=== PATIENT | female | born 1955 | race Caucasian/White ===

== ENCOUNTER 2017-06-03 15:45 | Emergency (ER) | payer SELFPAY ==
[~2017-06-03] VITALS: Ht 165.1 cm; Wt 127.0 kg
[~2017-06-03 15:45] MED LIST: B COMPLEX1 TA1 PO; BACTRIM DS 8001 TA1 PO; BACTRIM DS 8001 TAB PO; CETIRIZINE10 MG PO; CIPRO 500MG TA500 MG PO; ESTRADIOL1 M1 PO; HORMONE PILL PO; HYDROCODONE-APA1 TA1 PO; IBUPROFEN600 MG PO; IBUPROFEN800 MG PO; KEFLEX 500MG.500 MG PO; LASIX 20MG. TAB20 MG PO; LEVAQUIN500 MG PO; LORTAB 5/500 501 TAB PO; MAXZIDE 25 MG-31 TAB PO; MECLIZINE25 MG PO; MEDROXYPROGEST2.5 M1 PO; MEDROXYPROGEST2.5 MG PO; METFORMIN 500M500 M1 PO; METFORMIN500 MG PO; MUCINEX1200 MG PO; NAPROXEN SODIU500 MG PO; NAPROXEN500 MG PO; OMEPRAZOLE20 MG PO; PERCOCET 5/3251 EACH PO; PHENERGAN 25MG.25 M1 PO; POTASSIUM CHLO20 ME2 PO; PREDNISONE 10MG10 MG PO; PREMARIN 0.60.625 MG PO; PREMARIN2.5 MG PO; PRILOSEC20 M1 PO; Prilosec20 MG PO; RANITIDINE HCL150 MG PO; TESSALON PERLE100 M1 PO; TRAMADOL 512 EACH/PA PO; TRIAMTERENE/HCT1 TA1 PO; ULTRAM50 MG PO; VICODIN 5/500 T1 TAB PO; ZITHROMAX 250M250 MG PO; ZITHROMAX Z PA250 MG PO
--- NOTE | 2017-06-03 16:01 | Urgent Treatment Center Report ---
History of Present Issue Date/Time Seen by Provider 06/03/17 2429 Visit Reason Pt arrived:Walked Presenting Problem:PT STATES FALLING ON 05/05/17 AND TWISTED HER RIGHT KNEE. STATES TODAY SHE WAS ON HER PORCH AND TWISTED RIGHT KNEE AGAIN. STATES TAKING NAPROXEN AT 1000 BUT STATES THAT WAS BEFORE SHE TWISTED HER KNEE Location if Accident:Home Onset of symptoms date/time:06/03/17/ or onset unknown for:MEDICAL HX UNKNOWN Have you (or family members/close friends) recently traveled outside the [place]? N If Yes, where/when: Have you had exposure to infectious disease within the past month? TB? Other? Specify: Patient state that she fell earlier last month and hurt her right knee States that she was on her porch today and saw a snake and was trying to run away from the snake when she twisted her right knee again State that she took Napoxen this morning prior to twisting knee but hasnt taken anything since accident ALLERGIES Coded Allergies: Penicillins (02/27/16) tetanus and diphtheria toxoids (TETANUS & DIPHTHERIA TOXOIDS) (02/27/16) venom-honey bee (BEE VENOM (HONEY BEE)) (02/27/16) Home Medications Active Scripts Omeprazole (Omeprazole 20MG) 20 MG PO DAILY #30 ECC Ref 3 Prov: 10/03/13 Ibuprofen (Ibuprofen 800MG) 800 MG PO QIDP PRN pain #30 TAB Prov: 05/05/17 Reported Medications Hydrochlorothiazide W/Triamter (Triamterene-Hctz 37.5-25 MG Tb) 1 TAB PO DAILY PRN FLUID RETENTION/BLOOD PRESSURE NAPROXEN (NAPROXEN 500MG TAB) 500 MG PO BID Ranitidine Hcl (Ranitidine 150MG) 150 MG PO BID Conjugated Estrogens (Premarin) 2.5 MG PO DAILY Estradiol 1 MG PO DAILY #30 Metformin HCl (Metformin) 500 MG PO BID Medroxyprogesterone Acetate 2.5 MG PO DAILY #30 History Medical History General CAD? No Angina: No [place]: No Hypertension? Yes Hyperlipidemia? No CHF? No DVT? No PE? No COPD? No Asthma? Yes Anemia? No GERD? No Gastric ulcers? No GI Bleed? No Hernia? No Thyroid Problems? No Hypothyroidism? No CVA? No Seizures? No Diabetes? No Renal Insuffiency? No UTI? No Stones? No BPH? No GB Disease: Yes Nephritic Syndrome? No Asplenia? No Hepatitis? No Sickle Cell Disease? No Arthritis? No Migraines? No Cataracts? No Glaucoma? No MRSA? No HIV? No TB? No Anxiety? No Depression? No Cancer? Yes Site: CERVICAL Immunization HX DT/Tetanus Unknown Flu RECD IN [place] Pneumonia Never Had Surgical Hx Previous Surgery?Y TUMOR L SIDE FX L ARM D & C Gallbladder SINUS Family History Family HX Diabetes Yes CAD Yes Hypertension Yes Hyperlipidemia Yes Cancer Yes TB No Social History Smoking Hx Smoker: Never Smoker Tobacco: No Packs/day < 1 Pack Alcohol Alcohol: No Review of Systems All Other Systems Reviewed and Negative Comment Patient state that she fell about a month ago and injuried her right knee States that today she twisted her knee again when she tried to run from a snake Physical Exam Vital Signs Vital Signs Date Time Temp Pulse Resp B/P Pulse O2 O2 Flow FiO2 Ox Delivery Rate 06/03 1550 97.6 84 16 152/86 99 General Appearance normal appearance, WD/WN, no apparent distress Respiratory Status Yes: trachea midline, chest symmetrical, non tender chest. No: respiratory distress. 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 No (patient transfered to ER) Results/Orders Orders Procedure Date/time Status [facility] STABILIZE JOINT/AREA 06/03 1631 Active XRAY/CT/US XRAY/CT/US XRAY knee XR interpretation by reviewed by me Xray Results no fracture seen Progress [facility] Progress Notes Date 06/03/17 Time 1603 Departure Departure Time of Disposition 1604 Disposition DC Home or Self Care(routine) Clinical Impression Primary Impression: Knee sprain Qualifiers: Encounter type: initial encounter Involved ligament of knee: unspecified ligament Laterality: right Qualified Code: S83.91XA - Sprain of unspecified site of right knee, initial encounter Condition STABLE Referrals NO REFERRAL (Family) Patient Instructions DI for Knee Sprain, Knee Sprain Additional Instructions *weight bearing as tolerated *RICE, Rest the extremity, Ice 15-20 minutes 3-4 times daily, Compress- wear the abhay wrap as discussed as much as possible to help reduce swelling and pain, Elevate the extremity when at rest *Abhay wrap is for support and help control swelling, use it except in the shower. Be sure that is not to tight but not to loose either *Elevate when resting *Ibuprofen 800mg every 6-8 hours as needed for pain an inflammation. If need something more can take Tylenol in between doses of Ibuprofen to help Immediately follow up for new or worsening of symptoms, or no noticeable improvement over the next 3-5 days Discharge Counseling Counseled pt/family regarding diagnosis, test results, medications/RX, home care Prescriptions Current Visit Scripts Ibuprofen (Ibuprofen 800MG) 800 MG PO QIDP PRN pain #30 TAB at 9278
--- NOTE | 2017-06-03 16:01 | Urgent Treatment Center Report ---
History of Present Issue Date/Time Seen by Provider 06/03/17 3909 Visit Reason Pt arrived:Walked Presenting Problem:PT STATES FALLING ON 05/05/17 AND TWISTED HER RIGHT KNEE. STATES TODAY SHE WAS ON HER PORCH AND TWISTED RIGHT KNEE AGAIN. STATES TAKING NAPROXEN AT 1000 BUT STATES THAT WAS BEFORE SHE TWISTED HER KNEE Location if Accident:Home Onset of symptoms date/time:06/03/17/ or onset unknown for:MEDICAL HX UNKNOWN Have you (or family members/close friends) recently traveled outside the [place]? N If Yes, where/when: Have you had exposure to infectious disease within the past month? TB? Other? Specify: Patient state that she fell earlier last month and hurt her right knee States that she was on her porch today and saw a snake and was trying to run away from the snake when she twisted her right knee again State that she took Napoxen this morning prior to twisting knee but hasnt taken anything since accident ALLERGIES Coded Allergies: Penicillins (02/27/16) tetanus and diphtheria toxoids (TETANUS & DIPHTHERIA TOXOIDS) (02/27/16) venom-honey bee (BEE VENOM (HONEY BEE)) (02/27/16) Home Medications Active Scripts Omeprazole (Omeprazole 20MG) 20 MG PO DAILY #30 ECC Ref 3 Prov: 10/03/13 Ibuprofen (Ibuprofen 800MG) 800 MG PO QIDP PRN pain #30 TAB Prov: 05/05/17 Reported Medications Hydrochlorothiazide W/Triamter (Triamterene-Hctz 37.5-25 MG Tb) 1 TAB PO DAILY PRN FLUID RETENTION/BLOOD PRESSURE NAPROXEN (NAPROXEN 500MG TAB) 500 MG PO BID Ranitidine Hcl (Ranitidine 150MG) 150 MG PO BID Conjugated Estrogens (Premarin) 2.5 MG PO DAILY Estradiol 1 MG PO DAILY #30 Metformin HCl (Metformin) 500 MG PO BID Medroxyprogesterone Acetate 2.5 MG PO DAILY #30 History Medical History General CAD? No Angina: No [place]: No Hypertension? Yes Hyperlipidemia? No CHF? No DVT? No PE? No COPD? No Asthma? Yes Anemia? No GERD? No Gastric ulcers? No GI Bleed? No Hernia? No Thyroid Problems? No Hypothyroidism? No CVA? No Seizures? No Diabetes? No Renal Insuffiency? No UTI? No Stones? No BPH? No GB Disease: Yes Nephritic Syndrome? No Asplenia? No Hepatitis? No Sickle Cell Disease? No Arthritis? No Migraines? No Cataracts? No Glaucoma? No MRSA? No HIV? No TB? No Anxiety? No Depression? No Cancer? Yes Site: CERVICAL Immunization HX DT/Tetanus Unknown Flu RECD IN [place] Pneumonia Never Had Surgical Hx Previous Surgery?Y TUMOR L SIDE FX L ARM D & C Gallbladder SINUS Family History Family HX Diabetes Yes CAD Yes Hypertension Yes Hyperlipidemia Yes Cancer Yes TB No Social History Smoking Hx Smoker: Never Smoker Tobacco: No Packs/day < 1 Pack Alcohol Alcohol: No Review of Systems All Other Systems Reviewed and Negative Comment Patient state that she fell about a month ago and injuried her right knee States that today she twisted her knee again when she tried to run from a snake Physical Exam Vital Signs Vital Signs Date Time Temp Pulse Resp B/P Pulse O2 O2 Flow FiO2 Ox Delivery Rate 06/03 1550 97.6 84 16 152/86 99 General Appearance normal appearance, WD/WN, no apparent distress Respiratory Status Yes: trachea midline, chest symmetrical, non tender chest. No: respiratory distress. 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 No (patient transfered to ER) Results/Orders Orders Procedure Date/time Status [facility] STABILIZE JOINT/AREA 06/03 1631 Active XRAY/CT/US XRAY/CT/US XRAY knee XR interpretation by reviewed by me Xray Results no fracture seen Progress [facility] Progress Notes Date 06/03/17 Time 1603 Departure Departure Time of Disposition 1604 Disposition DC Home or Self Care(routine) Clinical Impression Primary Impression: Knee sprain Qualifiers: Encounter type: initial encounter Involved ligament of knee: unspecified ligament Laterality: right Qualified Code: S83.91XA - Sprain of unspecified site of right knee, initial encounter Condition STABLE Referrals NO REFERRAL (Family) Patient Instructions DI for Knee Sprain, Knee Sprain Additional Instructions *weight bearing as tolerated *RICE, Rest the extremity, Ice 15-20 minutes 3-4 times daily, Compress- wear the abhay wrap as discussed as much as possible to help reduce swelling and pain, Elevate the extremity when at rest *Abhay wrap is for support and help control swelling, use it except in the shower. Be sure that is not to tight but not to loose either *Elevate when resting *Ibuprofen 800mg every 6-8 hours as needed for pain an inflammation. If need something more can take Tylenol in between doses of Ibuprofen to help Immediately follow up for new or worsening of symptoms, or no noticeable improvement over the next 3-5 days Discharge Counseling Counseled pt/family regarding diagnosis, test results, medications/RX, home care Prescriptions Current Visit Scripts Ibuprofen (Ibuprofen 800MG) 800 MG PO QIDP PRN pain #30 TAB at 6802
--- NOTE | 2017-06-03 16:27 | RADIOLOGY REPORT PS360 ---
KNEE-3 VIEWS-RT COMPARISON: Right knee 05/05/2017 HISTORY: Right knee pain after twisting injury TECHNIQUE: AP lateral and oblique views FINDINGS: There is minor joint space narrowing medially and there is minor spurring of the tibial spines. There is no fracture or loose body. There is mild narrowing of the patellofemoral space. There is no effusion. IMPRESSION: Mild degenerative changes in the medially, no acute pathology noted
[2017-06-03] MEDS ORDERED: IBUPROFEN800 MG PO (16:28)
[2017-06-03 16:40] VITALS: BP 152/86
--- OUTSIDE RECORDS SUMMARY | 2017-06-06 16:42 | External Medical Summary Rpt ---
Author Author , LUDIN NOLAND Address Unknown Phone [email or web address] Care Team Providers Care Slate Cutter Name Role Phone ARNOLD OLU, ARNOLD Unavailable Unavailable OLU ARNOLD OLU, ARNOLD Unavailable Unavailable OLU BESSON JENI, BESSON Unavailable Unavailable JENI JASON ANT, JASON ANT Unavailable Unavailable [facility] Unavailable Unavailable INC, [facility] MÁRQUEZ TOMMY, Unavailable Unavailable MÁRQUEZ TOMMY MÁRQUEZ TOMMY, Unavailable Unavailable MÁRQUEZ TOMMY CELLAROSI - YORBA Unavailable Unavailable PAT, CELLAROSI - YORBA PAT [facility] Unavailable Unavailable [facility], [facility] CHIPPS DEJUAN & Unavailable Unavailable DUBILIER, [facility] DUBILIER LUCRECIA TER, LUCRECIA TER Unavailable Unavailable BALL JOSE ARMANDO, BALL Unavailable Unavailable JOSE ARMANDO BALL JOSE ARMANDO, BALL Unavailable Unavailable JOSE ARMANDO [facility], Unavailable Unavailable [facility] Unavailable Unavailable [facility], [facility] [place] PAT, D[place]AS PAT Unavailable Unavailable ARNOLD MARYCRUZ, Unavailable Unavailable ARNOLD MARYCRUZ ARNOLD MARYCRUZ, Unavailable Unavailable ARNOLD MARYCRUZ [facility], Unavailable Unavailable [facility] Unavailable Un[facility], [facility] Unavailable Un[facility] BAINS MARISA, Unavailable Unavailable BAINS MARISA FALLUJI MATTHEW, FALLUJI Unavailable Unavailable MATTHEW FINE BRA, FINE BRA Unavailable Unavailable ALISON JOLENE, ALISON Unavailable Unavailable JOLENE ALISON JOLENE, ALISON Unavailable Unavailable JOLENE [facility] Unavailable Unavailable [facility], [facility] Unavailable Unavailable [facility], [facility] Unavailable [facility]available EMS, [facility] POMPA URBAN, [facility] U[facility] Unavailable Unavailable [facility] Unavailable Unavailable INC, [facility] Unavailable Unavailable HOSPITAL P, [facility], Unavailable Unavailable [facility] MURTAZA TALBOT, MURTAZA Unavailable Unavailable [facility] Unavailable Unavailable [facility], [facility] May Grover MD, Unavailable Unavailable May PEARSON, IVIS PEARSON Unavailable Unavailable [facility] SMILEY RUSS, SMILEY Unavailable Unavailable RUSS SMILEY RUSS, SMILEY Unavailable Unavailable RUSS JERONIMO JR DWI, JERONIMO Unavailable Unavailable JR DWI [facility] Un[facility] Unavailable [facility], [facility] YULIYA GRE, Unavailable Unavailable YULIYA GRE YULIYA GRE, Unavailable Unavailable YULIYA GRE [facility] Unavailable Unavailable SERVICES, [facility] MCKEMIE JR SUSU, Unavailable Unavailable MCKEMIE JR SUSU SCHMITZ SUSU, SCHMITZ SUSU Unavailable Unavailable [facility] Un[facility] Unavailable [facility], [facility] PICKLESIMER JR LOCO, Unavailable Unavailable [facility] P[facility], Unavailable Unavailable [facility], Unavailable Unavailable [facility] RENUSCH SHAHEED, RENUSCH Unavailable Unavailable SHAHEED SCIFRES ANG, SCIFRES Unavailable Unavailable ANG [facility] Unavailable Unavailable EM[facility]Y PH[facility], [facility] Titus Walters MD, Unavailable Unavailable Titus PAYNE MARISA, KERRY Unavailable Unavailable MARISA KERRY HIGH, KERRY Unavailable Unavailable ANILA KERRY HIGH, KERRY Unavailable Unavailable ANILA [facility] # Unavailable Unavailable [id number], [facility] # [id number] ZACH MORAN, Unavailable Unavailable ZACH MORAN, Unavailable Unavailable ZACH ASHBY, CYNTHIA Unavailable Unavailable SYMONE Purpose Continuity of Care Document - 02-06-2011 through 2016 Problems Code Diagnosis DOS Provider Status [id number] PAIN IN 02-27-2016 [facility] [id number] PAIN IN 02-27-2016 [facility] M7989 OTHER 02-27-2016 [facility] SPECIFIED MEDICAL SOFT TISSUE IMAGING ASS DISORDERS [id number] UNSPECIFIED 02-27-2016 [facility] INITIAL ENCOUNTER [id number] UNSPECIFIED 02-27-2016 [facility] INJURY MEDICAL LEFT FOOT IMAGING ASS INITIAL ENCOUNTER K5289 OT SPEC 11-24-2015 JOSE[facility] RAINES NONINFECTIV E GASTROENTER ITIS & COLITIS J069 ACUTE UPPER 10-31-2015 JOSE[facility] RAINES RESPIRATORY INFECTION UNSPECIFIED B349 VIRAL 10-28-2015 [facility] UNSPECIFIED HOSPITA E876 HYPOKALEMIA 10-28-2015 [facility] J029 ACUTE 10-28-2015 [facility] PHARYNGITIS COMMUNTIY HOSPITA UNSPECIFIED J441 CHRONIC 10-28-2015 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 PULMONARY PHYS DZ W/EXACERBAT ION R000 TACHYCARDIA 10-28-2015 [facility] [place] [facility] UNSPECIF[facility] R05 COUGH 10-28-2015 [facility] [place] [facility] R0602 SHORTNESS 10-28-2015 [facility]- OF BREATH [facility] R079 CHEST PAIN 10-28-2015 [facility]- UNSPECIFIED [place] R0981 NASAL 10-28-2015 [facility] CONGESTION COMMUNTIY HOSPITA R509 FEVER 10-28-2015 [facility]- UNSPECIFIED [place] R9431 ABNORMAL 10-28-2015 [facility] ELECTROCARD COMMUNTIY IOGRAM HOSPITA H6691 OTITIS 10-05-2015 [facility] PH[facility]ANS UNSPECIFIED GROUP RIGHT EAR J0100 ACUTE 10-05-2015 [facility] MAXILLARY PHYSICIANS SINUSITIS GROUP UNSPECIFIED H6690 OTITIS 09-29-2015 JOSEF RAINES MEDIA UNSPECIFIED UNSPECIFIED EAR J0190 ACUTE 09-05-2015 [facility] RAINES SINUSITIS UNSPECIFIED Z0100 ENCOUNTER 08-26-2015 YULIYA EXAM EYES & GRE VISION W/O ABNORMAL FIND 22709 SIMPLE/UNSP 04-20-2015 [facility] ECIFIED PHYSICIANS CHRONIC GROUP SEROUS OTITIS MEDIA 3829 UNSPECIFIED 04-20-2015 COMMUNITY OTITIS ANESTH OF MEDIA [facility] 470 DEVIATED 04-20-2015 [facility] NASAL PHYSICIANS SEPTUM GROUP 4710 POLYP OF 04-20-2015 [facility] NASAL PHYSICIANS CAVITY GROUP 4718 OTHER POLYP 04-20-2015 [facility] 4730 CHRONIC 04-20-2015 [facility] MAXILLARY PHYSICIANS SINUSITIS GROUP 4739 UNSPECIFIED 04-15-2015 [facility] SINUSITIS [facility] P V7283 OTHER 04-15-2015 [facility] P VE EXAMINATION 3831 CHRONIC 03-30-2015 [facility] MASTOIDITIS PHYSICIANS GROUP 84307 DIAB W/O 03-18-2015 [facility] COMP TYPE MEM HOSP II/UNS NOT INC STATED UNCNTRL 3814 NONSUPPRATV 02-23-2015 [facility] OTITIS PHYSICIANS MEDIA NOT GROUP SPEC ACUT/CHRON 4279 UNSPECIFIED 02-23-2015 [facility] CARDIAC PHYSICIANS DYSRHYTHMIA GROUP 3839 UNSPECIFIED 02-06-2015 [facility] MASTOIDITIS INC 4610 ACUTE 02-06-2015 [facility] MAXILLARY MEM HOSP SINUSITIS INC 4779 ALLERGIC 01-26-2015 SMI[facility] RUSS RHINITIS CAUSE UNSPECIFIED 29477 UNSPECIFIED 01-08-2015 [facility] P 4019 UNSPECIFIED 01-08-2015 [facility] P N 7840 HEADACHE 01-08-2015 [facility] P 1101 DERMATOPHYT 11-21-2014 [place] OS[facility] OF FOOT & NAIL ANKLE CE 3569 UNSPEC 11-21-2014 [place] HEREDIT&IDI FOOT & OPATHIC ANKLE CE PERIPHERAL NEUROPATHY 7038 OTHER 11-21-2014 [place] SPECIFIED FOOT & DISEASE OF ANKLE CE NAIL 14649 OSTEOARTHRO 11-21-2014 [place] SIS UNSPEC FOOT & WHETHER ANKLE CE GEN/LOC ANK&FOOT 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 [address] OSTEOARTHRO 10-31-2014 [facility] S UNSPEC COMMUNTIY WHETHER HOSPITA GEN/LOC UNSPEC SITE 43268 GENERALIZED 10-31-2014 [facility] PAIN COMMUNTIY HOSPITA 63771 PAIN IN 10-24-2014 [facility] [place] [facility] FOOT 486 PNEUMONIA, 10-18-2014 [facility] ORGANISM PHYSICIANS UNSPECIFIED GROUP 4660 ACUTE 10-14-2014 ARNOLD OLU BRONCHITIS 6256 FEMALE 10-04-2014 [facility] STRESS PHYSICIANS INCONTINENC GROUP E 55115 OSTEOARTHRO 10-03-2014 JOSEF OLU S INVLV MX SITES BUT NOT SPEC GEN 47645 PAIN IN 10-03-2014 ARNCYNTHIA OLU JOINT, LOWER LEG 4619 ACUTE 08-25-2014 ARNOLD OLU SINUSITIS, UNSPECIFIED 5110 PLEURISY 08-11-2014 ARNOLD OLU WITHOUT MENTION EFFUS/[place] [address] KYPHOSIS 06-27-2014 KERRY ANILA ACQUIRED POSTURAL 7391 NONALLOPATH 06-27-2014 KERRY ANILA IC LESION OF CERVICAL REGION NEC 7392 NONALLOPATH 06-27-2014 KERRY ANILA IC LESION OF THORACIC REGION NEC 7398 NONALLOPATH 06-27-2014 KERRY HIGH IC LESION OF RIB CAGE NEC 6259 UNSPEC 05-20-2014 LIZZY JOSE ARMANDO SYMPTOM ASSOC W/FEMALE GENITAL ORGANS 6271 POSTMENOPAU 05-20-2014 LIZZY JOSE ARMANDO REJI BLEEDING 91956 UNSPECIFIED 05-05-2014 JOSEF RAINES SLEEP APNEA 6272 SYMPTOMATIC 04-18-2014 [facility] MENOPAUSAL/ INC FEMALE CLIMACTERIC STATES 6210 POLYP OF 04-04-2014 [facility] UTERI INC 6268 OTH D/O 04-04-2014 [facility] MENSTRUATIO [facility] HOS[facility] N&OTH ABN INC BLEED FE GNT TRACT 35065 INCOMPLETE 03-25-2014 MÁRQUEZ BLADDER TOMMY EMPTYING 38066 CALCANEAL 03-17-2014 ARNOLD SPUR MARYCRUZ 35764 UNSPECIFIED 03-17-2014 JOSEF RAINES URINARY INCONTINENC E 9178 OTH&UNSPEC 03-17-2014 [facility] SUP INJURY MEM HOSP FOOT&TOES INC W/O MENTION INF 5259 UNSPECIFIED 03-01-2014 ALISON JOLENE DISORDER TEETH&SUPPO RTING STRUCTURES 07473 OTHER 02-01-2014 JOSEF RAINES MALAISE AND FATIGUE 6253 DYSMENORRHE 01-13-2014 BALL JOSE ARMANDO A V720 EXAMINATION 01-12-2014 YULIYA OF EYES GRE AND VISION 35001 OTHER 01-05-2014 ARNOLD ABNORMAL MARYCRUZ FINDING RADIOLOGICA L EXAM BREAST V7612 OTHER 01-05-2014 [facility] SCREENING [facility] MAMMOGRAM INC V7231 ROUTINE 01-01-2014 [facility] GYNECOLOGIC MEM HOSP AL INC EXAMINATION 73701 TRICHOMONAL 12-29-2013 DENNIS ADAN VULVOVAGINI TIS 06111 UNSPECIFIED 12-29-2013 LIZZY JOSE ARMANDO VAGINITIS AND VULVOVAGINI TIS V745 SCREENING 12-29-2013 DENNIS EXAMINATION JR ADAN FOR VENEREAL DISEASE 327.23 327.23 10-03-2013 [place] OBSTRUCTIVE [facility] SLEEP [facility] APNEA (ADULT) (PEDIATRIC) 401.9 401.9 10-03-2013 [place] HYPERTENSIO [facility] N NOS Hospital 427.9 427.9 10-03-2013 [place] CARDIAC [facility] DYSRHYTHMIA Hospital NOS 530.81 530.81 10-03-2013 [place] ESOPHAGEAL [facility] REFLUX Hospital 786.59 786.59 10-03-2013 [place] CHEST PAIN [facility] V14.0 V14.0 10-03-2013 [place] HX-PENICILL [facility] IN ALLERGY Hospital V14.8 V14.8 10-03-2013 [place] HX-DRUG [facility] ALLERGY [facility] Hospital V15.82 V15.82 10-03-2013 [place] HISTORY OF [facility] TOBACCO USE [facility] V58.69 V58.69 OTH 10-03-2013 [place] MED,LT,CURR [facility] ENT USE [facility] 786.05 786.05 04-14-2013 [place] SHORTNESS [facility] OF BREATH [facility] 57356 ESOPHAGEAL 12-02-2011 JOSEF RAINES REFLUX 50050 UNS 12-02-2011 HOWARDCYNTHIA RAINES GASTRITIS&G ASTRODUODIT IS W/O MENTION HEMORR 98918 UNSPEC 11-28-2011 ALISON JOLENE VENTRAL JUHI W/O MENTION OBST/GANGRE N 5589 OTH&UNSPEC 11-08-2011 JOSEF RAINES NONINFECTIO US GASTROENTER ITIS&COLITI S 82612 OBSTRUCTIVE 11-02-2011 [facility] 69652 UNSPECIFIED 10-04-2011 JOSEF RAINES ENTHESOPATH Y OF ANKLE AND TARSUS 73981 CHOLECYSTIT 08-23-2011 COMMUNITY IS, ANESTH OF UNSPECIFIED THE BLUE 64530 CHRONIC 08-23-2011 [facility] CHOLECYSTIT MEM HOSP IS INC 5756 CHOLESTEROL 08-23-2011 [facility] OF DEJUAN & GALLBLADDER DUBILIER 5758 OTHER 08-20-2011 [facility] DISORDER OF HOSPITAL P GALLBLADDER 33777 ABDOMINAL 08-17-2011 JOSEF RAINES PAIN, GENERALIZED 74996 ABDOMINAL 08-15-2011 [facility] PAIN, MEDICAL EPIGASTRIC IMAGING ASS 5770 ACUTE 08-14-2011 [place] [facility] 8830 OPEN WOUND 08-13-2011 YULIYA FINGER EMERGENCY WITHOUT SERVICES MENTION COMPLICATIO N 7823 EDEMA 07-05-2011 JOSEF RAINES 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 S PHYSICIANS GROUP 21625 NONSPECIFIC 03-07-2011 [facility] P IOGRAM Allergies, Adverse Reactions, Alerts Type Drug Allergy Adverse Reaction to Substance Substance Reaction Severity Penicillin Z-[id number]-BMSB/THROAT Unknown Tetanus Toxoid UNKNOWN REACTION Unknown Medications Na ND Rx Da Fi Fi Am Da Di Ph RX Ph St me C No te ll ll ou ys ag ar # ys at rm s nt no ma ic us Or Da si cy ia de te s n re d 63 12 0 No PI 73 -0 RI 90 1- Lo N 02 20 ng EC 30 13 er 1 32 Ac 5 ti MG ve TA BL ET TR 00 12 0 No IA 37 -0 MT 81 1- Lo ER 35 20 ng EN 20 13 er E- 1 HC Ac TZ ti ve 37 .5 -2 5 MG TB FL 00 11 1 No OT 00 -3 ON 80 0- Lo IX 92 20 ng 35 13 er IV 5 Ac 40 ti ve MG AL SO 00 11 1 No DI 40 -3 UM 97 0- Lo 98 20 ng CH 30 13 er LO 9 RI Ac DE ti ve 0. 9% SO NOEMY TI ON Sa 63 11 1 No li 80 -3 ne 70 0- Lo 10 20 ng Fl 07 13 er us 5 h Ac 10 ti ML ve Sy ri ng e 66 11 0 No PI 55 -3 RI 30 0- Lo N 00 20 ng 32 10 13 er 5 1 MG Ac ti TA ve BL ET NI 00 11 0 No TR 28 -3 O- 10 0- Lo BI 32 20 ng D 60 13 er 2% 8 Ac OI ti NT ve ME NT Sa 63 06 0 No li 80 -1 ne 70 2- Lo 10 20 ng Fl 07 13 er us 5 h Ac 10 ti ML ve Sy ri ng e Na 51 06 0 No pr 07 -1 ox 90 2- Lo en 79 20 ng 52 13 er 50 0 0M Ac G ti Ta ve bl et 00 10 10 0 24 5 WA 44 SC Ac 40 -2 -2 .0 L- 97 HU ti 60 1- 1- 00 MA 07 LS ve 35 20 20 RT 1 TA 70 11 11 D 5 PH CA AR MP MA BE CY LL # K 10 05 91 00 10 10 5 28 28 CL 24 CL Ac 04 -1 -1 .0 IN 76 AR ti 60 8- 8- 00 IC 67 KE ve 87 20 20 51 11 11 PH DE 1 AR RE MA K CY J LL C CI 00 10 10 0 20 10 WA 71 BE Ac FL 37 -1 -1 .0 L- 39 SS ti OF 87 5- 5- 00 MA 04 ON ve LO 09 20 20 RT 4 XA [address] CI 1 PH EP N AR HE HC MA N L CY A 50 # 0 MG 10 05 TA 91 B 00 10 10 0 20 5 WA 44 BE Ac 40 -1 -1 .0 L- 96 SS ti 60 4- 4- 00 MA 91 ON ve 35 20 20 RT [address] 5 PH EP AR HE MA N CY A # 10 05 91 TR 00 09 09 5 30 30 WA 71 AR Ac IA 78 -0 -2 .0 L- 33 NO ti MT 11 2- 9- 00 MA 55 LD ve ER 00 20 20 RT 7 EN 80 11 11 RI E- 1 PH CH HC AR AR TZ MA D CY W 75 # -5 0 10 MG 05 91 TA B 00 04 09 6 28 28 CL 23 CL Ac 04 -2 -1 .0 IN 72 AR ti 60 6- 3- 00 IC 87 KE ve 87 20 20 51 11 11 PH DE 1 AR RE MA K CY J LL C TR 00 09 09 5 30 30 WA 71 AR Ac IA 78 -0 -0 .0 L- 33 NO ti MT 11 2- 2- 00 MA 55 LD ve ER 00 20 20 RT 7 EN 80 11 11 RI E- 1 PH CH HC AR AR TZ MA D CY W 75 # -5 0 10 MG 05 91 TA B 00 04 08 6 28 28 CL 23 CL Ac 04 -2 -1 .0 IN 72 AR ti 60 6- 7- 00 IC 87 KE ve 87 20 20 51 11 11 PH DE 1 AR RE MA K CY J LL C 00 07 07 0 8. 2 WA 44 GA Ac 40 -3 -3 00 L- 95 IN ti 60 0- 0- 0 MA 29 EY ve 35 20 20 RT 5 70 11 11 AZ 5 PH CH AR AE MA L CY S # 10 05 91 00 07 07 0 12 2 WA 44 GR Ac 40 -2 -2 .0 L- 95 AY ti 60 2- 2- 00 MA 14 ve 35 20 20 RT 4 RO 70 11 11 BE 5 PH RT AR B MA CY # 10 05 91 00 04 07 6 28 28 CL 23 CL Ac 04 -2 -2 .0 IN 72 AR ti 60 6- 1- 00 IC 87 KE ve 87 20 20 51 11 11 PH DE 1 AR RE MA K CY J LL C DO 00 06 06 0 20 10 CL 24 LA Ac XY 14 -2 -2 .0 IN 11 WS ti CY 33 8- 9- 00 IC 97 ON ve CL 14 20 20 IN 25 11 [address] HY MA OR CL CY G AT E LL 10 C 0 MG CA P FL 00 06 06 0 21 6 CL 24 LA Ac ED 60 -2 -2 .0 IN 12 WS ti NI 35 9- 9- 00 IC 07 ON ve SO 33 20 20 NE 72 11 11 PH [address] MA OR MG CY G TA LL BL C ET 00 04 06 6 28 28 CL 23 CL Ac 04 -2 -2 .0 IN 72 AR ti 60 6- 4- 00 IC 87 KE ve 87 20 20 51 11 11 PH DE 1 AR RE MA K CY J LL C TR 00 06 06 5 80 15 WA 71 AR Ac IA 16 -1 -1 .0 L- 23 NO ti MC 80 6- 6- 00 MA 45 LD ve IN 00 20 20 RT 7 OL 48 11 11 RI ON 0 PH CH E AR AR 0. MA D 1% CY W # CR EA 10 M 05 91 00 04 05 6 28 28 CL 23 CL Ac 04 -2 -2 .0 IN 72 AR ti 60 6- 5- 00 IC 87 KE ve 87 20 20 51 11 11 PH DE 1 AR RE MA K CY J LL C AZ 00 05 05 0 6. 5 CL 23 LA Ac IT 78 -1 -1 00 IN 88 WS ti HR 11 9- 9- 0 IC 72 ON ve OM 49 20 20 YC 66 11 11 PH IN [address] MA OR 25 CY G 0 MG LL C TA BL ET FL 00 05 05 0 21 6 CL 23 LA Ac ED 60 -1 -1 .0 IN 88 WS ti NI 35 9- 9- 00 IC 77 ON ve SO 33 20 20 NE 73 11 11 PH [address] MA OR MG CY G TA LL BL C ET ME 00 05 05 0 21 6 WA 71 LA Ac TH 60 -0 -0 .0 L- 18 WS ti YL 34 5- 5- 00 MA 05 ON ve FL 59 20 20 RT 6 ED 31 [address] SO AR OR LO MA G NE CY 4 # MG 10 05 DO 91 SE PK AZ 00 05 05 0 4. 4 CL 23 GA Ac IT 78 -0 -0 00 IN 78 IN ti HR 11 5- 5- 0 IC 95 EY ve OM 49 20 20 YC 66 11 11 PH AZ IN 8 AR CH MA AE 25 CY L 0 S MG LL C TA BL ET CE 45 04 04 0 30 30 CL 23 AR Ac TI 80 -2 -2 .0 IN 73 NO ti RI 20 7- 7- 00 IC 20 LD ve ZI 91 20 20 NE 98 11 11 PH RI 7 AR CH HC MA AR L CY D 10 W LL MG C TA BL ET 00 04 04 6 28 28 CL 23 CL Ac 04 -2 -2 .0 IN 72 AR ti 60 6- 6- 00 IC 87 KE ve 87 20 20 51 11 11 PH DE 1 AR RE MA K CY J LL C Vital Signs 10-03-2013 12:32 Name Value Interpretat Reference Comment ion Range Body 98.3 [degF] Temperature BP 69 mm[Hg] Diastolic BP Systolic 117 mm[Hg] Heart 66 /min Rate/Pulse Respiratory 18 /min Rate 10-03-2013 11:29 Name Value Interpretat Reference Comment ion Range O2% 96 % 10-02-2013 21:50 Name Value Interpretat Reference Comment ion Range Height 165.10 cm Weight 120.685 kg Measured 10-02-2013 19:34 Name Value Interpretat Reference Comment ion Range Body 98.7 [degF] Temperature BP 76 mm[Hg] Diastolic BP Systolic 138 mm[Hg] Heart 85 /min Rate/Pulse O2% 97 % Respiratory 20 /min Rate Weight 0 [oz_av] Measured 04-14-2013 15:54 Name Value Interpretat Reference Comment ion Range Body 9.1 [degF] Temperature BP 86 mm[Hg] Diastolic BP Systolic 141 mm[Hg] Heart 72 /min Rate/Pulse O2% 98 % Respiratory 20 /min Rate 04-14-2013 12:30 Name Value Interpretat Reference Comment ion Range BP 69 mm[Hg] Diastolic BP Systolic 119 mm[Hg] Heart 79 /min Rate/Pulse O2% 98 % Respiratory 20 /min Rate Results Labs Lab Lab Date Result Refere Interp Status Commen Order Detail nces retati t Range on COMPREHENSIVE METABOLIC PANEL (10-02-2013 19:54) Glucose 126 74-106 complet 013 mg/dL ed Bld-mCn 19:54 c BUN 10-02- 13 7-18 complet Bld-mCn 013 mg/dL ed c 19:54 Creat 2 1.4 0.6-1.0 complet SerPl-m 013 mg/dL ed Cnc 19:54 GFR/BSA 39 59- complet .pred 013 ML/MIN ed SerPl 19:54 Schwart z-vRate Sodium 139 136-145 complet SerPl-s 013 mmoL/L ed Cnc 19:54 Potassi 3.3 3.5-5.1 complet um 013 mmoL/L ed SerPl-s 19:54 Cnc Chlorid 102 98-107 complet e 013 mmoL/L ed SerPl-s 19:54 Cnc CO2 28 21.0-32 complet SerPl-s 013 mmoL/L .0 ed Cnc 19:54 Calcium 7.8 8.5-10. complet 013 mg/dL 1 ed SerPl-m 19:54 Cnc Prot 6.7 6.4-8.2 complet SerPl-m 013 gm/dL ed Cnc 19:54 Albumin 3.3 3.4-5.0 complet 013 gm/dL ed SerPl-m 19:54 Cnc Globuli 3.4 1.3-3.2 complet n 013 gm/dL ed Ser-mCn 19:54 c Albumin 1.0 UNK 1.1-1.8 complet /Glob 013 ed SerPl-m 19:54 Rto Bilirub 2 0.5 0.2-1.0 complet 013 mg/dL ed SerPl-m 19:54 Cnc AST 10-02- 17 U/L 15-37 complet SerPl-c 013 ed Cnc 19:54 ALT 10-02- 37 U/L 30-65 complet SerPl-c 013 ed Cnc 19:54 ALP 94 U/L 50-136 complet SerPl-c 013 ed Cnc 19:54 CBC with AUTO DIFF (10-02-2013 19:54) WBC # 11-30-2 6.5 4.8-10. complet Bld 013 K/MM3 8 ed Auto 19:54 RBC # 11-30-2 4.35 4.2-5.4 complet Bld 013 M/mm3 ed Auto 19:54 Hgb 11-30-2 13.8 12.2-16 complet Bld-mCn 013 g/dL .2 ed c 19:54 Hct Fr 11-30-2 38.5 % 37.0-47 complet Bld 013 .0 ed 19:54 MCV RBC 11-30-2 88.5 fl 82.2-97 complet 013 .8 ed 19:54 MCH RBC 11-30-2 31.6 pg 27-31.2 complet Qn 013 ed Auto 19:54 MEAN 11-30-2 35.8 31.8-35 complet CORPUSC 013 g/dl .4 ed ULAR 19:54 HGB CONC RDW RBC 11-30-2 14.1 % 11.5-17 complet Auto 013 .5 ed 19:54 Platele 11-30-2 307 142-424 complet t Bld 013 K/mm3 ed Ql 19:54 Manual MEAN 11-30-2 7.4 fl 7.4-10. complet PLATELE 013 4 ed T 19:54 VOLUME Granulo 11-30-2 78.7 % 37.0-80 complet cytes 013 .0 ed Fr Bld 19:54 Auto LYMPH % 11-30-2 14.6 % 10-50.0 complet 013 ed 19:54 Monocyt 11-30-2 4.7 % 1.7-9.3 complet es Fr 013 ed Bld 19:54 Auto Eosinop 11-30-2 1.7 % 0.1-12. complet hil Fr 013 0 ed Bld 19:54 Auto Basophi 11-30-2 0.3 % 0.1-2.0 complet ls Fr 013 ed Bld 19:54 Auto Granulo 11-30-2 5.1 1.8-7.8 complet cytes # 013 K/mm3 ed Bld 19:54 Auto Lymphoc 11-30-2 1.0 0.7-4.5 complet ytes Fr 013 K/mm3 ed Bld 19:54 Auto Monocyt 11-30-2 0.3 0.1-1.0 complet es # 013 K/mm3 ed Bld 19:54 Auto Eosinop 30-2 0.1 0.0-0.4 complet hil # 013 K/mm3 ed Bld 19:54 Auto Basophi 30-2 0.0 0-0.2 complet ls # 013 K/MM3 ed Bld 19:54 Auto TROPONIN I (04-14-2013 14:45) TROPONI 04-14- Less 0.00-0. complet N I 013 than 06 ed 14:45 0.02 ng/mL BASIC METABOLIC PANEL (04-14-2013 12:18) Glucose 135 74-106 complet 013 mg/dL ed Bld-mCn 12:18 c BUN 14 7-18 complet Bld-mCn 013 mg/dL ed c 12:18 Creat 1.5 0.6-1.0 complet SerPl-m 013 mg/dL ed Cnc 12:18 GFR 36 59- complet (ESTIMA 013 ML/MIN ed STEVEN) 12:18 Sodium 139 136-145 complet SerPl-s 013 mmoL/L ed Cnc 12:18 Potassi 3.5 3.5-5.1 complet um 013 mmoL/L ed SerPl-s 12:18 Cnc Chlorid 101 98-107 complet e 013 mmoL/L ed SerPl-s 12:18 Cnc CO2 31 21.0-32 complet SerPl-s 013 mmoL/L .0 ed Cnc 12:18 Calcium 8.8 8.5-10. complet 013 mg/dL 1 ed SerPl-m 12:18 Cnc TROPONIN I (04-14-2013 12:18) TROPONI 04-14-2 0.00 0.00-0. complet N I 013 ng/mL 06 ed 12:18 CBC with AUTO DIFF (04-14-2013 12:18) WBC # 12-2 7.3 4.8-10. complet Bld 013 K/MM3 8 ed Auto 12:18 RBC # 04-14-2 4.39 4.2-5.4 complet Bld 013 M/mm3 ed Auto 12:18 Hgb 04-14-2 13.1 12.2-16 complet Bld-mCn 013 g/dL .2 ed c 12:18 Hct Fr 12-2 39.1 % 37.0-47 complet Bld 013 .0 ed 12:18 MCV RBC 06-12-2 89.1 fl 82.2-97 complet 013 .8 ed 12:18 MCH RBC -12-2 29.8 pg 27-31.2 complet Qn 013 ed Auto 12:18 MEAN 12-2 33.5 31.8-35 complet CORPUSC 013 g/dl .4 ed ULAR 12:18 HGB CONC RDW RBC -12-2 13.0 % 11.5-17 complet Auto 013 .5 ed 12:18 Platele -12-2 305 142-424 complet t Bld 013 K/mm3 ed Ql 12:18 Manual MEAN 04-14-2 7.4 fl 7.4-10. complet PLATELE 013 4 ed T 12:18 VOLUME Granulo -12-2 66.4 % 37.0-80 complet cytes 013 .0 ed Fr Bld 12:18 Auto LYMPH % -12-2 26.3 % 10-50.0 complet 013 ed 12:18 Monocyt 06-12-2 3.9 % 1.7-9.3 complet es Fr 013 ed Bld 12:18 Auto Eosinop -12-2 2.6 % 0.1-12. complet hil Fr 013 0 ed Bld 12:18 Auto Basophi 06-12-2 0.7 % 0.1-2.0 complet ls Fr 013 ed Bld 12:18 Auto Granulo 06-12-2 4.8 1.8-7.8 complet cytes # 013 K/mm3 ed Bld 12:18 Auto Lymphoc 06-12-2 1.9 0.7-4.5 complet ytes Fr 013 K/mm3 ed Bld 12:18 Auto Monocyt 06-12-2 0.3 0.1-1.0 complet es # 013 K/mm3 ed Bld 12:18 Auto Eosinop 06-12-2 0.2 0.0-0.4 complet hil # 013 K/mm3 ed Bld 12:18 Auto Basophi 06-12-2 0.1 0-0.2 complet ls # 013 K/MM3 ed Bld 12:18 Auto CHLAMYDIA AND GONORRHEA TESTING (03-09-2013 16:00) Chlamyd NEGATIV complet ia 013 E ed trachom 16:00 atis rRNA [Presen ce] in Unspeci fied specime n by Probe & target amplifi cation method Neisser NEGATIV complet ia 013 E ed gonorrh 16:00 oeae rRNA [Presen ce] in Unspeci fied specime n by Probe & target amplifi cation method CHLAMYDIA AND GONORRHEA TESTING (03-09-2013 16:00) COLLECT NA complet OR 013 ed 16:00 ETHNICI WHITE, complet TY 013 NON-HIS ed 16:00 PANIC KIT 08-02-13 complet EXPIRAT 013 ed ION 16:00 DATE SYMPTOM NO complet S 013 ed 16:00 REASON REVISIT complet FOR 013 /ANNUAL ed REQUEST 16:00 FAMILY PLANNIN G VISIT SPECIME URINE complet N 013 ed SOURCE 16:00 PREGNAN NO complet T 013 ed 16:00 CHART NA complet NUMBER 013 ed 16:00 Chlamyd Pending complet ia 013 ed trachom 16:00 atis rRNA [Presen ce] in Unspeci fied specime n by Probe & target amplifi cation method Neisser Pending complet ia 013 ed gonorrh 16:00 oeae rRNA [Presen ce] in Unspeci fied specime n by Probe & target amplifi cation method Procedures Procedure DOS Code Location Performer Comment RADEX 31761 UTAH ARNOLD ANKLE 6 MEDICAL MARYCRU[facility] COMPLETE IMAGING MINIMUM 3 ASS VIEWS RADEX 11336 UTA[facility] ARNOLD FOOT 6 MEDICAL MARYCRUZ COMPLETE IMAGING MINIMUM 3 ASS VIEWS COMPREHEN 78016 [facility] SIVE 5 N N METABOLIC COMMUNTIY COMMUNTIY PANEL HOSPITA HOSPITA BLOOD 64679 [facility] COUNT 5 N N COMPLETE COMMUNTIY COMMUNTIY AUTO&AUTO HOSPITA HOSPITA DIFRNTL WBC RADIOLOGI 21192 [facility] CELLAROSI C 5 MIKE - YORBA EXAMINATI EMERGENCY PAT ON CHEST PHYS SINGLE VIEW FRONTAL AMB A0427 [facility] SERVICE 5 N-GEORGIA N-GEORGIA ALS CO EMS CO EMS EMERGENCY TRANSPORT LEVEL 1 ECG 88733 [facility] CELLARO ROUTINE 5 MIKE - YORBA ECG EMERGENCY PAT W/LEAST PHYS 12 LDS I&R ONLY GROUND A0425 [facility] MILEAGE 5 Chris-GEORGIA Perez-GEORGIA PER CO EMS CO EMS STATUTE MILE PREDNISON J7506 [facility] DIATHERIX E ORAL 5 N PER 5 MG COMMUNTIY LABORATOR HOSPITA IES LLC COLLECTIO 96459 [facility] N VENOUS 5 N N BLOOD COMMUNTIY COMMUNTIY VENIPUNCT HOSPITA HOSPITA URE INJECTION J0696 JOSEF BAHENA 5 OLU OLU CEFTRIAXO NE SODIUM PER 250 MG INJECTION J0696 JOSEF BAHENA 5 OLU OLU CEFTRIAXO NE SODIUM PER 250 MG OPHTH 23679 [facility] 5 GRE GRE XM&EVAL COMPRHNSV ESTAB PT 1/> ANESTHESI 99679 [facility] KERRY A NOSE & 5 ANESTH MARISA ACCESSORY OF THE SINUSES BLUE NOS TYMPANOST [address]8850 [facility] BENITEZ 5 PHYSICIAN RUSS GENERAL S GROUP ANESTHESI A NSL/SINUS 80196 [facility] NDSC MAX 5 PHYSICIAN PHYSICIAN ANTROST S GROUP S GROUP W/RMVL TISS MAX SINUS LEVEL III 37378 [facility], LUCRECIA TER SURG 5 [facility] PATHOLOGY GROSS&[place] [address] [facility], LUCRECIA TER SURG 5 [facility] PATHOLOGY GROSS&JOLENE ROSCOPIC EXAM ECG 87649 NIDIA JACOB ROUTINE 5 [facility] ECG INC INC W/LEAST 12 LDS TRCG ONLY W/O I&R COLLECTIO 81006 NIDIA JACOB N VENOUS 5 [facility] BLOOD INC INC VENIPUNCT URE ECG 81753 NIDIA DECKER JR ROUTINE 5 [facility] W/LEAST P 12 LDS I&R ONLY BASIC 78766 NIDIA JACOB METABOLIC 5 [facility] PANEL INC INC CALCIUM TOTAL BLOOD 03429 NIDIA JACOB COUNT 5 [facility] COMPLETE INC INC AUTO&AUTO DIFRNTL WBC HEMOGLOBI 07409 NIDIA JACOB N 5 [facility] GLYCOSYLA INC INC STEVEN A1C COLLECTIO 30256 NIDIA JACOB N VENOUS 5 [facility] BLOOD INC INC VENIPUNCT URE TYMPANOME 08362 BALJIT SMILEY TRY 5 RUSS RUSS DISTORT 75500 BALJIT SMILEY PRODUCT 5 RUSS RUSS EVOKED OTOACOUST IC EMISNS LIMITD COMPRE 07877 BALJIT GLOVERON AUDIOMETR 5 RUSS RUSS [place] [address] NIDIA JACOB MAXILLOFA 5 [facility] CIAL W/O INC INC CONTRAST MATERIAL RADEX 08530 [place] [facility] FOOT 5 FOOT & COMPLETE ANKLE CE MINIMUM 3 VIEWS WALKING L4360 [place] [facility] BOOT 5 FOOT & PNEUMATC ANKLE CE &/ VACUUM PREFAB CUSTM FIT RADEX 71782 [place] [facility] FOOT 4 FOOT & COMPLETE ANKLE CE MINIMUM 3 VIEWS TRIMMING 75185 [place] [facility]INE BRA NONDYSTRO 4 FOOT & PHIC ANKLE CE NAILS ANY NUMBER COLLECTIO 88449 [facility] N VENOUS 4 N N BLOOD COMMUNTIY COMMUNTIY VENIPUNCT HOSPITA HOSPITA URE RHEUMATOI 91310 [facility] D FACTOR 4 N N QUALITATI COMMUNTIY COMMUNTIY VE HOSPITA HOSPITA MRI LOWER 56527 [facility] EXTREM 4 [place] [facility] OTH/THN ORTHOPAED JT W/O [facility]CS PLC CONTR MATRL THERAPEUT 90156 [facility] IC 4 PHYSICIAN PHYSICIAN PROPHYLAC S GROUP S GROUP TIC/DX INJECTION SUBQ/IM INJECTION J1040 [facility] ALISON 4 PHYSICIAN JOLENE METHYLPRE S GROUP DNISOLONE ACETATE 80 MG RADEX 20702 [facility] [place] FOOT 4 [place] COMPLETE ORTHOPAED MINIMUM 3 ICS PLC VIEWS CHIROPRAC 18939 KERRY PAYNE TIC 4 ANILA ANILA MANIPULAT OSVALDO [place] SPINAL 1-2 REGIONS CHIROPRAC 86800 KERRY KERRY TIC 4 ANILA ANILA MANIPULAT [place] SPINAL 1-2 REGIONS CHIROPRAC 24393 KERRY KERRY TIC 4 ANILA ANILA MANIPULAT [place] SPINAL 1-2 REGIONS CHIROPRAC 28867 KERRY KERRY TIC 4 ANILA ANILA MANIPULAT OSVALDO [place] SPINAL 1-2 REGIONS THERAPEUT 84979 KERRY KERRY IC PX 1/> 4 ANILA ANILA AREAS EACH 15 MIN EXERCISES THERAPEUT 25898 KERRY KERRY IC PX 1/> 4 ANILA ANILA AREAS EACH 15 MIN EXERCISES CHIROPRAC 56867 KERRY KERRY TIC 4 ANILA ANILA MANIPULAT OSVALDO TX SPINAL 1-2 REGIONS APPL 09517 KERRY KERRY MODALITY 4 ANILA ANILA 1/> AREAS TRACTION MECHANICA L CHIROPRA 91367 KERRY KERRY TIC 4 ANILA ANILA MANIPULAT OSVALDO TX SPINAL 1-2 REGIONS THERAPEUT 63657 KERRY KERRY IC PX 1/> 4 ANILA ANILA AREAS EACH 15 MIN EXERCISES CHIROPRAC 75615 KERRY KERRY TIC 4 ANILA ANILA MANIPULAT OSVALDO TX SPINAL 1-2 REGIONS CHIROPRAC 48121 KERRY KERRY TIC 4 ANILA ANILA MANIPULAT OSVALDO TX SPINAL 1-2 REGIONS CHIROPRAC 29785 KERRY KERRY TIC 4 ANILA ANILA MANIPULAT OSVALDO TX SPINAL 1-2 REGIONS CHIROPRAC 38894 KERRY KERRY TIC 4 ANILA ANILA MANIPULAT OSVALDO TX SPINAL 1-2 REGIONS THERAPEUT 12358 KERRY KERRY IC PX 1/> 4 ANILA ANILA AREAS EACH 15 MIN EXERCISES CHIROPRAC 19126 KERRY KERRY TIC 4 ANILA ANILA MANIPULAT OSVALDO TX SPINAL 1-2 REGIONS THERAPEUT 98796 KERRY KERRY IC PX 1/> 4 ANILA ANILA AREAS EACH 15 MIN EXERCISES GONADOTRO 90102 NIDIA JACOB PIN 4 [facility] LUTEINIZI INC INC NG HORMONE GONADOTRO 20709 NIDIA GARCIAON PIN 4 [facility] FOLLICLE INC INC STIMULATI NG HORMONE CHIROPRAC 34880 KERRY EKRRY TIC 4 ANILA ANILA MANIPULAT OSVALDO [place] SPINAL 1-2 REGIONS THERAPEUT 93759 KERRY KERRY IC PX 1/> 4 ANILA ANILA AREAS EACH 15 MIN EXERCISES THERAPEUT 69412 KERRY PAYNE IC PX 1/> 4 ANILA ANILA AREAS EACH 15 MIN EXERCISES CHIROPRAC 05007 KERRY PAYNE TIC 4 ANILA ANILA MANIPULAT OSVALDO [place] SPINAL 1-2 REGIONS CHIROPRAC 26763 KERRY PAYNE TIC 4 ANILA ANILA MANIPULAT OSVALDO TX SPINAL 1-2 REGIONS THERAPEUT 85667 KERRY PAYNE IC PX 1/> 4 ANILA ANILA AREAS EACH 15 MIN EXERCISES HYSTEROSC 81733 LIZZY BALL OPY BX 4 JOSE ARMANDO JOSE ARMANDO ENDOMETRI UM&/POLYP C W/WO D&C INJECTION J2405 NIDIA JACOB 4 [facility] ONDANSETR INC INC ON HCL PER 1 [place] [address] [facility], MURTAZA SURG 4 [facility] PATHOLOGY GROSS&JOLENE ROSCOPIC EXAM ECG 45268 NIDIA RAE ROUTINE 4 [facility] DIAGNOSTI ECG INC CS W/LEAST 12 LDS TRCG ONLY W/O I&R BASIC 88839 NIDIA JACOB METABOLIC 4 [facility] PANEL INC INC CALCIUM TOTAL ECG 66268 JERONIMO NUNEZ JERONIMO JR ROUTINE 4 DWI DWI ECG W/LEAST 12 LDS I&R ONLY BLOOD 58521 NIDIA JACOB COUNT 4 [facility] COMPLETE INC INC AUTO&AUTO DIFRNTL WBC CHIROPRAC 80816 KERRY PAYNE TIC 4 ANILA ANILA MANIPULAT OSVALDO TX SPINAL 1-2 REGIONS THERAPEUT 87939 KERRY PAYNE IC PX 1/> 4 ANILA ANILA AREAS EACH 15 MIN EXERCISES THERAPEUT 37125 KERRY PAYNE IC PX 1/> 4 ANILA ANILA AREAS EACH 15 MIN EXERCISES CHIROPRAC 16128 KERRY PAYNE TIC 4 ANILA ANILA MANIPULAT OSVALDO [place] SPINAL 1-2 REGIONS BRYAN 59598 MÁRQUEZ MÁRQUEZ POST-VOID 4 TOMMY TOMMY ING RESIDUAL URINE&/BL ADDER CAP CHIROPRAC 24065 KERRY PAYNE TIC 4 ANILA ANILA MANIPULAT OSVALDO [place] SPINAL 1-2 REGIONS THERAPEUT 76167 KERRY PAYNE IC PX 1/> 4 ANILA ANILA AREAS EACH 15 MIN EXERCISES THERAPEUT 48421 KERRY PAYNE IC PX 1/> 4 ANILA ANILA AREAS EACH 15 MIN EXERCISES CHIROPRAC 93178 KERRY PAYNE TIC 4 ANILA ANILA MANIPULAT OSVALDO [place] SPINAL 1-2 REGIONS APPL 47027 KERRY KERRY MODALITY 4 ANILA ANILA 1/> AREAS TRACTION MECHANICA L RADEX 52149 NIDIA JACOB FOOT 4 [facility] COMPLETE INC INC MINIMUM 3 VIEWS APPL 67897 KERRY KERRY MODALITY 4 ANILA ANILA 1/> AREAS TRACTION MECHANICA L CHIROPRAC 28357 KERRY PAYNE TIC 4 ANILA ANILA MANIPULAT OSVALDO [place] SPINAL 1-2 REGIONS APPL 88228 KERRY KERRY MODALITY 4 ANILA ANILA 1/> AREAS ELEC STIMJ UNATTENDE D THERAPEUT 30473 KERRY PAYNE IC PX 1/> 4 ANILA ANILA AREAS EACH 15 MIN EXERCISES THERAPEUT 74495 KERRY PAYNE IC PX 1/> 4 ANILA ANILA AREAS EACH 15 MIN EXERCISES APPL 65007 KERRY KERRY MODALITY 4 ANILA ANILA 1/> AREAS ELEC STIMJ UNATTENDE D CHIROPRAC 28372 KERRY PAYNE TIC 4 ANILA ANILA MANIPULAT OSVALDO [place] SPINAL 1-2 REGIONS APPL 78402 KERRY PAYNE MODALITY 4 ANILA ANILA 1/> AREAS TRACTION MECHANICA L ENDOMETRI 26120 LIZZY BALL AL BX 4 JOSE ARMANDO JOSE ARMANDO W/WO ENDOCERVI X BX W/O DILAT SPX THERAPEUT 41358 KERRY PAYNE IC PX 1/> 4 ANILA ANILA AREAS EACH 15 MIN EXERCISES CHIROPRAC 27266 KERRY PAYNE TIC 4 ANILA ANILA MANIPULAT [place]DO [place] SPINAL 1-2 REGIONS APPL 09939 KERRY KERRY MODALITY 4 ANILA ANILA 1/> AREAS ELEC STIMJ UNATTENDE D APPL 80740 KERRY KERRY MODALITY 4 ANILA ANILA 1/> AREAS TRACTION MECHANICA L APPL 60770 KERRY KERRY MODALITY 4 ANILA ANILA 1/> AREAS TRACTION MECHANICA L APPL 19554 KERRY KERRY MODALITY 4 ANILA ANILA 1/> AREAS ELEC STIMJ UNATTENDE D CHIROPRAC 50228 KERRY PAYNE TIC 4 ANILA ANILA MANIPULAT OSVALDO TX SPINAL 1-2 REGIONS THERAPEUT 79863 KERRY PAYNE IC PX 1/> 4 ANILA ANILA AREAS EACH 15 MIN EXERCISES CHIROPRAC 70969 KERRY PAYNE TIC 4 ANILA ANILA MANIPULAT OSVALDO [place] SPINAL 1-2 REGIONS APPL 32772 KERRY PAYNE MODALITY 4 ANILA ANILA 1/> AREAS ELEC STIMJ UNATTENDE D APPL 27802 KERRY PAYNE MODALITY 4 ANILA ANILA 1/> AREAS TRACTION MECHANICA L SALINE 78216 LIZZY BALL INFUS 4 JOSE ARMANDO JOSE ARMANDO SONOHYSTE ROGRAPHY W/COLOR DOPPLER INJECTION J3420 JOSEF LAWRENCEOLD VIT B-12 4 OLU OLU CYANOCOBA OVIDIO TO 1000 MCG INJECTION J3420 JOSEF LAWRENCEOLD VIT B-12 4 OLU OLU CYANOCOBA OVIDIO TO 1000 MCG INJECTION J3420 JOSEF LAWRENCEOLD VIT B-12 4 OLU OLU CYANOCOBA OVIDIO TO 1000 MCG 79109 LIZZY BALL TRANSVAGI 4 JOSEA RMANDO JOSE ARMANDO NAL DETERMINA 78580 [facility] TI 4 GRE GRE REFRACTIV E STATE OPHTH 50572 [facility] 4 GRE GRE XM&EVAL COMPRHNSV ESTAB PT 1/> DIAGNOSTI G0204 ARNOLD ARNOLD C 4 MARYCRUZ MARYCRUZ MAMMOGRAP HY INCL CAD WHEN PERF; BILAT SCREENING G0202 NIDIA JACOB 4 [facility] MAMMOGRAP INC INC HY AGGIE INCL CAD WHEN PERFORMD COMPUTER- 09784 NIDIA JACOB AIDED 4 [facility] DETECTION INC INC SCREENING MAMMOGRAP HY GONADOTRO 95533 NIDIA JACOB PIN 4 [facility] LUTEINIZI INC INC NG HORMONE BLOOD 20258 NIDIA JACOB COUNT 4 [facility] COMPLETE INC INC AUTO&[place] [address] NIDIA JACOB FREE 4 [facility] [place] [address] NIDIA JACOB THYROID 4 [facility] STIMULATI INC INC NG HORMONE TSH COMPREHEN 02118 NIDIA JACOB SIVE 4 [facility] METABOLIC INC INC PANEL LIPID 12303 NIDIA JACOB PANEL 4 [facility] INC INC GONADOTRO 06174 NIDIA JACOB PIN 4 [facility] FOLLICLE INC INC STIMULATI NG HORMONE URINE 59972 LIZZY BALL 4 JOSE ARMANDO JOSE ARMANDO TEST VISUAL COLOR CMPRSN METHS SMR PRIM 19882 LIZZY BALL SRC WET 4 JOSE ARMANDO JOSE ARMANDO MOUNT NFCT AGT IADNA 80405 PICKLESIM PICKLESIM CHLAMYDIA 4 ER JR LOCO ER JR LOCO TRACHOMAT IS AMPLIFIED PROBE TQ IADNA 31597 P[facility] PICKLESIM NEISSERIA 4 ER JR LOCO ER JR LOCO GONORRHOE AE AMPLIFIED PROBE TQ CYTP C/V 81043 PICKLESIM PICKLESIM AUTO THIN 4 ER JR LOCO ER JR LOCO LYR PREPJ SCR MNL RESCR PHYS CONTINUOU E0601 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 S 1 HOME HOME POSITIVE MEDICAL MEDICAL AIRWAY EQUIP EQUIP PRESSURE DEVICE LEVEL III 61977 [facility] SURG 1 DEJUAN & PATHOLOGY DUBILIER GROSS&JOLENE ROSCOPIC EXAM INJECTION J2405 NIDIA JACOB 1 [facility] ONDANSETR INC INC ON HCL PER 1 MG URINE 82734 NIDIA JACOB 1 [facility] TEST INC [place] [address] NIDIA JACOB INFUSION 1 [facility] THERAPY INC INC PROPHYLAX IS/DX EA HOUR ANES 41416 [facility] SCH[facility] SUSU INTRAPERI 1 ANESTH TONEAL OF THE UPPER BLUE ABDOMEN W/LAPS NOS LAPAROSCO 08676 NIDIA JACOB PY SURG 1 [facility] CHOLECYST INC INC ECTOMY LAPAROSCO 5123 NIDIA JACOB PIC 1 [facility] CHOLECYST INC INC ECTOMY ECG 40816 NIDIA WALTERS ROUTINE [address] [facility] W/LEAST P 12 LDS I&R ONLY ECG 80781 NIDIA JACOB ROUTINE 1 [facility] ECG INC INC W/LEAST 12 LDS TRCG ONLY W/O I&R HOSPITAL 28040 [facility] DISCHARGE 1 [facility] DAY INTERNAL MANAGEMEN MED T 30 MIN/< [place] [address] KUSH BARRETT ABDOMINAL 1 MEDICAL MARYCRUZ REAL IMAGING TIME ASS W/IMAGE LIMITED SBSQ 78515 [facility] 1 [facility] CARE/DAY INTERNAL 25 MED MINUTES SBSQ 77483 [facility] 1 [facility] CARE/DAY INTERNAL 25 MED MINUTES INITIAL 67475 VIVIENNE GOMEZ ANT INPATIENT 1 MEDICAL CONSULT SERV NEW/ESTAB FOUNDATIO PT 80 MIN INITIAL 85762 [facility] 1 [facility] CARE/DAY INTERNAL 50 MED MINUTES FINE 99933 [facility] PAT NEEDLE 1 DEJUAN & ASPIRATIO DUBILIER N W/O IMAGING GUIDANCE CYTP EVAL 31211 [facility] PAT FINE 1 DEJUAN & NEEDLE DUBILIER ASPIRATE INTERP & REPORT CONTINUOU E0601 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 S 1 HOME HOME POSITIVE MEDICAL MEDICAL AIRWAY EQUIP EQUIP PRESSURE DEVICE OPHTH 51227 [facility] 1 VISION ANG XM&EVAL COMPRE NEW PT 1/> VST MRI ORBIT 51330 NIDIA JACOB FACE & 1 [facility] NECK W/O INC INC & W/CONTRAS T MATRL CONTINUOU E0601 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 S 1 HOME HOME POSITIVE MEDICAL MEDICAL AIRWAY EQUIP EQUIP PRESSURE DEVICE TYMPANOME 07888 SMILEY BALJIT TRY 1 RUSS RUSS COMPRE 28690 BALJIT SMILEY AUDIOMETR 1 RUSS RUSS Y THRESHOLD EVAL SP RECOGNIJ CONTINUOU E0601 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 S 1 HOME HOME POSITIVE MEDICAL MEDICAL AIRWAY EQUIP EQUIP PRESSURE DEVICE POLYSOM 15134 NARA BAINS 6/>YRS 1 MARISA MARISA SLEEP W/CPAP 4/> ADDL TRINI ATTND TUBING A7037 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 USED WITH 1 HOME HOME POSITIVE MEDICAL MEDICAL AIRWAY EQUIP EQUIP PRESSURE DEVICE FULL FACE A7030 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 MASK 1 HOME HOME USED MEDICAL MEDICAL W/POS EQUIP EQUIP ARWAY PRESS DEVICE EA FILTER A7038 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 DISPBL 1 HOME HOME USED MEDICAL MEDICAL W/POS EQUIP EQUIP ARWAY PRESSURE DEVICE FILTER A7039 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 NON 1 HOME HOME DISPBL MEDICAL MEDICAL USED EQUIP EQUIP W/POS ARWAY PRESS DEVICE HUMDIFIR E0562 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 HEATED 1 HOME HOME USED MEDICAL MEDICAL W/POS EQUIP EQUIP ARWAY PRESSURE DEVICE HEADGEAR A7035 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 USED 1 HOME HOME W/POSITIV MEDICAL MEDICAL E AIRWAY EQUIP EQUIP PRESSURE DEVICE POLYSOM 18577 NIDIA JACOB 6/>YRS 1 [facility] SLEEP INC INC W/CPAP 4/> ADDL TRINI ATTND POLYSOM 20265 NARA BAINS 6/>YRS 1 MARISA MARISA SLEEP 4/> ADDL TRINI ATTND POLYSOM 76448 NIDIA JACOB 6/>YRS 1 [facility] SLEEP 4/> INC INC ADDL TRINI ATTND COMPREHEN 45682 NIDIA JACOB SIVE 1 [facility] [place] [address] NIDIA JACOB THYROID 1 [facility] STIMULATI INC INC NG HORMONE TSH BLOOD 29682 NIDIA JACOB COUNT 1 [facility] COMPLETE INC INC AUTO&AUTO DIFRNTL WBC NATRIURET 50672 NIDIA JACOB IC 1 [facility] PEPTIDE INC INC ECG 52060 NIDIA CARR ROUTINE 1 [facility] W/LEAST P 12 LDS I&R ONLY ECHO 99655 [facility] TTC R-T 1 PHYSICIAN MATTHEW 2D S GROUP W/WOM-MOD E COMPL SPEC&COLR D ECG 05549 NIDIA JACOB ROUTINE 1 [facility] ECG INC INC W/LEAST 12 LDS TRCG ONLY W/O I&R ENDOMETRI 89815 WOMEN'S BALL AL BX 1 [facility]ALTH JOSE ARMANDO W/WO CLINIC OF ENDOCERVI LINDA X BX W/O DILAT SPX CYTP 57925 HEMANT MARCOS 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 IES INC IES INC ENHANCEME NT INTERPJ XCPT C/V COMPUTER- 64320 NIDIA JACOB AIDED 1 [facility] DETECTION INC INC SCREENING MAMMOGRAP HY SCREENING G0202 NIDIA JACOB 1 [facility] MAMMOGRAP INC INC HY AGGIE INCL CAD WHEN PERFORMD Encounters Encounter Start End Date Code Location Performer Type Date EMERGENCY 55018 JUAN DAVID WYMAN 6 6 PHYSICIAN SHAHEED CHAVIRA S, PLLC T VISIT HIGH/URGE NT SEVERITY OFFICE 17891 JOSEF PACHECO 6 6 OLU OLU T VISIT 15 MINUTES OFFICE 81610 JOSEF PACHECO 6 6 OLU OLU T VISIT 15 MINUTES OFFICE 80243 JOSEF [facility]CO 5 5 OLU OLU T VISIT 15 MINUTES HOSPITAL [facility] - 5 5 N OUTPATIEN COMMUNTIY T HOSPITA EMERGENCY 34925 [facility] 5 N VISIT COMMUNTIY HIGH HOSPITA SEVERITY& THREAT FUNCJ EMERGENCY 21444 [facility] EMERGENCY PAT T VISIT PHYS HIGH/URGE NT SEVERITY OFFICE 08719 [facility] 5 5 PHYSICIAN RUSS T VISIT S GROUP 10 MINUTES OFFICE 75259 JOSEF PACHECO 5 5 OLU OLU T VISIT 15 MINUTES OFFICE 14491 JOSEF PACHECO 5 5 OLU OLU T VISIT 15 MINUTES HOSPITAL NIDIA - 5 5 [facility] OUTPATIEN INC T OFFICE 24300 [facility] OUTTOM 5 5 PHYSICIAN RUSS T VISIT S GROUP 15 MINUTES OFFICE 70779 ARNOLD ARNOLD OUTPATIEN 5 5 OLU OLU T VISIT 15 MINUTES HOSPITAL NIDIA - 5 5 [facility] OUTPATIEN INC T OFFICE 55630 [facility] BALJIT OUTPATIEN 5 5 PHYSICIAN RUSS T VISIT S GROUP 15 MINUTES HOSPITAL N[facility]IA - 5 5 [facility] OUTPATIEN INC T OFFICE 00223 BALJIT SMILEY OUTPATIEN 5 5 RUSS RUSS T NEW 30 MINUTES HOSPITAL NIDIA - 5 5 [facility] OUTPATIEN INC T EMERGENCY 84429 NIDIA 5 5 [facility] DEPARTMEN INC T VISIT LOW/MODER SEVERITY [facility] - 4 4 N OUTPATIEN COMMUNTIY T [facility] 4 4 FOOT & T NEW 30 ANKLE CE MINUTES OFFICE 04109 [facility] OUTPATIEN 4 4 [place] SY[place]ONE T VISIT ORTHOPAED 15 [facility] MINUTES OFFICE 49854 JOSEF BAHENA OUTPATIJASWANT 4 4 OLU OLU T VISIT 15 MINUTES OFFICE 83463 [facility] CONSULTAT 4 4 [place] ION ORTHOPAED NEW/ESTAB [facility] PATIENT [address] [facility] TARA 4 4 PHYSICIAN T VISIT S GROUP 15 MINUTES OFFICE 47681 JOSEF LINDQUISTPATIEN 4 4 OLU OLU T VISIT 15 MINUTES OFFICE 77193 JOSEF BAHENA OUTPATIEN 4 4 OLU OLU T VISIT 15 MINUTES OFFICE 31717 JOSEF PACHECO 4 4 OLU OLU T VISIT 15 MINUTES OFFICE 77976 LIZZY PACHECO 4 4 JOSE ARMANDO JOSE ARMANDO T VISIT 15 MINUTES OFFICE 94718 JOSEF PACHECO 4 4 OLU OLU T VISIT 15 MINUTES HOSPITAL NIDIA - 4 4 [facility] OUTPATIEN INC T OFFICE 21119 KERRY PACHECO 4 4 ANILA ANILA T VISIT 10 MINUTES HOSPITAL N[facility]IA - 4 4 [facility] OUTPATIEN INC T HOSPITAL NIDIA - 4 4 [facility] OUTPATIEN INC T OFFICE 72317 MÁRQUEZ MÁRQUEZ CONSULTAT 4 4 TOMMY TOMMY ION NEW/ESTAB PATIENT 40 MIN OFFICE 81398 KERRY PACHECO 4 4 ANILA ANILA T VISIT 10 MINUTES OFFICE 74201 JOSEF PACHECO 4 4 OLU OLU T VISIT 15 MINUTES HOSPITAL NIDIA - 4 4 [facility] OUTPATIEN INC T EMERGENCY 42243 ALISON ROSAS 4 4 JOLENE JOLENE DEPARTMEN T VISIT MODERATE SEVERITY OFFICE 83847 KERRY PACHECO 4 4 ANILA ANILA T NEW 30 MINUTES OFFICE 64948 JOSEF PACHECO 4 4 OLU OLU T VISIT 15 MINUTES OFFICE 50129 JOSEF PACHECO 4 4 OLU OLU T VISIT 15 MINUTES OFFICE 82093 JOSEF PACHECO 4 4 OLU OLU T VISIT 15 MINUTES HOSPITAL NIDIA - 4 4 [facility] OUTPATIEN INC T HOSPITAL NIDIA - 4 4 [facility] OUTPATIEN INC T PERIODIC 32533 LIZZY BALL PREVENTIV 4 4 JOSE ARMANDO JOSE ARMANDO E MED EST PATIENT 40-64YRS Inpatient FABIOLA Walters MD (IN) 3 20:02 3 12:20 [facility] Emergency JONI Grover MD (ER) 3 11:55 3 15:55 [facility] OFFICE 31854 ARNOLD ARNOLD OUTPATIEN 2 2 OLU OLU T VISIT 15 MINUTES OFFICE 34651 ALISON ROSAS OUTPATIEN 2 2 JOLENE JOLENE T NEW 30 MINUTES OFFICE 66366 JOSEF BAHENA OUTPATIEN 2 2 OLU OLU T VISIT 15 MINUTES OFFICE 49898 JOSEF BAHENA OUTPATIEN 1 1 OLU OLU T VISIT 15 MINUTES HOSPITAL NIDIA - 1 1 [facility] OUTPATIEN INC T [facility]OSP[facility] NIDIA - 1 1 [facility] OUTPATIEN INC T OFFICE 21635 JOSEF BAHENA OUTPATIEN 1 1 OLU OLU T VISIT 15 MINUTES [facility] - 1 1 [facility] INPATIENT INC EMERGENCY 02876 YULIYA POMPA URBAN 1 1 EMERGENCY DEPARTMEN SERVICES T VISIT MODERATE SEVERITY OFFICE 73084 HOWARDCYNTHIA JOSEF OUTROWENAEN 1 1 OLU OLU T VISIT 15 MINUTES [facility] - 1 1 [facility] OUTPATI[facility] INC T EMERGENCY 42917 NIDIA 1 1 [facility] DEPARTMEN INC T VISIT LOW/MODER SEVERITY EMERGENCY 93721 YULIYA ROSAS 1 1 EMERGENCY JOLENE DEPARTMEN SERVICES T VISIT MODERATE SEVERITY OFFICE 95668 ZACH SERRANO OUTPATIEN 1 1 Nov T NEW 45 MINUTES [facility] N[facility]IA - 1 1 [facility] OUT[facility] INC T EMERGENCY 75630 YULIYA POMPA URBAN 1 1 EMERGENCY DEPARTMEN SERVICES T VISIT MODERATE SEVERITY EMERGENCY 59263 NIDIA 1 1 [facility]PART[facility] T VISIT LOW/MODER SEVERITY [facility]OSP[facility] - 1 1 [facility] OUT[facility] T OFFICE 19932 JOSEF WASHINGTONEN 1 1 OLU OLU T VISIT 15 MINUTES OFFICE 85905 NARA BAINS OUTPATIEN 1 1 MARISA MARISA T NEW 45 MINUTES OFFICE 56113 BALJIT GLOVERON OUTPATIEN 1 1 RUSS RUSS T VISIT 15 MINUTES OFFICE 65613 JOSEF BAHENA OUTPATIEN 1 1 OLU OLU T NEW 30 MINUTES [facility] N[facility]IA - 1 1 [facility] T OFFICE 79497 BALJIT GLOVERON OUTPATIEN 1 1 RUSS RUSS T VISIT 15 MINUTES [facility]IDIA - 1 1 [facility] OUTPATI[facility] INC T EMERGENCY 35341 YULIYA ROSAS 1 1 EMERGENCY [facility] DEPARTMEN SERVICES T VISIT HIGH/URGE NT SEVERITY OFFICE 42333 BALJIT GLOVERON OUTPATIEN 1 1 RUSS RUSS T NEW 30 MINUTES [facility]OSP[facility] NIDIA - 1 1 [facility] OUTPATIEN INC T EMERGENCY 36131 N[facility]IA 1 1 [facility] DEPART[facility] INC T VISIT LOW/MODER SEVERITY [facility]OSPITAL N[facility] - 1 1 [facility] OUT[facility] INC T INITIAL 38614 WOMEN'S BALL PREVENTIV 1 1 [facility] LINDA NEW PATIENT [id number]
--- OUTSIDE RECORDS SUMMARY | 2017-06-06 16:42 | External Medical Summary Rpt ---
Author Author , LUDIN NOLAND Address Unknown Phone [email or web address] Care Team Providers Care Sap Ppm Consultant Name Role Phone ARNOLD OLU, ARNOLD Unavailable Unavailable OLU ARNOLD OLU, ARNOLD Unavailable Unavailable OLU BESSON JENI, BESSON Unavailable Unavailable JEIN JASON ANT, JASON ANT Unavailable Unavailable [facility] Unavailable Unavailable INC, [facility] MÁRQUEZ TOMMY, Unavailable Unavailable MÁRQUEZ TOMMY MÁRQUEZ TOMMY, Unavailable Unavailable MÁRQUEZ TOMMY CELLAROSI - YORBA Unavailable Unavailable PAT, CELLAROSI - YORBA PAT [facility] Unavailable [facility]available [facility] CHIPPS DEJUAN & Unavailable Unavailable DUBILIER, CHIPPS DEJUAN & DUBILIER LUCRECIA TER, LUCRECIA TER Unavailable Unavailable BALL JOSE ARMANDO, BALL Unavailable Unavailable JOSE ARMANDO BALL JOSE ARMANDO, BALL Unavailable Unavailable JOSE ARMANDO [facility], Unavailable Unavailable [facility] Unavailable Unavailable THE [...] JOLENE ALISON JOLENE, ALISON Unavailable Unavailable JOLENE [facility] Unavailable Unavailable [facility], [facility] Unavailable Unavailable EMS, [facility] Unavailable Unavailable EMS, [facility] POMPA URBAN, POMPA URBAN Unavailable Unavailable [facility] Unavailable Unavailable INC, [facility] Unavailable Unavailable HOSPITAL P, [facility], Unavailable Unavailable [facility] MURTAZA TALBOT, MURTAZA Unavailable Unavailable [facility]NA [facility] Unavailable Unavailable IMAGING [facility], [facility] May Grover MD, Unavailable [...] GRE YULIYA GRE, Unavailable Unavailable YULIYA GRE [facility] Unavailable Unavailable SERVICES, [facility] MCKEMIE JR SUSU, Unavailable Unavailable [facility] JR SUSU SCHMITZ SUSU, SCHMITZ SUSU Unavailable Unavailable [facility], Unavailable Unavailable PLL[facility], [facility], [facility], Unavailable Unavailable [facility], Unavailable Unavailable [facility], Unavailable Unavailable [facility] RENUSCH SHAHEED, RENUSCH Unavailable Unavailable SHAHEED SCIFRES ANG, SCIFRES Unavailable Unavailable ANG [facility] Unavailable Unavailable [facility], [facility] Titus Walters MD, Unavailable Unavailable Titus PAYNE MARISA, KERRY Unavailable Unavailable MARIAS KERRY HIGH, KERRY Unavailable Unavailable ANILA KERRY HIGH, KERRY Unavailable Unavailable ANILA [facility] # Unavailable Unavailable [id number], [facility] # [id number] ZACH MORAN, Unavailable Unavailable ZACH MORAN, Unavailable Unavailable ZACH ASHBY, CYNTHIA Unavailable Unavailable SYMONE Purpose Continuity of Care Document - 02-06-2011 through 2016 Problems Code Diagnosis DOS Provider Status [id number] PAIN IN 02-27-2016 [facility] [id number] PAIN IN 02-27-2016 [place] M7989 OTHER 02-27-2016 [place] SPECIFIED MEDICAL SOFT TISSUE IMAGING ASS DISORDERS [id number] UNSPECIFIED 02-27-2016 [facility] LEFT FOOT PLLC INITIAL ENCOUNTER [id number] UNSPECIFIED 02-27-2016 [place] INJURY MEDICAL LEFT FOOT IMAGING ASS INITIAL ENCOUNTER K5289 OT SPEC 11-24-2015 JOSEF RAINES NONINFECTIV E GASTROENTER ITIS & COLITIS J069 ACUTE UPPER 10-31-2015 JOSEF RAINES RESPIRATORY INFECTION UNSPECIFIED B349 VIRAL 10-28-2015 [facility] UNSPECIFIED HOSPITA E876 HYPOKALEMIA 10-28-2015 [facility] J029 ACUTE 10-28-2015 [facility] PHARYNGITIS COMMUNTIY HOSPITA UNSPECIFIED J441 CHRONIC 10-28-2015 [facility] OB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ENCY PULMONARY PHYS DZ W/EXACERBAT ION R000 TACHYCARDIA 10-28-2015 [facility] [place] UNSPECIFIED EMS R05 COUGH 10-28-2015 [facility] [place] [facility] R0602 SHORTNESS 10-28-2015 [facility]- OF BREATH [place] [facility] R079 CHEST PAIN 10-28-2015 [facility]- UNSPECIFIED [place] [facility] R0981 NASAL 10-28-2015 [facility] CONGESTION COMMUNTIY HOSPITA R509 FEVER 10-28-2015 [facility]- U[facility]PECIFIED [place] [facility] R9431 ABNORMAL 10-28-2015 [facility] ELECTROCARD COMMUNTIY IOGRAM HOSPITA H6691 OTITIS 10-05-2015 [facility] MEDIA PHYSICIANS UNSPECIFIED GROUP RIGHT EAR J0100 ACUTE 10-05-2015 [facility] MAXILLARY PHYSICIANS SINUSITIS GROUP UNSPECIFIED H6690 OTITIS 09-29-2015 JOSEF RAINES MEDIA UNSPECIFIED UNSPECIFIED EAR J0190 ACUTE 09-05-2015 JOSEF RAINES SINUSITIS UNSPECIFIED Z0100 ENCOUNTER 08-26-2015 YULIYA EXAM EYES & GRE VISION W/O ABNORMAL FIND 44549 SIMPLE/UNSP 04-20-2015 [facility] ECIFIED PHYSICIANS CHRONIC GROUP SEROUS OTITIS MEDIA 3829 UNSPECIFIED 04-20-2015 [facility] OTITIS ANESTH OF MEDIA THE BLUE 470 DEVIATED 04-20-2015 [facility] NASAL PHYSICIANS SEPTUM GROUP 4710 POLYP OF 04-20-2015 [facility] NASAL PHYSICIANS CAVITY GROUP 4718 OTHER POLYP 04-20-2015 [facility] 4730 CHRONIC 04-20-2015 [facility] MAXILLARY PHYSICIANS SINUSITIS GROUP 4739 UNSPECIFIED 04-15-2015 [place] SINUSITIS [facility] P V7283 OTHER 04-15-2015 [facility] VE EXAMINATION 3831 CHRONIC 03-30-2015 [facility] MASTOIDITIS PHYSICIANS GROUP 83133 DIAB W/O 03-18-2015 [place] COMP TYPE MEM HOS[facility] II/UNS NOT INC STATED UNCNTRL 3814 NONSUPPRATV 02-23-2015 [facility] OTITIS PHYSICIANS MEDIA NOT GROUP SPEC ACUT/CHRON 4279 UNSPECIFIED 02-23-2015 [facility] CARDIAC PHYSICIANS DYSRHYTHMIA GROUP 3839 UNSPECIFIED 02-06-2015 [facility] MASTOIDITIS INC 4610 ACUTE 02-06-2015 [place] MAXILLARY MEM HOSP SINUSITIS INC 4779 ALLERGIC 01-26-2015 S[facility] RUSS RHINITIS CAUSE UNSPECIFIED 90871 UNSPECIFIED 01-08-2015 [facility] P 4019 UNSPECIFIED 01-08-2015 [facility] P N 7840 HEADACHE 01-08-2015 [facility] P 1101 DERMATOPHYT 11-21-2014 [place] OSIS OF FOOT & NAIL ANKLE CE 3569 UNSPEC 11-21-2014 [place] HEREDIT&IDI FOOT & OPATHIC ANKLE CE PERIPHERAL NEUROPATHY 7038 OTHER 11-21-2014 [place] SPECIFIED FOOT & DISEASE OF ANKLE CE NAIL 48901 OSTEOARTHRO 11-21-2014 [place] SIS UNSPEC FOOT & WHETHER ANKLE CE GEN/LOC ANK&FOOT 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[place]ITIS FO[place] [address] OSTEOARTHRO 10-31-2014 [facility] S UNSPEC COMMUNTIY WHETHER HOSPITA GEN/LOC UNSPEC SITE 21844 GENERALIZED 10-31-2014 [facility] PAIN COMMUNTIY HOSPITA 89151 PAIN IN 10-24-2014 [facility] [place] JOINT, [facility]THOPAEDIC ANKLE AND S PLC FOOT 486 PNEUMONIA, 10-18-2014 [facility] ORGANISM PHYSICIANS UNSPECIFIED GROUP 4660 ACUTE 10-14-2014 ARNOLD OLU BRONCHITIS 6256 FEMALE 10-04-2014 [facility] STRESS PHYSICIANS INCONTINENC GROUP E 50599 OSTEOARTHRO 10-03-2014 JOSEF OLU S INVLV MX SITES BUT NOT SPEC GEN 37565 PAIN IN 10-03-2014 ARNCYNTHIA OLU JOINT, LOWER LEG 4619 ACUTE 08-25-2014 ARNOLD OLU SINUSITIS, UNSPECIFIED 5110 PLEURISY 08-11-2014 ARNOLD OLU WITHOUT MENTION EFFUS/[place] [address] KYPHOSIS 06-27-2014 KERRY ANILA ACQUIRED POSTURAL 7391 NONALLOPATH 06-27-2014 KERRY ANILA IC LESION OF CERVICAL REGION NEC 7392 NONALLOPATH 06-27-2014 KERRY ANILA IC LESION OF THORACIC REGION NEC 7398 NONALLOPATH 06-27-2014 KERRY HIGH IC LESION OF RIB CAGE NEC 6259 UNSPEC 05-20-2014 LIZZY JOSE ARMANDO SYMPTOM ASSOC W/FEMALE GENITAL ORGANS 6271 POSTMENOPAU 05-20-2014 LIZZY JOSE ARMANDO REJI BLEEDING 97657 UNSPECIFIED 05-05-2014 JOSEF RAINES SLEEP APNEA 6272 SYMPTOMATIC 04-18-2014 [facility] MENOPAUSAL/ INC FEMALE CLIMACTERIC STATES 6210 POLYP OF 04-04-2014 [facility] UTERI INC 6268 OTH D/O 04-04-2014 [facility] MENSTRUATIO [facility] HOS[facility] N&OTH ABN INC BLEED FE GNT TRACT 27739 INCOMPLETE 03-25-2014 MÁRQUEZ BLADDER TOMMY EMPTYING 05928 CALCANEAL 03-17-2014 ARNOLD SPUR MARYCRUZ 74278 UNSPECIFIED 03-17-2014 JOSEF RAINES URINARY INCONTINENC E 9178 OTH&UNSPEC 03-17-2014 [facility] SUP INJURY MEM HOSP FOOT&TOES INC W/O MENTION INF 5259 UNSPECIFIED 03-01-2014 ALISON JOLENE DISORDER TEETH&SUPPO RTING STRUCTURES 05528 OTHER 02-01-2014 JOSEF RAINES MALAISE AND FATIGUE 6253 DYSMENORRHE 01-13-2014 BALL JOSE ARMANDO A V720 EXAMINATION 01-12-2014 YULIYA OF EYES GRE AND VISION 11935 OTHER 01-05-2014 ARNOLD ABNORMAL MARYCRUZ FINDING RADIOLOGICA L EXAM BREAST V7612 OTHER 01-05-2014 [facility] SCREENING [facility] MAMMOGRAM INC V7231 ROUTINE 01-01-2014 [facility] GYNECOLOGIC MEM HOSP AL INC EXAMINATION 33909 TRICHOMONAL 12-29-2013 DENNIS ADAN VULVOVAGINI TIS 27856 UNSPECIFIED 12-29-2013 LIZZY JOSE ARMANDO VAGINITIS AND VULVOVAGINI TIS V745 SCREENING 12-29-2013 DENNIS EXAMINATION JR ADAN FOR VENEREAL DISEASE 327.23 327.23 10-03-2013 [facility] OBSTRUCTIVE [facility] SLEEP [facility] APNEA (ADULT) (PEDIATRIC) 401.9 401.9 10-03-2013 [facility] HYPERTENSIO [facility] N NOS Hospital 427.9 427.9 10-03-2013 [facility] CARDIAC [facility] DYSRHYTHMIA Hospital NOS 530.81 530.81 10-03-2013 Rover ESOPHAGEAL [facility] REFLUX Hospital 786.59 786.59 10-03-2013 Rover CHEST PAIN [facility] V14.0 V14.0 10-03-2013 Nidia HX-PENICILL [facility] IN ALLERGY Hospital V14.8 V14.8 10-03-2013 Nidia HX-DRUG [facility] ALLERGY [facility] Hospital V15.82 V15.82 10-03-2013 Nidia HISTORY OF [facility] TOBACCO USE [facility] V58.69 V58.69 OTH 10-03-2013 Nidia MED,LT,CURR [facility] ENT USE [facility] 786.05 786.05 04-14-2013 Nidia SHORTNESS [facility] OF BREATH [facility] 83034 ESOPHAGEAL 12-02-2011 JOSEF RAINES REFLUX 67575 UNS 12-02-2011 HOWARDCYNTHIA RAINES GASTRITIS&G ASTRODUODIT IS W/O MENTION HEMORR 02630 UNSPEC 11-28-2011 ALISON JOLENE VENTRAL JUHI W/O MENTION OBST/GANGRE N 5589 OTH&UNSPEC 11-08-2011 JOSEF RAINES NONINFECTIO US GASTROENTER ITIS&COLITI S 03037 OBSTRUCTIVE 11-02-2011 [place] [facility] APNEA MEDICAL EQUIP 81806 UNSPECIFIED 10-04-2011 JOSEF RAINES ENTHESOPATH Y OF ANKLE AND TARSUS 53349 CHOLECYSTIT 08-23-2011 COMMUNITY IS, ANESTH OF UNSPECIFIED THE BLUE 51553 CHRONIC 08-23-2011 [place] CHOLECYSTIT [facility]OS[facility] IS INC 5756 CHOLESTEROL 08-23-2011 [facility] OF DEJUAN & GALLBLADDER DUBILIER 5758 OTHER 08-20-2011 [facility] DISORDER OF HOSPITAL P GALLBLADDER 50638 ABDOMINAL 08-17-2011 JOSEF RAINES PAIN, GENERALIZED 70206 ABDOMINAL 08-15-2011 [place] PAIN, [facility]ICAL EPIGASTRIC IM[facility]ING [facility] 5770 ACUTE [...] 05-28-2011 ZACH UNCERTAIN LUISA BEHAVIOR OF SKIN 85569 HYPERSOMNIA 05-28-2011 ZACH WITH SLEEP LUISA APNEA UNSPECIFIED 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 3674 PRESBYOPIA 05-23-2011 SANG VISION 5272 SIALOADENIT 04-30-[address] [place] [address] NOISE-INDUC 03-21-2011 BALJIT SOLANO ED HEARING LOSS 28540 UNSPECIFIED 03-21-2011 BALJIT SOLANO TINNITUS 7851 PALPITATION 03-07-2011 [facility] S PHYSICIANS GROUP 63398 NONSPECIFIC 03-07-2011 [facility] P IOGRAM Allergies, Adverse Reactions, Alerts Type Drug Allergy Adverse Reaction to Substance Substance Reaction Severity Penicillin O-ZUSAID-USLG/THROAT Unknown Tetanus Toxoid UNKNOWN REACTION Unknown Medications [...] ve 37 .5 -2 5 MG TB RI 00 11 1 No OT 00 -3 [...] 0 20 10 WA 71 BE Ac RI 37 -1 -1 .0 L- 39 SS [...] 20 20 RT 5 70 11 11 OK 5 PH CH AR AE MA L [...] LL 10 C 0 MG CA P RI 00 06 06 0 21 6 CL [...] 0 MG LL C TA BL ET RI 00 05 05 0 21 6 CL [...] 5- 5- 00 MA 05 ON ve RI 59 20 20 RT 6 ED 31 [...] 20 20 YC 66 11 11 PH OK IN 8 AR CH MA AE 25 [...] Procedure DOS Code Location Performer Comment RADEX 25826 [place] ARNOLD ANKLE 6 MEDICAL MARYCRUZ COMPLETE IMAGING MINIMUM 3 ASS VIEWS RADEX 60063 [place] ARNOLD FOOT 6 MEDICAL MARYCRUZ COMPLETE IMAGING MINIMUM 3 ASS VIEWS COMPREHEN 40340 [facility] SIVE 5 N N METABOLIC COMMUNTIY COMMUNTIY PANEL HOSPITA HOSPITA BLOOD 53799 [facility] COUNT 5 N N COMPLETE COMMUNTIY COMMUNTIY AUTO&AUTO HOSPITA HOSPITA DIFRNTL WBC RADIOLOGI 18346 [facility] CELLAROSI C 5 MIKE - YORBA EXAMINATI EMERGENCY PAT ON CHEST PHYS SINGLE VIEW FRONTAL AMB A0427 [facility] SERVICE 5 N-[place] N-[place] ALS CO EMS CO EMS EMERGENCY TRANSPORT LEVEL 1 ECG 26611 [facility] CELLARO ROUTINE 5 MIKE - YORBA ECG EMERGENCY PAT W/LEAST PHYS 12 LDS I&R ONLY GROUND A0425 [facility] MILEAGE 5 Chris-[place] Perez-[place] PER CO EMS CO EMS STATUTE MILE PREDNISON J7506 [facility] DIATHER[facility] E ORAL 5 N PER 5 MG COMMUNTIY LABORATOR HOSPITA IES LLC COLLECTIO 43584 [facility] N VENOUS 5 N N BLOOD COMMUNTIY COMMUNTIY VENIPUNCT HOSPITA HOSPITA URE INJECTION J0696 JOSEF BAHENA 5 OLU OLU CEFTRIAXO NE SODIUM PER 250 MG INJECTION J0696 JOSEF BAHENA 5 OLU OLU CEFTRIAXO NE SODIUM PER 250 MG OPHTH 34218 [facility] 5 GRE GRE XM&EVAL COMPRHNSV ESTAB PT 1/> ANESTHESI 11641 [facility] KERRY A NOSE & 5 ANESTH MARISA ACCESSORY OF THE SINUSES BLUE NOS TYMPANOST 51708 [facility] SMILEY BENITEZ 5 PHYSICIAN RUSS GENERAL S GROUP ANESTHESI A NSL/SINUS 30409 [facility] NDSC MAX 5 PHYSICIAN PHYSICIAN ANTROST S GROUP S GROUP W/RMVL TISS MAX SINUS LEVEL III 75061 [facility], LUCRECIA TER SURG 5 [facility] PATHOLOGY GROSS&[place] [address] [facility], LUCRECIA TER SURG 5 [facility] PATHOLOGY GROSS&JOLENE ROSCOPIC EXAM ECG 00303 [facility] JACOB ROUTINE 5 MEM HOS[facility]OS[facility] ECG INC INC W/LEAST 12 LDS TRCG ONLY W/O I&R COLLECTIO 44276 [facility] JACOB N VENOUS 5 MEM [facility]OS[facility]OS[facility] BLOOD INC INC VENIPUNCT URE ECG 96142 [facility] DECKER JR ROUTINE 5 [facility] W/LEAST P 12 LDS I&R ONLY BASIC 40870 [facility] JACOB METABOLIC 5 MEM HOS[facility]OS[facility] PANEL INC INC CALCIUM TOTAL BLOOD 65479 [facility] JACOB COUNT 5 [facility] COMPLETE INC INC AUTO&AUTO DIFRNTL WBC HEMOGLOBI 48348 N[facility] JACOB N 5 [facility] HOS[facility]OS[facility] GLYCOSYLA INC INC STEVEN A1C COLLECTIO 13988 [facility] JACOB N VENOUS 5 [facility] BLOOD INC INC VENIPUNCT URE TYMPANOME 36453 BALJIT SMILEY TRY 5 RUSS RUSS DISTORT 74189 BALJIT SMILEY PRODUCT 5 RUSS RUSS EVOKED OTOACOUST IC EMISNS LIMITD COMPRE 38170 BALJIT GLOVERON AUDIOMETR 5 RUSS [place] [address] NIDIA JACOB MAXILLOFA 5 [facility] CIAL W/O INC INC CONTRAST MATERIAL RADEX 12543 [place] FINE BRA FOOT 5 FOOT & COMPLETE ANKLE CE MINIMUM 3 VIEWS WALKING L4360 [place] FINE BRA BOOT 5 FOOT & PNEUMATC ANKLE CE &/ VACUUM PREFAB CUSTM FIT RADEX 70782 [place] FINE BRA FOOT 4 FOOT & COMPLETE ANKLE CE MINIMUM 3 VIEWS TRIMMING 88924 [place] FINE BRA NONDYSTRO 4 FOOT & PHIC ANKLE CE NAILS ANY NUMBER COLLECTIO 64533 [facility] N VENOUS 4 N N BLOOD COMMUNTIY COMMUNTIY VENIPUNCT HOSPITA HOSPITA URE RHEUMATOI 59581 [facility] D FACTOR 4 N N QUALITATI COMMUNTIY COMMUNTIY VE HOSPITA HOSPITA MRI LOWER 32224 [facility] [place] EXTREM 4 [place] SYMONE OTH/THN ORTHOPAED JT W/O ICS PLC CONTR MATRL THERAPEUT 85977 [facility] IC 4 PHYSICIAN PHYSICIAN PROPHYLAC S GROUP S GROUP TIC/DX INJECTION SUBQ/IM INJECTION J1040 [facility] ALISON 4 PHYSICIAN JOLENE METHYLPRE S GROUP DNISOLONE ACETATE 80 MG RADEX 05037 [facility] [place] FOOT 4 [place] SYMONE COMPLETE ORTHOPAED MINIMUM 3 ICS PLC VIEWS CHIROPRAC 07826 KERRY PAYNE TIC 4 ANIAL ANILA MANIPULAT OSVALDO [place] SPINAL 1-2 REGIONS CHIROPRAC 06494 KERRY KERRY TIC 4 ANILA ANILA MANIPULAT [place] SPINAL 1-2 REGIONS CHIROPRAC 63187 KERRY KERRY TIC 4 ANILA ANILA MANIPULAT OS[place] SPINAL 1-2 REGIONS CHIROPRAC 04462 KERRY KERRY TIC 4 ANILA ANILA MANIPULAT OSVALDO [place] SPINAL 1-2 REGIONS THERAPEUT 35382 KERRY KERRY IC PX 1/> 4 ANILA ANILA AREAS EACH 15 MIN EXERCISES THERAPEUT 07224 KERRY KERRY IC PX 1/> 4 ANILA ANILA AREAS EACH 15 MIN EXERCISES CHIROPRAC 76784 KERRY KERRY TIC 4 ANILA ANILA MANIPULAT OSVALDO TX SPINAL 1-2 REGIONS APPL 96697 KERRY KERRY MODALITY 4 ANILA ANILA 1/> AREAS TRACTION MECHANICA L CHIROPRA 04184 KERRY KERRY TIC 4 ANILA ANILA MANIPULAT OSVALDO [place] SPINAL 1-2 REGIONS THERAPEUT 35489 KERRY KERRY IC PX 1/> 4 ANILA ANILA AREAS EACH 15 MIN EXERCISES CHIROPRAC 68779 KERRY KERRY TIC 4 ANILA ANILA MANIPULAT OSVALDO [place] SPINAL 1-2 REGIONS CHIROPRAC 48825 KERRY KERRY TIC 4 ANILA ANILA MANIPULAT OSVALDO [place] SPINAL 1-2 REGIONS CHIROPRAC 63219 KERRY KERRY TIC 4 ANILA ANILA MANIPULAT OSVALDO [place] SPINAL 1-2 REGIONS CHIROPRAC 91447 KERRY KERRY TIC 4 ANILA ANILA MANIPULAT OSVALDO TX SPINAL 1-2 REGIONS THERAPEUT 92231 KERRY KERRY IC PX 1/> 4 ANILA ANILA AREAS EACH 15 MIN EXERCISES CHIROPRAC 10169 KERRY KERRY TIC 4 ANILA ANILA MANIPULAT OSVALDO TX SPINAL 1-2 REGIONS THERAPEUT 62516 KERRY KERRY IC PX 1/> 4 ANILA ANILA AREAS EACH 15 MIN EXERCISES GONADOTRO 61776 N[facility] JACOB PIN 4 MEM HOSP MEM HOSP LUTEINIZI INC INC NG HORMONE GONADOTRO 80405 N[facility]IA GARCIAON PIN 4 MEM HOSP MEM HOSP FOLLICLE INC INC STIMULATI NG HORMONE CHIROPRAC 12978 KERRY KERRY TIC 4 ANILA ANILA MANIPULAT OSVALDO TX SPINAL 1-2 REGIONS THERAPEUT 94336 KERRY KERRY IC PX 1/> 4 ANILA ANILA AREAS EACH 15 MIN EXERCISES THERAPEUT 86877 KERRY PAYNE IC PX 1/> 4 ANILA ANILA AREAS EACH 15 MIN EXERCISES CHIROPRAC 64039 KERRY PAYNE TIC 4 ANILA ANILA MANIPULAT OSVALDO TX SPINAL 1-2 REGIONS CHIROPRAC 69671 KERRY APYNE TIC 4 ANILA ANILA MANIPULAT OSVALDO TX SPINAL 1-2 REGIONS THERAPEUT 08520 KERRY PAYNE IC PX 1/> 4 ANILA ANILA AREAS EACH 15 MIN EXERCISES HYSTEROSC 82666 LIZZY BALL OPY BX 4 JOSE ARMANDO JOSE ARMANDO ENDOMETRI UM&/POLYP C W/WO D&C INJECTION J2405 [facility] JACOB 4 MEM HOSP MEM HOSP ONDANSETR INC INC ON HCL PER 1 [place] [address] [facility], MURTAZA SURG 4 [facility] PATHOLOGY GROSS&JOLENE ROSCOPIC EXAM ECG 42075 [facility] RAE ROUTINE 4 MEM HOSP DIAGNOSTI ECG INC CS W/LEAST 12 LDS TRCG ONLY W/O I&R BASIC 83604 [facility] JACOB METABOLIC 4 MEM HOSP [facility]OS[facility] PANEL INC INC CALCIUM TOTAL ECG 60118 JERONIMO NUNEZ JERONIMO JR ROUTINE 4 DWI DWI ECG W/LEAST 12 LDS I&R ONLY BLOOD 65924 [facility] JACOB COUNT 4 MEM HOSP MEM HOS[facility] COMPLETE INC INC AUTO&AUTO DIFRNTL WBC CHIROPRAC 07500 KERRY PAYNE TIC 4 ANILA ANILA MANIPULAT OSVALDO TX SPINAL 1-2 REGIONS THERAPEUT 48959 KERRY PAYNE IC PX 1/> 4 ANILA ANILA AREAS EACH 15 MIN EXERCISES THERAPEUT 16018 KERRY PAYNE IC PX 1/> 4 ANILA ANILA AREAS EACH 15 MIN EXERCISES CHIROPRAC 74201 KERRY PAYNE TIC 4 ANILA ANILA MANIPULAT OSVALDO [place] SPINAL 1-2 REGIONS BRYAN 49904 MÁRQUEZ MÁRQUEZ POST-VOID 4 TOMMY TOMMY ING RESIDUAL URINE&/BL ADDER CAP CHIROPRAC 99762 KERRY PAYNE TIC 4 ANILA ANILA MANIPULAT OSVALDO TX SPINAL 1-2 REGIONS THERAPEUT 09350 KERRY PAYNE IC PX 1/> 4 ANILA ANILA AREAS EACH 15 MIN EXERCISES THERAPEUT 38578 KERRY PAYNE IC PX 1/> 4 ANILA ANILA AREAS EACH 15 MIN EXERCISES CHIROPRAC 74188 KERRY PAYNE TIC 4 ANILA ANILA MANIPULAT OSVALDO [place] SPINAL 1-2 REGIONS APPL 86231 KERRY KERRY MODALITY 4 ANILA ANILA 1/> AREAS TRACTION MECHANICA L RADEX 64016 N[facility]IA JACOB FOOT 4 MEM HOS[facility]OS[facility] COMPLETE INC INC MINIMUM 3 VIEWS APPL 08406 KERRY KERRY MODALITY 4 ANILA ANILA 1/> AREAS TRACTION MECHANICA L CHIROPRAC 61272 KERRY PAYNE TIC 4 ANILA ANILA MANIPULAT OSVALDO TX SPINAL 1-2 REGIONS APPL 97083 KERRY KERRY MODALITY 4 ANILA ANILA 1/> AREAS ELEC STIMJ UNATTENDE D THERAPEUT 73744 KERRY PAYNE IC PX 1/> 4 ANILA ANILA AREAS EACH 15 MIN EXERCISES THERAPEUT 20436 KERRY PAYNE IC PX 1/> 4 ANILA ANILA AREAS EACH 15 MIN EXERCISES APPL 18395 KERRY KERRY MODALITY 4 ANILA ANILA 1/> AREAS ELEC STIMJ UNATTENDE D CHIROPRAC 54956 KERRY PAYNE TIC 4 ANILA ANILA MANIPULAT OSVALDO [place] SPINAL 1-2 REGIONS APPL 09461 KERRY PAYNE MODALITY 4 ANILA ANILA 1/> AREAS TRACTION MECHANICA L ENDOMETRI 65102 LIZZY BALL AL BX 4 JOSE ARMANDO JOSE ARMANDO W/WO ENDOCERVI X BX W/O DILAT SPX THERAPEUT 68247 KERRY PAYNE IC PX 1/> 4 ANILA ANILA AREAS EACH 15 MIN EXERCISES CHIROPRAC 52768 KERRY PAYNE TIC 4 ANILA ANILA MANIPULAT [place]VALDO [place] SPINAL 1-2 REGIONS APPL 63115 KERRY KERRY MODALITY 4 ANILA ANILA 1/> AREAS ELEC STIMJ UNATTENDE D APPL 97454 KERRY KERRY MODALITY 4 ANILA ANILA 1/> AREAS TRACTION MECHANICA L APPL 37437 KERRY KERRY MODALITY 4 ANILA ANILA 1/> AREAS TRACTION MECHANICA L APPL 41521 KERRY KERRY MODALITY 4 ANILA ANILA 1/> AREAS ELEC STIMJ UNATTENDE D CHIROPRAC 44424 KERRY PAYNE TIC 4 ANILA ANILA MANIPULAT [place]VALDO [place] SPINAL 1-2 REGIONS THERAPEUT 36142 KERRY PAYNE IC PX 1/> 4 ANILA ANILA AREAS EACH 15 MIN EXERCISES CHIROPRAC 48689 KERRY PAYNE TIC 4 ANILA ANILA MANIPULAT [place]VALDO [place] SPINAL 1-2 REGIONS APPL 19664 KERRY PAYNE MODALITY 4 ANILA ANILA 1/> AREAS ELEC STIMJ UNATTENDE D APPL 53124 KERRY PAYNE MODALITY 4 ANILA ANILA 1/> AREAS TRACTION MECHANICA L SALINE 28068 LIZZY BALL INFUS 4 JOSE ARMANDO JOSE ARMANDO SONOHYSTE ROGRAPHY W/COLOR DOPPLER INJECTION J3420 JOSEF LAWRENCEOLD VIT B-12 4 OLU OLU CYANOCOBA OVIDIO TO 1000 MCG INJECTION J3420 JOSEF LAWRENCEOLD VIT B-12 4 OLU OLU CYANOCOBA OVIDIO TO 1000 MCG INJECTION J3420 JOSEF LAWRENCEOLD VIT B-12 4 OLU OLU CYANOCOBA OVIDIO TO 1000 MCG 56838 LIZZY BALL TRANSVAGI 4 JOSE ARMANDO JOSE ARMANDO NAL DETERMINA [address] [facility] TI 4 GRE GRE REFRACTIV E STATE OPHTH [address] [facility] 4 GRE GRE XM&EVAL COMPRHNSV ESTAB PT 1/> DIAGNOSTI G0204 ARNOLD ARNOLD C 4 MARYCRUZ MARYCRUZ MAMMOGRAP HY INCL CAD WHEN PERF; BILAT SCREENING G0202 [facility]IA JACOB 4 [facility] MAMMOGRAP INC INC HY AGGIE INCL CAD WHEN PERFORMD COMPUTER- 46924 NIDIA JACOB AIDED 4 [facility] DETECTION INC INC SCREENING MAMMOGRAP HY GONADOTRO 62352 NIDIA JACOB PIN 4 [facility] LUTEINIZI INC INC NG HORMONE BLOOD 32433 NIDIA JACOB COUNT 4 [facility] COMPLETE INC INC AUTO&[place] [address] [facility]IDIA JACOB FREE 4 [facility] [place] [address] NIDIA JACOB THYROID 4 [facility] STIMULATI INC INC NG HORMONE TSH COMPREHEN 50902 NIDIA JACOB SIVE 4 [facility] METABOLIC INC INC PANEL LIPID 35175 NIDIA JACOB PANEL 4 [facility] INC INC GONADOTRO 96364 NIDIA JACOB PIN 4 [facility] FOLLICLE INC INC STIMULATI NG HORMONE URINE 61083 LIZZY BALL 4 JOSE ARMANDO JOSE ARMANDO TEST VISUAL COLOR CMPRSN METHS SMR PRIM 99272 LIZZY BALL SRC WET 4 JOSE ARMANDO JOSE ARMANDO MOUNT NFCT AGT IADNA 13168 PICKLESIM PICKLESIM CHLAMYDIA 4 ER JR LOCO ER JR LOCO TRACHOMAT IS AMPLIFIED PROBE TQ IADNA 55401 PICKLESIM PICKLESIM NEISSERIA 4 ER JR LOCO ER JR LOCO GONORRHOE AE AMPLIFIED PROBE TQ CYTP C/V 44689 PICKLESIM PICKLESIM AUTO THIN 4 ER JR LOCO ER JR LOCO LYR PREPJ SCR MNL RESCR PHYS CONTINUOU E0601 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 S 1 HOME HOME POSITIVE MEDICAL MEDICAL AIRWAY EQUIP EQUIP PRESSURE DEVICE LEVEL III 71128 [facility] [place] VAN SURG 1 DEJUAN & PATHOLOGY DUBILIER GROSS&JOLENE ROSCOPIC EXAM INJECTION J2405 NIDIA JACOB 1 [facility] ONDANSETR INC INC ON HCL PER 1 MG URINE [address] NIDIA JACOB 1 [facility] TEST INC [place] [address] NIDIA JACOB INFUSION 1 [facility] THERAPY INC INC PROPHYLAX IS/DX EA HOUR ANES 47801 [facility] SUSU INTRAPERI 1 ANESTH TONEAL OF THE UPPER BLUE ABDOMEN W/LAPS NOS LAPAROSCO 76451 NIDIA JACOB PY SURG 1 [facility]OSP CHOLECYST INC INC ECTOMY LAPAROSCO 5123 NIDIA JACOB PIC 1 [facility] HOSP CHOLECYST INC INC ECTOMY ECG 72517 NIDIA WALTERS ROUTINE 1 [facility] W/LEAST P 12 LDS I&R ONLY ECG 83402 NIDIA JACOB ROUTINE 1 [facility] HOSP ECG INC INC W/LEAST 12 LDS TRCG ONLY W/O I&R HOSPITAL 43343 [facility] DAY INTERNAL MANAGEMEN MED T 30 MIN/< [place] [address] KUSH BARRETT ABDOMINAL 1 MEDICAL MARYCRUZ REAL IMAGING TIME ASS W/IMAGE LIMITED SBSQ 45621 [facility] 1 [facility] CARE[facility] INTERNAL 25 MED MINUTES SBSQ 85219 [facility] 1 [facility] CARE/DAY INTERNAL 25 MED MINUTES INITIAL 02932 VIVIENNE GOMEZ ANT INPATIENT 1 MEDICAL CONSULT SERV NEW/ESTAB FOUNDATIO PT 80 MIN INITIAL 84227 [facility] 1 [facility] CARE/DAY INTERNAL 50 MED MINUTES FINE 77037 [facility] PAT NEEDLE 1 DEJUAN & ASPIRATIO DUBILIER N W/O IMAGING GUIDANCE CYTP EVAL 71723 [facility] PAT FINE 1 DEJUAN & NEEDLE DUBILIER ASPIRATE INTERP & REPORT CONTINUOU E0601 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 S 1 HOME HOME POSITIVE MEDICAL MEDICAL AIRWAY EQUIP EQUIP PRESSURE DEVICE OPHTH 99835 [facility] 1 VISION ANG XM&EVAL COMPRE NEW PT 1/> VST MRI ORBIT 92104 NIDIA JACOB FACE & 1 [facility] NECK W/O INC INC & W/CONTRAS T MATRL CONTINUOU E0601 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 S 1 HOME HOME POSITIVE MEDICAL MEDICAL AIRWAY EQUIP EQUIP PRESSURE DEVICE TYMPANOME 12685 SMILEY BALJIT TRY 1 RUSS RUSS COMPRE 45487 BALJIT SMILEY AUDIOMETR 1 RUSS RUSS Y THRESHOLD EVAL SP RECOGNIJ CONTINUOU E0601 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 S 1 HOME HOME POSITIVE MEDICAL MEDICAL AIRWAY EQUIP EQUIP PRESSURE DEVICE POLYSOM 85886 NARA BAINS 6/>YRS 1 MARISA MARISA SLEEP [...] E AIRWAY EQUIP EQUIP PRESSURE DEVICE POLYSOM 71113 NIDIA JACOB 6/>YRS 1 [facility] SLEEP INC INC W/CPAP 4/> ADDL TRINI ATTND POLYSOM 45314 NARA BAINS 6/>YRS 1 MARISA MARISA SLEEP 4/> ADDL TRINI ATTND POLYSOM 86477 NIDIA JACOB 6/>YRS 1 [facility] SLEEP 4/> INC INC ADDL TRINI ATTND COMPREHEN 89372 NIDIA JACOB SIVE 1 [facility] [place] [address] NIDIA JACOB THYROID 1 [facility] STIMULATI INC INC NG HORMONE TSH BLOOD 70011 NIDIA JACOB COUNT 1 [facility] COMPLETE INC INC AUTO&AUTO DIFRNTL WBC NATRIURET 75677 NIDIA JACOB IC 1 [facility] PEPTIDE INC INC ECG 96782 NIDIA CARR ROUTINE 1 [facility] W/LEAST P 12 LDS I&R ONLY ECHO 65123 [facility] TTC R-T 1 PHYSICIAN MATTHEW 2D S GROUP W/WOM-MOD E COMPL SPEC&COLR D ECG 80990 NIDIA JACOB ROUTINE 1 [facility] ECG INC INC W/LEAST 12 LDS TRCG ONLY W/O I&R ENDOMETRI 26507 [facility] AL BX 1 [facility] ARM[facility] W/WO [facility] END[facility] LINDA X BX W/O DILAT SPX CYTP 88504 HEMANT MARCOS 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 INC IES INC ENHANCEME NT INTERPJ XCPT C/V COMPUTER- 11014 NIDIA JACOB AIDED 1 [facility] DETECTION INC INC SCREENING MAMMOGRAP HY SCREENING [id number] NIDIA JACOB 1 [facility] MAMMOGRAP INC INC HY AGGIE INCL CAD WHEN PERFORMD Encounters Encounter Start End Date Code Location Performer Type Date EMERGENCY 20294 JUAN DAVID WYMAN 6 6 PHYSICIAN SHAHEED CHAVIRA S, PLLC T VISIT HIGH/URGE NT SEVERITY OFFICE 58935 JOSEF PACHECO 6 6 OLU OLU T VISIT 15 MINUTES OFFICE 74318 JOSEF PACHECO 6 6 OLU OLU T VISIT 15 MINUTES OFFICE 67505 JOSEF PACHECO 5 5 OLU OLU T VISIT 15 MINUTES [facility]OSPITAL [facility] - 5 5 N OUTPATIEN COMMUNTIY T HOSPITA EMERGENCY 03160 [facility] 5 5 N VISIT COMMUNTIY HIGH HOSPITA SEVERITY& THREAT FUNCJ EMERGENCY 57023 [facility] EMERGENC[facility] PAT T VISIT PHYS HIGH/URGE NT SEVERITY OFFICE 64239 [facility] SMILEYALILSON PACHECO 5 5 PHYSICIAN RUSS T VISIT S GROUP 10 MINUTES OFFICE 32930 JOSEF PACHECO 5 5 OLU OLU T VISIT 15 MINUTES OFFICE 78781 JOSEF PACHECO 5 5 OLU OLU T VISIT 15 MINUTES HOSPITAL NIDIA - 5 5 [facility] OUTPATIEN INC T OFFICE 35953 [facility] SMILEY OUTTOM 5 5 PHYSICIAN RUSS T VISIT S GROUP 15 MINUTES OFFICE 99924 ARNOLD ARNOLD OUTPATIEN 5 5 OLU OLU T VISIT 15 MINUTES HOSPITAL NIDIA - 5 5 [facility] OUTPATIEN INC T OFFICE 57329 [facility] BALJIT OUTPATIEN 5 5 PHYSICIAN RUSS T VISIT S GROUP 15 MINUTES HOSPITAL NIDIA - 5 5 [facility] OUTPATIEN INC T OFFICE 22624 BALJIT SMILEY OUTPATIEN 5 5 RUSS RUSS T NEW 30 MINUTES HOSPITAL NIDIA - 5 5 [facility] OUTPATIEN INC T EMERGENCY 18288 NIDIA 5 5 [facility] DEPARTMEN INC T VISIT LOW/MODER SEVERITY [facility]OSP[facility] - 4 4 N OUTPATIEN COMMUNTIY T HOSPITA OFFICE 46473 [facility] B[facility] 4 4 FOOT & T NEW 30 ANKLE CE MINUTES OFFICE 34674 [facility] CYNTHIA OUTPATIEN 4 4 [place] SYMONE T VISIT ORTHOPAED 15 ICS PLC MINUTES OFFICE 24451 JOSEF BAHENA OUTPATIJASWANT 4 4 OLU OLU T VISIT 15 MINUTES OFFICE 46490 [facility] CONS[facility] 4 4 [place] SYMONE ION ORTHOPAED NEW/ESTAB [facility]CS PLC PATIENT 40 MIN OFFICE 67941 [facility] TARA 4 4 PHYSICIAN T VISIT S GROUP 15 MINUTES OFFICE 62573 JOSEF LINDQUISTPATIEN 4 4 OLU OLU T VISIT 15 MINUTES OFFICE 59743 JOSEF BAHENA OUTPATIEN 4 4 OLU OLU T VISIT 15 MINUTES OFFICE 16023 JOSEF PACHECO 4 4 OLU OLU T VISIT 15 MINUTES OFFICE 02472 LIZZY PACHECO 4 4 JOSE ARMANDO JOSE ARMANDO T VISIT 15 MINUTES OFFICE 84378 JOSEF PACHECO 4 4 OLU OLU T VISIT 15 MINUTES HOSPITAL NIDIA - 4 4 [facility] OUTPATIEN INC T OFFICE 81732 KERRY PACHECO 4 4 ANILA ANILA T VISIT 10 MINUTES HOSPITAL NIDIA - 4 4 [facility] OUTPATIEN INC T HOSPITAL NIDIA - 4 4 [facility] OUTPATIEN INC T OFFICE 92181 MÁRQUEZ MÁRQUEZ CONSULTAT 4 4 TOMMY TOMMY ION NEW/ESTAB PATIENT 40 MIN OFFICE 68168 KERRY PACHECO 4 4 ANILA ANILA T VISIT 10 MINUTES OFFICE 06325 JOSEF PACHECO 4 4 OLU OLU T VISIT 15 MINUTES HOSPITAL NIDIA - 4 4 [facility] OUTPATIEN INC T EMERGENCY 78283 ALISON ROSAS 4 4 JOLENE JOLENE DEPARTMEN T VISIT MODERATE SEVERITY OFFICE 87598 KERRY PACHECO 4 4 ANILA ANILA T NEW 30 MINUTES OFFICE 06134 JOSEF PACHECO 4 4 OLU OLU T VISIT 15 MINUTES OFFICE 66014 JOSEF PACHECO 4 4 OLU OLU T VISIT 15 MINUTES OFFICE 05289 JOSEF PACHECO 4 4 OLU OLU T VISIT 15 MINUTES HOSPITAL NIDIA - 4 4 [facility] OUTPATIEN INC T HOSPITAL NIDIA - 4 4 [facility] OUTPATIEN INC T PERIODIC 39301 LIZZY BALL PREVENTIV 4 4 JOSE ARMANDO JOSE ARMANDO E MED EST PATIENT 40-64YRS Inpatient FABIOLA Walters MD (IN) 3 20:02 3 12:20 [facility] JONI Grover MD (ER) 3 11:55 3 15:55 [facility] OFFICE 80339 ARNOLD ARNOLD OUTPATIEN 2 2 OLU OLU T VISIT 15 MINUTES OFFICE 37478 ALISON ROSAS OUTPATIEN 2 2 JOLENE JOLENE T NEW 30 MINUTES OFFICE 24634 JOSEF BAHENA OUTPATIEN 2 2 OLU OLU T VISIT 15 MINUTES OFFICE 80697 JOSEF BAHENA OUTPATIEN 1 1 OLU OLU T VISIT 15 MINUTES HOSPITAL NIDIA - 1 1 [facility] OUTPATIEN INC T HOSPITAL NIDIA - 1 1 [facility] OUTPATIEN INC T OFFICE 56637 JOSEF BAHENA OUTPATIEN 1 1 OLU OLU T VISIT 15 MINUTES HOSPITAL NIDIA - 1 1 [facility] INPATIENT INC EMERGENCY 21046 YULIYA POMPA URBAN 1 1 EMERGENCY DEPARTMEN SERVICES T VISIT MODERATE SEVERITY OFFICE 62700 HOWARDCYNTHIA JOSEF OUTROWENAEN 1 1 OLU OLU T VISIT 15 MINUTES HOSPITAL NIDIA - 1 1 [facility] OUTPATIEN INC T EMERGENCY 00362 NIDIA 1 1 [facility] DEPARTMEN INC T VISIT LOW/MODER SEVERITY EMERGENCY 20005 YULIYA ROSAS 1 1 EMERGENCY JOLENE DEPARTMEN SERVICES T VISIT MODERATE SEVERITY OFFICE 44923 ZACH SERRANO OUTPATIEN 1 1 Nov T NEW 45 MINUTES HOSPITAL NIDIA - 1 1 [facility] OUTPATIEN INC T EMERGENCY 84782 YULIYA POMPA URBAN 1 1 EMERGENCY DEPARTMEN SERVICES T VISIT MODERATE SEVERITY EMERGENCY 40832 NIDIA 1 1 [facility] DEPARTMEN INC T VISIT LOW/MODER SEVERITY HOSPITAL NIDIA - 1 1 [facility] OUTPATIEN INC T OFFICE 82555 JOSEF WASHINGTONEN 1 1 OLU OLU T VISIT 15 MINUTES OFFICE 16463 NARA BAINS OUTPATIEN 1 1 MARISA MARISA T NEW 45 MINUTES OFFICE 72946 BALJIT GLOVERON OUTPATIEN 1 1 RUSS RUSS T VISIT 15 MINUTES OFFICE 42584 JOSEF BAHENA OUTPATIEN 1 1 OLU OLU T NEW 30 MINUTES HOSPITAL NIDIA - 1 1 [facility] OUTPATIEN INC T OFFICE 83506 BALJIT GLOVERON OUTPATIEN 1 1 RUSS RUSS T VISIT 15 MINUTES HOSPITAL NIDIA - 1 1 [facility] OUTPATIEN INC T EMERGENCY 33493 YULIYA ROSAS [address] [facility] DEPARTMEN SERVICES T VISIT HIGH/URGE NT SEVERITY OFFICE 59154 BALJIT GLOVERON OUTPATIEN 1 1 RUSS RUSS T NEW 30 MINUTES HOSPITAL NIDIA - 1 1 [facility] OUTPATIEN INC T EMERGENCY 22996 NIDIA 1 1 [facility] DEPARTMEN INC T VISIT LOW/MODER SEVERITY HOSPITAL NIDIA - 1 1 [facility] OUTPATIEN INC T INITIAL 78814 WOMEN'S BALL PREVENTIV 1 1 [facility] LINDA NEW PATIENT 40-64YRS
--- OUTSIDE RECORDS SUMMARY | 2017-06-06 16:47 | External Medical Summary Rpt ---
Author Author , LUDIN NOLAND Address Unknown Phone [email or web address] Care Team Providers Care Bicycle Subassembler Name Role Phone JOSEF RAINES, JOSEF Unavailable Unavailable OLU JOSEF OLU, ARNOLD Unavailable Unavailable OLU BESSON JENI, BESSON Unavailable Unavailable JENI JASON ANT, JASON ANT Unavailable Unavailable [facility] Unavailable Unavailable INC, [facility] MÁRQUEZ TOMMY, Unavailable Unavailable MÁRQUEZ TOMMY MÁRQUEZ TOMMY, Unavailable Unavailable MÁRQUEZ TOMMY CELLAROSI - YORBA Unavailable Unavailable PAT, CELLAROSI - YORBA PAT [facility] Unavailable [facility]available [facility] CHIPPS DEJUAN & Unavailable Unavailable DUBILIER, CHIPPS DEJUAN & DUBILIER LUCRECIA TER, LUCRECIA TER Unavailable Unavailable BALL JOSE ARMANDO, BALL Unavailable Unavailable JOSE ARMANDO BALL JOSE ARMANDO, BALL Unavailable Unavailable JOSE ARMANDO [facility], [facility], Unavailable Unavailable [facility] Unavailable Unavailable THE [...] JOLENE ALISON JOLENE, ALISON Unavailable Unavailable JOLENE [facility] Unavailable Unavailable HOSPITA, [facility] Un[facility], [facility] Unavailable Unavailable [facility], [facility] POMPA URBAN, POMPA URBAN Unavailable [facility]available [facility] Unavailable Unavailable INC, [facility] Unavailable Unavailable HOSPITAL P, [facility] P [facility], Unavailable Unavailable [facility] ILUYOMADE ROT, Unavailable Unavailable [facility]OM[facility]OT MURTAZA DAHIANA, MURTAZA Unavailable Unavailable DAHIANA [facility] Unavailable Unavailable [facility], [facility] IVIS PEARSON, IVIS PEARSON Unavailable Unavailable [facility] SMILEY RUSS, SMILEY Unavailable Unavailable RUSS SMILEY RUSS, SMILEY Unavailable Unavailable RUSS JERONIMO JR DWI, JERONIMO Unavailable Unavailable JR DWI [facility]available [facility], [facility] YULIYA GRE, Unavailable Unavailable YULIYA GRE YULIYA GRE, Unavailable Unavailable YULIYA GRE [facility] Unavailable Unavailable SERVICES, [facility] MCKEMIE JR SUSU, Unavailable Unavailable MCKEMIE JR USSU SCHMITZ SUSU, SCHMITZ SUSU Unavailable Unavailable [facility], Unavailable Unavailable PLLC, [facility], [facility] PICKLESIMER JR LOCO, Unavailable Unavailable [facility], Unavailable Unavailable [facility], Unavailable Unavailable [facility] RADMANESH SHA, Unavailable Unavailable RADMANESH SHA RENUSCH SHAHEED, RENUSCH Unavailable Unavailable SHAHEED SCIFRES ANG, SCIFRES Unavailable Unavailable [facility], [facility] KERRY MARISA, KERRY Unavailable Unavailable MARISA KERRY ANILA, KERRY Unavailable Unavailable ANILA KERRY ANILA, KERRY Unavailable Unavailable ANILA [facility] # Unavailable Unavailable [id number], [facility] # [id number] ZACH MORAN, Unavailable Unavailable ZACH MORAN, Unavailable Unavailable ZACH ASHBY, CYNTHIA Unavailable Unavailable SYMONE Purpose Continuity of Care Document - 02-06-2011 through 2016 Problems Code Diagnosis DOS Provider Status [id number] PAIN IN 02-27-2016 [place] [facility] [id number] PAIN IN 02-27-2016 [place] [facility] M7989 OTHER 02-27-2016 [place] SPECIFIED MEDICAL SOFT TISSUE IMAGING ASS DISORDERS [id number] UNSPECIFIED 02-27-2016 [facility], LEFT FOOT [facility] INITIAL ENCOUNTER [id number] UNSPECIFIED 02-27-2016 [place] INJURY [facility] LEFT FOOT IMAGING ASS INITIAL ENCOUNTER K5289 OTH SPEC 11-24-2015 JOSEF OLU NONINFECTIV E GASTROENTER ITIS & COLITIS J069 ACUTE UPPER 10-31-2015 ARNOLD OLU RESPIRATORY INFECTION UNSPECIFIED B349 VIRAL 10-28-2015 [facility] UNSPECIFIED HOSPITA E876 HYPOKALEMIA 10-28-2015 [facility] J029 ACUTE 10-28-2015 [facility] PHARYNGITIS COMMUNTIY HOSPITA UNSPECIFIED J441 CHRONIC 10-28-2015 [facility] OB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ENCY PULMONARY PHYS DZ W/EXACERBAT ION R000 TACHYCARDIA 10-28-2015 [facility] [place] UNSPECIFIED EMS R05 COUGH 10-28-2015 [facility] [place] [facility] R0602 SHORTNESS 10-28-2015 [facility]- OF BREATH [place] [facility] R079 CHEST PAIN 10-28-2015 [facility]- UNSPECIFIED [place] [facility] R0981 NASAL 10-28-2015 [facility] CONGESTION COMMUNTIY HOSPITA R509 FEVER 10-28-2015 [facility]- UNSPECIFIED [place] [facility] R9431 ABNORMAL 10-28-2015 [facility] ELECTROCARD COMMUNTIY IOGRAM HOSPITA H6691 OTITIS 10-05-2015 [facility] MEDIA PHYSICIANS UNSPECIFIED GROUP RIGHT EAR J0100 ACUTE 10-05-2015 [facility] MAXILLARY PHYSICIANS SINUSITIS GROUP UNSPECIFIED H6690 OTITIS 09-29-2015 ARNOLD OLU MEDIA UNSPECIFIED UNSPECIFIED EAR J0190 ACUTE 09-05-2015 ARNOLD OLU SINUSITIS UNSPECIFIED Z0100 ENCOUNTER 08-26-2015 [facility] EXAM EYES & GRE VISION W/O ABNORMAL FIND 88895 SIMPLE/UNSP 04-20-2015 [facility] ECIFIED PHYSICIANS CHRONIC GROUP SEROUS OTITIS MEDIA 3829 UNSPECIFIED 04-20-2015 COMMUNITY OTITIS ANESTH OF MEDIA THE BLUE 470 DEVIATED 04-20-2015 [facility] NASAL PHYSICIANS SEPTUM GROUP 4710 POLYP OF 04-20-2015 [facility] NASAL PHYSICIANS CAVITY GROUP 4718 OTHER POLYP 04-20-2015 [facility] 4730 CHRONIC 04-20-2015 [facility] MAXILLARY PHYSICIANS SINUSITIS GROUP 4739 UNSPECIFIED 04-15-2015 NIDIA SINUSITIS [facility] P V7283 OTHER 04-15-2015 [facility] SPECIFIED [facility] EX[facility]IN[facility] 3831 CHRONIC 03-30-2015 [facility] MASTOIDITIS PHYSICIANS GROUP 90461 DIAB W/O 03-18-2015 [facility] COMP TYPE MEM HOSP II/UNS NOT INC STATED UNCNTRL 3814 NONSUPPRATV 02-23-2015 [facility] OTITIS PHYSICIANS MEDIA NOT GROUP SPEC ACUT/CHRON 4279 UNSPECIFIED 02-23-2015 [facility] CARDIAC PHYSICIANS DYSRHYTHMIA GROUP 3839 UNSPECIFIED 02-06-2015 [facility] MASTOIDITIS INC 4610 ACUTE 02-06-[address] [facility] SINUSITIS INC 4779 ALLERGIC 01-26-2015 BALJIT SOLANO RHINITIS CAUSE UNSPECIFIED 47073 UNSPECIFIED 01-08-2015 [facility] P 4019 UNSPECIFIED 01-08-2015 [facility] P N 7840 HEADACHE 01-08-2015 [facility] P 1101 DERMATOPHYT 11-21-2014 [place] [facility] OF FOOT & NAIL ANKLE CE 3569 UNSPEC 11-21-2014 [place] HEREDIT&IDI FOOT & OPATHIC ANKLE CE PERIPHERAL NEUROPATHY 7038 OTHER 11-21-2014 [place] SPECIFIED FOOT & DISEASE OF ANKLE CE NAIL 80522 OSTEOARTHRO 11-21-2014 [place] SIS UNSPEC FOOT & WHETHER ANKLE CE GEN/LOC ANK&FOOT 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 FO[place] [address] OSTEOARTHRO 10-31-2014 [facility] S UNSPEC COMMUNTIY WHETHER HOSPITA GEN/LOC UNSPEC SITE 68074 GENERALIZED 10-31-2014 [facility] PAIN COMMUNTIY HOSPITA 38223 PAIN IN 10-24-2014 [facility] [place] JOINT, ORTHOPAEDIC ANKLE AND S PLC FOOT 486 PNEUMONIA, 10-18-2014 [facility] ORGANISM PHYSICIANS UNSPECIFIED GROUP 4660 ACUTE 10-14-2014 ARNOLD OLU BRONCHITIS 6256 FEMALE 10-04-2014 [facility] STRESS PHYSICIANS INCONTINENC GROUP E 03557 OSTEOARTHRO 10-03-2014 ARNCYNTHIA OLU S INVLV MX SITES BUT NOT SPEC GEN 88407 PAIN IN 10-03-2014 ARNOLD OLU JOINT, LOWER LEG 4619 ACUTE 08-25-2014 ARNOLD OLU SINUSITIS, UNSPECIFIED 5110 PLEURISY 08-11-2014 ARNOLD OLU WITHOUT MENTION EFFUS/[place] [address] KYPHOSIS 06-27-2014 KERRY ANILA ACQUIRED POSTURAL 7391 NONALLOPATH 06-27-2014 KERRY ANILA IC LESION OF CERVICAL REGION NEC 7392 NONALLOPATH 06-27-2014 KERRY ANILA IC LESION OF THORACIC REGION NEC 7398 NONALLOPATH 06-27-2014 KERRY ANILA IC LESION OF RIB CAGE NEC 6259 UNSPEC 05-20-2014 BALL JOSE ARMANDO SYMPTOM ASSOC W/FEMALE GENITAL ORGANS 6271 POSTMENOPAU 05-20-2014 BALL JOSE ARMANDO REJI BLEEDING 44725 UNSPECIFIED 05-05-2014 JOSEF RAINES SLEEP APNEA 6272 SYMPTOMATIC 04-18-2014 [facility] MENOPAUSAL/ INC FEMALE CLIMACTERIC STATES 6210 POLYP OF 04-04-2014 [facility] CORPUS [facility] UTERI INC 6268 OTH D/O 04-04-2014 [facility] MENSTRUATIO MEM HOSP N&OTH ABN INC BLEED FE GNT TRACT 21063 INCOMPLETE 03-25-2014 MÁRQUEZ BLADDER TOMMY EMPTYING 91594 CALCANEAL 03-17-2014 ARNOLD SPUR MARYCRUZ 49710 UNSPECIFIED 03-17-2014 JOSEF RAINES URINARY INCONTINENC E 9178 OTH&UNSPEC 03-17-2014 [facility] SUP INJURY MEM HOSP FOOT&TOES INC W/O MENTION INF 5259 UNSPECIFIED 03-01-2014 ALISON JOLENE DISORDER TEETH&SUPPO RTING STRUCTURES 84545 OTHER 02-01-2014 JOSEF RAINES MALAISE AND FATIGUE 6253 DYSMENORRHE 01-13-2014 BALL JOSE ARMANDO A V720 EXAMINATION 01-12-2014 YULIYA OF EYES GRE AND VISION 83308 OTHER 01-05-2014 ARNOLD ABNORMAL MARYCRUZ FINDING RADIOLOGICA L EXAM BREAST V7612 OTHER 01-05-[address] [facility] MAMMOGRAM INC V7231 ROUTINE 01-01-[address] [facility] AL INC EXAMINATION 21444 TRICHOMONAL 12-29-2013 DENNIS ADAN VULVOVAGINI TIS 71288 UNSPECIFIED 12-29-2013 LIZZY JOSE ARMANDO VAGINITIS AND VULVOVAGINI TIS V745 SCREENING 12-29-2013 [facility] EXAMINATION JR ADAN FOR VENEREAL DISEASE 38451 ESOPHAGEAL 12-02-2011 JOSEF RAINES REFLUX 38341 UNS 12-02-2011 JOSEF RAINES GASTRITIS&G ASTRODUODIT IS W/O MENTION HEMORR 23536 UNSPEC 11-28-2011 ALISON JOLENE VENTRAL JUHI W/O MENTION OBST/GANGRE N 5589 OTH&UNSPEC 11-08-2011 JOSEF RAINES NONINFECTIO US GASTROENTER ITIS&COLITI S 21948 OBSTRUCTIVE 11-02-2011 [place] [facility] APNEA MEDICAL EQUIP 62871 UNSPECIFIED 10-04-2011 JOSEF RAINES ENTHESOPATH Y OF ANKLE AND TARSUS 89293 CHOLECYSTIT 08-23-2011 COMMUNITY IS, ANESTH OF UNSPECIFIED THE BLUE 43532 CHRONIC 08-23-2011 [facility] CHOLECYSTIT MEM HOSP IS INC 5756 CHOLESTEROL 08-23-2011 [facility] OSIS OF DEJUAN & GALLBLADDER DUBILIER 5758 OTHER 08-20-2011 NIDIA SPECIFIED [facility] P GALLBLADDER 27940 ABDOMINAL 08-17-2011 JOSEF RAINES PAIN, GENERALIZED 82784 ABDOMINAL 08-15-2011 [place] PAIN, MEDICAL EPIGASTRIC IMAGING ASS 5770 ACUTE 08-14-2011 [place] [facility] PANCREATITI SERV S FOUNDATIO 8830 OPEN WOUND 08-13-2011 [facility] FINGER EMERGENCY WITHOUT SERVICES MENTION COMPLICATIO N 7823 EDEMA 07-05-2011 JOSEF OLU 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 7842 SWELLING 05-31-2011 [facility] MASS OR EMERGENCY LUMP IN SERVICES HEAD AND NECK 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 41090 HYPERSOMNIA 05-28-2011 ZACH WITH SLEEP LUISA APNEA UNSPECIFIED 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 3674 PRESBYOPIA 05-23-2011 SANG VISION 5272 SIALOADENIT 04-30-[address] [place] [address] NOISE-INDUC 03-21-2011 SMILEY RUSS ED HEARING LOSS 83069 UNSPECIFIED 03-21-2011 SMILEY RUSS TINNITUS 7851 PALPITATION 03-07-2011 [facility] S PHYSICIANS GROUP 49760 NONSPECIFIC 03-07-2011 [facility] ABNORMAL [facility] P IOGRAM Medications Na ND Rx Da Fi Fi Am Da Di Ph RX Ph St me C No te ll ll ou ys ag ar # ys at rm s nt no ma ic us Or Da si cy ia de te s n re d 00 10 10 0 24 5 WA [...] 0 20 10 WA 71 BE Ac WA 37 -1 -1 .0 L- 39 SS [...] 20 20 RT 5 70 11 11 PA 5 PH CH AR AE MA L [...] LL 10 C 0 MG CA P WA 00 06 06 0 21 6 CL [...] 0 MG LL C TA BL ET WA 00 05 05 0 21 6 CL 23 LA Ac ED 60 -1 -1 .0 IN 88 WS ti NI 35 9- 9- 00 IC 77 ON ve SO 33 20 20 NE 73 11 11 PH [address] MA OR MG CY G TA LL BL C ET AZ 00 05 05 0 4. 4 CL 23 GA Ac IT 78 -0 -0 00 IN 78 IN ti HR 11 5- 5- 0 IC 95 EY ve OM 49 20 20 YC 66 11 11 PH PA IN 8 AR CH MA AE 25 CY L 0 S MG LL C TA BL ET ME 00 05 05 0 21 6 WA 71 LA Ac TH 60 -0 -0 .0 L- 18 WS ti YL 34 5- 5- 00 MA 05 ON ve WA 59 20 20 RT 6 ED 31 [address] SO AR OR LO MA G NE CY 4 # MG 10 05 DO 91 SE PK CE 45 04 04 0 30 30 [...] RE MA K CY J LL C Procedures Procedure DOS Code Location Performer Comment RADEX 65787 [place] ARNOLD ANKLE 6 MEDICAL MARYCRUZ COMPLETE IMAGING MINIMUM 3 ASS VIEWS RADEX 33516 [place] ARNOLD FOOT 6 MEDICAL MARYCRUZ COMPLETE IMAGING MINIMUM 3 ASS VIEWS COLLECTIO 69365 [facility] N VENOUS 5 N N BLOOD COMMUNTIY COMMUNTIY VENIPUNCT HOSPITA HOSPITA URE GROUND A0425 [facility] MILEA 5 Chris-[place] [facility] PER CO EMS CO EMS STATUTE MILE ECG 93394 [facility] CELLAROSI ROUTINE 5 MIKE - YORBA ECG EMERGENCY PAT W/LEAST PHYS 12 LDS I&R ONLY AMB A0427 [facility] SERVICE 5 [facility]-[place] [facility] ALS CO EMS CO EMS EMERGENCY TRANSPORT LEVEL 1 RADIOLOGI 28167 [facility] [place] RADMANESH C 5 RADIOLOGY SHA EXAMINATI ON CHEST SINGLE VIEW FRONTAL COMPREHEN 23542 [facility] SIVE 5 N N METABOLIC COMMUNTIY COMMUNTIY PANEL HOSPITA HOSPITA PREDNISON J7506 [facility] ORAL 5 N PER 5 MG COMMUNTIY LABORATOR HOSPITA IES LLC BLOOD 91314 [facility] COUNT 5 N N COMPLETE COMMUNTIY COMMUNTIY AUTO&AUTO HOSPITA HOSPITA DIFRNTL WBC INJECTION J0696 JOSEF [facility] 5 OLU OLU CEFTRIAXO NE SODIUM PER 250 MG INJECTION J0696 JOSEF BAHENA 5 OLU OLU CEFTRIAXO NE SODIUM PER 250 MG OPHTH 91561 [facility] 5 GRE GRE XM&EVAL COMPRHNSV ESTAB PT 1/> LEVEL III 39944 [facility]CR[facility] 5 LLC PATHOLOGY GROSS&[place] [address] [facility]CR[facility] PATHOLOGY GROSS&JOLENE ROSCOPIC EXAM ANESTHESI 72204 COMMUNITY KERRY A NOSE & 5 ANESTH MARISA ACCESSORY OF THE SINUSES BLUE NOS NSL/SINUS 20443 [facility] NDSC MAX 5 PHYSICIAN PHYSICIAN ANTROST S GROUP S GROUP W/RMVL TISS MAX SINUS TYMPANOST 31526 [facility] SMILEY BENITEZ 5 PHYSICIAN RUSS GENERAL S GROUP ANESTHESI A BASIC 25524 [facility] JACOB METABOLIC [address] [facility]P [facility] PANEL INC INC CALCIUM TOTAL ECG 10795 [facility] DECKER JR ROUTINE 5 [facility] W/LEAST P 12 LDS I&R ONLY BLOOD 81534 [facility] JACOB COUNT [address] [facility] COMPLETE INC INC AUTO&AUTO DIFRNTL WBC ECG 96376 [facility] JACOB ROUTINE [address] [facility] ECG INC INC W/LEAST 12 LDS TRCG ONLY W/O I&R COLLECTIO 58263 [facility] JACOB N VENOUS 5 [facility]OSP BLOOD INC INC VENIPUNCT URE COLLECTIO 85261 [facility] JACOB N VENOUS 5 [facility] BLOOD INC INC VENIPUNCT URE HEMOGLOBI 83392 N[facility]IA JACOB N 5 [facility] GLYCOSYLA INC INC STEVEN A1C TYMPANOME 84864 [facility] TRY 5 RUSS RUSS DISTORT 00697 [facility] PRODUCT 5 RUSS RUSS EVOKED OTOACOUST IC EMISNS LIMITD COMPRE 88963 [facility] S[facility] AUDIOMETR 5 RUSS R[place] [address] [place] ARNOLD MAXILLOFA 5 MEDICAL MARYCRUZ CIAL W/O IMAGING CONTRAST ASS MATERIAL WALKING L4360 [facility] FINE BRA BOOT 5 FOOT & PNEUMATC ANKLE CE &/ VACUUM PREFAB CUSTM FIT RADEX 04273 [place] FINE BRA FOOT 5 FOOT & COMPLETE ANKLE CE MINIMUM 3 VIEWS COLLECTIO 53858 [facility] N VENOUS 4 N N BLOOD COMMUNTIY COMMUNTIY VENIPUNCT HOSPITA HOSPITA URE RADEX 77623 [place] FINE BRA FOOT 4 FOOT & COMPLETE ANKLE CE MINIMUM 3 VIEWS TRIMMING 32038 [place] FINE BRA NONDYSTRO 4 FOOT & PHIC ANKLE CE NAILS ANY NUMBER RHEUMATOI 49348 [facility] D FACTOR 4 N N QUALITATI COMMUNTIY COMMUNTIY VE HOSPITA HOSPITA MRI LOWER 49078 [facility] [place] EXTREM 4 [place] SYMONE OTH/THN ORTHOPAED JT W/O ICS PLC CONTR MATRL THERAPEUT 61009 [facility] IC 4 PHYSICIAN PHYSICIAN PROPHYLAC S GROUP S GROUP TIC/DX INJECTION SUBQ/IM INJECTION J1040 [facility] ALISON 4 PHYSICIAN JOLENE METHYLPRE S GROUP DNISOLONE ACETATE 80 MG RADEX 26181 [facility] [place] FOOT 4 [place] SYMONE COMPLETE ORTHOPAED MINIMUM 3 ICS PLC VIEWS CHIROPRAC 88879 KERRY PAYNE TIC 4 ANILA ANILA MANIPULAT OSVALDO [place] SPINAL 1-2 REGIONS CHIROPRAC 46130 KERRY KERRY TIC 4 ANILA ANILA MANIPULAT OSVALDO [place] SPINAL 1-2 REGIONS CHIROPRAC 53666 KERRY PAYNE TIC 4 ANILA ANILA MANIPULAT OSVALDO [place] SPINAL 1-2 REGIONS CHIROPRAC 92824 KERRY PAYNE TIC 4 ANILA ANILA MANIPULAT OSVALDO [place] SPINAL 1-2 REGIONS THERAPEUT 45016 KERRY KERRY IC PX 1/> 4 ANILA ANILA AREAS EACH 15 MIN EXERCISES THERAPEUT 75304 KERRY KERRY IC PX 1/> 4 ANILA ANILA AREAS EACH 15 MIN EXERCISES CHIROPRAC 67810 KERRY KERRY TIC 4 ANILA ANILA MANIPULAT OSVALDO [place] SPINAL 1-2 REGIONS APPL 64711 KERRY PAYNE MODALITY 4 ANILA ANILA 1/> AREAS TRACTION MECHANICA L CHIROPRAC 06276 KERRY PAYNE TIC 4 ANILA ANILA MANIPULAT OSVALDO TX SPINAL 1-2 REGIONS THERAPEUT 67621 KERRY KERRY IC PX 1/> 4 ANILA ANILA AREAS EACH 15 MIN EXERCISES CHIROPRAC 39777 KERRY KERRY TIC 4 ANILA ANILA MANIPULAT OSVALDO TX SPINAL 1-2 REGIONS CHIROPRAC 29954 KERRY KERRY TIC 4 ANILA ANILA MANIPULAT OSVALDO TX SPINAL 1-2 REGIONS CHIROPRAC 71607 KERRY KERRY TIC 4 ANILA ANILA MANIPULAT OSVALDO [place] SPINAL 1-2 REGIONS CHIROPRAC 52072 KERRY KERRY TIC 4 ANILA ANILA MANIPULAT OSVALDO [place] SPINAL 1-2 REGIONS THERAPEUT 93757 KERRY KERRY IC PX 1/> 4 ANILA ANILA AREAS EACH 15 MIN EXERCISES THERAPEUT 68298 KERRY KERRY IC PX 1/> 4 ANILA ANILA AREAS EACH 15 MIN EXERCISES CHIROPRAC 66967 KERRY KERRY TIC 4 ANILA ANILA MANIPULAT OSVALDO [place] SPINAL 1-2 REGIONS GONADOTRO 93596 N[facility] JACOB PIN 4 MEM HOSP MEM HOSP FOLLICLE INC INC STIMULATI NG HORMONE GONADOTRO 13774 N[facility]IA JACOB PIN 4 MEM HOSP MEM HOSP LUTEINIZI INC INC NG HORMONE CHIROPRAC 47809 KERRY KERRY TIC 4 NAILA ANILA MANIPULAT OSVALDO TX SPINAL 1-2 REGIONS THERAPEUT 58281 KERRY KERRY IC PX 1/> 4 ANILA ANILA AREAS EACH 15 MIN EXERCISES THERAPEUT 64752 KERRY KERRY IC PX 1/> 4 ANILA ANILA AREAS EACH 15 MIN EXERCISES CHIROPRAC 86519 KERRY KERRY TIC 4 ANILA ANILA MANIPULAT OSVALDO TX SPINAL 1-2 REGIONS CHIROPRAC 43414 KERRY KERRY TIC 4 ANILA ANILA MANIPULAT OSVALDO TX SPINAL 1-2 REGIONS THERAPEUT 65780 KERRY KERRY IC PX 1/> 4 ANILA ANILA AREAS EACH 15 MIN EXERCISES HYSTEROSC 13289 NIDIA JACOB OPY BX 4 MEM HOSP MEM HOSP ENDOMETRI INC INC UM&/POLYP C W/WO D&C INJECTION J2405 [facility] JACOB 4 MEM HOSP MEM HOSP ONDANSETR INC INC ON HCL PER 1 [place] [address] [facility], [facility]ZA SURG 4 [facility] PATHOLOGY GROSS&JOLENE ROSCOPIC EXAM BASIC 13567 NIDIA JACOB METABOLIC 4 MEM HOSP MEM HOSP PANEL INC INC CALCIUM TOTAL ECG 51152 JERONIMO DECKER JR ROUTINE 4 DWI DWI ECG W/LEAST 12 LDS I&R ONLY ECG 26433 N[facility] RAE ROUTINE 4 MEM HOSP DIAGNOSTI ECG INC CS W/LEAST 12 LDS TRCG ONLY W/O I&R BLOOD 24057 [facility] JACOB COUNT 4 MEM HOSP MEM HOSP COMPLETE INC INC AUTO&AUTO DIFRNTL WBC CHIROPRAC 23201 KERRY PAYNE TIC 4 ANILA ANILA MANIPULAT OSVALDO TX SPINAL 1-2 REGIONS THERAPEUT 89414 KERRY PAYNE IC PX 1/> 4 ANILA ANILA AREAS EACH 15 MIN EXERCISES THERAPEUT 21654 KERRY PAYNE IC PX 1/> 4 ANILA ANILA AREAS EACH 15 MIN EXERCISES CHIROPRAC 75240 KERRY PAYNE TIC 4 ANILA ANILA MANIPULAT OSVALDO [place] SPINAL 1-2 REGIONS BRYAN 00631 MÁRQUEZ MÁRQUEZ POST-VOID 4 TOMMY TOMMY ING RESIDUAL URINE&/BL ADDER CAP CHIROPRAC 14399 KERRY PAYNE TIC 4 ANILA ANILA MANIPULAT OSVALDO TX SPINAL 1-2 REGIONS THERAPEUT 11919 KERRY PAYNE IC PX 1/> 4 ANILA ANILA AREAS EACH 15 MIN EXERCISES THERAPEUT 36358 KERRY PAYNE IC PX 1/> 4 ANILA ANILA AREAS EACH 15 MIN EXERCISES APPL 21340 KERRY PAYNE MODALITY 4 ANILA ANILA 1/> AREAS TRACTION MECHANICA L CHIROPRAC 30725 KERRY PAYNE TIC 4 ANILA ANILA MANIPULAT OSVALDO [place] SPINAL 1-2 REGIONS RADEX 32335 ARNOLD ARNOLD FOOT 4 MARYCRUZ MARYCRUZ COMPLETE MINIMUM 3 VIEWS CHIROPRAC 47109 KERRY PAYNE TIC 4 ANILA ANILA MANIPULAT OSVALDO [place] SPINAL 1-2 REGIONS APPL 12304 KERRY PAYNE MODALITY 4 ANILA ANILA 1/> AREAS ELEC STIMJ UNATTENDE D APPL 79218 KERRY PAYNE MODALITY 4 ANILA ANILA 1/> AREAS TRACTION MECHANICA L THERAPEUT 50001 KERRY PAYNE IC PX 1/> 4 ANILA ANILA AREAS EACH 15 MIN EXERCISES THERAPEUT 16427 KERRY PAYNE IC PX 1/> 4 ANILA ANILA AREAS EACH 15 MIN EXERCISES APPL 15561 KERRY KERRY MODALITY 4 ANILA ANILA 1/> AREAS TRACTION MECHANICA L CHIROPRAC 65925 KERRY PAYNE TIC 4 ANILA ANILA MANIPULAT [place] SPINAL 1-2 REGIONS APPL 62453 KERRY KERRY MODALITY 4 ANILA ANILA 1/> AREAS ELEC STIMJ UNATTENDE D ENDOMETRI 15660 LIZZY BALL AL BX 4 JOSE ARMANDO JOSE ARMANDO W/WO ENDOCERVI X BX W/O DILAT SPX APPL 58297 KERRY PAYNE MODALITY 4 ANILA ANILA 1/> AREAS TRACTION MECHANICA L THERAPEUT 29515 KERRY PAYNE IC PX 1/> 4 ANILA ANILA AREAS EACH 15 MIN EXERCISES APPL 44811 KERRY KERRY MODALITY 4 ANILA ANILA 1/> AREAS ELEC STIMJ UNATTENDE D CHIROPRAC 74433 KERRY PAYNE TIC 4 ANILA ANILA MANIPULAT [place] SPINAL 1-2 REGIONS CHIROPRAC 89190 KERRY PAYNE TIC 4 ANILA ANILA MANIPULAT [place] SPINAL 1-2 REGIONS APPL 63109 KERRY KERRY MODALITY 4 ANILA ANILA 1/> AREAS ELEC STIMJ UNATTENDE D THERAPEUT 19357 KERRY PAYNE IC PX 1/> 4 ANILA ANILA AREAS EACH 15 MIN EXERCISES APPL 09210 KERRY KERRY MODALITY 4 ANILA ANILA 1/> AREAS TRACTION MECHANICA L APPL 20880 KERRY KERRY MODALITY 4 ANILA ANILA 1/> AREAS TRACTION MECHANICA L APPL 70279 KERRY KERRY MODALITY 4 ANILA ANILA 1/> AREAS ELEC STIMJ UNATTENDE D CHIROPRAC 07570 KERRY PAYNE TIC 4 ANILA ANILA MANIPULAT [place] SPINAL 1-2 REGIONS SALINE 02597 LIZZY BALL INFUS 4 JOSE ARMANDO JOSE ARMANDO SONOHYSTE ROGRAPHY W/COLOR DOPPLER INJECTION J3420 JOSEF BAHENA VIT B-12 4 OLU OLU CYANOCOBA OVIDIO TO 1000 MCG INJECTION J3420 JOSEF BAHENA VIT B-12 4 OLU OLU CYANOCOBA OVIDIO TO 1000 MCG INJECTION J3420 JOSEF BAHENA VIT B-12 4 OLU OLU CYANOCOBA OVIDIO TO 1000 MCG 87792 LIZZY BALL TRANSVAGI 4 JOSE ARMANDO JOSE ARMANDO NAL DETERMINA 64946 YULIYA DWYER ON 4 GRE GRE REFRACTIV E [facility] 01268 [facility] 4 GRE GRE XM&EVAL COMPRHNSV ESTAB PT 1/> SCREENING G0202 N[facility]IA JACOB [facility] MAMMOGRAP [facility] INC HY AGGIE INCL CAD WHEN PERFORMD DIAGNOSTI G0204 ARNOLD ARNOLD C 4 MARYCRUZ MARYCRUZ MAMMOGRAP HY INCL CAD WHEN PERF; BILAT COMPUTER- 15877 NIDIA JACOB AIDED 4 [facility] DETECTION INC INC SCREENING MAMMOGRAP HY COMPREHEN 24115 NIDIA JACOB SIVE 4 [facility] METABOLIC INC INC PANEL LIPID 84658 NIDIA JACOB PANEL 4 [facility] INC INC GONADOTRO 55533 NIDIA JACOB PIN 4 [facility] FOLLICLE INC INC STIMULATI NG HORMONE GONADOTRO 47767 NIDIA JACOB PIN 4 [facility] LUTEINIZI INC INC NG HORMONE BLOOD 21185 NIDIA JACOB COUNT 4 [facility] COMPLETE INC INC AUTO&[place] [address] NIDIA JACOB FREE 4 [facility] [place] [address] NIDIA JACOB THYROID 4 [facility] STIMULATI INC INC NG HORMONE TSH IADNA 83601 PICKLESIM PICKLESIM NEISSERIA 4 ER JR LOCO ER JR LOCO GONORRHOE AE AMPLIFIED PROBE TQ URINE 72586 LIZZY BALL 4 JOSE ARMANDO JOSE ARMANDO TEST VISUAL COLOR CMPRSN METHS CYTP C/V 69695 PICKLESIM PICKLESIM AUTO THIN 4 ER JR LOCO ER JR LOCO LYR PREPJ SCR MNL RESCR PHYS SMR PRIM 22304 LIZZY BALL SRC WET 4 JOSE ARMANDO JOSE ARMANDO [place] NFCT AGT IADNA 92859 PICKLESIM PICKLESIM CHLAMYDIA 4 ER JR LOCO ER JR LOCO TRACHOMAT IS AMPLIFIED PROBE TQ CONTINUOU E0601 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 S 1 HOME HOME POSITIVE MEDICAL MEDICAL AIRWAY EQUIP EQUIP PRESSURE DEVICE LEVEL III 80884 SUSANNA LANGSTON VAN SURG 1 DEJUAN & PATHOLOGY DUBILIER GROSS&JOLENE ROSCOPIC EXAM LAPAROSCO 5123 NIDIA [address]ACOB PIC [address] [facility] CHOLECYST INC INC ECTOMY INJECTION J2405 NIDIA JACOB 1 [facility] ONDANSETR INC [place] ON HCL [place] [address] NIDIA JACOB INFUSION 1 [facility] THERAPY INC INC PROPHYLAX IS/DX EA HOUR LAPAROSCO 03802 NIDIA JACOB PY SURG 1 [facility] CHOLECYST INC INC ECTOMY ANES 14460 [facility] INTRAPERI 1 ANESTH TONEAL OF THE UPPER BLUE ABDOMEN W/LAPS NOS URINE 99382 NIDIA JACOB 1 [facility] HOSP TEST INC INC VISUAL COLOR CMPRSN METHS ECG 05523 NIDIA JACOB ROUTINE 1 [facility] ECG INC INC W/LEAST 12 LDS TRCG ONLY W/O I&R ECG 11354 NIDIA WALTERS ROUTINE 1 [facility] W/LEAST P 12 LDS I&R ONLY HOSPITAL 95347 [facility] DISCHAR[facility] 1 [facility] DAY INTERNAL MANAGEMEN MED T 30 MIN/< SBSQ [id number] CARE/DAY INTERNAL 25 MED MINUTES 40491 [place] ABDOMINAL 1 [facility] REAL IMAGING TIME ASS W/IMAGE LIMITED SBSQ [id number] CARE/DAY INTERNAL 25 MED MINUTES INITIAL 80674 [place] JASON ANT INPATIENT 1 MEDICAL CONSULT SERV NEW/ESTAB FOUNDATIO PT 80 MIN INITIAL [address] CARE/DAY INTERNAL 50 MED MINUTES FINE 19129 SUSANNA HAYNES PAT NEEDLE 1 DEJUAN & ASPIRATIO DUBILIER N W/O IMAGING GUIDANCE CYTP EVAL 15906 [place] PAT FINE 1 DEJUAN & NEEDLE DUBILIER ASPIRATE INTERP & REPORT CONTINUOU E0601 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 S 1 HOME HOME POSITIVE MEDICAL MEDICAL AIRWAY EQUIP EQUIP PRESSURE DEVICE OPHTH 96555 [facility]ICAL 1 VISION ANG XM&EVAL COMPRE NEW PT 1/> VST MRI ORBIT 31795 [place] FACE & 1 [facility]ICAL [facility] NECK W/O IMAGING & ASS W/CONTRAS T MATRL CONTINUOU E0601 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 S 1 HOME HOME POSITIVE MEDICAL MEDICAL AIRWAY EQUIP EQUIP PRESSURE DEVICE TYMPANOME 26183 BALJIT SMILEY TRY 1 RUSS RSUS COMPRE 27395 SMILEY BALJIT AUDIOMETR 1 RUSS RUSS Y THRESHOLD EVAL SP RECOGNIJ TUBING A7037 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 USED WITH 1 HOME HOME POSITIVE MEDICAL MEDICAL AIRWAY EQUIP EQUIP PRESSURE DEVICE HUMDIFIR E0562 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 HEATED 1 HOME HOME USED MEDICAL MEDICAL W/POS EQUIP EQUIP ARWAY PRESSURE DEVICE FULL FACE A7030 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 MASK 1 HOME HOME USED MEDICAL MEDICAL W/POS EQUIP EQUIP ARWAY PRESS DEVICE EA FILTER A7038 CARMEN JONESANA DISPBL 1 HOME HOME USED MEDICAL MEDICAL W/POS EQUIP EQUIP ARWAY PRESSURE DEVICE FILTER A7039 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 NON 1 HOME HOME DISPBL MEDICAL MEDICAL USED EQUIP EQUIP W/POS ARWAY PRESS DEVICE CONTINUOU E0601 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 S 1 HOME HOME POSITIVE MEDICAL MEDICAL AIRWAY EQUIP EQUIP PRESSURE DEVICE POLYSOM 26805 NARA BAINS 6/>YRS 1 MARISA MARISA SLEEP W/CPAP 4/> ADDL TRINI ATTND HEADGEAR A7035 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 USED 1 HOME HOME W/POSITIV MEDICAL MEDICAL E AIRWAY EQUIP EQUIP PRESSURE DEVICE POLYSOM 84436 NIDIA JACOB 6/>YRS 1 [facility] SLEEP INC INC W/CPAP 4/> ADDL TRINI ATTND POLYSOM 88607 NARA BAINS 6/>YRS 1 MARISA MARISA SLEEP 4/> ADDL TRINI ATTND POLYSOM 14809 NIDIA JACOB 6/>YRS 1 [facility] SLEEP 4/> INC INC ADDL TRINI ATTND ECHO 03122 [facility] HALIU TTHRC R-T 1 PHYSICIAN MATTHEW Coffey S GROUP W/WOM-MOD E COMPL SPEC&COLR D ECG 78616 NIDIA MCKEMIE ROUTINE 1 [facility] W/LEAST P 12 LDS I&R ONLY COMPREHEN 78852 NIDIA JACOB SIVE 1 [facility] METABOLIC INC INC PANEL ECG 50852 NIDIA JACOB ROUTINE 1 [facility] ECG INC INC W/LEAST 12 LDS TRCG ONLY W/O I&R NATRIURET 72224 NIDIA JACOB IC 1 [facility] PEPTIDE INC INC BLOOD 55572 NIDIA JACOB COUNT 1 [facility] COMPLETE INC INC AUTO&[place] [address] NIDIA JACOB THYROID 1 [facility] STIMULATI INC INC NG HORMONE TSH CYTP 43315 HEMANT MARCOS 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 IES INC IES INC ENHANCEME NT INTERPJ XCPT C/V ENDOMETRI 90208 WOMEN'S BALL AL BX 1 [facility] ARM[facility]O W/WO [facility] X BX W/O DILAT SPX SCREENING G0202 [place] 1 [facility] MAMMOGRAP IMAGING HY AGGIE ASS INCL CAD WHEN PERFORMD COMPUTER- 33437 [place] AIDED 1 [facility]ICAL [facility] DETECTION IMAGING ASS SCREENING MAMMOGRAP HY Encounters Encounter Start End Date Code Location Performer Type Date EMERGENCY 52827 JUAN DAVID WYMAN 6 6 PHYSICIAN SHAHEED CHAVIRA S, PLLC T VISIT HIGH/URGE NT SEVERITY OFFICE 05805 JOSEF BAHENA OUTPATIEN 6 6 OLU OLU T VISIT 15 MINUTES OFFICE 54078 JOSEF LINDQUISTPATIEN 6 6 OLU OLU T VISIT 15 MINUTES OFFICE 72097 JOSEF LAWRENCECYNTHIA OUTPATIEN 5 5 OLU OLU T VISIT 15 MINUTES EMERGENCY 63182 [facility] 5 [facility] EMERGENC[facility] PAT T VISIT PHYS HIGH/URGE NT SEVERITY [facility] - 5 5 N OUTPATIEN COMMUNTIY T HOSPITA [facility]ERGENCY 48211 [facility] N VISIT COMMUNTIY HIGH HOSPITA SEVERITY& THREAT FUNCJ OFFICE 15214 [facility] SMILEY OUTPATIEN 5 5 PHYSICIAN RUSS T VISIT S GROUP 10 MINUTES OFFICE 40841 HOWARDCYNTHIA JOSEF PACHECO 5 5 OLU OLU T VISIT 15 MINUTES OFFICE 35492 JOSEF PACHECO 5 5 OLU OLU T VISIT 15 MINUTES HOSPITAL NIDIA - 5 5 [facility] OUTPATIEN INC T OFFICE 84314 [facility] SMILEY OUTPATIEN 5 5 PHYSICIAN RUSS T VISIT S GROUP 15 MINUTES OFFICE 12092 JOSEF BAHENA OUTPATIEN 5 5 OLU OLU T VISIT 15 MINUTES HOSPITAL NIDIA - 5 5 [facility] OUTPATIEN INC T OFFICE 73558 [facility] SMILEY OUTPATIEN 5 5 PHYSICIAN RUSS T VISIT S GROUP 15 MINUTES HOSPITAL NIDIA - 5 5 [facility] OUTPATIEN INC T OFFICE 72092 [facility] SMILEY OUTPATIEN 5 5 RUSS RUSS T NEW 30 MINUTES HOSPITAL NIDIA - 5 5 [facility] OUTPATIEN INC T EMERGENCY 24315 NIDIA ILUYOMADE 5 5 [facility] T VISIT P LOW/MODER SEVERITY OFFICE 93694 [facility] OUTPATIEN 4 4 FOOT & T NEW 30 ANKLE CE MINUTES HOSPITAL [place] - 4 4 N OUTPATIEN COMMUNTIY T HOSPITA OFFICE 20857 [facility] MAR[facility] OUTPATIEN 4 4 [place] T VISIT ORTHOPAED 15 [facility] MINUTES OFFICE 74290 JOSEF PACHECO 4 4 OLU OLU T VISIT 15 MINUTES OFFICE 77421 [facility] MARIE CONSULTAT 4 4 [place] SY[place]ONE ION ORTHOPAED NEW/ESTAB [facility] PATIENT 40 MIN OFFICE 46018 [facility] TARA 4 4 PHYSICIAN T VISIT S GROUP 15 MINUTES OFFICE 06100 JOSEF PACHECO 4 4 OLU OLU T VISIT 15 MINUTES OFFICE 77333 JOSEF PACHECO 4 4 OLU OLU T VISIT 15 MINUTES OFFICE 80732 JOSEF PACHECO 4 4 OLU OLU T VISIT 15 MINUTES OFFICE 58258 LIZZY PACHECO 4 4 JOSE ARMANDO JOSE ARMANDO T VISIT 15 MINUTES OFFICE 21527 JOSEF PACHECO 4 4 OLU OLU T VISIT 15 MINUTES HOSPITAL NIDIA - 4 4 [facility] OUTPATIEN INC T OFFICE 62980 KERRY PACHECO 4 4 ANILA ANILA T VISIT 10 MINUTES HOSPITAL NIDIA - 4 4 [facility] OUTPATIEN INC T [facility]OSPITAL NIDIA - 4 4 [facility] OUTPATIEN INC T OFFICE 06578 MÁRQUEZ MÁRQUEZ CONSULTAT 4 4 TOMMY TOMMY ION NEW/ESTAB PATIENT 40 MIN OFFICE 59282 KERRY PACHECO 4 4 ANILA ANILA T VISIT 10 MINUTES OFFICE 33960 JOSEF PACHECO 4 4 OLU OLU T VISIT 15 MINUTES HOSPITAL NIDIA - 4 4 [facility] OUTPATIEN INC T EMERGENCY 04-29-201 04-29-201 44944 ALISON ROSAS 4 4 JOLENE JOLENE DEPARTMEN T VISIT MODERATE SEVERITY OFFICE 00048 KERRY PAYNE OUTPATIEN 4 4 ANILA ANILA T NEW 30 MINUTES OFFICE 66414 JOSEF JOSEF OUTPATIEN 4 4 OLU OLU T VISIT 15 MINUTES OFFICE 90537 HOWARDCYNTHIA JOSEF OUTPATIEN 4 4 OLU OLU T VISIT 15 MINUTES OFFICE 17776 JOSEF JOSEF OUTPATIEN 4 4 OLU OLU T VISIT 15 MINUTES HOSPITAL NIDIA - 4 4 [facility] OUTPATIEN INC T [facility] NIDIA - 4 4 [facility] OUTPATIEN INC T PERIODIC 54216 LIZZY BALL PREVENTIV 4 4 JOSE ARMANDO JOSE ARMANDO E MED EST PATIENT 40-64YRS OFFICE 38945 JOSEF BAHENA OUTPATIEN 2 2 OLU OLU T VISIT 15 MINUTES OFFICE 63831 ALISON ROSAS OUTPATIEN 2 2 JOLENE JOLENE T NEW 30 MINUTES OFFICE 21297 JOSEF BAHENA OUTROWENAEN 2 2 OLU OLU T VISIT 15 MINUTES OFFICE 91785 JOSEF PACHECO 1 1 OLU OLU T VISIT 15 MINUTES HOSPITAL NIDIA - 1 1 [facility] OUTPATIEN INC T [facility]OSPITAL NIDIA - 1 1 [facility] OUTPATIEN INC T OFFICE 69532 JOSEF PACHECO 1 1 OLU OLU T VISIT 15 MINUTES HOSPITAL NIDIA - [address] [facility] INPATIENT INC EMERGENCY 74192 YULIYA DUGGAN 1 1 EMERGENCY DEPARTMEN SERVICES T VISIT MODERATE SEVERITY OFFICE 04658 JOSEF PACHECO 1 1 OLU OLU T VISIT 15 MINUTES HOSPITAL NIDIA - 1 1 [facility] OUTPATIEN INC T EMERGENCY 58071 YULIYA ROSAS 1 1 EMERGENCY JOLENE DEPARTMEN SERVICES T VISIT MODERATE SEVERITY EMERGENCY 74940 NIDIA 1 1 [facility] DEPARTMEN INC T VISIT LOW/MODER SEVERITY OFFICE 56910 ZACH SERRANO OUTPATIEN 1 1 Nov T NEW 45 MINUTES EMERGENCY 40921 NIDIA 1 1 [facility] DEPARTMEN INC T VISIT LOW/MODER SEVERITY EMERGENCY 31567 YULIYA PEÑA DUGGAN 1 1 EMERGENCY DEPARTMEN SERVICES T VISIT MODERATE SEVERITY HOSPITAL NIDIA - 1 1 [facility] OUTPATIEN INC T [facility]PITAL NIDIA - 1 1 [facility] OUTPATIEN INC T OFFICE 51630 JOSEF BAHENA OUTPATIEN 1 1 OLU OLU T VISIT 15 MINUTES OFFICE 21415 NARA BAINS OUTPATIEN 1 1 MARISA MARISA T NEW 45 MINUTES OFFICE 73539 SMILEY SMILEY OUTPATIEN 1 1 RUSS RUSS T VISIT 15 MINUTES OFFICE 58143 JOSEF BAHENA OUTPATIEN 1 1 OLU OLU T NEW 30 MINUTES HOSPITAL NIDIA - 1 1 [facility] OUTPATIEN INC T OFFICE 39395 SMILEY SMILEY OUTPATIEN 1 1 RUSS RUSS T VISIT 15 MINUTES HOSPITAL NIDIA - 1 1 [facility] OUTPATIEN INC T EMERGENCY 44696 YULIYA ROSAS 1 1 EMERGENCY JOLENE DEPARTMEN SERVICES T VISIT HIGH/URGE NT SEVERITY EMERGENCY 88957 NIDIA 1 1 [facility] DEPARTMEN INC T VISIT LOW/MODER SEVERITY OFFICE 11298 SMILEY SMILEY OUTPATIEN 1 1 RUSS RUSS T NEW 30 MINUTES HOSPITAL NIDIA - 1 1 [facility] OUTPATIEN INC T INITIAL 46272 WOMEN'S BALL PREVENTIV 1 1 [facility] LINDA NEW PATIENT 40-64YRS [facility] NIDIA - [address] [facility] OUTPATIEN INC T
--- OUTSIDE RECORDS SUMMARY | 2017-06-06 16:47 | External Medical Summary Rpt ---
Author Author , LUDIN NOLAND Address Unknown Phone [email or web address] Care Team Providers Care Textile Conservator Name Role Phone JOSEF RAINES, JOSEF Unavailable Unavailable OLU JOSEF OLU, ARNOLD Unavailable Unavailable OLU BESSON JENI, BESSON Unavailable Unavailable JENI JASON ANT, JASON ANT Unavailable Unavailable [facility] Unavailable Unavailable INC, [facility] MÁRQUEZ TOMMY, Unavailable Unavailable MÁRQUEZ TOMMY MÁRQUEZ TOMMY, Unavailable Unavailable MÁRQUEZ TOMMY CELLAROSI - YORBA Unavailable Unavailable PAT, CELLAROSI - YORBA PAT [facility] Unavailable Unavailable [facility] CHIPPS DEJUAN & Unavailable Unavailable DUBILIER, CHIPPS DEJUAN & DUBILIER LUCRECIA TER, LUCRECIA TER Unavailable Unavailable BALL JOSE ARMANDO, BALL Unavailable Unavailable JOSE ARMANDO BALL JOSE ARMANDO, BALL Unavailable [facility]available JOSE ARMANDO [facility], Unavailable Unavailable [facility] Unavailable Unavailable [...] JOLENE ALISON JOLENE, ALISON Unavailable Unavailable JOLENE [facility] Un[facility], [facility] Un[facility] Unavailable Unavailable [facility], [facility] POMPA URBAN, POMPA URBAN Unavailable Unavailable [facility] Unavailable Unavailable INC, [facility] Unavailable [facility]available HOSPITAL P, [facility], Unavailable Unavailable [facility] ILUYOMADE ROT, Unavailable Unavailable ILUYOMADE ROT MURTAZA DAIHANA, MURTAZA Unavailable Unavailable DAHIANA [facility] Unavailable Unavailable [facility], [facility] VIIS PEARSON, IVIS PEARSON Unavailable Unavailable [facility] SMILEY RUSS, SMILEY Unavailable Unavailable RUSS SMILEY RUSS, SMILEY Unavailable Unavailable RUSS JERONIMO JR DWI, JERONIMO Unavailable Unavailable JR DWI [facility] Unavailable [facility], [facility] YULIYA GRE, Unavailable Unavailable YULIYA GRE YULIYA GRE, Unavailable Unavailable YULIYA GRE [facility] Unavailable Unavailable SERVICES, [facility] MCKEMIE JR SUSU, Unavailable Unavailable MCKEMIE JR SUSU SCHMITZ SUSU, SCHMITZ SUSU Unavailable Unavailable [facility] Unavailable Unavailable PLL[facility], [facility], [facility] PICKLESIMER JR LOCO, Unavailable Unavailable [facility], Unavailable Unavailable [facility], Unavailable Unavailable [facility] RADMANESH SHA, Unavailable Unavailable RADMANESH SHA RENUSCH SHAHEED, RENUSCH Unavailable Unavailable SHAHEED SCIFRES ANG, SCIFRES Unavailable Unavailable [facility], [facility] KERRY MARISA, KERRY Unavailable Unavailable MARISA KERRY ANILA, KERRY Unavailable Unavailable ANILA KERRY ANILA, KERRY Unavailable Unavailable ANILA [facility] # Unavailable Unavailable [id number], [facility] # [id number] ZACH MORAN, Unavailable Unavailable ZACH MORAN, Unavailable Unavailable ZACH ASHBY, CYNTHIA Unavailable Unavailable SYMONE Purpose Continuity of Care Document - 02-06-2011 through 2016 Problems Code Diagnosis DOS Provider Status [id number] PAIN IN 02-27-2016 [facility] [id number] PAIN IN 02-27-2016 [facility] M7989 OTHER 02-27-2016 [facility] SPECIFIED MEDICAL SOFT TISSUE IMAGING ASS DISORDERS [id number] UNSPECIFIED 02-27-2016 [facility], LEFT FOOT [facility] INITIAL ENCOUNTER [id number] UNSPECIFIED 02-27-2016 [facility] INJURY [facility]ICAL LEFT FOOT IMAGING ASS INITIAL ENCOUNTER K5289 OTH SPEC 11-24-2015 JOSEF OLU NONINFECTIV E GASTROENTER ITIS & COLITIS J069 ACUTE UPPER 10-31-2015 ARNOLD OLU RESPIRATORY INFECTION UNSPECIFIED B349 VIRAL 10-28-2015 [facility] UNSPECIFIED HOSPITA E876 HYPOKALEMIA 10-28-2015 [facility] J029 ACUTE 10-28-2015 [facility] PHARYNGITIS COMMUNTIY HOSPITA UNSPECIFIED J441 CHRONIC 10-28-2015 [facility] OB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ENCY PULMONARY PHYS DZ W/EXACERBAT ION R000 TACHYCARDIA 10-28-2015 [facility] [place] UNSPECIFIED EMS R05 COUGH 10-28-2015 [facility] [place] [facility] R0602 SHORTNESS 10-28-2015 [place]- OF BREATH [place] R079 CHEST PAIN 10-28-2015 [place]- UNSPECIFIED [place] [facility] R0981 NASAL 10-28-2015 [place] CONGESTION COMMUNTIY HOSPITA R509 FEVER 10-28-2015 [place]- UNSPECIFIED [place] [facility] R9431 ABNORMAL 10-28-2015 [place] ELECTROCARD COMMUNTIY IOGRAM HOSPITA H6691 OTITIS 10-05-2015 [facility] PHYSICIANS UNSPECIFIED GROUP RIGHT EAR J0100 ACUTE 10-05-2015 [facility] MAXILLARY PHYSICIANS SINUSITIS GROUP UNSPECIFIED H6690 OTITIS 09-29-2015 ARNOLD OLU MEDIA UNSPECIFIED UNSPECIFIED EAR J0190 ACUTE 09-05-2015 ARNOLD OLU SINUSITIS UNSPECIFIED Z0100 ENCOUNTER 08-26-2015 [facility] EXAM EYES & GRE VISION W/O ABNORMAL FIND 39366 SIMPLE/UNSP 04-20-2015 [facility] ECIFIED PHYSICIANS CHRONIC GROUP SEROUS OTITIS MEDIA 3829 UNSPECIFIED 04-20-2015 COMMUNITY OTITIS ANESTH OF MEDIA THE BLUE 470 DEVIATED 04-20-2015 [facility] NASAL PHYSICIANS SEPTUM GROUP 4710 POLYP OF 04-20-2015 [facility] NASAL PHYSICIANS CAVITY GROUP 4718 OTHER POLYP 04-20-2015 [facility] 4730 CHRONIC 04-20-2015 [facility] MAXILLARY PHYSICIANS SINUSITIS GROUP 4739 UNSPECIFIED 04-15-2015 N[facility]IA SINUSITIS [facility] P V7283 OTHER 04-15-2015 [place] SPECIFIED [facility] VE EXAMINATION 3831 CHRONIC 03-30-2015 [facility] MASTOIDITIS PHYSICIANS GROUP 92013 DIAB W/O 03-18-2015 [place] COMP TYPE MEM HOS[facility] II/UNS NOT INC STATED UNCNTRL 3814 NONSUPPRATV 02-23-2015 [facility] OTITIS PHYSICIANS MEDIA NOT GROUP SPEC ACUT/CHRON 4279 UNSPECIFIED 02-23-2015 [facility] CARDIAC PHYSICIANS DYSRHYTHMIA GROUP 3839 UNSPECIFIED 02-06-2015 [facility] MASTOIDITIS INC 4610 ACUTE 02-06-2015 [place] MAXILLARY [facility] SINUSITIS INC 4779 ALLERGIC 01-26-2015 BALJIT SOLANO RHINITIS CAUSE UNSPECIFIED 62046 UNSPECIFIED 01-08-2015 [facility] P 4019 UNSPECIFIED 01-08-2015 [facility] P N 7840 HEADACHE 01-08-2015 [facility] P 1101 DERMATOPHYT 11-21-2014 [place] [facility] OF FOOT & NAIL ANKLE CE 3569 UNSPEC 11-21-2014 [place] HEREDIT&IDI FOOT & OPATHIC ANKLE CE PERIPHERAL NEUROPATHY 7038 OTHER 11-21-2014 [place] SPECIFIED FOOT & DISEASE OF ANKLE CE NAIL 88163 OSTEOARTHRO 11-21-2014 [place] SIS UNSPEC FOOT & WHETHER ANKLE CE GEN/LOC ANK&FOOT 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 [address] OSTEOARTHRO 10-31-2014 [place] S UNSPEC COMMUNTIY WHETHER HOSPITA GEN/LOC UNSPEC SITE 67832 GENERALIZED 10-31-2014 [place] PAIN COMMUNTIY HOSPITA 39610 PAIN IN 10-24-2014 [facility] [place] JOINT, [facility] FOOT 486 PNEUMONIA, 10-18-2014 [facility] ORGANISM PHYSICIANS UNSPECIFIED GROUP 4660 ACUTE 10-14-2014 ARNOLD OLU BRONCHITIS 6256 FEMALE 10-04-2014 [facility] STRESS PHYSICIANS INCONTINENC GROUP E 06272 OSTEOARTHRO 10-03-2014 ARNCYNTHIA OLU S INVLV MX SITES BUT NOT SPEC GEN 39331 PAIN IN 10-03-2014 ARNOLD OLU JOINT, LOWER LEG 4619 ACUTE 08-25-2014 ARNOLD OLU SINUSITIS, UNSPECIFIED 5110 PLEURISY 08-11-2014 ARNOLD OLU WITHOUT MENTION EFFUS/[place] [address] KYPHOSIS 06-27-2014 KERRY ANILA ACQUIRED POSTURAL 7391 NONALLOPATH 06-27-2014 KERRY ANILA IC LESION OF CERVICAL REGION NEC 7392 NONALLOPATH 06-27-2014 KERRY ANILA IC LESION OF THORACIC REGION NEC 7398 NONALLOPATH 06-27-2014 KERRY ANILA IC LESION OF RIB CAGE NEC 6259 UNSPEC 05-20-2014 BALL JOSE ARMANDO SYMPTOM ASSOC W/FEMALE GENITAL ORGANS 6271 POSTMENOPAU 05-20-2014 BALL JOSE ARMANDO REJI BLEEDING 28707 UNSPECIFIED 05-05-2014 JOSEF RAINES SLEEP APNEA 6272 SYMPTOMATIC 04-18-2014 [facility] MENOPAUSAL/ INC FEMALE CLIMACTERIC STATES 6210 POLYP OF 04-04-2014 [facility] CORPUS [facility] UTERI INC 6268 OTH D/O 04-04-2014 [facility] MENSTRUATIO MEM HOS[facility] N&OTH ABN INC BLEED FE GNT TRACT 83511 INCOMPLETE 03-25-2014 MÁRQUEZ BLADDER TOMMY EMPTYING 26942 CALCANEAL 03-17-2014 ARNOLD SPUR MARYCRUZ 68285 UNSPECIFIED 03-17-2014 JOSEF RAINES URINARY INCONTINENC E 9178 OTH&UNSPEC 03-17-2014 [facility] SUP INJURY MEM HOS[facility] FOOT&TOES INC W/O MENTION INF 5259 UNSPECIFIED 03-01-2014 ALISON JOLENE DISORDER TEETH&SUPPO RTING STRUCTURES 05786 OTHER 02-01-2014 JOSEF RAINES MALAISE AND FATIGUE 6253 DYSMENORRHE 01-13-2014 BALL JOSE ARMANDO A V720 EXAMINATION 01-12-2014 YULIYA OF EYES GRE AND VISION 23336 OTHER 01-05-2014 ARNOLD ABNORMAL MARYCRUZ FINDING RADIOLOGICA L EXAM BREAST V7612 OTHER 01-05-2014 [facility] SCREENING [facility] MAMMOGRAM INC V7231 ROUTINE 01-01-2014 [facility] GYNECOLOGIC [facility] AL INC EXAMINATION 50762 TRICHOMONAL 12-29-2013 DENNIS ADAN VULVOVAGINI TIS 72644 UNSPECIFIED 12-29-2013 LIZZY JOSE ARMANDO VAGINITIS AND VULVOVAGINI TIS V745 SCREENING 12-29-2013 [place] EXAMINATION JR ADAN FOR VENEREAL DISEASE 24440 ESOPHAGEAL 12-02-2011 JOSEF RAINES REFLUX 30325 UNS 12-02-2011 JOSEF RAINES GASTRITIS&G ASTRODUODIT IS W/O MENTION HEMORR 99844 UNSPEC 11-28-2011 ALISON JOLENE VENTRAL JUHI W/O MENTION OBST/GANGRE N 5589 OTH&UNSPEC 11-08-2011 JOSEF RAINES NONINFECTIO US GASTROENTER ITIS&COLITI S 87891 OBSTRUCTIVE 11-02-2011 [place] [facility] APNEA MEDICAL EQUIP 02602 UNSPECIFIED 10-04-2011 JOSEF RAINES ENTHESOPATH Y OF ANKLE AND TARSUS 82226 CHOLECYSTIT 08-23-2011 COMMUNITY IS, ANESTH OF UNSPECIFIED THE BLUE 13544 CHRONIC 08-23-2011 [facility] CHOLECYSTIT [facility] IS INC 5756 CHOLESTEROL 08-23-2011 [facility] OSIS OF DEJUAN & GALLBLADDER DUBILIER 5758 OTHER 08-20-2011 [facility] SPECIFIED [facility] P GALLBLADDER 74358 ABDOMINAL 08-17-2011 JOSEF RAINES PAIN, GENERALIZED 20649 ABDOMINAL 08-15-2011 [place] PAIN, MEDICAL EPIGASTRIC IMAGING ASS 5770 ACUTE 08-14-2011 [place] [facility] PANCREATITI SERV S FOUNDAT[facility] 8830 OPEN WOUND 08-13-2011 [facility] FINGER EMERGENCY WITHOUT SERVICES MENTION COMPLICATIO N 7823 EDEMA 07-05-2011 JOSEF OLU 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 7842 SWELLING 05-31-2011 [facility] MASS OR EMERGENCY LUMP IN SERVICES HEAD AND NECK 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 P IOGRAM Medications Na ND Rx Da [...] 0 20 10 WA 71 BE Ac PA 37 -1 -1 .0 L- 39 SS [...] 20 20 RT 5 70 11 11 OH 5 PH CH AR AE MA L [...] LL 10 C 0 MG CA P PA 00 06 06 0 21 6 CL [...] 0 MG LL C TA BL ET PA 00 05 05 0 21 6 CL [...] 20 20 YC 66 11 11 PH OH IN 8 AR CH MA AE 25 CY L 0 S MG LL C TA BL ET ME 00 05 05 0 21 6 WA 71 LA Ac TH 60 -0 -0 .0 L- 18 WS ti YL 34 5- 5- 00 MA 05 ON ve PA 59 20 20 RT 6 ED 31 [...] Procedure DOS Code Location Performer Comment RADEX 97703 [place] ARNOLD ANKLE 6 MEDICAL MARYCRUZ COMPLETE IMAGING MINIMUM 3 ASS VIEWS RADEX 93611 [place] ARNOLD FOOT 6 MEDICAL MARYCRUZ COMPLETE IMAGING MINIMUM 3 ASS VIEWS COLLECTIO 38517 [facility] N VENOUS 5 N N BLOOD COMMUNTIY COMMUNTIY VENIPUNCT HOSPITA HOSPITA URE GROUND A0425 [facility] MILEA 5 [facility] [facility] PER CO EMS CO EMS STATUTE MILE ECG 75509 [facility] CELLAROSI ROUTINE 5 MIKE - YORBA ECG EMERGENCY PAT W/LEAST PHYS 12 LDS I&R ONLY AMB A0427 [facility] SERVICE 5 [facility] [facility] ALS CO EMS CO EMS EMERGENCY TRANSPORT LEVEL 1 RADIOLOGI 86813 [facility] [place] RADMANESH C 5 RADIOLOGY SHA EXAMINATI ON CHEST SINGLE VIEW FRONTAL COMPREHEN 53150 [facility] SIVE 5 N N METABOLIC COMMUNTIY COMMUNTIY PANEL HOSPITA HOSPITA PREDNISON J7506 [facility] DI[facility] E ORAL 5 N PER 5 MG COMMUNTIY LABORATOR HOSPITA IES LLC BLOOD 54635 [facility] COUNT 5 N N COMPLETE COMMUNTIY COMMUNTIY AUTO&AUTO HOSPITA HOSPITA DIFRNTL WBC INJECTION J0696 JOSEF BAHENA 5 OLU OLU CEFTRIAXO NE SODIUM PER 250 MG INJECTION J0696 JOSEF BAHENA 5 OLU OLU CEFTRIAXO NE SODIUM PER 250 MG OPHTH 33870 [facility] 5 GRE GRE XM&EVAL COMPRHNSV ESTAB PT 1/> LEVEL III 75905 [facility] LUCR[facility]IA TER [facility] 5 LLC PATHOLOGY GROSS&[place] [address] [facility]CR[facility] PATHOLOGY GROSS&JOLENE ROSCOPIC EXAM ANESTHESI 45007 COMMUNITY KERRY A NOSE & 5 ANESTH MARISA ACCESSORY OF THE SINUSES BLUE NOS NSL/SINUS 06146 [facility] NDSC MAX 5 PHYSICIAN PHYSICIAN ANTROST S GROUP S GROUP W/RMVL TISS MAX SINUS TYMPANOST 53051 [facility] SMILEY BENITEZ 5 PHYSICIAN RUSS GENERAL S GROUP ANESTHESI A BASIC 67385 [facility] JACBO METABOLIC 5 [facility] PANEL INC INC CALCIUM TOTAL ECG 53890 [facility] DECKER JR ROUTINE 5 [facility] W/LEAST P 12 LDS I&R ONLY BLOOD 24895 [facility] JACOB COUNT 5 [facility] H[facility] COMPLETE INC INC AUTO&AUTO DIFRNTL WBC ECG 00962 [facility] JACOB ROUTINE 5 [facility] ECG INC INC W/LEAST 12 LDS TRCG ONLY W/O I&R COLLECTIO 51020 [facility] JACOB N VENOUS 5 [facility] BLOOD INC INC VENIPUNCT URE COLLECTIO 70298 [facility] JACOB N VENOUS 5 [facility] BLOOD INC INC VENIPUNCT URE HEMOGLOBI 18394 [facility] JACOB N 5 [facility] GLYCOSYLA INC INC STEVEN A1C TYMPANOME 60111 BALJ[facility] TRY 5 [facility] RUSS DISTORT 34465 [facility] PRODUCT 5 RUSS RUSS EVOKED OTOACOUST IC EMISNS LIMITD COMPRE 89513 BALJIT SMI[facility] AUDIOMETR 5 RUSS [place] [address] [place] AR[place]OLD MAXILLOFA 5 MEDICAL MARYCRUZ CIAL W/O IMAGING CONTRAST ASS MATERIAL WALKING L4360 [facility] FINE BRA BOOT 5 FOOT & PNEUMATC ANKLE CE &/ VACUUM PREFAB CUSTM FIT RADEX 34374 [place] FINE BRA FOOT 5 FOOT & COMPLETE ANKLE CE MINIMUM 3 VIEWS COLLECTIO 19656 [facility] N VENOUS 4 N N BLOOD COMMUNTIY COMMUNTIY VENIPUNCT HOSPITA HOSPITA URE RADEX 56638 [place] FINE BRA FOOT 4 FOOT & COMPLETE ANKLE CE MINIMUM 3 VIEWS TRIMMING 96503 [place] FINE BRA NONDYSTRO 4 FOOT & PHIC ANKLE CE NAILS ANY NUMBER RHEUMATOI 23486 [facility] D FACTOR 4 N N QUALITATI COMMUNTIY COMMUNTIY VE HOSPITA HOSPITA MRI LOWER 99440 [facility] [place] EXTREM 4 [place] SYMONE OTH/THN ORTHOPAED JT W/O ICS PLC CONTR MATRL THERAPEUT 13921 [facility] IC 4 PHYSICIAN PHYSICIAN PROPHYLAC S GROUP S GROUP TIC/DX INJECTION SUBQ/IM INJECTION J1040 [facility] ALISON 4 PHYSICIAN JOLENE METHYLPRE S GROUP DNISOLONE ACETATE 80 MG RADEX 45432 [facility] [place] FOOT 4 [place] SYMONE COMPLETE ORTHOPAED MINIMUM 3 ICS PLC VIEWS CHIROPRAC 53637 KERRY PAYNE TIC 4 ANILA ANILA MANIPULAT OSVALDO [place] SPINAL 1-2 REGIONS CHIROPRAC 96045 KERRY KERRY TIC 4 ANILA ANILA MANIPULAT OSVALDO [place] SPINAL 1-2 REGIONS CHIROPRAC 58849 KERRY PAYNE TIC 4 ANILA ANILA MANIPULAT OSVALDO [place] SPINAL 1-2 REGIONS CHIROPRAC 35277 KERRY PAYNE TIC 4 ANILA ANILA MANIPULAT OSVALDO TX SPINAL 1-2 REGIONS THERAPEUT 50214 KERRY KERRY IC PX 1/> 4 ANILA ANILA AREAS EACH 15 MIN EXERCISES THERAPEUT 05473 KERRY KERRY IC PX 1/> 4 ANILA ANILA AREAS EACH 15 MIN EXERCISES CHIROPRAC 07610 KERRY KERRY TIC 4 ANILA ANILA MANIPULAT OSVALDO TX SPINAL 1-2 REGIONS APPL 30770 KERRY PAYNE MODALITY 4 ANILA ANILA 1/> AREAS TRACTION MECHANICA L CHIROPRAC 53390 KERRY PAYNE TIC 4 ANILA ANILA MANIPULAT OSVALDO [place] SPINAL 1-2 REGIONS THERAPEUT 56325 KERRY KERRY IC PX 1/> 4 ANILA ANILA AREAS EACH 15 MIN EXERCISES CHIROPRAC 84806 KERRY KERRY TIC 4 ANILA ANILA MANIPULAT OSVALDO TX SPINAL 1-2 REGIONS CHIROPRAC 43608 KERRY KERRY TIC 4 ANILA ANILA MANIPULAT OSVALDO TX SPINAL 1-2 REGIONS CHIROPRAC 88270 KERRY KERRY TIC 4 ANILA ANILA MANIPULAT OSVALDO [place] SPINAL 1-2 REGIONS CHIROPRAC 92316 KERRY KERRY TIC 4 ANILA ANILA MANIPULAT OSVALDO TX SPINAL 1-2 REGIONS THERAPEUT 64369 KERRY KERRY IC PX 1/> 4 ANILA ANILA AREAS EACH 15 MIN EXERCISES THERAPEUT 67194 KERRY KERRY IC PX 1/> 4 ANILA ANILA AREAS EACH 15 MIN EXERCISES CHIROPRAC 18057 KERRY KERRY TIC 4 ANILA ANILA MANIPULAT OSVALDO TX SPINAL 1-2 REGIONS GONADOTRO 81315 N[facility] JACOB PIN 4 MEM HOSP MEM HOSP FOLLICLE INC INC STIMULATI NG HORMONE GONADOTRO 22087 [facility] JACOB PIN 4 MEM HOSP MEM HOSP LUTEINIZI INC INC NG HORMONE CHIROPRAC 68195 KERRY KERRY TIC 4 ANILA ANILA MANIPULAT OSVALDO TX SPINAL 1-2 REGIONS THERAPEUT 36560 KERRY KERRY IC PX 1/> 4 ANILA ANILA AREAS EACH 15 MIN EXERCISES THERAPEUT 13618 KERRY KERRY IC PX 1/> 4 ANILA ANILA AREAS EACH 15 MIN EXERCISES CHIROPRAC 49538 KERRY KERRY TIC 4 ANILA ANILA MANIPULAT OSVALDO TX SPINAL 1-2 REGIONS CHIROPRAC 41462 KERRY KERRY TIC 4 ANILA ANILA MANIPULAT OSVALDO TX SPINAL 1-2 REGIONS THERAPEUT 50448 KERRY KERRY IC PX 1/> 4 ANILA ANILA AREAS EACH 15 MIN EXERCISES HYSTEROSC 62793 N[facility]IA JACOB OPY BX 4 MEM HOSP [facility]OS[facility] ENDOMETRI INC INC UM&/POLYP C W/WO D&C INJECTION J2405 [facility] JACOB 4 MEM HOSP MEM HOSP ONDANSETR INC INC [place] HCL [place] 1 [place] [address] [facility], MURTAZA SURG 4 [facility] PATHOLOGY GROSS&JOLENE ROSCOPIC EXAM BASIC 61232 [facility] JACOB METABOLIC 4 MEM HOS[facility] HOS[facility] PANEL INC INC CALCIUM TOTAL ECG 70884 JERONIMO DECKER JR ROUTINE 4 DWI DWI ECG W/LEAST 12 LDS I&R ONLY ECG 19713 [facility] RAE ROUTINE 4 MEM HOSP DIAGNOSTI ECG INC CS W/LEAST 12 LDS TRCG ONLY W/O I&R BLOOD 80403 [facility] JACOB COUNT 4 MEM HOS[facility] MEM HOS[facility] COMPLETE INC INC AUTO&AUTO DIFRNTL WBC CHIROPRAC 09467 KERRY PAYNE TIC 4 ANILA ANILA MANIPULAT OSVALDO TX SPINAL 1-2 REGIONS THERAPEUT 26300 KERRY PAYNE IC PX 1/> 4 ANILA ANILA AREAS EACH 15 MIN EXERCISES THERAPEUT 59444 KERRY PAYNE IC PX 1/> 4 ANILA ANILA AREAS EACH 15 MIN EXERCISES CHIROPRAC 41409 KERRY PAYNE TIC 4 ANILA ANILA MANIPULAT OSVALDO TX SPINAL 1-2 REGIONS BRYAN 46444 MÁRQUEZ MÁRQUEZ POST-VOID 4 TOMMY TOMMY ING RESIDUAL URINE&/BL ADDER CAP CHIROPRAC 75366 KERRY PAYNE TIC 4 ANILA ANILA MANIPULAT OSVALDO TX SPINAL 1-2 REGIONS THERAPEUT 78232 KERRY PAYNE IC PX 1/> 4 ANILA ANILA AREAS EACH 15 MIN EXERCISES THERAPEUT 32258 KERRY PAYNE IC PX 1/> 4 ANILA ANILA AREAS EACH 15 MIN EXERCISES APPL 05743 KERRY PAYNE MODALITY 4 ANILA ANILA 1/> AREAS TRACTION MECHANICA L CHIROPRAC 11381 KERRY PAYNE TIC 4 ANILA ANILA MANIPULAT OSVALDO [place] SPINAL 1-2 REGIONS RADEX 14360 ARNOLD ARNOLD FOOT 4 MARYCRUZ MARYCRUZ COMPLETE MINIMUM 3 VIEWS CHIROPRAC 38983 KERRY PAYNE TIC 4 ANILA ANILA MANIPULAT OSVALDO TX SPINAL 1-2 REGIONS APPL 32350 KERRY PAYNE MODALITY 4 ANILA ANILA 1/> AREAS ELEC STIMJ UNATTENDE D APPL 89480 KERRY PAYNE MODALITY 4 ANILA ANILA 1/> AREAS TRACTION MECHANICA L THERAPEUT 12754 KERRY PAYNE IC PX 1/> 4 ANILA ANILA AREAS EACH 15 MIN EXERCISES THERAPEUT 15937 KERRY PAYNE IC PX 1/> 4 ANILA ANILA AREAS EACH 15 MIN EXERCISES APPL 96530 KERRY KERRY MODALITY 4 ANILA ANILA 1/> AREAS TRACTION MECHANICA L CHIROPRAC 57970 KERRY PAYNE TIC 4 ANILA ANILA MANIPULAT OSVALDO TX SPINAL 1-2 REGIONS APPL 50111 KERRY KERRY MODALITY 4 ANILA ANILA 1/> AREAS ELEC STIMJ UNATTENDE D ENDOMETRI 10205 LIZZY BALL AL BX 4 JOSE ARMANDO JOSE ARMANDO W/WO ENDOCERVI X BX W/O DILAT SPX APPL 99319 KERRY PYANE MODALITY 4 ANILA ANILA 1/> AREAS TRACTION MECHANICA L THERAPEUT 60923 KERRY PAYNE IC PX 1/> 4 ANILA ANILA AREAS EACH 15 MIN EXERCISES APPL 82426 KERRY KERRY MODALITY 4 ANILA ANILA 1/> AREAS ELEC STIMJ UNATTENDE D CHIROPRAC 60440 KERRY PAYNE TIC 4 ANILA ANILA MANIPULAT OSVALDO TX SPINAL 1-2 REGIONS CHIROPRAC 14367 KERRY PAYNE TIC 4 ANILA ANILA MANIPULAT [place]VALDO TX SPINAL 1-2 REGIONS APPL 97135 KERRY KERRY MODALITY 4 ANILA ANILA 1/> AREAS ELEC STIMJ UNATTENDE D THERAPEUT 30038 KERRY PAYNE IC PX 1/> 4 ANILA ANILA AREAS EACH 15 MIN EXERCISES APPL 42100 KERRY KERRY MODALITY 4 ANILA ANILA 1/> AREAS TRACTION MECHANICA L APPL 66193 KERRY KERRY MODALITY 4 ANILA ANILA 1/> AREAS TRACTION MECHANICA L APPL 32532 KERRY KERRY MODALITY 4 ANILA ANILA 1/> AREAS ELEC STIMJ UNATTENDE D CHIROPRAC 14882 KERRY PAYNE TIC 4 ANILA ANILA MANIPULAT [place] SPINAL 1-2 REGIONS SALINE 08315 LIZZY BALL INFUS 4 JOSE ARMANDO JOSE ARMANDO SONOHYSTE ROGRAPHY W/COLOR DOPPLER INJECTION J3420 JOSEF BAHENA VIT B-12 4 OLU OLU CYANOCOBA OVIDIO TO 1000 MCG INJECTION J3420 JOSEF BAHENA VIT B-12 4 OLU OLU CYANOCOBA OVIDIO TO 1000 MCG INJECTION J3420 JOSEF BAHENA VIT B-12 4 OLU OLU CYANOCOBA OVIDIO TO 1000 MCG 49684 LIZZY BALL TRANSVAGI 4 JOSE ARMANDO JOSE ARMANDO NAL DETERMINA 24726 YULIYA DWYER ON 4 GRE GRE REFRACTIV E STATE OPHTH 77494 YULIYA [facility] 4 GRE GRE XM&EVAL COMPRHNSV ESTAB PT 1/> SCREENING G0202 [facility]IA [facility]ACOB [facility] MAM[facility]AP [facility] INC HY AGGIE INCL CAD WHEN PERFORMD DIAGNOSTI G0204 ARNOLD ARNOLD C 4 MARYCRUZ MARYCRUZ MAMMOGRAP HY INCL CAD WHEN PERF; BILAT COMPUTER- 44829 NIDIA JACOB AIDED 4 [facility] DETECTION INC INC SCREENING MAMMOGRAP HY COMPREHEN 19705 NIDIA JACOB SIVE 4 [facility] METABOLIC INC INC PANEL LIPID 62796 NIDIA JACOB PANEL 4 [facility] INC INC GONADOTRO 78565 NIDIA JACOB PIN 4 [facility] FOLLICLE INC INC STIMULATI NG HORMONE GONADOTRO 92147 NIDIA JACOB PIN 4 [facility] LUTEINIZI INC INC NG HORMONE BLOOD 16459 NIDIA JACOB COUNT 4 [facility] COMPLETE INC INC AUTO&[place] [address] NIDIA JACOB FREE 4 [facility] [place] [address] NIDIA JACOB THYROID 4 [facility] STIMULATI INC INC NG HORMONE TSH IADNA 34761 PICKLESIM PICKLESIM NEISSERIA 4 ER JR LOCO ER JR LOCO GONORRHOE AE AM[place]IFIED PROBE T[place] URINE 09905 LIZZY BALL 4 JOSE ARMANDO JOSE ARMANDO TEST VISUAL COLOR CMPRSN METHS CYTP C/V 09049 PICKLESIM PICKLESIM AUTO THIN 4 ER JR LOCO ER JR LOCO LYR PREPJ SCR MNL RESCR PHYS SMR PRIM 84395 LIZZY BALL SRC WET 4 JOSE ARMANDO JOSE ARMANDO [facility] NFCT AGT IADNA 98860 PICKLESIM PICKLESIM CHLAMYDIA 4 ER JR LOCO ER JR LOCO TRACHOMAT IS AMPLIFIED PROBE TQ CONTINUOU E0601 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 S 1 HOME HOME POSITIVE MEDICAL MEDICAL AIRWAY EQUIP EQUIP PRESSURE DEVICE LEVEL III 71697 SUSANNA LANGSTON VAN SURG 1 DEJUAN & PATHOLOGY DUBILIER GROSS&JOLENE ROSCOPIC EXAM LAPAROSCO 5123 NIDIA JACOB PIC 1 [facility] CHOLECYST INC INC ECTOMY INJECTION J2405 NIDIA JACOB 1 [facility] ONDANSETR INC [place] [address] NIDIA JACOB INFUSION 1 [facility] THERAPY INC INC PROPHYLAX IS/DX EA HOUR LAPAROSCO 27288 NIDIA JACOB PY SURG 1 [facility] CHOLECYST INC INC ECTOMY ANES 16330 [facility] INTRAPERI 1 ANESTH TONEAL OF THE UPPER BLUE ABDOMEN W/LAPS NOS URINE 40558 NIDIA JACOB 1 [facility] TEST INC INC VISUAL COLOR CMPRSN METHS ECG 67238 NIDIA JACOB ROUTINE 1 [facility] ECG INC INC W/LEAST 12 LDS TRCG ONLY W/O I&R ECG 40901 NIDIA WALTERS ROUTINE [address] [facility] W/LEAST P 12 LDS I&R ONLY HOSPITAL 70308 [facility] DISCHARGE 1 [facility] DAY INTERNAL MANAGEMEN MED T 30 MIN/< SBSQ [id number] CARE/DAY INTERNAL 25 MED MINUTES 22302 [place] ABDOMINAL 1 MEDICAL [facility] REAL IMAGING TIME ASS W/IMAGE LIMITED SBSQ [id number] CARE/DAY INTERNAL 25 MED MINUTES INITIAL [address]18 [place] JASON ANT INPATIENT 1 MEDICAL CONSULT SERV NEW/ESTAB FOUNDATIO PT 80 MIN INITIAL [id number] CARE/DAY INTERNAL 50 MED MINUTES FINE 80170 SUSANNA HAYNES PAT NEEDLE 1 DEJUAN & ASPIRATIO DUBILIER N W/O IMAGING GUIDANCE CYTP EVAL 19650 [place] PAT FINE 1 DEJUAN & NEEDLE DUBILIER ASPIRATE INTERP & REPORT CONTINUOU E0601 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 S 1 HOME HOME POSITIVE MEDICAL MEDICAL AIRWAY EQUIP EQUIP PRESSURE DEVICE OPHTH 27833 SANG MARISCAL MEDICAL 1 VISION ANG XM&EVAL COMPRE NEW PT 1/> VST MRI ORBIT 05927 [place] FACE & 1 MEDICAL MARY[place] NECK W/O IMAGING & ASS W/CONTRAS T MATRL CONTINUOU E0601 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 S 1 HOME HOME POSITIVE MEDICAL MEDICAL AIRWAY EQUIP EQUIP PRESSURE DEVICE TYMPANOME 46653 BALJIT SMILEY TRY 1 RUSS RUSS COMPRE 73006 SMILEY BALJIT AUDIOMETR 1 RUSS RUSS Y THRESHOLD EVAL SP RECOGNIJ TUBING A7037 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 USED WITH 1 HOME HOME POSITIVE MEDICAL MEDICAL AIRWAY EQUIP EQUIP PRESSURE DEVICE HUMDIFIR E0562 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 HEATED 1 HOME HOME USED MEDICAL MEDICAL W/POS EQUIP EQUIP ARWAY PRESSURE DEVICE FULL FACE A7030 CAMREN MORALES MASK 1 HOME HOME USED MEDICAL [...] MEDICAL AIRWAY EQUIP EQUIP PRESSURE DEVICE POLYSOM 69509 NARA BAINS 6/>YRS 1 MARISA MARISA SLEEP W/CPAP 4/> ADDL TRINI ATTND HEADGEAR A7035 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 USED 1 HOME HOME W/POSITIV MEDICAL MEDICAL E AIRWAY EQUIP EQUIP PRESSURE DEVICE POLYSOM 97345 NIDIA JACOB 6/>YRS 1 [facility] SLEEP INC INC W/CPAP 4/> ADDL TRINI ATTND POLYSOM 40120 NARA BAINS 6/>YRS 1 MARISA MARISA SLEEP 4/> ADDL TRINI ATTND POLYSOM 99646 NIDIA JACOB 6/>YRS 1 [facility] SLEEP 4/> INC INC ADDL TRINI ATTND ECHO 41428 [facility] HAL[facility] TTHRC R-T 1 PHYSICIAN MATTHEW Coffey S GROUP W/WOM-MOD E COMPL SPEC&COLR D ECG 51936 NIDIA MCKEMIE ROUTINE 1 [facility] W/LEAST P 12 LDS I&R ONLY COMPREHEN 58609 NIDIA JACOB SIVE 1 [facility] METABOLIC INC INC PANEL ECG 64258 NIDIA JACOB ROUTINE 1 [facility] ECG INC INC W/LEAST 12 LDS TRCG ONLY W/O I&R NATRIURET 56424 NIDIA JACOB IC 1 [facility] PEPTIDE INC INC BLOOD 89674 NIDIA JACOB COUNT 1 [facility] COMPLETE INC INC AUTO&[place] [address] NIDIA JACOB THYROID 1 [facility] STIMULATI INC INC NG HORMONE TSH CYTP 26416 HEMANT MARCOS 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 IES INC IES INC ENHANCEME NT INTERPJ XCPT C/V ENDOMETRI 59377 WOMEN'S BALL AL BX 1 HEALTH JOSE ARMANDO W/WO [facility] END[facility]ERV[facility] LINDA X BX W/O DILAT SPX SCREENING G0202 [place] 1 MEDICAL [facility] MAMMOGRAP IMAGING HY AGGIE ASS INCL CAD WHEN PERFORMD COMPUTER- 75277 [place] AIDED 1 MEDICAL [facility] DETECTION IMAGING ASS SCREENING MAMMOGRAP HY Encounters Encounter Start End Date Code Location Performer Type Date EMERGENCY 85315 JUAN DAVID WYMAN 6 6 PHYSICIAN SHAHEED CHAVIRA S, PLLC T VISIT HIGH/URGE NT SEVERITY OFFICE 56247 JOSEF BAHENA OUTPATIEN 6 6 OLU OLU T VISIT 15 MINUTES OFFICE 36892 JOSEF LINDQUISTPATIEN 6 6 OLU OLU T VISIT 15 MINUTES OFFICE 56452 JOSEF LAWRENCECYNTHIA OUTPATIEN 5 5 OLU OLU T VISIT 15 MINUTES EMERGENCY 20067 [facility] 5 [facility]ENC[facility] PAT T VISIT PHYS HIGH/URGE NT SEVERITY [facility]PITAL [facility] - 5 5 N OUTPATIEN COMMUNTIY T [facility] 86709 [facility] HIGH HOSPITA SEVERITY& THREAT FUNCJ OFFICE 72203 [facility] OUTPATIEN 5 5 PHYSICIAN RUSS T VISIT S GROUP 10 MINUTES OFFICE 02223 [facility]AR[facility]IA JOSEF PACHECO 5 5 OLU OLU T VISIT 15 MINUTES OFFICE 82961 JOSEF PACHECO 5 5 OLU OLU T VISIT 15 MINUTES HOSPITAL NIDIA - 5 5 [facility] OUTPATIEN INC T OFFICE 02324 [facility] [place] OUTPATIEN 5 5 PHYSICIAN RUSS T VISIT S GROUP 15 MINUTES OFFICE 97446 JOSEF BAHENA OUTPATIEN 5 5 OLU OLU T VISIT 15 MINUTES HOSPITAL NIDIA - 5 5 [facility] OUTPATIEN INC T OFFICE 37099 [facility] [place] OUTPATIEN 5 5 PHYSICIAN RUSS T VISIT S GROUP 15 MINUTES HOSPITAL NIDIA - 5 5 [facility] OUTPATIEN INC T OFFICE 32523 [facility] [place] OUTPATIEN 5 5 RUSS RUSS T NEW 30 MINUTES HOSPITAL NIDIA - 5 5 [facility] OUTPATIEN INC T EMERGENCY 73184 NIDIA ILUYOMADE 5 5 [facility] T VISIT P LOW/MODER SEVERITY OFFICE 75342 [place] [facility] BRA OUTPATIEN 4 4 FOOT & T NEW 30 ANKLE CE MINUTES HOSPITAL [place] - 4 4 N OUTPATIEN COMMUNTIY T HOSPITA OFFICE 56700 [facility] MARIE OUTPATIEN 4 4 [place] SY[place]ONE T VISIT ORTHOPAED 15 [facility] MINUTES OFFICE 27916 JOSEF PACHECO 4 4 OLU OLU T VISIT 15 MINUTES OFFICE 56236 [facility] MARIE CONSULTAT 4 4 [place] SYMONE ION ORTHOPAED NEW/ESTAB [facility] PATIENT 40 MIN OFFICE 60504 [facility] TARA 4 4 PHYSICIAN T VISIT S GROUP 15 MINUTES OFFICE 42763 JOSEF PACHECO 4 4 OLU OLU T VISIT 15 MINUTES OFFICE 57574 JOSEF PACHECO 4 4 OLU OLU T VISIT 15 MINUTES OFFICE 19357 JOSEF PACHECO 4 4 OLU OLU T VISIT 15 MINUTES OFFICE 65078 LIZZY PACHECO 4 4 JOSE ARMANDO JOSE ARMANDO T VISIT 15 MINUTES OFFICE 44204 JOSEF PACHECO 4 4 OLU OLU T VISIT 15 MINUTES HOSPITAL NIDIA - 4 4 [facility] OUTPATIEN INC T OFFICE 31325 KERRY PACHECO 4 4 ANILA ANILA T VISIT 10 MINUTES HOSPITAL [facility] - 4 4 [facility] OUTPATIEN INC T [facility]PITAL N[facility] - 4 4 [facility] OUTPATIEN INC T OFFICE 47349 MÁRQUEZ MÁRQUEZ CONSULTAT 4 4 TOMMY TOMMY ION NEW/ESTAB PATIENT 40 MIN OFFICE 32960 KERRY PACHECO 4 4 ANILA ANILA T VISIT 10 MINUTES OFFICE 00789 JOSEF PACHECO 4 4 OLU OLU T VISIT 15 MINUTES HOSPITAL NIDIA - 4 4 [facility] OUTPATIEN INC T EMERGENCY 04-29-201 04-29-201 04094 ALISON ROSAS 4 4 JOLENE JOLENE DEPARTMEN T VISIT MODERATE SEVERITY OFFICE 97720 KERRY PAYNE OUTPATIEN 4 4 ANILA ANILA T NEW 30 MINUTES OFFICE 71100 JOSEF JOSEF OUTPATIEN 4 4 OLU OLU T VISIT 15 MINUTES OFFICE 06198 HOWARDCYNTHIA JOSEF OUTPATIEN 4 4 OLU OLU T VISIT 15 MINUTES OFFICE 00064 JOSEF JOSEF OUTPATIEN 4 4 OLU OLU T VISIT 15 MINUTES HOSPITAL NIDIA - 4 4 [facility] T [facility] - 4 4 [facility] OUTPATIEN INC T PERIODIC 34573 LIZZY BALL PREVENTIV 4 4 JOSE ARMANDO JOSE ARMANDO E MED EST PATIENT 40-64YRS OFFICE 48753 JOSEF BAHENA OUTPATIEN 2 2 OLU OLU T VISIT 15 MINUTES OFFICE 22471 ALISON ROSAS OUTPATIEN 2 2 JOLENE JOLENE T NEW 30 MINUTES OFFICE 27649 JOSEF BAHENA OUTROWENAEN 2 2 OLU OLU T VISIT 15 MINUTES OFFICE 37379 JOSEF PACHECO 1 1 OLU OLU T VISIT 15 MINUTES HOSPITAL NIDIA - 1 1 [facility]PATIEN [facility] T [facility]PITAL NIDIA - 1 1 [facility] OUTPATIEN INC T OFFICE 72005 JOSEF PACHECO 1 1 OLU OLU T VISIT 15 MINUTES HOSPITAL NIDIA - 1 1 [facility] INC EMERGENCY 96737 YULIYA DUGGAN 1 1 EMERGENCY DEPARTMEN SERVICES T VISIT MODERATE SEVERITY OFFICE 87206 JOSEF PACHECO 1 1 OLU OLU T VISIT 15 MINUTES HOSPITAL NIDIA - 1 1 [facility] OUTPATIEN INC T EMERGENCY 28646 YULIYA ROSAS 1 1 EMERGENCY JOLENE DEPARTMEN SERVICES T VISIT MODERATE SEVERITY EMERGENCY 56656 NIDIA 1 1 [facility] DEPARTMEN INC T VISIT LOW/MODER SEVERITY OFFICE 30207 ZACH SERRANO OUTPATIEN 1 1 Nov T NEW 45 MINUTES EMERGENCY 14113 NIDIA 1 1 [facility] DEPARTMEN INC T VISIT LOW/MODER SEVERITY EMERGENCY 93379 YULIYA EPÑA DUGGAN 1 1 EMERGENCY DEPARTMEN SERVICES T VISIT MODERATE SEVERITY HOSPITAL NIDIA - 1 1 [facility] T [facility] NIDIA - 1 1 [facility] OUTPATIEN INC T OFFICE 52361 JOSEF BAHENA OUTPATIEN 1 1 OLU OLU T VISIT 15 MINUTES OFFICE 46681 NARA BAINS OUTPATIEN 1 1 MARISA MARISA T NEW 45 MINUTES OFFICE 51408 SMI[facility] SMILEY OUTPATIEN 1 1 RUSS RUSS T VISIT 15 MINUTES OFFICE 02156 JOSEF BAHENA OUTPATIEN 1 1 OLU OLU T NEW 30 MINUTES HOSPITAL NIDIA - 1 1 [facility] OUTPATIEN INC T OFFICE 52544 S[facility] SMILEY OUTPATIEN 1 1 RUSS RUSS T VISIT 15 MINUTES HOSPITAL NIDIA - 1 1 [facility] OUTPATIEN INC T EMERGENCY 78017 YULIYA ROSAS 1 1 EMERGENCY JOLENE DEPARTMEN SERVICES T VISIT HIGH/URGE NT SEVERITY EMERGENCY 35942 NIDIA 1 1 [facility] DEPARTMEN INC T VISIT LOW/MODER SEVERITY OFFICE 42509 SMI[facility] SMILEY OUTPATIEN 1 1 RUSS RUSS T NEW 30 MINUTES HOSPITAL NIDIA - 1 1 [facility] OUTPATIEN INC T INITIAL 74992 WOMEN'S BALL PREVENTIV 1 1 [facility] LINDA NEW PATIENT 40-64YRS [facility] NIDIA - 1 1 [facility] OUT[facility]IEN INC T
--- OUTSIDE RECORDS SUMMARY | 2017-06-06 16:48 | External Medical Summary Rpt ---
Author Author LUDIN Love, [employer] Organization [employer] Address Unknown Phone Unavailable Results CHLAMYDIA AND GONORRHEA TESTING Observa Value Referen Units Interpr Notes Date tion ce etation Range COLLECT NA No No No No March 09 OR informa informa informa informa 2013 tion in tion in tion in tion in 4:00 PM source source source source data data data data ETHNICI WHITE, No No No No March 09 TY NON-HIS informa informa informa informa 2013 PANIC tion in tion in tion in tion in 4:00 PM source source source source data data data data KIT 9-30-13 No No No No March 09 EXPIRAT informa informa informa informa 2013 ION tion in tion in tion in tion in 4:00 PM DATE source source source source data data data data SYMPTOM NO No No No No March 09 S informa informa informa informa 2013 tion in tion in tion in tion in 4:00 PM source source source source data data data data REASON REVISIT No No No No March 09 FOR /ANNUAL informa informa informa informa 2013 REQUEST FAMILY tion in tion in tion in tion in 4:00 PM source source source source PLANNIN data data data data G VISIT SPECIME URINE No No No No March 09 N informa informa informa informa 2013 SOURCE tion in tion in tion in tion in 4:00 PM source source source source data data data data PREGNAN NO No No No No March 09 T informa informa informa informa 2013 tion in tion in tion in tion in 4:00 PM source source source source data data data data CHART NA No No No No March 09 NUMBER informa informa informa informa 2013 tion in tion in tion in tion in 4:00 PM source source source source data data data data Chlamyd NEGATIV No No No NEGATIV March 09 ia E informa informa informa E 2013 trachom tion in tion in tion in RESULT= 4:00 PM atis source source source WITHIN rRNA data data data NORMAL [Presen ce] in LIMITSP Unspeci OSITIVE fied specime RESULT= n by Probe & ABNORMA target LEQUIVO DEBBIE amplifi RESULT= cation method INDETER MINATEU NSATISF ACTORY RESULT= INVALID Neisser NEGATIV No No No NEGATIV March 09 ia E informa informa informa E 2013 gonorrh tion in tion in tion in RESULT= 4:00 PM oeae source source source WITHIN rRNA data data data NORMAL [Presen ce] in LIMITSP Unspeci OSITIVE fied specime RESULT= n by Probe & ABNORMA target LEQUIVO DEBBIE amplifi RESULT= cation method INDETER MINATEU NSATISF ACTORY RESULT= INVALID THE APTIMA COMBO 2 ASSAY IS NOT INTENDE D FOR THE EVALUAT ION OF SUSPECT EDSEXUA L ABUSE OR FOR OTHER MEDICO- LEGAL INDICAT IONS. FOR THOSE PATIENT S FORWHOM A FALSE POSITIV E RESULT MAY HAVE ADVERSE PSYCHO- SOCIAL IMPACT, [facility] MMENDS RETESTI NG.\.br \This report contain s patient informa tion that must be protect ed in accorda nce with the Health Insuran ce Portabi lity and Account ability Act. CHLAMYDIA AND GONORRHEA TESTING Observa Value Referen Units Interpr Notes Date tion ce etation Range COLLECT NA No No No No March 09 OR informa informa informa informa 2013 tion in tion in tion in tion in 4:00 PM source source source source data data data data ETHNICI WHITE, No No No No March 09 TY NON-HIS informa informa informa informa 2013 PANIC tion in tion in tion in tion in 4:00 PM source source source source data data data data KIT 9-30-13 No No No No March 09 EXPIRAT informa informa informa informa 2013 ION tion in tion in tion in tion in 4:00 PM DATE source source source source data data data data SYMPTOM NO No No No No March 09 S informa informa informa informa 2013 tion in tion in tion in tion in 4:00 PM source source source source data data data data REASON REVISIT No No No No March 09 FOR /ANNUAL informa informa informa informa 2013 REQUEST FAMILY tion in tion in tion in tion in 4:00 PM source source source source PLANNIN data data data data G VISIT SPECIME URINE No No No No March 09 N informa informa informa informa 2013 SOURCE tion in tion in tion in tion in 4:00 PM source source source source data data data data PREGNAN NO No No No No March 09 T informa informa informa informa 2013 tion in tion in tion in tion in 4:00 PM source source source source data data data data CHART NA No No No No March 09 NUMBER informa informa informa informa 2013 tion in tion in tion in tion in 4:00 PM source source source source data data data data Chlamyd Pending No No No No March 09 ia informa informa informa informa 2013 trachom tion in tion in tion in tion in 4:00 PM atis source source source source rRNA data data data data [Presen ce] in Unspeci fied specime n by Probe & target amplifi cation method Neisser Pending No No No \.br\March 09 ia informa informa informa is 2013 gonorrh tion in tion in tion in report 4:00 PM oeae source source source contain rRNA data data data s [Presen patient ce] in Unspeci informa fied tion specime that n by must be Probe & target protect ed in amplifi accorda cation nce method with the Health Insuran ce Portabi lity and Account ability Act.
--- OUTSIDE RECORDS SUMMARY | 2017-06-06 16:48 | External Medical Summary Rpt ---
[...] MAY HAVE ADVERSE PSYCHO- SOCIAL IMPACT, [facility] RETESTI NG.\.br \This report contain s [...]
--- OUTSIDE RECORDS SUMMARY | 2017-06-06 16:48 | External Medical Summary Rpt ---
Demographics Preferred Language Prydeinig Marital Status Unknown [employer] Affiliation Unknown Race Unknown Ethnic Group Unknown Author Author , LUDIN NOLAND Address Unknown Phone Immunization Unable to retrieve immunization data due to connection failure with Immunization Registry. Please try again later.
--- OUTSIDE RECORDS SUMMARY | 2017-06-06 16:48 | External Medical Summary Rpt ---
Demographics Preferred Language Niuean Marital Status Unknown Rastafari Affiliation Unknown Race Unknown Ethnic Group Unknown Author Author , LUDIN NOLAND Address Unknown Phone Immunization Unable to retrieve immunization data due to connection failure with Immunization Registry. Please try again later.
== END 2017-06-03 16:41 | disposition home or self-care (01) ==
LOC: UTC 15:45
DX: S83.91XA Sprain of unspecified site of right knee, initial encounter (principal); X50.1XXA Overexertion from prolonged static or awkward postures, initial encounter; Y92.89 Other specified places as the place of occurrence of the external cause

== ENCOUNTER 2017-08-09 16:09 | Emergency (ER) | payer SELFPAY ==
[~2017-08-09] VITALS: Ht 165.1 cm; Wt 144.0 kg
[2017-08-09] MEDS ORDERED: GENTAMICIN O5 ML/BOT OP (16:55)
[2017-08-09] MEDS ORDERED: HYDROCORTISONE 1%1 % TP (16:55)
--- NOTE | 2017-08-09 16:56 | Urgent Treatment Center Report ---
History of Present Issue Date/Time Seen by Provider 08/09/17 1644 Visit Reason Pt arrived:Walked Presenting Problem:PT STATES SHE DEVELOPED RASH ON HANDS AND FEET THAT STARTED YESTERDAY Location if Accident: Onset of symptoms date/time:08/08/1704/19/810 or onset unknown for: Have you (or family members/close friends) recently traveled outside the [place]? N If Yes, where/when: Have you had exposure to infectious disease within the past month? TB? Other? Specify: Patient states that she noticed that she had a rash on her hands and feet States that she is not sure if she may have gotten into some new cleaning products. States that she noticed that her hands began to itch yesterday and she has a few small little bump like areas on the outter pinky finger and a few on her legs States that she poored alcholol and hand santitizer on them but not helped ALLERGIES Coded Allergies: Penicillins (02/27/16) tetanus and diphtheria toxoids (TETANUS & DIPHTHERIA TOXOIDS) (02/27/16) venom-honey bee (BEE VENOM (HONEY BEE)) (02/27/16) Home Medications Active Scripts Omeprazole (Omeprazole 20MG) 20 MG PO DAILY #30 ECC Ref 3 Prov: 10/03/13 Ibuprofen (Ibuprofen 800MG) 800 MG PO QIDP PRN pain #30 TAB Prov: 05/05/17 Ibuprofen (Ibuprofen 800MG) 800 MG PO QIDP PRN pain #30 TAB Prov: 06/03/17 Reported Medications Hydrochlorothiazide W/Triamter (Triamterene-Hctz 37.5-25 MG Tb) 1 TAB PO DAILY PRN FLUID RETENTION/BLOOD PRESSURE NAPROXEN (NAPROXEN 500MG TAB) 500 MG PO BID Ranitidine Hcl (Ranitidine 150MG) 150 MG PO BID Conjugated Estrogens (Premarin) 2.5 MG PO DAILY Estradiol 1 MG PO DAILY #30 Metformin HCl (Metformin) 500 MG PO BID Medroxyprogesterone Acetate 2.5 MG PO DAILY #30 History Medical History General CAD? No Angina: No MD: No Hypertension? Yes Hyperlipidemia? No CHF? No DVT? No PE? No COPD? No Asthma? Yes Anemia? No GERD? No Gastric ulcers? No GI Bleed? No Hernia? No Thyroid Problems? No Hypothyroidism? No CVA? No Seizures? No Diabetes? No Renal Insuffiency? No UTI? No Stones? No BPH? No GB Disease: Yes Nephritic Syndrome? No Asplenia? No Hepatitis? No Sickle Cell Disease? No Arthritis? No Migraines? No Cataracts? No Glaucoma? No MRSA? No HIV? No TB? No Anxiety? No Depression? No Cancer? Yes Site: CERVICAL Immunization HX DT/Tetanus Unknown Flu RECD IN [place] Pneumonia Never Had Surgical Hx Previous Surgery?Y TUMOR L SIDE FX L ARM D & C Gallbladder SINUS Family History Family HX Diabetes Yes CAD Yes Hypertension Yes Hyperlipidemia Yes Cancer Yes TB No Social History Smoking Hx Smoker: Never Smoker Tobacco: No Type Cigarettes Packs/day < 1 Pack Alcohol Alcohol: No Review of Systems All Other Systems Reviewed and Negative Constitutional denies fever, denies weakness Respiratory denies cough, denies shortness of breath Cardiovascular denies chest pain, denies palpitations Gastrointestinal denies abdominal pain, denies nausea, denies vomiting Skin rash Comment Rash on hands and feet Physical Exam Vital Signs Vital Signs Date Time Temp Pulse Resp B/P Pulse O2 O2 Flow FiO2 Ox Delivery Rate 08/09 1620 97.9 87 20 150/101 98 General Appearance normal appearance, WD/WN, no apparent distress Eye Exam - right eye other, bilateral eye PERRL, bilateral eye EOMI Respiratory Status Yes: trachea midline, chest symmetrical, non tender chest. No: respiratory distress. Cardiovascular normal exam Extremities small clear bump like areas noticed on outter aspect of hand, patient complains that hands and feet itch, no reddness, no rash any where else on body, No rash noted in finger webs Neurologic alert, normal exam, oriented x 3 Comments Right eye mildly red, irritated drainage noted conjunctiva red Medical Decision Making LABS/Meds/Orders Pt receiving controlled substance in ED? No Results/Orders Current Medication Orders Sig/Yenifer Start time Last Medication Dose Route Stop Time Status Admin Methylprednisolone 125 MG ONCE ONE 08/09 1645 DC Sodium Succinate IM 08/09 1646 Progress [facility] Progress Notes Comment Patient advised that if condition continues she needs to follow up with family doctor and Dr Sr Departure Departure Time of Disposition 1648 Disposition DC Home or Self Care(routine) Clinical Impression Primary Impression: Skin problem Condition STABLE Referrals ELIZABETH SR Patient Instructions DI for Conjunctivitis, DI for Rash Additional Instructions Take over the counter Benadryl for itching Use cream as prescribed Follow up with family doctor and Dermatology if symptoms persist Return if needed Use baby shampoo to clean eyes Wash hands well after instilling drops into your eyes Discharge Counseling Counseled pt/family regarding diagnosis, medications/RX, home care, follow up needs Prescriptions Current Visit Scripts Hydrocort 1% Cream (Hydrocortisone 1% Cream) 1 DAWSON TP QID #1 GM GENTAMICIN SULFATE (GENTAMICIN 0.3% OPHTH SOLN) 1 DROP OP Q4HP PRN infection #1 BOT TO AFFECTED EYE(S) at 1658
[2017-08-09 17:07] VITALS: BP 150/101
--- OUTSIDE RECORDS SUMMARY | 2017-08-15 15:37 | External Medical Summary Rpt | CCD ---
Author Author , LUDIN Organization L[facility]IN Address Unknown Phone Care Team Providers Care Driver License Examiner Name Role Phone JOSEF OLU, ARNOLD Unavailable Unavailable OLU JOSEF OLU, ARNOLD Unavailable Unavailable OLU BESSON JENI, BESSON Unavailable Unavailable JENI JASON ANT, JASON ANT Unavailable Unavailable [facility] Unavailable Unavailable INC, [facility] MÁRQUEZ TOMMY, Unavailable Unavailable MÁRQUEZ TOMMY MÁRQUEZ TOMMY, Unavailable Unavailable MÁRQUEZ TOMMY CELLAROSI - YORBA Unavailable Unavailable PAT, CELLAROSI - YORBA PAT [facility] Unavailable Unavailable [facility] CHIPPS DEJUAN & Unavailable Unavailable DUBILIER, CHIPPS DEJUAN & DUBILIER LUCRECIA TER, LUCRECIA TER Unavailable Unavailable BALL JOSE ARMANDO, BALL Unavailable Unavailable JOSE ARMANDO BALL JOSE ARMANDO, BALL Unavailable Unavailable JOSE ARMANDO [facility], [facility], Unavailable Unavailable [facility] Unavailable Unavailable [...] LLC BAINS MARISA, Unavailable Unavailable BAINS MARISA FINE BRA, FINE BRA Unavailable Unavailable ALISON JOLENE, ALISON Unavailable Unavailable JOLENE ALISON JOLENE, ALISON Unavailable Unavailable JOLENE [facility] Unavailable Unavailable H[facility], [facility] Un[facility] Un[facility], [facility] Unavailable Unavailable EMS, [facility] POMPA URBAN, [facility] U[facility] Unavailable Unavailable [facility] Unavailable Unavailable INC, [facility] Unavailable Unavailable HOSPITAL P, [facility], Unavailable Unavailable [facility] ILUYOMADE ROT, Unavailable Unavailable [facility] ROT MURTAZA DAHIANA, MURTAZA Unavailable Unavailable DAHIANA [facility], [facility] May Grover MD, Unavailable [...] GRE YULIYA GRE, Unavailable Unavailable YULIYA GRE [facility] Unavailable Unavailable SERVICES, [facility] MCKEMIE JR SUSU, Unavailable Unavailable [facility]EM[facility] JR SUSU SCHMITZ SUSU, SCHMITZ SUSU Unavailable Unavailable [facility] Un[facility]available [facility], [facility] PICKLESIMER JR LOCO, Unavailable Unavailable [facility], Unavailable Unavailable [facility], Unavailable Unavailable [facility] RENUSCH SHAHEED, RENUSCH Unavailable Unavailable SHAHEED SCHULSTSUSAN GLADIS, Unavailable Unavailable SCHULSTAD GLADIS SCIFRES ANG, SCIFRES Unavailable Unavailable ANG [facility] Unavailable Unavailable EMERGENCY PHYS, [facility] Titus Walters MD, Unavailable Unavailable Titus PAYNE MARISA, KERRY Unavailable Unavailable MARISA KERRY ANILA, KERRY Unavailable Unavailable ANILA KERRY HIGH, KERRY Unavailable Unavailable ANILA [facility] # Unavailable Unavailable [id number], [facility] # [id number] ZACH MORAN, Unavailable Unavailable ZACH MORAN, Unavailable Unavailable ZACH MARIE SYMONE, CYNTHIA Unavailable Unavailable SYMONE Purpose Continuity of Care Document - 02-06-2011 through 2016 Problems Code Diagnosis DOS Provider Status [id number] PAIN IN 02-27-2016 [facility] [id number] PAIN IN 02-27-2016 [facility] LEFT [facility]OT [facility] M7989 OTHER 02-27-2016 [place] SPECIFIED MEDICAL SOFT TISSUE IMAGING ASS DISORDERS [id number] UNSPECIFIED 02-27-2016 [facility] LEFT FOOT PLLC INITIAL ENCOUNTER [id number] UNSPECIFIED 02-27-2016 [place] INJURY MEDICAL LEFT FOOT IMAGING ASS INITIAL ENCOUNTER K5289 OTH SPEC 11-24-2015 JOSEF RAINES NONINFECTIV E GASTROENTER ITIS & COLITIS J069 ACUTE UPPER 10-31-2015 JOSEF RAINES RESPIRATORY INFECTION UNSPECIFIED B349 VIRAL 10-28-2015 [facility] UNSPECIFIED HOSPITA E876 HYPOKALEMIA 10-28-2015 [facility] J029 ACUTE 10-28-2015 [facility] PHARYNGITIS [facility] HOSPITA UNSPECIFIED J441 CHRONIC 10-28-2015 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 PULMONARY PHYS DZ W/EXACERBAT ION R000 TACHYCARDIA 10-28-2015 [facility] [place] UNSPECIFIED EMS R05 COUGH 10-28-2015 [facility] [place] [facility] R0602 SHORTNESS 10-28-2015 [facility]- OF BREATH [place] [facility] R079 CHEST PAIN 10-28-2015 [facility]- UNSPECIFIED [place] [facility] R0981 NASAL 10-28-2015 [facility] CONGESTION [facility]Y HOSPITA R509 FEVER 10-28-2015 [facility]- UNSPECIFIED [place] [facility] R9431 ABNORMAL 10-28-2015 [facility] ELECTROCARD COMMUNTIY IOGRAM HOSPITA H6691 OTITIS 10-05-[address] [facility] MEDIA PHYSICIANS UNSPECIFIED GROUP RIGHT EAR J0100 ACUTE 10-05-[address] [facility] MAXILLARY PHYSICIANS SINUSITIS GROUP UNSPECIFIED H6690 OTITIS 09-29-2015 JOSEF RAINES MEDIA UNSPECIFIED UNSPECIFIED EAR J0190 ACUTE 09-05-2015 JOSEF RAINES SINUSITIS UNSPECIFIED Z0100 ENCOUNTER 08-26-2015 YULIYA EXAM EYES & GRE VISION W/O ABNORMAL FIND 94463 SIMPLE/UNSP 04-20-[address] [facility] ECIFIED PHYSICIANS CHRONIC GROUP SEROUS OTITIS MEDIA 3829 UNSPECIFIED 04-20-2015 COMMUNITY OTITIS ANESTH OF MEDIA THE BLUE 470 DEVIATED 04-20-[address] [facility] NASAL PHYSICIANS SEPTUM GROUP 4710 POLYP OF 04-20-[address] [facility] NASAL PHYSICIANS CAVITY GROUP 4718 OTHER POLYP 04-20-2015 [facility] 4730 CHRONIC 04-20-[address] [facility] MAXILLARY PHYSICIANS SINUSITIS GROUP 4739 UNSPECIFIED 04-15-2015 [facility] SINUSITIS [facility] P V7283 OTHER 04-15-2015 [facility] SPECIFIED [facility] PRE-OPERESSENTIA HEALTH P VE EXAMINATION 3831 CHRONIC 03-30-[address] [facility] MASTOIDITIS PHYSICIANS GROUP 35485 DIAB W/O 03-18-2015 [facility] COMP TYPE MEM HOSP II/UNS NOT INC STATED UNCNTRL 3814 NONSUPPRATV 02-23-[address] [facility] OTITIS PHYSICIANS MEDIA NOT GROUP SPEC ACUT/CHRON 4279 UNSPECIFIED 02-23-[address] [facility] CARDIAC PHYSICIANS DYSRHYTHMIA GROUP 3839 UNSPECIFIED 02-06-2015 [facility] MASTOIDITIS INC 4610 ACUTE 02-06-2015 [facility] MAXILLARY MEM HOSP SINUSITIS INC 4779 ALLERGIC 01-26-2015 [facility] RHINITIS CAUSE UNSPECIFIED 07508 UNSPECIFIED 01-08-2015 [facility] P 4019 UNSPECIFIED 01-08-2015 [facility] P N 7840 HEADACHE 01-08-2015 [facility] P 1101 DERMATOPHYT 11-21-2014 [place] OSIS OF FOOT & NAIL ANKLE CE 3569 UNSPEC 11-21-2014 [place] HEREDIT&IDI FOOT & OPATHIC ANKLE CE PERIPHERAL NEUROPATHY 7038 OTHER 11-21-2014 [place] SPECIFIED FOOT & DISEASE OF ANKLE CE NAIL 83637 OSTEOARTHRO 11-21-2014 [place] SIS UNSPEC FOOT & WHETHER ANKLE CE GEN/LOC ANK&FOOT 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 [address] OSTEOARTHRO 10-31-2014 [facility] UNSPEC COMMUNTIY WHETHER HOSPITA GEN/LOC UNSPEC SITE 60816 GENERALIZED 10-31-2014 [facility] PAIN COMMUNTIY HOSPITA 65945 PAIN IN 10-24-2014 [place] [place] JOINT, ORTHOPAEDIC ANKLE AND S PLC FOOT 486 PNEUMONIA, 10-18-[address] [facility] ORGANISM PHYSICIANS UNSPECIFIED GROUP 4660 ACUTE 10-14-2014 ARNOLD OLU BRONCHITIS 6256 FEMALE 10-04-[address] [facility] STRESS PHYSICIANS INCONTINENC GROUP E 60397 OSTEOARTHRO 10-03-2014 JOSEF OLU S INVLV MX SITES BUT NOT SPEC GEN 77690 PAIN IN 10-03-2014 JOSEF OLU JOINT, LOWER LEG 4619 ACUTE 08-25-2014 ARNCYNTHIA OLU SINUSITIS, UNSPECIFIED 5110 PLEURISY 08-11-2014 JOSEF OLU WITHOUT MENTION EFFUS/[place] [address] KYPHOSIS 06-27-2014 K[facility] HIGH ACQUIRED POSTURAL 7391 NONALLOPATH 06-27-2014 KERR[facility] HIGH IC LESION OF CERVICAL REGION NEC 7392 NONALLOPATH 06-27-2014 KERRY ANILA IC LESION OF THORACIC REGION NEC 7398 NONALLOPATH 06-27-2014 KERRY ANILA IC LESION OF RIB CAGE NEC 6259 UNSPEC 05-20-2014 LIZZY JOSE ARMANDO SYMPTOM ASSOC W/FEMALE GENITAL ORGANS 6271 POSTMENOPAU 05-20-2014 LIZZY JOSE ARMANDO REJI BLEEDING 42482 UNSPECIFIED 05-05-2014 JOSEF RAINES SLEEP APNEA 6272 SYMPTOMATIC 04-18-2014 [facility] MENOPAUSAL/ INC FEMALE CLIMACTERIC STATES 6210 POLYP OF 04-04-2014 [facility] UTERI INC 6268 OTH D/O 04-04-2014 [facility] MENSTRUATIO MEM HOS[facility] N&OTH ABN INC BLEED FE GNT TRACT 85013 INCOMPLETE 03-25-2014 MÁRQUEZ BLADDER TOMMY EMPTYING 11274 CALCANEAL 03-17-2014 [facility] SPUR MARYCRUZ 58997 UNSPECIFIED 03-17-2014 JOSEF RAINES URINARY INCONTINENC E 9178 OTH&UNSPEC 03-17-2014 [facility] SUP INJURY MEM HOSP FOOT&TOES INC W/O MENTION INF 5259 UNSPECIFIED 03-01-2014 ALISON JOLENE DISORDER TEETH&SUPPO RTING STRUCTURES 62876 OTHER 02-01-2014 JOSEF RAINES MALAISE AND FATIGUE 6253 DYSMENORRHE 01-13-2014 LIZZY JOSE ARMANDO A V720 EXAMINATION 01-12-2014 YULIYA OF EYES GRE AND VISION 18693 OTHER 01-05-2014 ARNOLD ABNORMAL MARYCRUZ FINDING RADIOLOGICA L EXAM BREAST V7612 OTHER 01-05-[address] [facility] MAMMO[facility] INC V7231 ROUTINE 01-01-2014 [facility] GYNECOLOGIC [facility] HOS[facility] AL INC EXAMINATION 80906 TRICHOMONAL 12-29-2013 DENNIS ADAN VULVOVAGINI TIS 45819 UNSPECIFIED 12-29-2013 LIZZY JOSE ARMANDO VAGINITIS AND VULVOVAGINI TIS V745 SCREENING 12-29-2013 DENNIS EXAMINATION JR ADAN FOR VENEREAL DISEASE 327.23 327.23 10-03-2013 [place] OBSTRUCTIVE [facility] SLEEP Hospital APNEA (ADULT) (PEDIATRIC) 401.9 401.9 10-03-2013 [place] HYPERTENSIO [facility] NOS Hospital 427.9 427.9 10-03-2013 [place] CARDIAC [facility] DYSRHYTHMIA Hospital NOS 530.81 530.81 10-03-2013 [place] ESOPHAGEAL [facility] REFLUX Hospital 786.59 786.59 10-03-2013 [facility] CHEST PAIN [facility] V14.0 V14.0 10-03-2013 [facility] HX-PENICILL [facility] IN ALLERGY Hospital V14.8 V14.8 10-03-2013 [place] HX-DRUG [facility] ALLERGY [facility] V15.82 V15.82 10-03-2013 [facility] HISTORY OF [facility] V58.69 V58.69 OTH 10-03-2013 [place] MED,LT,CURR [facility] ENT USE Hospital 786.05 786.05 04-14-2013 [place] SHORTNESS [facility] OF [facility] 93821 ESOPHAGEAL 12-02-2011 JOSEF RAINES REFLUX 05702 UNS 12-02-2011 HOWARDCYNTHIA RAINES GASTRITIS&G ASTRODUODIT IS W/O MENTION HEMORR 97401 UNSPEC 11-28-2011 ALISON JOLENE VENTRAL JUHI W/O MENTION OBST/GANGRE N 5589 OTH&UNSPEC 11-08-2011 JOSEF RAINES NONINFECTIO US GASTROENTER ITIS&COLITI S 25179 OBSTRUCTIVE 11-02-2011 [place] [facility] APNEA MEDICAL EQUIP 59230 UNSPECIFIED 10-04-2011 JSOEF RAINES ENTHESOPATH Y OF ANKLE AND TARSUS 60686 CHOLECYSTIT 08-23-2011 COMMUNITY IS, ANESTH OF UNSPECIFIED THE BLUE 30619 CHRONIC 08-23-2011 [facility] CHOLECYSTIT [facility] HOS[facility] IS INC 5756 CHOLESTEROL 08-23-2011 [facility] OSIS OF DEJUAN & GALLBLADDER DUBILIER 5758 OTHER 08-20-2011 [facility] DISORDER OF HOSP[facility] P GALLBLADDER 76846 ABDOMINAL 08-17-2011 JOSEF RAINES PAIN, GENERALIZED 41606 ABDOMINAL 08-15-2011 [facility] PAIN, MEDICAL EPIGASTRIC IMAGING ASS 5770 ACUTE 08-14-2011 MD MEDICAL PANCREATITI SERV S FOUNDATIO 8830 OPEN WOUND 08-13-2011 [facility] WITHOUT SERVICES MENTION COMPLICATIO N 7823 EDEMA 07-05-2011 HOWARDCYNTHIA RAINES 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 S PHYSICIANS GROUP 84490 NONSPECIFIC 03-07-2011 N[facility] P IOGRAM Allergies, Adverse Reactions, Alerts Type Drug Allergy Adverse Reaction to Substance Substance Reaction Severity Penicillin L-SCLITE-WAVJ/THROAT Unknown Tetanus Toxoid UNKNOWN REACTION Unknown Medications [...] 20 20 RT 5 70 11 11 MD 5 PH CH AR AE MA L [...] 20 20 YC 66 11 11 PH MD IN 8 AR CH MA AE 25 [...] on COMPREHENSIVE METABOLIC PANEL (10-02-2013 19:54) Glucose 10-02- 126 74-106 complet 013 mg/dL ed Bld-mCn 19:54 c BUN 10-02-2 13 7-18 complet Bld-mCn 013 mg/dL ed c 19:54 Creat 10-02-2 1.4 0.6-1.0 complet SerPl-m 013 mg/dL ed Cnc 19:54 GFR/BSA 10-02- 39 59- complet .pred 013 ML/MIN ed SerPl 19:54 Schwart z-vRate Sodium 139 136-145 complet SerPl-s 013 mmoL/L ed Cnc 19:54 Potassi 10-02-2 3.3 3.5-5.1 complet um 013 mmoL/L ed SerPl-s 19:54 Cnc Chlorid 102 98-107 complet e 013 mmoL/L ed SerPl-s 19:54 Cnc CO2 28 21.0-32 complet SerPl-s 013 mmoL/L .0 ed Cnc 19:54 Calcium 10-02-2 7.8 8.5-10. complet 013 mg/dL 1 ed SerPl-m 19:54 Cnc Prot 10-02-2 6.7 6.4-8.2 complet SerPl-m 013 gm/dL ed Cnc 19:54 Albumin 10-02-2 3.3 3.4-5.0 complet 013 gm/dL ed SerPl-m 19:54 Cnc Globuli 10-02-2 3.4 1.3-3.2 complet n 013 gm/dL ed Ser-mCn 19:54 c Albumin 10-02-2 1.0 UNK 1.1-1.8 complet /Glob 013 ed SerPl-m 19:54 Rto Bilirub 10-02-2 0.5 0.2-1.0 complet 013 mg/dL ed SerPl-m 19:54 Cnc AST 10-02-2 17 U/L 15-37 complet SerPl-c 013 ed Cnc 19:54 ALT 30-2 37 U/L 30-65 complet SerPl-c 013 ed Cnc 19:54 ALP 10-02-2 94 U/L 50-136 complet SerPl-c 013 ed [...] 19:54 Auto TROPONIN I (04-14-2013 14:45) TROPONI Less 0.00-0. complet N I 013 than [...] 12:18 Cnc TROPONIN I (04-14-2013 12:18) TROPONI 0.00 0.00-0. complet N I 013 ng/mL 06 ed 12:18 CBC with AUTO DIFF (04-14-2013 12:18) WBC # 12-2 7.3 4.8-10. complet Bld 013 K/MM3 8 ed Auto 12:18 RBC # 04-14-2 4.39 4.2-5.4 complet Bld 013 M/mm3 ed Auto 12:18 Hgb 06-12-2 13.1 12.2-16 complet Bld-mCn 013 g/dL .2 ed c 12:18 Hct Fr 06-12-2 39.1 % 37.0-47 complet Bld 013 .0 ed 12:18 MCV RBC 06-12-2 89.1 fl 82.2-97 complet 013 .8 ed 12:18 MCH RBC -12-2 29.8 pg 27-31.2 complet Qn 013 ed Auto 12:18 MEAN -12-2 33.5 31.8-35 complet CORPUSC 013 g/dl .4 ed ULAR 12:18 HGB CONC RDW RBC -12-2 13.0 % 11.5-17 complet Auto 013 .5 ed 12:18 Platele 06-12-2 305 142-424 complet t Bld 013 K/mm3 ed Ql 12:18 Manual MEAN 12-2 7.4 fl 7.4-10. complet PLATELE 013 4 ed T 12:18 VOLUME Granulo -12-2 66.4 % 37.0-80 complet cytes 013 .0 ed Fr Bld 12:18 Auto LYMPH % 06-12-2 26.3 % 10-50.0 complet 013 ed 12:18 Monocyt 06-12-2 3.9 % 1.7-9.3 complet es Fr 013 ed Bld 12:18 Auto Eosinop 06-12-2 2.6 % 0.1-12. complet hil Fr 013 [...] Procedure DOS Code Location Performer Comment RADEX 24224 [place] ARNOLD ANKLE 6 MEDICAL MARYCRUZ COMPLETE IMAGING MINIMUM 3 ASS VIEWS RADEX 33605 [place] ARNOLD FOOT 6 MEDICAL MARYCRUZ COMPLETE IMAGING MINIMUM 3 ASS VIEWS COMPREHEN 94570 [facility] SIVE 5 N N METABOLIC COMMUNTIY COMMUNTIY PANEL HOSPITA HOSPITA PREDNISON J7506 [facility] DIATHERIX E ORAL 5 N PER 5 MG COMMUNTIY LABORATOR HOSPITA IES LLC COLLECTIO 16895 [facility] N VENOUS 5 N N BLOOD COMMUNTIY COMMUNTIY VENIPUNCT HOSPITA HOSPITA URE BLOOD 17300 [facility] COUNT 5 N N COMPLETE COMMUNTIY COMMUNTIY AUTO&AUTO HOSPITA HOSPITA DIFRNTL WBC ECG 48572 [facility] CELLAROSI ROUTINE 5 MIKE - YORBA ECG EMERGENCY PAT W/LEAST PHYS 12 LDS I&R ONLY RADIOLOGI 96798 [facility] CELLAROSI C 5 MIKE - YORBA EXAMINATI EMERGENCY PAT ON CHEST PHYS SINGLE VIEW FRONTAL GROUND A0425 [facility] MILEAGE 5 N-[place] PER CO EMS CO EMS STATUTE MILE AMB A0427 [facility] SERVICE 5 N-[place] N[place] ALS CO EMS CO EMS EMERGENCY TRANSPORT LEVEL 1 INJECTION J0696 JOSE[facility] BAHENA 5 OLU OLU CEFTRIAXO NE SODIUM PER 250 MG INJECTION J0696 JOSEF BAHENA 5 OLU OLU CEFTRIAXO NE SODIUM PER 250 MG OPHTH 53562 [facility] 5 GRE GRE XM&EVAL COMPRHNSV ESTAB PT 1/> NSL/SINUS 63240 [facility] NDSC MAX 5 PHYSICIAN PHYSICIAN ANTROST S GROUP S GROUP W/RMVL TISS MAX SINUS TYMPANOST [address] [facility] SMILEY BENITEZ 5 PHYSICIAN RUSS GENERAL S GROUP ANESTHESI A LEVEL III 13370 [facility], LUCRECIA TER SURG 5 [facility] PATHOLOGY GROSS&[place] [address] [facility], LUCRECIA TER SURG 5 LLC PATHOLOGY GROSS&JOLENE ROSCOPIC EXAM ANESTHESI 85949 [facility] & 5 ANESTH MARISA ACCESSORY OF THE SINUSES BLUE NOS COLLECTIO 56620 [facility] JACOB N VENOUS 5 MEM HOSP MEM HOSP BLOOD INC INC VENIPUNCT URE BASIC 95481 [facility] JACOB METABOLIC 5 MEM HOS[facility] MEM HOSP PANEL INC INC CALCIUM TOTAL BLOOD 12232 [facility] J[facility] COUNT 5 MEM HOS[facility] MEM HOSP COMPLETE INC INC AUTO&AUTO DIFRNTL WBC ECG 12354 [facility] DECKER JR ROUTINE 5 [facility] W/LEAST P 12 LDS I&R ONLY ECG 66183 [facility] JACOB ROUTINE 5 MEM HOSP MEM HOSP ECG INC INC W/LEAST 12 LDS TRCG ONLY W/O I&R COLLECTIO 78754 [facility]AC[facility] N VENOUS 5 MEM HOSP MEM HOSP BLOOD INC INC VENIPUNCT URE HEMOGLOBI 97249 [facility] JACOB N 5 MEM HOSP MEM HOSP GLYCOSYLA INC INC STEVEN A1C DISTORT 06304 [facility] PRODUCT 5 [place] EVOKED OTOACOUST IC EMISNS LIMITD COMPRE 40484 [facility] AUDIOMETR 5 [place] Y THRESHOLD EVAL SP RECOGNIJ TYMPANOME 18035 [facility] [place] TR[place] [address] [place] [address] [facility] JACOB MAXILLOFA [address] [facility] CIAL W/O INC INC CONTRAST MATERIAL RADEX 46412 [place] FINE BRA FOOT 5 FOOT & COMPLETE ANKLE CE MINIMUM 3 VIEWS WALKING L4360 [place] FINE BRA BOOT 5 FOOT & PNEUMATC ANKLE CE &/ VACUUM PREFAB CUSTM FIT TRIMMING 74005 [place] FINE BRA NONDYSTRO 4 FOOT & PHIC ANKLE CE NAILS ANY NUMBER RADEX 19375 [place] FINE BRA FOOT 4 FOOT & COMPLETE ANKLE CE MINIMUM 3 VIEWS COLLECTIO 31063 [facility] N VENOUS 4 N N BLOOD COMMUNTIY COMMUNTIY VENIPUNCT HOSPITA HOSPITA URE RHEUMATOI 12293 [facility] D FACTOR 4 N N QUALITATI COMMUNTIY COMMUNTIY VE HOSPITA HOSPITA MRI LOWER 83413 [facility] [place] EXTREM 4 [place] SYMONE OTH/THN ORTHOPAED JT W/O ICS PLC CONTR MATRL INJECTION J10[address] [facility] ALISON 4 PHYSICIAN JOLENE METHYLPRE S GROUP DNISOLONE ACETATE 80 MG THERAPEUT 12568 [facility] IC 4 PHYSICIAN PHYSICIAN PROPHYLAC S GROUP S GROUP TIC/DX INJECTION SUBQ/IM RADEX 60309 [facility] [place] FOOT 4 [place] SYMONE COMPLETE ORTHOPAED MINIMUM 3 ICS PLC VIEWS CHIROPRAC 22759 KERRY PAYNE TIC 4 ANILA ANILA MANIPULAT [place] SPINAL 1-2 REGIONS CHIROPRAC 98996 KERRY KERRY TIC 4 ANILA ANILA MANIPULAT [place] SPINAL 1-2 REGIONS CHIROPRAC 68656 KERRY KERRY TIC 4 ANILA ANILA MANIPULAT [place] SPINAL 1-2 REGIONS CHIROPRAC 52330 KERRY KERRY TIC 4 ANILA ANILA MANIPULAT [place] SPINAL 1-2 REGIONS THERAPEUT 35699 KERRY KERRY IC PX 1/> 4 ANILA ANILA AREAS EACH 15 MIN EXERCISES THERAPEUT 19352 KERRY KERRY IC PX 1/> 4 ANILA ANILA AREAS EACH 15 MIN EXERCISES APPL 94469 KERRY KERRY MODALITY 4 ANILA ANILA 1/> AREAS TRACTION MECHANICA L CHIROPRAC 36412 KERRY KERRY TIC 4 ANILA ANILA MANIPULAT [place] SPINAL 1-2 REGIONS CHIROPRAC 49608 KERRY KERRY TIC 4 ANILA ANILA MANIPULAT [place] SPINAL 1-2 REGIONS THERAPEUT 59933 KERRY KERRY IC PX 1/> 4 ANILA ANILA AREAS EACH 15 MIN EXERCISES CHIROPRAC 77896 KERRY KERRY TIC 4 ANILA ANILA MANIPULAT [place]DO [place] SPINAL 1-2 REGIONS CHIROPRAC 86040 KERRY KERRY TIC 4 ANILA ANILA MANIPULAT [place] SPINAL 1-2 REGIONS CHIROPRAC 66962 KERRY KERRY TIC 4 ANILA ANILA MANIPULAT [place] SPINAL 1-2 REGIONS CHIROPRAC 74899 KERRY KERRY TIC 4 ANILA ANILA MANIPULAT [place] SPINAL 1-2 REGIONS THERAPEUT 90127 KERRY KERRY IC PX 1/> 4 ANILA ANILA AREAS EACH 15 MIN EXERCISES THERAPEUT 15989 KERRY KERRY IC PX 1/> 4 ANILA ANILA AREAS EACH 15 MIN EXERCISES CHIROPRAC 73811 KERRY KERRY TIC 4 ANILA ANILA MANIPULAT [place] SPINAL 1-2 REGIONS GONADOTRO 72645 [facility] GARCIAON PIN 4 MEM HOSP MEM HOSP FOLLICLE INC INC STIMULATI NG HORMONE GONADOTRO 08755 [facility] GARCIAON PIN 4 MEM HOSP MEM HOSP LUTEINIZI INC INC NG HORMONE THERAPEUT 77099 KERRY KERRY IC PX 1/> 4 ANILA ANILA AREAS EACH 15 MIN EXERCISES CHIROPRAC 02011 KERRY PAYNE TIC 4 ANILA ANILA MANIPULAT [place] SPINAL 1-2 REGIONS CHIROPRAC 87197 KERRY PAYNE TIC 4 ANILA ANILA MANIPULAT [place] SPINAL 1-2 REGIONS THERAPEUT 44758 KERRY PAYNE IC PX 1/> 4 ANILA ANILA AREAS EACH 15 MIN EXERCISES THERAPEUT 43476 KERRY PAYNE IC PX 1/> 4 ANILA ANILA AREAS EACH 15 MIN EXERCISES CHIROPRAC 92636 KERRY PAYNE TIC 4 ANILA ANILA MANIPULAT [place] SPINAL 1-2 REGIONS INJECTION [id number] NIDIA JACOB 4 [facility] ONDANSETR INC INC ON HCL PER 1 MG HYSTEROSC 65946 LIZZY BALL OPY BX 4 JOSE ARMANDO JOSE ARMANDO ENDOMETRI UM&/POLYP C W/WO D&C BLOOD 36538 NIDIA JACOB COUNT 4 [facility] COMPLETE INC INC AUTO&AUTO DIFRNTL WBC ECG 44963 JERONIMO NUNEZ JERONIMO JR ROUTINE 4 DWI DWI ECG W/LEAST 12 LDS I&R ONLY ECG 29145 NIDIA QUEST ROUTINE 4 [facility] DIAGNOSTI ECG INC CS W/LEAST 12 LDS TRCG ONLY W/O I&[place] [address] P&C LABS, MURTAZA SURG 4 [facility] PATHOLOGY GROSS&JOLENE ROSCOPIC EXAM BASIC 48547 NIDIA JACOB METABOLIC 4 [facility] PANEL INC INC CALCIUM TOTAL CHIROPRAC 32247 KERRY PAYNE TIC 4 ANILA ANILA MANIPULAT [place] SPINAL 1-2 REGIONS THERAPEUT 23816 KERRY PAYNE IC PX 1/> 4 ANILA ANILA AREAS EACH 15 MIN EXERCISES THERAPEUT 96337 KERRY PAYNE IC PX 1/> 4 ANILA ANILA AREAS EACH 15 MIN EXERCISES CHIROPRAC 42986 KERRY PAYNE TIC 4 ANILA ANLIA MANIPULAT [place] SPINAL 1-2 REGIONS BRYAN 62374 MÁRQUEZ MÁRQUEZ POST-VOID 4 TOMMY TOMMY ING RESIDUAL URINE&/BL ADDER CAP THERAPEUT 00805 KERRY PAYNE IC PX 1/> 4 ANILA ANILA AREAS EACH 15 MIN EXERCISES CHIROPRAC 39190 KERRY PAYNE TIC 4 ANILA ANILA MANIPULAT [place] SPINAL 1-2 REGIONS CHIROPRAC 42487 KERRY PAYNE TIC 4 ANILA ANILA MANIPULAT [place] SPINAL 1-2 REGIONS THERAPEUT 18813 KERRY PAYNE IC PX 1/> 4 ANILA ANILA AREAS EACH 15 MIN EXERCISES APPL 59215 KERRY PAYNE MODALITY 4 ANILA ANILA 1/> AREAS TRACTION MECHANICA L RADEX 75682 NIDIA JACOB FOOT 4 [facility] COMPLETE INC INC MINIMUM 3 VIEWS CHIROPRAC 29979 KERRY PAYNE TIC 4 ANILA ANILA MANIPULAT [place] SPINAL 1-2 REGIONS APPL 99309 KERRY PAYNE MODALITY 4 ANILA ANILA 1/> AREAS TRACTION MECHANICA L THERAPEUT 43919 KERRY PAYNE IC PX 1/> 4 ANILA ANILA AREAS EACH 15 MIN EXERCISES APPL 46416 KERRY PAYNE MODALITY 4 ANILA ANILA 1/> AREAS ELEC STIMJ UNATTENDE D APPL 63387 KERRY PAYNE MODALITY 4 ANILA ANILA 1/> AREAS ELEC STIMJ UNATTENDE D THERAPEUT 68993 KERRY PAYNE IC PX 1/> 4 ANILA ANILA AREAS EACH 15 MIN EXERCISES APPL 67455 KERRY PAYNE MODALITY 4 ANILA ANILA 1/> AREAS TRACTION MECHANICA L CHIROPRAC 71254 KERRY PAYNE TIC 4 ANILA ANILA MANIPULAT [place] SPINAL 1-2 REGIONS ENDOMETRI 12676 LIZZY BALL AL BX 4 JOSE ARMANDO JOSE ARMANDO W/WO ENDOCERVI X BX W/O DILAT SPX CHIROPRAC 31063 KERRY PAYNE TIC 4 ANILA ANILA MANIPULAT [place] SPINAL 1-2 REGIONS APPL 06444 KERRY PAYNE MODALITY 4 ANILA ANILA 1/> AREAS TRACTION MECHANICA L THERAPEUT 42077 KERRY PAYNE IC PX 1/> 4 ANILA ANILA AREAS EACH 15 MIN EXERCISES APPL 29271 KERRY PAYNE MODALITY 4 ANILA ANILA 1/> AREAS ELEC STIMJ UNATTENDE D THERAPEUT 95216 KERRY PAYNE IC PX 1/> 4 ANILA ANILA AREAS EACH 15 MIN EXERCISES APPL 82951 KERRY PAYNE MODALITY 4 ANILA ANILA 1/> AREAS TRACTION MECHANICA L APPL 47746 KERRY PAYNE MODALITY 4 ANILA ANILA 1/> AREAS ELEC STIMJ UNATTENDE D CHIROPRAC 20909 KERRY PAYNE TIC 4 ANILA ANILA MANIPULAT [place] SPINAL 1-2 REGIONS CHIROPRAC 60243 KERRY PAYNE TIC 4 ANILA ANILA MANIPULAT [place] SPINAL 1-2 REGIONS APPL 37881 KERRY PAYNE MODALITY 4 ANILA ANILA 1/> AREAS TRACTION MECHANICA L APPL 97408 KERRY PAYNE MODALITY 4 ANILA ANILA 1/> AREAS ELEC STIMJ UNATTENDE D SALINE 06604 LIZZY BALL INFUS 4 JOSE ARMANDO JOSE ARMANDO SONOHYSTE ROGRAPHY W/COLOR DOPPLER INJECTION J3420 JOSEF ARNOLD VIT B-12 4 OLU OLU CYANOCOBA OVIDIO TO 1000 MCG INJECTION J3420 JOSEF LAWRENCEOLD VIT B-12 4 OLU OLU CYANOCOBA OVIDIO TO 1000 MCG INJECTION J3420 ARNOLD ARNOLD VIT B-12 4 OLU OLU [place]ANOCO[place] [address] [place] [address] LIZZY BALL TRANSVAGI 4 JOSE ARMANDO JOSE ARMANDO NAL DETERMINA 80646 YULIYA DWYER [facility] 4 GRE GRE REFRACTIV E STATE OPHTH 60331 [facility] 4 GRE GRE XM&EVAL COMPRHNSV ESTAB PT 1/> COMPUTER- 61121 NIDIA JACOB AIDED 4 [facility] DETECTION INC INC SCREENING MAMMOGRAP HY DIAGNOSTI G0204 ARNOLD ARNOLD C 4 MARCYRUZ MARYCRUZ MAMMOGRAP HY INCL CAD WHEN PERF; BILAT SCREENING G0202 [facility]ACOB [facility] MAMMOGRAP INC INC HY AGGIE INCL CAD WHEN PERFORMD LIPID 66987 NIDIA JACOB PANEL 4 [facility] INC INC GONADOTRO 22453 NIDIA JACOB PIN 4 [facility] FOLLICLE INC INC STIMULATI NG HORMONE COMPREHEN 64181 NIDIA JACOB SIVE 4 [facility] METABOLIC INC INC PANEL BLOOD 83532 NIDIA JACOB COUNT 4 [facility] COMPLETE INC INC AUTO&[place] [address] NIDIA JACOB FREE [address] [facility] [place] [address] NIDIA GARCIAON THYROID [address] [facility] STIMULATI INC INC NG HORMONE TSH GONADOTRO 11352 NIDIA JACOB PIN [address] [facility] LUTEINIZI INC INC NG HORMONE CYTP C/V 26189 PICKLESIM PICKLESIM AUTO THIN 4 ER JR LOCO ER JR LOCO LYR PREPJ SCR MNL RESCR PHYS IADNA 41408 PICKLESIM PICKLESIM NEISSERIA 4 ER JR LOCO ER JR LOCO GONORRHOE AE AMPLIFIED PROBE TQ URINE 71000 BALL LIZZY 4 JOSE ARMANDO JOSE ARMANDO TEST VISUAL COLOR CMPRSN METHS SMR PRIM 56759 LIZZY BALL SRC WET 4 JOSE ARMANDO JOSE ARMANDO MOUNT NFCT AGT IADNA 28736 PICKLESIM PICKLESIM CHLAMYDIA 4 ER JR LOCO ER JR LOCO TRACHOMAT IS AMPLIFIED PROBE TQ CONTINUOU E0601 LINDATHIJANIS JONESANA S 1 HOME HOME POSITIVE MEDICAL MEDICAL AIRWAY EQUIP EQUIP PRESSURE DEVICE LAPAROSCO 5123 NIDIA JACOB PIC [address] [facility] [place] [address] NIDIA JACOB INFUSION 1 [facility] THERAPY INC INC PROPHYLAX IS/DX EA HOUR URINE 77305 NIDIA JACOB 1 [facility] TEST INC INC VISUAL COLOR CMPRSN METHS ANES 74330 [facility] ANESTH TONEAL OF THE UPPER BLUE ABDOMEN W/LAPS NOS LEVEL III 24048 [facility] [place] VAN SURG 1 DEJUAN & PATHOLOGY DUBILIER GROSS&JOLENE ROSCOPIC EXAM INJECTION J2405 NIDIA JACOB [address] [facility] ONDANSETR INC INC ON HCL PER 1 MG LAPAROSCO 82348 Idalia DEL CID PY SURG 1 NEHEMIAS GARCIA MD PSC ECTOMY ECG 88231 NIDIA WALTERS ROUTINE 1 [facility] W/LEAST P 12 LDS I&R ONLY ECG 04831 NIDIA JACOB ROUTINE [address] [facility] ECG INC INC W/LEAST 12 LDS TRCG ONLY W/O I&R HOSPITAL 13082 [facility] DISCHARGE 1 [facility] DAY INTERNAL MANAGEMEN MED T 30 MIN/< SBSQ 49636 [facility] 1 [facility] CARE/DAY INTERNAL 25 [place] [address] KUSH NEWMANUTCHER ABDOMINAL 1 MEDICAL MARYCRUZ REAL IMAGING TIME ASS W/IMAGE LIMITED SBSQ 35311 [facility] 1 [facility] CARE/DAY INTERNAL 25 MED MINUTES INITIAL 29271 VIVIENNE GOEMZ ANT INPATIENT 1 MEDICAL CONSULT SERV NEW/ESTAB FOUNDATIO PT 80 MIN INITIAL 91911 [facility] 1 [facility] CARE/DAY INTERNAL 50 MED MINUTES FINE 79968 [facility] PAT NEEDLE 1 DEJUAN & ASPIRATIO DUBILIER N W/O IMAGING GUIDANCE CYTP EVAL 67501 [facility] PAT FINE 1 DEJUAN & NEEDLE DUBILIER ASPIRATE INTERP & REPORT CONTINUOU E0601 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 S 1 HOME HOME POSITIVE MEDICAL MEDICAL AIRWAY EQUIP EQUIP PRESSURE DEVICE OPHTH 73519 [facility] 1 VISION ANG XM&EVAL COMPRE NEW PT 1/> VST MRI ORBIT 97752 NIDIA JACOB FACE & 1 [facility] NECK W/O INC INC & W/CONTRAS T MATRL CONTINUOU E0601 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 S 1 HOME HOME POSITIVE MEDICAL MEDICAL AIRWAY EQUIP EQUIP PRESSURE DEVICE TYMPANOME 81255 BALJIT GLOVERON TRY 1 R[facility] RUSS COMPRE 80787 BALJIT SMILEY AUDIOMETR 1 RUSS RUSS Y THRESHOLD EVAL SP RECOGNIJ POLYSOM 88347 NARA BAINS 6/>YRS 1 MARISA MARISA SLEEP W/CPAP 4/> ADDL TRINI ATTND CONTINUOU E0601 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 S 1 HOME HOME POSITIVE MEDICAL MEDICAL AIRWAY EQUIP EQUIP PRESSURE DEVICE HEADGEAR A7035 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 USED 1 HOME HOME W/POSITIV MEDICAL MEDICAL E AIRWAY EQUIP EQUIP PRESSURE DEVICE TUBING A7037 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 USED WITH 1 [...] MEDICAL W/POS EQUIP EQUIP ARWAY PRESSURE DEVICE POLYSOM 48916 NIDIA JACOB 6/>YRS [address] [facility] SLEEP INC INC W/CPAP 4/> ADDL TRINI ATTND POLYSOM 10511 NARA BAINS 6/>YRS 1 MARISA MARISA SLEEP 4/> ADDL TRINI ATTND POLYSOM 04494 NIDIA JACOB 6/>YRS 1 [facility] SLEEP 4/> INC INC ADDL TRINI ATTND COMPREHEN 80774 NIDIA JACOB SIVE [address] [facility] METABOLIC INC INC PANEL ECHO 47080 NIDIA JACOB TTHRC R-T 1 [facility] 2D INC INC W/WOM-MOD E COMPL SPEC&COLR D ECG 25450 NIDIA JACOB ROUTINE [address] [facility] ECG INC INC W/LEAST 12 LDS TRCG ONLY W/O I&[place] [address] NIDIA JACOB THYROID [address] [facility] STIMULATI INC INC NG HORMONE TSH ECG 53213 NIDIA MCKEMIE ROUTINE 1 [facility] W/LEAST P 12 LDS I&R ONLY NATRIURET 52048 NIDIA JACOB IC [address] [facility] PEPTIDE INC INC BLOOD 55060 NIDIA JACOB COUNT [address] 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 IES INC IES INC ENHANCEME NT INTERPJ XCPT C/V ENDOMETRI 64765 [facility] AL BX 1 [facility] JOSE ARMANDO W/WO [facility] LINDA X BX W/O DILAT SPX SCREENING G0202 NIDIA JACOB 1 [facility] MAMMOGRAP INC INC HY AGGIE INCL CAD WHEN PERFORMD COMPUTER- 53569 NIDIA JACOB AIDED 1 [facility] DETECTION INC INC SCREENING MAMMOGRAP HY Encounters Encounter Start End Date Code Location Performer Type Date EMERGENCY 19169 JUAN DAVID WYMAN 6 6 PHYSICIAN SHAHEED [facility], PLL[facility] T VISIT HIGH/URGE NT SEVERITY OFFICE 52945 JOSEF PACHECO 6 6 OLU OLU T VISIT 15 MINUTES OFFICE 08680 JOSEF PACHECO 6 6 OLU OLU T VISIT 15 MINUTES OFFICE 72037 JOSEF PACHECO 5 5 OLU OLU T VISIT 15 MINUTES EMERGENCY 05095 [facility] CELLARO 5 5 [facility] T VISIT PHYS HIGH/URGE NT SEVERITY EMERGENCY 04061 [facility] 5 5 N VISIT COMMUNTIY HIGH HOSPITA SEVERITY& THREAT [facility] - 5 5 N OUTPATIEN COMMUNTIY T HOSPITA OFFICE [address] [facility] BALJIT PACHECO 5 5 PHYSICIAN RUSS T VISIT S GROUP 10 MINUTES OFFICE 24869 JOSEF PACHECO 5 5 OLU OLU T VISIT 15 MINUTES OFFICE 04062 JOSEF PACHECO 5 5 OLU OLU T VISIT 15 MINUTES [facility] NIDIA - 5 5 [facility] OUTPATIEN INC T OFFICE [address] [facility] BALJIT PACHECO 5 5 PHYSICIAN RUSS T VISIT S GROUP 15 MINUTES OFFICE 42391 JOSEF BAHENA OUTPATIEN 5 5 OLU OLU T VISIT 15 MINUTES HOSPITAL NIDIA - 5 5 [facility] OUTPATIEN INC T OFFICE [address] [facility] SMILEY OUTPATIEN 5 5 PHYSICIAN RUSS T VISIT S GROUP 15 MINUTES HOSPITAL NIDIA - 5 5 [facility] OUTPATIEN INC T OFFICE 28676 BALJIT SMILEY OUTPATIEN 5 5 RUSS RUSS T NEW 30 MINUTES EMERGENCY 88349 NIDIA ILUYOMADE 5 5 [facility] T VISIT P LOW/MODER SEVERITY OFFICE 33941 [facility]UC[facility] ALFONSO OUTPATIEN 4 4 FOOT & T NEW 30 ANKLE CE MINUTES HOSPITAL [facility] - 4 4 N OUTPATIEN COMMUNTIY T HOSPITA OFFICE 00114 [facility] 4 4 [place] SY[facility]ONE T VISIT ORTHOPAED 15 [facility] MINUTES OFFICE 67317 JOSEF BAHENA OUTPATIEN 4 4 OLU OLU T VISIT 15 MINUTES OFFICE 68339 [facility] 4 4 [place] SY[place]ONE ION ORTHOPAED NEW/ESTAB [facility] PATIENT 40 MIN OFFICE [address] [facility] OUTPATIEN 4 4 PHYSICIAN T VISIT S GROUP 15 MINUTES OFFICE 47949 JOSEF BAHENA OUTPATIEN 4 4 OLU OLU T VISIT 15 MINUTES OFFICE 62486 JOSEF BAHENA OUTPATIEN 4 4 OLU OLU T VISIT 15 MINUTES OFFICE 35161 JOSEF LINDQUISTPATIEN 4 4 OLU OLU T VISIT 15 MINUTES OFFICE 79498 LIZZY BALL OUTPATIEN 4 4 JOSE ARMANDO JOSE ARMANDO T VISIT 15 MINUTES OFFICE 26660 JOSEF LINDQUISTPATIJASWANT 4 4 OLU OLU T VISIT 15 MINUTES HOSPITAL NIDIA - 4 4 [facility] OUTPATIEN INC T OFFICE 12318 KERRY PACHECO 4 4 ANILA ANILA T VISIT 10 MINUTES HOSPITAL NIDIA - 4 4 [facility] OUTPATIEN INC T HOSPITAL NIDIA - [address] [facility] OUTPATIEN INC T OFFICE 37505 MÁRQUEZ MÁRQUEZ CONSULTAT 4 4 TOMMY TOMMY ION NEW/ESTAB PATIENT 40 MIN OFFICE 94871 KERRY PACHECO 4 4 ANILA ANILA T VISIT 10 MINUTES OFFICE 28941 JOSEF PACHECO 4 4 OLU OLU T VISIT 15 MINUTES HOSPITAL NIDIA - [address] [facility] OUTPATIEN INC T EMERGENCY 66724 ALISON ROSAS 4 4 JOLENE JOLENE DEPARTMEN T VISIT MODERATE SEVERITY OFFICE 57816 KERRY PACHECO 4 4 ANILA ANILA T NEW 30 MINUTES OFFICE 65446 JOSEF PACHECO 4 4 OLU OLU T VISIT 15 MINUTES OFFICE 98937 JOSEF PACHECO 4 4 OLU OLU T VISIT 15 MINUTES OFFICE 38660 JOSEF PACHECO 4 4 OLU OLU T VISIT 15 MINUTES HOSPITAL NIDIA - [address] [facility] OUTPATIEN INC T HOSPITAL NIDIA - [address] [facility] OUTPATIEN INC T PERIODIC 47325 LIZZY BALL PREVENTIV 4 4 JOSE ARMANDO JOSE ARMANDO E MED EST PATIENT 40-64YRS Inpatient FABIOLA Walters MD (IN) 3 20:02 3 12:20 [facility] Emergency JONI Grover MD (ER) 3 11:55 3 15:55 [facility] OFFICE 04395 ARNOLD ARNOLD OUTPATIEN 2 2 OLU OLU T VISIT 15 MINUTES OFFICE 38026 ALISON ROSAS OUTPATIEN 2 2 JOLENE JOLENE T NEW 30 MINUTES OFFICE 68290 JOSEF BAHENA OUTPATIEN 2 2 OLU OLU T VISIT 15 MINUTES OFFICE 93849 JOSEF BAHENA OUTROWENAEN 1 1 OLU OLU T VISIT 15 MINUTES HOSPITAL NIDIA - 1 1 [facility]PAT[facility] T [facility] NIDIA - 1 1 [facility] OUTPATIEN INC T OFFICE 69939 JOSEF BAHENA OUTROWENAEN 1 1 OLU OLU T VISIT 15 MINUTES EMERGENCY 45253 YULIYA POMPA URBAN 1 1 EMERGENCY DEPARTMEN SERVICES T VISIT MODERATE SEVERITY HOSPITAL NIDIA - 1 1 [facility] INPATIENT INC OFFICE 02278 HOWARDCYNTHIA JOSEF OUTPATIEN 1 1 OLU OLU T VISIT 15 MINUTES EMERGENCY 29753 YULIYA ROSAS 1 1 EMERGENCY JOLENE DEPARTMEN SERVICES T VISIT MODERATE SEVERITY EMERGENCY 26778 NIDIA 1 1 [facility] DEPARTMEN INC T VISIT LOW/MODER SEVERITY HOSPITAL NIDIA - 1 1 [facility] OUTPATIEN INC T OFFICE 01718 ZACH SERRANO OUTPATIEN 1 1 Nov T NEW 45 MINUTES HOSPITAL NIDIA - 1 1 [facility] OUTPATIEN INC T EMERGENCY 43698 NIDIA 1 1 [facility] DEPARTMEN INC T VISIT LOW/MODER SEVERITY EMERGENCY 47511 YULIYA POMPA URBAN 1 1 EMERGENCY DEPARTMEN SERVICES T VISIT MODERATE SEVERITY HOSPITAL NIDIA - 1 1 [facility] OUTPATIEN INC T OFFICE 22789 JOSEF PACHECO 1 1 OLU OLU T VISIT 15 MINUTES OFFICE 48580 NARA BAINS OUTPATIEN 1 1 MARISA MARISA T NEW 45 MINUTES OFFICE 11423 BALJIT GLOVERON OUTPATIEN 1 1 RUSS RUSS T VISIT 15 MINUTES OFFICE 97621 JOSEF BAHENA OUTPATIEN 1 1 OLU OLU T NEW 30 MINUTES HOSPITAL NIDIA - [address] [facility] OUTPATIEN INC T OFFICE 03492 BALJIT GLOVERON OUTPATIEN 1 1 RUSS RUSS T VISIT 15 MINUTES HOSPITAL NIDIA - [address] [facility] OUTPATIEN INC T HOSPITAL NIDIA - [address] [facility] OUTPATIEN INC T OFFICE 06786 BALJIT GLOVERON OUTPATIEN 1 1 RUSS RUSS T NEW 30 MINUTES EMERGENCY [address] [facility] DEPARTMEN INC T VISIT LOW/MODER SEVERITY EMERGENCY 07472 YULIYA ROSAS 1 1 EMERGENCY [facility] DEPARTMEN SERVICES T VISIT HIGH/URGE NT SEVERITY INITIAL 12652 WOMEN'S BALL PREVENTIV 1 1 [facility] LINDA NEW PATIENT 40-64YRS [facility] NIDIA - [address] [facility] OUTPATIEN INC T
--- OUTSIDE RECORDS SUMMARY | 2017-08-15 15:37 | External Medical Summary Rpt | CCD ---
Author Author , LUDIN Organization LUDIN Address Unknown Phone Care Team Providers Care Appraiser Timber Name Role Phone JOSEF OLU, ARNOLD Unavailable Unavailable OLU JOSEF OLU, ARNOLD Unavailable Unavailable OLU BESSON JENI, BESSON Unavailable Unavailable JENI JASON ANT, JASON ANT Unavailable Unavailable [facility] Unavailable Unavailable INC, [facility] MÁRQUEZ TOMMY, Unavailable Unavailable MÁRQUEZ TOMMY MÁRQUEZ TOMMY, Unavailable Unavailable MÁRQUEZ TOMMY CELLAROSI - YORBA Unavailable Unavailable PAT, CELLAROSI - YORBA PAT [facility] Unavailable Unavailable [facility], [facility] CHIPPS DEJUAN & Unavailable Unavailable DUBILIER, CHIPPS DEJUAN & DUBILIER LUCRECIA TER, LUCRECIA TER Unavailable Unavailable BALL JOSE ARMANDO, BALL Unavailable Unavailable JOSE ARMANDO BALL JOSE ARMANDO, BALL Unavailable Unavailable JOSE ARMANDO [facility], [facility], Unavailable Unavailable [facility] ANESTH OF Unavailable Unavailable THE [...] JOLENE ALISON JOLENE, ALISON Unavailable Unavailable JOLENE [facility] Unavailable Unavailable [facility], [facility] Unavailable Unavailable EMS, [facility] Unavailable [facility]available EMS, [facility] POMPA URBAN, [facility] URBAN Unavailable Unavailable [facility] Unavailable Unavailable INC, [facility] Unavailable Unavailable HOSPITAL P, [facility], Unavailable Unavailable [facility]UYOMADE ROT, Unavailable Unavailable IL[facility]OM[facility] ROT MURTAZA DAHIANA, MURTAZA Unavailable Unavailable DAHIANA [facility], [facility] May Grover MD, Unavailable [...] GRE YULIYA GRE, Unavailable Unavailable YULIYA GRE [facility] Unavailable Unavailable SERVICES, [facility] MCKEMIE JR SUSU, Unavailable Unavailable [...] GLADIS SCIFRES ANG, SCIFRES Unavailable Unavailable ANG [facility] Unavailable Unavailable EMERGENCY PHYS, [facility] Titus Walters MD, Unavailable Unavailable Titus PAYNE MARISA, KERRY Unavailable Unavailable MARISA KERRY ANILA, KERRY Unavailable Unavailable ANILA KERRY HIGH, KERRY Unavailable Unavailable ANILA [facility] # Unavailable Unavailable [id number], [facility] # [id number] ZACH MORAN, Unavailable Unavailable ZACH MORAN, Unavailable Unavailable ZACH MARIE SYMONE, CYNTHIA Unavailable Unavailable SYMONE Purpose Continuity of Care Document - 02-06-2011 through 2016 Problems Code Diagnosis DOS Provider Status [id number] PAIN IN 02-27-2016 [facility] [id number] PAIN IN 02-27-2016 [facility] M7989 OTHER 02-27-2016 [facility] SPECIFIED [facility]ICAL SOFT TISSUE IMAGING ASS DISORDERS [id number] UNSPECIFIED 02-27-2016 [facility], LEFT FOOT PLLC INITIAL ENCOUNTER [id number] UNSPECIFIED 02-27-2016 [facility] INJURY [facility] LEFT FOOT IMAGING ASS INITIAL ENCOUNTER K5289 OTH SPEC 11-24-2015 JOSEF RAINES NONINFECTIV E GASTROENTER ITIS & COLITIS J069 ACUTE UPPER 10-31-2015 JOSEF RAINES RESPIRATORY INFECTION UNSPECIFIED B349 VIRAL 10-28-2015 [facility] UNSPECIFIED HOSPITA E876 HYPOKALEMIA 10-28-2015 [facility] J029 ACUTE 10-28-2015 [facility] PHARYNGITIS [facility]TI[facility] HOSPITA UNSPECIFIED J441 CHRONIC 10-28-2015 [facility] OB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ENCY PULMONARY PHYS DZ W/EXACERBAT ION R000 TACHYCARDIA 10-28-2015 [facility] [place] UNSPECIFIED EMS R05 COUGH 10-28-2015 [facility] [place] [facility] R0602 SHORTNESS 10-28-2015 [facility]- OF BREATH [place] [facility] R079 CHEST PAIN 10-28-2015 [facility]- U[facility]PECIFIED [place] [facility] R0981 NASAL 10-28-2015 [facility] CONGESTION [facility] HOSPITA R509 FEVER 10-28-2015 [facility]- UNSPECIFIED [place] [facility] R9431 ABNORMAL 10-28-2015 [facility] ELECTROCARD COMMUNTIY IOGRAM HOSPITA H6691 OTITIS 10-05-2015 [facility] MEDIA PHYSICIANS UNSPECIFIED GROUP RIGHT EAR J0100 ACUTE 10-05-2015 [facility] MAXILLARY PHYSICIANS SINUSITIS GROUP UNSPECIFIED H6690 OTITIS 09-29-2015 JOSEF RAINES MEDIA UNSPECIFIED UNSPECIFIED EAR J0190 ACUTE 09-05-2015 JOSEF RAINES SINUSITIS UNSPECIFIED Z0100 ENCOUNTER 08-26-2015 YULIYA EXAM EYES & GRE VISION W/O ABNORMAL FIND 01883 SIMPLE/UNSP 04-20-2015 [facility] ECIFIED PHYSICIANS CHRONIC GROUP SEROUS OTITIS MEDIA 3829 UNSPECIFIED 04-20-2015 COMMUNITY OTITIS ANESTH OF MEDIA THE BLUE 470 DEVIATED 04-20-2015 [facility] NASAL PHYSICIANS SEPTUM GROUP 4710 POLYP OF 04-20-2015 [facility] NASAL PHYSICIANS CAVITY GROUP 4718 OTHER POLYP 04-20-2015 [facility] 4730 CHRONIC 04-20-2015 [facility] MAXILLARY PHYSICIANS SINUSITIS GROUP 4739 UNSPECIFIED 04-15-[address] [facility] P V7283 OTHER 04-15-2015 [facility] SPECIFIED [facility] P VE EXAMINATION 3831 CHRONIC 03-30-2015 [facility] MASTOIDITIS PHYSICIANS GROUP 61975 DIAB W/O 03-18-2015 [facility] COMP TYPE MEM HOS[facility] II/UNS NOT INC STATED UNCNTRL 3814 NONSUPPRATV 02-23-2015 [facility] OTITIS PHYSICIANS MEDIA NOT GROUP SPEC ACUT/CHRON 4279 UNSPECIFIED 02-23-2015 [facility] CARDIAC PHYSICIANS DYSRHYTHMIA GROUP 3839 UNSPECIFIED 02-06-2015 [facility] MASTOIDITIS INC 4610 ACUTE 02-06-2015 [facility] MAXILLARY MEM [facility] SINUSITIS INC 4779 ALLERGIC 01-26-2015 [facility] RHINITIS CAUSE UNSPECIFIED 66110 UNSPECIFIED 01-08-2015 [facility] P 4019 UNSPECIFIED 01-08-2015 [facility] P N 7840 HEADACHE 01-08-2015 [facility] P 1101 DERMATOPHYT 11-21-2014 [place] OSIS OF FOOT & NAIL ANKLE CE 3569 UNSPEC 11-21-2014 [place] HEREDIT&IDI FOOT & OPATHIC ANKLE CE PERIPHERAL NEUROPATHY 7038 OTHER 11-21-2014 [place] SPECIFIED FOOT & DISEASE OF ANKLE CE NAIL 19659 OSTEOARTHRO 11-21-2014 [place] SIS UNSPEC FOOT & WHETHER ANKLE CE GEN/LOC ANK&FOOT 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 [address] OSTEOARTHRO 10-31-2014 [facility] S UNSPEC COMMUNTIY WHETHER HOSPITA GEN/LOC UNSPEC SITE 38694 GENERALIZED 10-31-2014 [facility] PAIN COMMUNTIY HOSPITA 63402 PAIN IN 10-24-2014 [facility] [place] JOINT, [facility]THOP[facility] ANKLE AND S PLC FOOT 486 PNEUMONIA, 10-18-2014 [facility] ORGANISM PHYSICIANS UNSPECIFIED GROUP 4660 ACUTE 10-14-2014 ARNOLD OLU BRONCHITIS 6256 FEMALE 10-04-2014 [facility] STRESS PHYSICIANS INCONTINENC GROUP E 75180 OSTEOARTHRO 10-03-2014 JOSEF OLU S INVLV MX SITES BUT NOT SPEC GEN 52429 PAIN IN 10-03-2014 JOSEF OLU JOINT, LOWER LEG 4619 ACUTE 08-25-2014 ARNCYNTHIA OLU SINUSITIS, UNSPECIFIED 5110 PLEURISY 08-11-2014 JOSEF OLU WITHOUT MENTION EFFUS/[place] [address] KYPHOSIS 06-27-2014 KERRY HIGH ACQUIRED POSTURAL 7391 NONALLOPATH 06-27-2014 KERR[facility] HIGH IC LESION OF CERVICAL REGION NEC 7392 NONALLOPATH 06-27-2014 KERR[facility] ANILA IC LESION OF THORACIC REGION NEC 7398 NONALLOPATH 06-27-2014 KERR[facility] ANILA IC LESION OF RIB CAGE NEC 6259 UNSPEC 05-20-2014 LIZZY JOSE ARMANDO SYMPTOM ASSOC W/FEMALE GENITAL ORGANS 6271 POSTMENOPAU 05-20-2014 LIZZY JOSE ARMANDO REJI BLEEDING 17079 UNSPECIFIED 05-05-2014 JOSEF RAINES SLEEP APNEA 6272 SYMPTOMATIC 04-18-2014 [facility] MENOPAUSAL/ INC FEMALE CLIMACTERIC STATES 6210 POLYP OF 04-04-2014 [facility] UTERI INC 6268 OTH D/O 04-04-2014 [facility] MENSTRUATIO [facility] N&OTH ABN INC BLEED FE GNT TRACT 50946 INCOMPLETE 03-25-2014 MÁRQUEZ BLADDER TOMMY EMPTYING 14756 CALCANEAL 03-17-2014 [facility] SPUR MARYCRUZ 47159 UNSPECIFIED 03-17-2014 JOSEF RAINES URINARY INCONTINENC E 9178 OTH&UNSPEC 03-17-2014 [facility] SUP INJURY [facility] HOS[facility] FOOT&TOES INC W/O MENTION INF 5259 UNSPECIFIED 03-01-2014 ALISON JOLENE DISORDER TEETH&SUPPO RTING STRUCTURES 60506 OTHER 02-01-2014 JOSEF RAINES MALAISE AND FATIGUE 6253 DYSMENORRHE 01-13-2014 LIZZY JOSE ARMANDO A V720 EXAMINATION 01-12-2014 YULIYA OF EYES GRE AND VISION 55994 OTHER 01-05-2014 [facility] ABNORMAL MARYCRUZ FINDING RADIOLOGICA L EXAM BREAST V7612 OTHER 01-05-2014 [facility] SCREENING [facility] MAMMOGRAM INC V7231 ROUTINE 01-01-2014 [facility] GYNECOLOGIC MEM HOS[facility] AL INC EXAMINATION 74296 TRICHOMONAL 12-29-2013 DENNIS ADAN VULVOVAGINI TIS 50567 UNSPECIFIED 12-29-2013 LIZZY JOSE ARMANDO VAGINITIS AND VULVOVAGINI TIS V745 SCREENING 12-29-2013 DENNIS EXAMINATION JR ADAN FOR VENEREAL DISEASE 327.23 327.23 10-03-2013 [place] OBSTRUCTIVE [facility] APNEA (ADULT) (PEDIATRIC) 401.9 401.9 10-03-2013 [place] HYPERTENSIO [facility] 427.9 427.9 10-03-2013 [place] CARDIAC [facility] DYSRHYTHMIA [facility] NOS 530.81 530.81 10-03-2013 [place] ESOPHAGEAL [facility] REFLUX Hospital 786.59 786.59 10-03-2013 [facility] CHEST PAIN [facility] V14.0 V14.0 10-03-2013 [facility] HX-PENICILL [facility] IN ALLERGY Hospital V14.8 V14.8 10-03-2013 [place] HX-DRUG [facility] ALLERGY [facility] V15.82 V15.82 10-03-2013 [facility] HISTORY OF [facility] TOBACCO USE [facility] V58.69 V58.69 OTH 10-03-2013 [place] MED,LT,CURR [facility] ENT USE Hospital 786.05 786.05 04-14-2013 [place] SHORTNESS [facility] OF [facility] 12141 ESOPHAGEAL 12-02-2011 JOSEF RAINES REFLUX 59554 UNS 12-02-2011 HOWARDCYNTHIA RAINES GASTRITIS&G ASTRODUODIT IS W/O MENTION HEMORR 44580 UNSPEC 11-28-2011 ALISON JOLENE VENTRAL JUHI W/O MENTION OBST/GANGRE N 5589 OTH&UNSPEC 11-08-2011 JOSEF RAINES NONINFECTIO US GASTROENTER ITIS&COLITI S 79564 OBSTRUCTIVE 11-02-2011 [place] [facility] APNEA MEDICAL EQUIP 19585 UNSPECIFIED 10-04-2011 JOSEF RAINES ENTHESOPATH Y OF ANKLE AND TARSUS 94654 CHOLECYSTIT 08-23-2011 COMMUNITY IS, ANESTH OF UNSPECIFIED THE BLUE 30036 CHRONIC 08-23-2011 [facility] CHOLECYSTIT [facility] IS INC 5756 CHOLESTEROL 08-23-2011 [facility] OS[facility] OF DEJUAN & GALLBLADDER DUBILIER 5758 OTHER 08-20-2011 [facility] DISORDER OF HOSPITAL P GALLBLADDER 47368 ABDOMINAL 08-17-2011 JOSEF RAINES PAIN, GENERALIZED 02885 ABDOMINAL 08-15-2011 [facility] [place], MEDICAL EPIGASTRIC IMAGING ASS 5770 ACUTE 08-14-2011 [place] [facility] PANCREATITI SERV S FOUNDATIO 8830 OPEN WOUND 08-13-2011 [facility] WITHOUT SERVICES MENTION COMPLICATIO N 7823 EDEMA 07-05-2011 HOWARDCYNTHIA RAINES 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 7842 SWELLING 05-31-2011 YULIYA MASS OR EMERGENCY LUMP IN SERVICES HEAD AND NECK 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 22558 HYPERSOMNIA 05-28-2011 [facility] WITH SLEEP LUISA APNEA UNSPECIFIED 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 3674 PRESBYOPIA 05-23-2011 [facility] VISION 5272 SIALOADENIT 04-30-2011 [place] [address] NOISE-INDUC 03-21-2011 BALJIT SOLANO ED HEARING LOSS 80335 UNSPECIFIED 03-21-2011 BALJIT SOLANO TINNITUS 7851 PALPITATION 03-07-2011 [facility] S PHYSICIANS GROUP 35168 NONSPECIFIC 03-07-2011 [facility] P IOGRAM Allergies, Adverse Reactions, Alerts Type Drug Allergy Adverse Reaction to Substance Substance Reaction Severity Penicillin W-IKQWCO-IYTQ/THROAT Unknown Tetanus Toxoid UNKNOWN REACTION Unknown Medications [...] ve 37 .5 -2 5 MG TB NM 00 11 1 No OT 00 -3 [...] 0 20 10 WA 71 BE Ac NM 37 -1 -1 .0 L- 39 SS [...] 20 20 RT 5 70 11 11 UT 5 PH CH AR AE MA L [...] LL 10 C 0 MG CA P NM 00 06 06 0 21 6 CL [...] 0 MG LL C TA BL ET NM 00 05 05 0 21 6 CL [...] 5- 5- 00 MA 05 ON ve NM 59 20 20 RT 6 ED 31 [...] 20 20 YC 66 11 11 PH UT IN 8 AR CH MA AE 25 [...] Procedure DOS Code Location Performer Comment RADEX 11546 [place] ARNOLD ANKLE 6 MEDICAL MARYCRUZ COMPLETE IMAGING MINIMUM 3 ASS VIEWS RADEX 38699 [place] ARNOLD FOOT 6 MEDICAL MARYCRUZ COMPLETE IMAGING MINIMUM 3 ASS VIEWS COMPREHEN 33971 [facility] SIVE 5 N N METABOLIC COMMUNTIY COMMUNTIY PANEL HOSPITA HOSPITA PREDNISON J7506 [facility] DIATHERIX E ORAL 5 N PER 5 MG COMMUNTIY LABORATOR HOSPITA IES LLC COLLECTIO 86595 [facility] N VENOUS 5 N N BLOOD COMMUNTIY COMMUNTIY VENIPUNCT HOSPITA HOSPITA URE BLOOD 45073 [facility] COUNT 5 N N COMPLETE COMMUNTIY COMMUNTIY AUTO&AUTO HOSPITA HOSPITA DIFRNTL WBC ECG 57806 [facility] CELLAROSI ROUTINE 5 MIKE - YORBA ECG EMERGENCY PAT W/LEAST PHYS 12 LDS I&R ONLY RADIOLOGI 98853 [facility] CELLAROSI C 5 MIKE - YORBA EXAMINATI EMERGENCY PAT ON CHEST PHYS SINGLE VIEW FRONTAL GROUND A0425 [facility] MILEAGE 5 N-[place] PER CO EMS CO EMS STATUTE MILE AMB A0427 [facility] SERVICE 5 N-[place] ALS CO EMS CO EMS EMERGENCY TRANSPORT LEVEL 1 INJECTION J0696 JOSE[facility] BAHENA 5 OLU OLU CEFTRIAXO NE SODIUM PER 250 MG INJECTION J0696 JOSEF BAHENA 5 OLU OLU CEFTRIAXO NE SODIUM PER [address] [facility] 5 GRE GRE XM&EVAL COMPRHNSV ESTAB PT 1/> NSL/SINUS 98422 [facility] NDSC MAX 5 PHYSICIAN PHYSICIAN ANTROST S GROUP S GROUP W/RMVL TISS MAX SINUS TYMPANOST 98237 [facility] SMILEY BENITEZ 5 PHYSICIAN RUSS GENERAL S GROUP ANESTHESI A LEVEL III 68279 [facility], LUCRECIA TER SURG 5 [facility] PATHOLOGY GROSS&[place] [address] [facility], LUCRECIA TER SURG 5 LLC PATHOLOGY GROSS&JOLENE ROSCOPIC EXAM ANESTHESI 19551 [facility] A NOSE & 5 ANESTH MARISA ACCESSORY OF THE SINUSES BLUE NOS COLLECTIO 85225 [facility] JACOB N VENOUS 5 MEM HOSP MEM HOSP BLOOD INC INC VENIPUNCT URE BASIC 60822 [facility] JACOB METABOLIC 5 MEM HOS[facility]OS[facility] PANEL INC INC CALCIUM TOTAL BLOOD 56413 [facility] JACOB COUNT 5 MEM HOS[facility]OS[facility] COMPLETE INC INC AUTO&AUTO DIFRNTL WBC ECG 54860 [facility] DECKER JR ROUTINE [address] [facility] W/LEAST P 12 LDS I&R ONLY ECG 57628 [facility] JACOB ROUTINE 5 MEM HOS[facility] MEM [facility]OS[facility] ECG INC INC W/LEAST 12 LDS TRCG ONLY W/O I&R COLLECTIO 34228 [facility] JACOB N VENOUS 5 [facility]OS[facility] BLOOD INC INC VENIPUNCT URE HEMOGLOBI 88768 [facility] JACOB N 5 MEM HOSP MEM HOSP GLYCOSYLA INC INC STEVEN A1C DISTORT 24652 [facility] PRODUCT 5 [place] EVOKED OTOACOUST IC EMISNS LIMITD COMPRE 08323 [facility] AUDIOMETR 5 [place] Y THRESHOLD EVAL SP RECOGNIJ TYMPANOME 25683 [facility] [place] TRY [address] [place] [address] [facility] JACOB MAXILLOFA 5 [facility] HOS[facility] CIAL W/O INC INC CONTRAST MATERIAL RADEX 13748 [place] FINE BRA FOOT 5 FOOT & COMPLETE ANKLE CE MINIMUM 3 VIEWS WALKING L4360 [place] FINE BRA BOOT 5 FOOT & PNEUMATC ANKLE CE &/ VACUUM PREFAB CUSTM FIT TRIMMING 41401 [place] FINE BRA NONDYSTRO 4 FOOT & PHIC ANKLE CE NAILS ANY NUMBER RADEX 20014 [place] FINE BRA FOOT 4 FOOT & COMPLETE ANKLE CE MINIMUM 3 VIEWS COLLECTIO 37634 [facility] N VENOUS 4 N N BLOOD COMMUNTIY COMMUNTIY VENIPUNCT HOSPITA HOSPITA URE RHEUMATOI 20986 [facility] D FACTOR 4 N N QUALITATI COMMUNTIY COMMUNTIY VE HOSPITA HOSPITA MRI LOWER 46549 [facility] [place] EXTREM 4 [place] SYMONE OTH/THN ORTHOPAED JT W/O ICS PLC CONTR MATRL INJECTION J1040 [facility] ALISON 4 PHYSICIAN JOLENE METHYLPRE S GROUP DNISOLONE ACETATE 80 MG THERAPEUT 45223 [facility] IC 4 PHYSICIAN PHYSICIAN PROPHYLAC S GROUP S GROUP TIC/DX INJECTION SUBQ/IM RADEX 12903 [facility] [place] FOOT 4 [place] SYMONE COMPLETE ORTHOPAED MINIMUM 3 ICS PLC VIEWS CHIROPRAC 58042 KERRY PAYNE TIC 4 ANILA ANILA MANIPULAT OSVALDO [place] SPINAL 1-2 REGIONS CHIROPRAC 97552 KERRY KERRY TIC 4 ANILA ANILA MANIPULAT [place] SPINAL 1-2 REGIONS CHIROPRAC 27557 KERRY KERRY TIC 4 ANILA ANILA MANIPULAT [place] SPINAL 1-2 REGIONS CHIROPRAC 12825 KERRY KERRY TIC 4 ANILA ANILA MANIPULAT OSVALDO [place] SPINAL 1-2 REGIONS THERAPEUT 28088 KERRY KERRY IC PX 1/> 4 ANILA ANILA AREAS EACH 15 MIN EXERCISES THERAPEUT 13839 KERRY KERRY IC PX 1/> 4 ANILA ANILA AREAS EACH 15 MIN EXERCISES APPL 13071 KERRY KERRY MODALITY 4 ANILA ANILA 1/> AREAS TRACTION MECHANICA L CHIROPRAC 25636 KERRY KERRY TIC 4 ANILA ANILA MANIPULAT [place]DO [place] SPINAL 1-2 REGIONS CHIROPRAC 18691 KERRY KERRY TIC 4 ANILA ANILA MANIPULAT OSVALDO [place] SPINAL 1-2 REGIONS THERAPEUT 77533 KERRY KERRY IC PX 1/> 4 ANILA ANILA AREAS EACH 15 MIN EXERCISES CHIROPRAC 85781 KERRY KERRY TIC 4 ANILA ANILA MANIPULAT OSVALDO [place] SPINAL 1-2 REGIONS CHIROPRAC 98707 KERRY KERRY TIC 4 ANILA ANILA MANIPULAT OSVALDO [place] SPINAL 1-2 REGIONS CHIROPRAC 48104 KERRY KERRY TIC 4 ANILA ANILA MANIPULAT OS[place]DO [place] SPINAL 1-2 REGIONS CHIROPRAC 09949 KERRY KERRY TIC 4 ANILA ANILA MANIPULAT OSVALDO [place] SPINAL 1-2 REGIONS THERAPEUT 92602 KERRY KERRY IC PX 1/> 4 ANILA ANILA AREAS EACH 15 MIN EXERCISES THERAPEUT 30192 KERRY KERRY IC PX 1/> 4 ANILA ANILA AREAS EACH 15 MIN EXERCISES CHIROPRAC 65727 KERRY KERRY TIC 4 ANILA ANILA MANIPULAT OSVALDO [place] SPINAL 1-2 REGIONS GONADOTRO 52248 [facility] GARCIAON PIN 4 MEM HOSP MEM HOSP FOLLICLE INC INC STIMULATI NG HORMONE GONADOTRO 72917 [facility] GARCIAON PIN 4 MEM HOSP MEM HOSP LUTEINIZI INC INC NG HORMONE THERAPEUT 19230 KERRY KERRY IC PX 1/> 4 ANILA ANILA AREAS EACH 15 MIN EXERCISES CHIROPRAC 10651 KERRY PAYNE TIC 4 ANILA ANILA MANIPULAT OSVALDO TX SPINAL 1-2 REGIONS CHIROPRAC 56853 KERRY PAYNE TIC 4 ANILA ANILA MANIPULAT OSVALDO TX SPINAL 1-2 REGIONS THERAPEUT 47088 KERRY PAYNE IC PX 1/> 4 ANILA ANILA AREAS EACH 15 MIN EXERCISES THERAPEUT 47824 KERRY PAYNE IC PX 1/> 4 ANILA ANILA AREAS EACH 15 MIN EXERCISES CHIROPRAC 94171 KERRY PAYNE TIC 4 ANILA ANILA MANIPULAT OSVALDO [place] SPINAL 1-2 REGIONS INJECTION J2405 [facility] JACOB 4 MEM HOSP MEM HOSP ONDANSETR INC INC ON HCL PER 1 MG HYSTEROSC 56729 LIZZY BALL OPY BX 4 JOSE ARMANDO JOSE ARMANDO ENDOMETRI UM&/POLYP C W/WO D&C BLOOD 48714 [facility] JACOB COUNT 4 [facility]OS[facility]OS[facility] COMPLETE INC INC AUTO&AUTO DIFRNTL WBC ECG 76469 JERONIMO NUNEZ JERONIMO JR ROUTINE 4 DWI DWI ECG W/LEAST 12 LDS I&R ONLY ECG 38368 [facility] QUEST ROUTINE 4 MEM HOSP DIAGNOSTI ECG INC CS W/LEAST 12 LDS TRCG ONLY W/[place] [address] [facility], MURTAZA SURG 4 [facility] PATHOLOGY GROSS&JOLENE ROSCOPIC EXAM BASIC 45066 [facility] JACOB METABOLIC 4 MEM HOSP MEM HOSP PANEL INC INC CALCIUM TOTAL CHIROPRAC 60607 KERRY PAYNE TIC 4 ANILA ANILA MANIPULAT OSVALDO [place] SPINAL 1-2 REGIONS THERAPEUT 58057 KERRY PAYNE IC PX 1/> 4 ANILA NAILA AREAS EACH 15 MIN EXERCISES THERAPEUT 57162 KERRY PAYNE IC PX 1/> 4 ANILA ANILA AREAS EACH 15 MIN EXERCISES CHIROPRAC 28491 KERRY PAYNE TIC 4 ANILA ANILA MANIPULAT OSVALDO [place] SPINAL 1-2 REGIONS BRYAN 32760 MÁRQUEZ MÁRQUEZ POST-VOID 4 TOMMY TOMMY ING RESIDUAL URINE&/BL ADDER CAP THERAPEUT 58123 KERRY PAYNE IC PX 1/> 4 ANILA ANILA AREAS EACH 15 MIN EXERCISES CHIROPRAC 09593 KERRY PAYNE TIC 4 ANILA ANILA MANIPULAT OSVALDO TX SPINAL 1-2 REGIONS CHIROPRAC 23898 KERRY PAYNE TIC 4 ANILA ANILA MANIPULAT OSVALDO TX SPINAL 1-2 REGIONS THERAPEUT 89777 KERRY PAYNE IC PX 1/> 4 ANILA ANILA AREAS EACH 15 MIN EXERCISES APPL 49131 KERRY PAYNE MODALITY 4 ANILA ANILA 1/> AREAS TRACTION MECHANICA L RADEX 95325 [facility] JACOB FOOT 4 [facility]OS[facility]OS[facility] COMPLETE INC INC MINIMUM 3 VIEWS CHIROPRAC 39521 KERRY PAYNE TIC 4 ANILA ANILA MANIPULAT OSVALDO [place] SPINAL 1-2 REGIONS APPL 04587 KERRY PAYNE MODALITY 4 ANILA ANILA 1/> AREAS TRACTION MECHANICA L THERAPEUT 52319 KERRY PAYNE IC PX 1/> 4 ANILA ANILA AREAS EACH 15 MIN EXERCISES APPL 38061 KERRY PAYNE MODALITY 4 ANILA ANILA 1/> AREAS ELEC STIMJ UNATTENDE D APPL 49310 KERRY PAYNE MODALITY 4 ANILA ANILA 1/> AREAS ELEC STIMJ UNATTENDE D THERAPEUT 51787 KERRY PAYNE IC PX 1/> 4 ANILA ANILA AREAS EACH 15 MIN EXERCISES APPL 13497 KERRY PAYNE MODALITY 4 ANILA ANILA 1/> AREAS TRACTION MECHANICA L CHIROPRAC 65615 KERRY PAYNE TIC 4 ANILA ANILA MANIPULAT OSVALDO [place] SPINAL 1-2 REGIONS ENDOMETRI 18554 LIZZY BALL AL BX 4 JOSE ARMANDO JOSE ARMANDO W/WO ENDOCERVI X BX W/O DILAT SPX CHIROPRAC 18327 KERRY PAYNE TIC 4 ANILA ANILA MANIPULAT OSVALDO [place] SPINAL 1-2 REGIONS APPL 44396 KERRY PAYNE MODALITY 4 ANILA ANILA 1/> AREAS TRACTION MECHANICA L THERAPEUT 64582 KERRY PAYNE IC PX 1/> 4 ANILA ANILA AREAS EACH 15 MIN EXERCISES APPL 31257 KERRY PAYNE MODALITY 4 ANILA ANILA 1/> AREAS ELEC STIMJ UNATTENDE D THERAPEUT 27515 KERRY PAYNE IC PX 1/> 4 ANILA ANILA AREAS EACH 15 MIN EXERCISES APPL 14784 KERRY PAYNE MODALITY 4 ANILA ANILA 1/> AREAS TRACTION MECHANICA L APPL 89451 KERRY PAYNE MODALITY 4 ANILA ANILA 1/> AREAS ELEC STIMJ UNATTENDE D CHIROPRAC 47585 KERRY PAYNE TIC 4 ANILA ANILA MANIPULAT [place] SPINAL 1-2 REGIONS CHIROPRAC 50162 KERRY PAYNE TIC 4 ANILA ANILA MANIPULAT [place] SPINAL 1-2 REGIONS APPL 79859 KERRY PAYNE MODALITY 4 ANILA ANILA 1/> AREAS TRACTION MECHANICA L APPL 29681 KERRY PAYNE MODALITY 4 ANILA ANILA 1/> AREAS ELEC STIMJ UNATTENDE D SALINE 27469 LIZZY BALL INFUS 4 JOSE ARMANDO JOSE ARMANDO SONOHYSTE ROGRAPHY W/COLOR DOPPLER INJECTION J3420 JOSEF ARNOLD VIT B-12 4 OLU OLU CYANOCOBA OVIDIO TO 1000 MCG INJECTION J3420 JOSEF LAWRENCEOLD VIT B-12 4 OLU OLU CYANOCOBA OVIDIO TO 1000 MCG INJECTION J3420 ARNOLD ARNOLD VIT B-12 4 OLU OLU [place]ANOCO[place]ID[place] [address] [place] [address] LIZZY BALL TRANSVAGI 4 JOSE ARMANDO JOSE ARMANDO NAL DETERMINA 07547 YULIYA DWYER [facility] 4 GRE GRE REFRACTIV E STATE OPHTH [address] [facility] 4 GRE GRE XM&EVAL COMPRHNSV ESTAB PT 1/> COMPUTER- 38893 NIDIA JACOB AIDED 4 [facility] DETECTION INC INC SCREENING MAMMOGRAP HY DIAGNOSTI G0204 ARNOLD ARNLOD C 4 MARYCRUZ MARYCRUZ MAMMOGRAP HY INCL CAD WHEN PERF; BILAT SCREENING G0202 NIDIA JACOB 4 [facility] MAMMOGRAP INC INC HY AGGIE INCL CAD WHEN PERFORMD LIPID 88582 NIDIA JACOB PANEL 4 [facility] INC INC GONADOTRO 36979 NIDIA JACOB PIN 4 [facility] FOLLICLE INC INC STIMULATI NG HORMONE COMPREHEN 25938 NIDIA JACOB SIVE 4 [facility] METABOLIC INC INC PANEL BLOOD 37131 NIDIA JACOB COUNT 4 [facility] COMPLETE INC INC AUTO&[place] [address] NIDIA JACOB FREE 4 [facility] [place] [address] NIDIA GARCIAON THYROID 4 [facility] STIMULATI INC INC NG HORMONE TSH GONADOTRO 85529 NIDIA JACOB PIN 4 [facility] LUTEINIZI INC INC NG HORMONE CYTP C/V 62779 PICKLESIM PICKLESIM AUTO THIN 4 ER JR LOCO ER JR LOCO LYR PREPJ SCR MNL RESCR PHYS IADNA 40795 PICKLESIM PICKLESIM NEISSERIA 4 ER JR LOCO ER JR LOCO GONORRHOE AE AMPLIFIED PROBE TQ URINE 44857 BALL LIZZY 4 JOSE ARMANDO JOSE ARMANDO TEST VISUAL COLOR CMPRSN METHS SMR PRIM 59782 LIZZY BALL SRC WET 4 JOSE ARMANDO JOSE ARMANDO MOUNT NFCT AGT IADNA 55811 PICKLESIM PICKLESIM CHLAMYDIA 4 ER JR LOCO ER JR LOCO TRACHOMAT IS AMPLIFIED PROBE TQ CONTINUOU E0601 LINDATHIJANIS JONESANA S 1 HOME HOME POSITIVE [facility]ICAL MEDICAL AIRWAY EQUIP EQUIP PRESSURE DEVICE LAPAROSCO 5123 NIDIA JACOB PIC 1 [facility] [place] [address] NIDIA JACOB INFUSION 1 [facility] THERAPY INC INC PROPHYLAX IS/DX EA HOUR URINE 32165 NIDIA JACOB 1 [facility] TEST INC INC VISUAL COLOR CMPRSN METHS ANES 76955 [facility] ANESTH TONEAL OF THE UPPER BLUE ABDOMEN W/LAPS NOS LEVEL III 38226 [facility] [place] VAN SURG 1 DEJUAN & PATHOLOGY DUBILIER GROSS&JOLENE ROSCOPIC EXAM INJECTION J2405 NIDIA JACOB 1 [facility] ONDANSETR INC INC ON HCL PER 1 MG LAPAROSCO 87457 Idalia DEL CID PY SURG 1 NEHEMIAS GARCIA MD PSC ECTOMY ECG 40016 NIDIA WALTERS ROUTINE [address] [facility] W/LEAST P 12 LDS I&R ONLY ECG 93769 NDIIA JACOB ROUTINE 1 [facility] ECG INC INC W/LEAST 12 LDS TRCG ONLY W/O I&R HOSPITAL 68930 [facility] [place] DAY INTERNAL MANAGEMEN MED T 30 MIN/< SBSQ 48630 [facility] 1 [facility] CARE/DAY INTERNAL 25 [place] [address] KUSH NEWMANUTCHER ABDOMINAL 1 MEDICAL MARYCRUZ REAL IMAGING TIME ASS W/IMAGE LIMITED SBSQ 07308 [facility] 1 [facility] CARE/DAY INTERNAL 25 MED MINUTES INITIAL 40362 VIVIENNE GOMEZ ANT INPATIENT 1 MEDICAL CONSULT SERV NEW/ESTAB FOUNDATIO PT 80 MIN INITIAL 99687 [facility] 1 [facility] CARE/DAY INTERNAL 50 MED MINUTES FINE 61574 [facility] PAT NEEDLE 1 DEJUAN & ASPIRATIO DUBILIER N W/O IMAGING GUIDANCE CYTP EVAL 00029 [facility] PAT FINE 1 DEJUAN & NEEDLE DUBILIER ASPIRATE INTERP & REPORT CONTINUOU E0601 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 S 1 HOME HOME POSITIVE MEDICAL MEDICAL AIRWAY EQUIP EQUIP PRESSURE DEVICE OPHTH 84671 [facility] MARISCAL [facility]ICAL 1 VISION ANG XM&EVAL COMPRE NEW PT 1/> VST MRI ORBIT 97340 NIDIA JACOB FACE & 1 [facility] NECK W/O INC INC & W/CONTRAS T MATRL CONTINUOU E0601 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 S 1 HOME HOME POSITIVE MEDICAL MEDICAL AIRWAY EQUIP EQUIP PRESSURE DEVICE TYMPANOME 16770 BALJIT GLOVERON TRY 1 RUSS RUSS COMPRE 07334 BALJIT SMILEY AUDIOMETR 1 RUSS RUSS Y THRESHOLD EVAL SP RECOGNIJ POLYSOM 16032 NARA BAINS 6/>YRS 1 MARISA MARISA SLEEP [...] W/POS EQUIP EQUIP ARWAY PRESSURE DEVICE POLYSOM 41835 NIDIA JACOB 6/>YRS 1 [facility] SLEEP INC INC W/CPAP 4/> ADDL TRINI ATTND POLYSOM 58831 NARA BAINS 6/>YRS 1 MARISA MARISA SLEEP 4/> ADDL TRINI ATTND POLYSOM 71865 NIDIA JACOB 6/>YRS 1 [facility] SLEEP 4/> INC INC ADDL TRINI ATTND COMPREHEN 52694 NIDIA JACOB SIVE 1 [facility] METABOLIC INC INC PANEL ECHO 71073 NIDIA JACOB TTHRC R-T 1 [facility] 2D INC INC W/WOM-MOD E COMPL SPEC&COLR D ECG 11057 NIDIA JACOB ROUTINE 1 [facility] ECG INC INC W/LEAST 12 LDS TRCG ONLY W/O I&[place] [address] NIDIA JACOB THYROID 1 [facility] STIMULATI INC INC NG HORMONE TSH ECG 51197 NIDIA MCKEMIE ROUTINE 1 [facility] W/LEAST P 12 LDS I&R ONLY NATRIURET 54235 NIDIA JACOB IC 1 [facility] PEPTIDE INC INC BLOOD 05580 NIDIA JACOB COUNT 1 [facility] COMPLETE INC INC AUTO&AUTO DIFRNTL WBC CYTP 59853 HEMANT MARCOS 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 IES INC IES INC ENHANCEME NT INTERPJ XCPT C/V ENDOMETRI 95263 [facility] AL BX 1 [facility] JOSE ARMANDO W/WO [facility] ENDOCERVI LINDA X BX W/O DILAT SPX SCREENING [id number] NIDIA JACOB 1 [facility] MAMMOGRAP INC INC HY AGGIE INCL CAD WHEN PERFORMD COMPUTER- 19493 NIDIA JACOB AIDED 1 [facility] DETECTION INC INC SCREENING MAMMOGRAP HY Encounters Encounter Start End Date Code Location Performer Type Date EMERGENCY 54649 JUAN DAVID WYMAN 6 6 PHYSICIAN SHAHEED [facility]AVIR[facility] S, PLLC T VISIT HIGH/URGE NT SEVERITY OFFICE 90078 JOSEF PACHECO 6 6 OLU OLU T VISIT 15 MINUTES OFFICE 43448 JOSEF PACHECO 6 6 OLU OLU T VISIT 15 MINUTES OFFICE 00598 JOSEF PACHECO 5 5 OLU OLU T VISIT 15 MINUTES EMERGENCY 58919 [facility] 5 5 [facility] EMER[facility]ENC[facility] PAT T VISIT PHYS HIGH/URGE NT SEVERITY EMERGENCY 72497 [facility] 5 N VISIT COMMUNTIY HIGH HOSPITA SEVERITY& THREAT [facility] - 5 5 N OUTPATIEN COMMUNTIY T HOSPITA OFFICE 80046 [facility] BALJIT PACHECO 5 5 PHYSICIAN RUSS T VISIT S GROUP 10 MINUTES OFFICE 90619 JOSEF PACHECO 5 5 OLU OLU T VISIT 15 MINUTES OFFICE 79366 JOSEF PACHECO 5 5 OLU OLU T VISIT 15 MINUTES [facility] NIDIA - 5 5 [facility] OUTPATIEN INC T OFFICE 49979 [facility] BALJIT PACHECO 5 5 PHYSICIAN RUSS T VISIT S GROUP 15 MINUTES OFFICE 03351 JOSEF BAHENA OUTPATIEN 5 5 OLU OLU T VISIT 15 MINUTES HOSPITAL NIDIA - 5 5 [facility] OUTPATIEN INC T OFFICE 87391 [facility] SMILEY OUTPATIEN 5 5 PHYSICIAN RUSS T VISIT S GROUP 15 MINUTES HOSPITAL N[facility]IA - 5 5 [facility] OUTPATIEN INC T OFFICE 15008 BALJIT SMILEY OUTPATIEN 5 5 RUSS RUSS T NEW 30 MINUTES EMERGENCY 37958 NIDIA ILUYOMADE 5 5 [facility] T VISIT P LOW/MODER SEVERITY OFFICE 90810 LUCERO ALFONSO OUTPATIEN 4 4 FOOT & T NEW 30 ANKLE CE MINUTES HOSPITAL [facility] - 4 4 N OUTPATIEN COMMUNTIY T HOSPITA OFFICE 83857 [facility] OUTPATI[facility] 4 4 [place] SYMONE T VISIT ORTHOPAED 15 [facility] MINUTES OFFICE 91388 JOSEF BAHENA OUTPATIEN 4 4 OLU OLU T VISIT 15 MINUTES OFFICE 63394 [facility] CONSULTAT 4 4 [place] SYOMNE ION ORTHOPAED NEW/ESTAB [facility] PATIENT 40 MIN OFFICE 97220 [facility] OUTPATIEN 4 4 PHYSICIAN T VISIT S GROUP 15 MINUTES OFFICE 01403 JOSEF BAHENA OUTPATIEN 4 4 OLU OLU T VISIT 15 MINUTES OFFICE 08273 JOSEF BAHENA OUTPATIEN 4 4 OLU OLU T VISIT 15 MINUTES OFFICE 10306 JOSEF LINDQUISTPATIEN 4 4 OLU OLU T VISIT 15 MINUTES OFFICE 87016 LIZZY BALL OUTPATIEN 4 4 JOSE ARMANDO JOSE ARMANDO T VISIT 15 MINUTES OFFICE 84029 JOSEF LINDQUISTPATIJASWANT 4 4 OLU OLU T VISIT 15 MINUTES HOSPITAL N[facility]IA - 4 4 [facility] OUTPATIEN INC T OFFICE 61544 KERRY PACHECO 4 4 ANILA ANILA T VISIT 10 MINUTES HOSPITAL N[facility] - 4 4 [facility] OUTPATIEN INC T [facility] NIDIA - 4 4 [facility] OUTPATIEN INC T OFFICE 51851 MÁRQUEZ MÁRQUEZ CONSULTAT 4 4 TOMMY TOMMY ION NEW/ESTAB PATIENT 40 MIN OFFICE 08589 KERRY PACHECO 4 4 ANILA ANILA T VISIT 10 MINUTES OFFICE 67274 JOSEF PACHECO 4 4 OLU OLU T VISIT 15 MINUTES HOSPITAL NIDIA - 4 4 [facility] OUTPATIEN INC T EMERGENCY 28119 ALISON ROSAS 4 4 JOLENE JOLENE DEPARTMEN T VISIT MODERATE SEVERITY OFFICE 97745 KERRY PACHECO 4 4 ANILA ANILA T NEW 30 MINUTES OFFICE 91176 JOSEF PACHECO 4 4 OLU OLU T VISIT 15 MINUTES OFFICE 43885 JOSEF PACHECO 4 4 OLU OLU T VISIT 15 MINUTES OFFICE 06919 JOSEF PACHECO 4 4 OLU OLU T VISIT 15 MINUTES HOSPITAL NIDIA - 4 4 [facility] OUTPATIEN INC T HOSPITAL NIDIA - 4 4 [facility] OUTPATIEN INC T PERIODIC 98020 LIZZY BALL PREVENTIV 4 4 JOSE ARMANDO JOSE ARMANDO E MED EST PATIENT 40-64YRS Inpatient FABIOLA Walters MD (IN) 3 20:02 3 12:20 [facility] Emergency JONI Grover MD (ER) 3 11:55 3 15:55 [facility] OFFICE 35721 ARNOLD ARNOLD OUTPATIEN 2 2 OLU OLU T VISIT 15 MINUTES OFFICE 49666 ALISON ROSAS OUTPATIEN 2 2 JOLENE JOLENE T NEW 30 MINUTES OFFICE 90383 JOSEF BAHENA OUTPATIEN 2 2 OLU OLU T VISIT 15 MINUTES OFFICE 46374 JOSEF BAHENA OUTROWENAEN 1 1 OLU OLU T VISIT 15 MINUTES HOSPITAL NIDIA - 1 1 [facility] T [facility]IA - 1 1 [facility] OUTPATIEN INC T OFFICE 18018 JOSEF BAHENA OUTROWENAEN 1 1 OLU OLU T VISIT 15 MINUTES EMERGENCY 62162 YULIYA POMPA URBAN 1 1 EMERGENCY DEPARTMEN SERVICES T VISIT MODERATE SEVERITY HOSPITAL N[facility]IA - 1 1 [facility] INPATIENT INC OFFICE 97997 HOWARDCYNTHIA JOSEF OUTPATIEN 1 1 OLU OLU T VISIT 15 MINUTES EMERGENCY 05583 YULIYA ROSAS 1 1 EMERGENCY JOLENE DEPARTMEN SERVICES T VISIT MODERATE SEVERITY EMERGENCY 76327 NIDIA 1 1 [facility] DEPARTMEN INC T VISIT LOW/MODER SEVERITY HOSPITAL N[facility] - 1 1 [facility] OUTPATIEN INC T OFFICE 20775 ZACH SERRANO OUTPATIEN 1 1 Nov T NEW 45 MINUTES HOSPITAL N[facility]IA - 1 1 [facility] OUTPATIEN INC T EMERGENCY 12976 NIDIA 1 1 [facility] DEPARTMEN INC T VISIT LOW/MODER SEVERITY EMERGENCY 72097 YULIYA POMPA URBAN 1 1 EMERGENCY DEPARTMEN SERVICES T VISIT MODERATE SEVERITY HOSPITAL NIDIA - 1 1 [facility] OUTPATIEN INC T OFFICE 39036 JOSEF PACHECO 1 1 OLU OLU T VISIT 15 MINUTES OFFICE 22572 NARA BAINS OUTPATIEN 1 1 MARISA MARISA T NEW 45 MINUTES OFFICE 93213 BALJIT GLOVERON OUTPATIEN 1 1 RUSS RUSS T VISIT 15 MINUTES OFFICE 47252 JOSEF BAHENA OUTPATIEN 1 1 OLU OLU T NEW 30 MINUTES HOSPITAL NIDIA - 1 1 [facility] OUTPATIEN INC T OFFICE 85153 BALJIT GLOVERON OUTPATIEN 1 1 RUSS RUSS T VISIT 15 MINUTES HOSPITAL NIDIA - 1 1 [facility] OUTPATIEN INC T HOSPITAL NIDIA - 1 1 [facility] OUTPATIEN INC T OFFICE 74356 BALJIT GLOVERON OUTPATIEN 1 1 RUSS RUSS T NEW 30 MINUTES EMERGENCY 92218 NIDIA 1 1 [facility] DEPARTMEN INC T VISIT LOW/MODER SEVERITY EMERGENCY 51003 YULIYA ROSAS 1 1 EMERGENCY [facility] DEPARTMEN SERVICES T VISIT HIGH/URGE NT SEVERITY INITIAL 02047 WOMEN'S BALL PREVENTIV 1 1 [facility] LINDA NEW PATIENT 40-64YRS [facility] NIDIA - 1 1 [facility] OUTPATIEN INC T
--- OUTSIDE RECORDS SUMMARY | 2017-08-15 15:41 | External Medical Summary Rpt | CCD ---
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 Utility Trailers Name Role Phone JOSEF OLU, JOSEF Unavailable Unavailable OLU JOSEF OLU, ARNOLD Unavailable Unavailable OLU BESSON JENI, BESSON Unavailable Unavailable JENI JASON ANT, JASON ANT Unavailable Unavailable [facility] Unavailable Unavailable INC, [facility] MÁRQUEZ TOMMY, Unavailable Unavailable MÁRQUEZ TOMMY MÁRQUEZ TOMMY, Unavailable Unavailable MÁRQUEZ TOMMY CELLAROSI - YORBA Unavailable Unavailable PAT, CELLAROSI - YORBA PAT [facility] Unavailable [facility]available [facility] CHIPPS DEJUAN & Unavailable Unavailable DUBILIER, CHIPPS DEJUAN & DUBILIER LUCRECIA TER, LUCRECIA TER Unavailable Unavailable BALL JOSE ARMANDO, BALL Unavailable Unavailable JOSE ARMANDO BALL JOSE ARMANDO, BALL Unavailable Unavailable JOSE ARMANDO [facility], Unavailable [facility], Unavailable Unavailable [facility] COMMUNITY ANESTH OF Unavailable [...] JOLENE ALISON JOLENE, ALISON Unavailable Unavailable JOLENE [facility] Unavailable Unavailable H[facility]PITA, [facility], [facility] Un[facility] Un[facility], [facility] POMPA URBAN, POMPA URBAN Unavailable Unavailable [facility] Unavailable Unavailable INC, [facility] Unavailable Unavailable HOSPITAL P, [facility], Unavailable Unavailable [facility] ILUYOMADE ROT, Unavailable Unavailable ILUYOMADE ROT MURTAZA DAHIANA, MURTAZA Unavailable Unavailable DAHIANA [facility] Unavailable Unavailable [facility]ING [facility], [facility] GRE YULIYA GRE, Unavailable Unavailable YULIYA GRE [facility] Unavailable Unavailable SERVICES, [facility] MCKEMIE JR SUSU, Unavailable Unavailable MCKEMIE JR SUSU SCHMITZ SUSU, SCHMITZ SUSU Unavailable Unavailable [facility], Unavailable Unavailable PLL[facility], [facility], [facility] PICKLESIMER [facility] LOC[facility], Unavailable Unavailable [facility], Unavailable Unavailable [facility], Unavailable Unavailable [facility] RADMANESH SHA, Unavailable Unavailable RADMANESH SHA RENUSCH SHAHEED, RENUSCH Unavailable Unavailable SHAHEED SCIFRES ANG, SCIFRES Unavailable Unavailable [facility], [facility] KERRY MARISA, KERRY Unavailable Unavailable MARISA KERRY ANILA, KERRY Unavailable Unavailable ANILA KERRY HIGH, KERRY Unavailable Unavailable ANILA [facility] # Unavailable Unavailable [id number], [facility] # [id number] ZACH MORAN, Unavailable Unavailable ZACH MORAN, Unavailable Unavailable ZACH ASHBY, CYNTHIA Unavailable Unavailable SYMONE Purpose Continuity of Care Document - 02-06-2011 through 2016 Problems Code Diagnosis DOS Provider Status [id number] PAIN IN 02-27-2016 [place] [facility] [id number] PAIN IN 02-27-2016 [place] [facility] M7989 OTHER 02-27-2016 [place] SPECIFIED MEDICAL SOFT TISSUE IMAGING ASS DISORDERS [id number] UNSPECIFIED 02-27-2016 [facility], [facility] INITIAL ENCOUNTER [id number] UNSPECIFIED 02-27-2016 [place] IN[facility]URY [facility] LEFT FOOT IMAGING ASS INITIAL ENCOUNTER K5289 OTH SPEC 11-24-2015 JOSEF RAINES NONINFECTIV E GASTROENTER ITIS & COLITIS J069 ACUTE UPPER 10-31-2015 ARNOLD OLU RESPIRATORY INFECTION UNSPECIFIED B349 VIRAL 10-28-2015 [facility] UNSPECIFIED HOSPITA E876 HYPOKALEMIA 10-28-2015 [facility] J029 ACUTE 10-28-2015 [facility] PHARYNGITIS COMMUNTIY HOSPITA UNSPECIFIED J441 CHRONIC 10-28-2015 [facility]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[facility]Y PULMONARY PHYS DZ W/EXACERBAT ION R000 TACHYCARDIA 10-28-2015 [facility] UNSPECIFIED EMS R05 COUGH 10-28-2015 [facility] [place] [facility] R0602 SHORTNESS 10-28-2015 [facility] OF BREATH [place] R079 CHEST PAIN 10-28-2015 [facility] UNSPECIFIED [place] [facility] R0981 NASAL 10-28-2015 [facility] CONGESTION COMMUNTIY HOSPITA R509 FEVER 10-28-2015 [facility]- UNSPECIFIED [place] [facility] R9431 ABNORMAL 10-28-2015 [facility] ELECTROCARD COMMUNTIY IOGRAM HOSPITA H6691 OTITIS 10-05-2015 [facility] MEDIA PHYSICIANS UNSPECIFIED GROUP RIGHT EAR J0100 ACUTE 10-05-2015 [facility] MAXILLARY PHYSICIANS SINUSITIS GROUP UNSPECIFIED H6690 OTITIS 09-29-2015 ARNOLD OLU MEDIA UNSPECIFIED UNSPECIFIED EAR J0190 ACUTE 09-05-2015 ARNOLD OLU SINUSITIS UNSPECIFIED Z0100 ENCOUNTER 08-26-2015 [facility] EXAM EYES & GRE VISION W/O ABNORMAL FIND 86481 SIMPLE/UNSP 04-20-2015 [facility] ECIFIED PHYSICIANS CHRONIC GROUP SEROUS OTITIS MEDIA 3829 UNSPECIFIED 04-20-2015 [facility]ITY OTITIS ANESTH OF MEDIA THE BLUE 470 DEVIATED 04-20-2015 [facility] NASAL PHYSICIANS SEPTUM GROUP 4710 POLYP OF 04-20-2015 [facility] NASAL PHYSICIANS CAVITY GROUP 4718 OTHER POLYP 04-20-2015 [facility] 4730 CHRONIC 04-20-2015 [facility] MAXILLARY PHYSICIANS SINUSITIS GROUP 4739 UNSPECIFIED 04-15-2015 N[facility]IA SINUSITIS [facility] P V7283 OTHER 04-15-2015 N[facility]IA SPECIFIED [facility] P VE EXAMINATION 3831 CHRONIC 03-30-2015 [facility] MASTOIDITIS PHYSICIANS GROUP 03262 DIAB W/O 03-18-2015 [facility] COMP TYPE MEM HOSP II/UNS NOT INC STATED UNCNTRL 3814 NONSUPPRATV 02-23-2015 [facility] OTITIS PHYSICIANS MEDIA NOT GROUP SPEC ACUT/CHRON 4279 UNSPECIFIED 02-23-2015 [facility] CARDIAC PHYSICIANS DYSRHYTHMIA GROUP 3839 UNSPECIFIED 02-06-2015 [facility] HOSP MASTOIDITIS INC 4610 ACUTE 02-06-2015 [facility] [place] [facility] SINUSITIS INC 4779 ALLERGIC 01-26-2015 BALJIT SOLANO RHINITIS CAUSE UNSPECIFIED 51863 UNSPECIFIED 01-08-2015 [facility] P 4019 UNSPECIFIED 01-08-2015 [facility] P N 7840 HEADACHE 01-08-2015 [facility] P 1101 DERMATOPHYT 11-21-2014 [place] OSIS OF FOOT & NAIL ANKLE CE 3569 UNSPEC 11-21-2014 [place] HEREDIT&IDI FOOT & OPATHIC ANKLE CE PERIPHERAL NEUROPATHY 7038 OTHER 11-21-2014 [place] SPECIFIED FOOT & DISEASE OF ANKLE CE NAIL 23115 OSTEOARTHRO 11-21-2014 [place] SIS UNSPEC FOOT & WHETHER ANKLE CE GEN/LOC ANK&FOOT 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IT[place] FO[place] [address] OSTEOARTHRO 10-31-2014 [facility] S UNSPEC COMMUNTIY WHETHER HOSPITA GEN/LOC UNSPEC SITE 83188 GENERALIZED 10-31-2014 [facility] PAIN COMMUNTIY HOSPITA 68679 PAIN IN 10-24-2014 [facility] [place] JOINT, [facility] ANK[facility] AND S PLC FOOT 486 PNEUMONIA, 10-18-2014 [facility] ORGANISM PHYSICIANS UNSPECIFIED GROUP 4660 ACUTE 10-14-2014 ARNOLD OLU BRONCHITIS 6256 FEMALE 10-04-2014 [facility] STRESS PHYSICIANS INCONTINENC GROUP E 51457 OSTEOARTHRO 10-03-2014 JOSEF OLU S INVLV MX SITES BUT NOT SPEC GEN 14652 PAIN IN 10-03-2014 ARNCYNTHIA OLU JOINT, LOWER LEG 4619 ACUTE 08-25-2014 ARNOLD OLU SINUSITIS, UNSPECIFIED 5110 PLEURISY 08-11-2014 ARNCYNTHIA OLU WITHOUT MENTION EFFUS/[place] [address] KYPHOSIS 06-27-2014 KERRY ANILA ACQUIRED POSTURAL 7391 NONALLOPATH 06-27-2014 KERRY ANILA IC LESION OF CERVICAL REGION NEC 7392 NONALLOPATH 06-27-2014 KERRY ANILA IC LESION OF THORACIC REGION NEC 7398 NONALLOPATH 06-27-2014 KERRY ANILA IC LESION OF RIB CAGE NEC 6259 UNSPEC 05-20-2014 BALL JOSE ARMANDO SYMPTOM ASSOC W/FEMALE GENITAL ORGANS 6271 POSTMENOPAU 05-20-2014 BALL JOSE ARMANDO REJI BLEEDING 32424 UNSPECIFIED 05-05-2014 JOSEF RAINES SLEEP APNEA 6272 SYMPTOMATIC 04-18-2014 [facility] HOSP MENOPAUSAL/ INC FEMALE CLIMACTERIC STATES 6210 POLYP OF 04-04-2014 [facility]US [facility] UTERI INC 6268 OTH D/O 04-04-2014 [facility] MENSTRUATIO MEM HOSP N&OTH ABN INC BLEED FE GNT TRACT 86604 INCOMPLETE 03-25-2014 MÁRQUEZ BLADDER TOMMY EMPTYING 86065 CALCANEAL 03-17-2014 ARNOLD SPUR MARYCRUZ 47586 UNSPECIFIED 03-17-2014 JOSEF RAINES URINARY INCONTINENC E 9178 OTH&UNSPEC 03-17-2014 [facility] SUP INJURY MEM HOSP FOOT&TOES INC W/O MENTION INF 5259 UNSPECIFIED 03-01-2014 ALISON JOLENE DISORDER TEETH&SUPPO RTING STRUCTURES 79403 OTHER 02-01-2014 JOSEF RAINES MALAISE AND FATIGUE 6253 DYSMENORRHE 01-13-2014 BALL JOSE ARMANDO A V720 EXAMINATION 01-12-2014 YULIYA OF EYES GRE AND VISION 53847 OTHER 01-05-2014 ARNOLD ABNORMAL MARYCRUZ FINDING RADIOLOGICA L EXAM BREAST V7612 OTHER 01-05-2014 [facility] MAM[facility] INC V7231 ROUTINE 01-01-2014 [facility] GYNECOLOGIC [facility]OS[facility] AL INC EXAMINATION 84555 TRICHOMONAL 12-29-2013 DENNIS ADAN VULVOVAGINI TIS 77355 UNSPECIFIED 12-29-2013 LIZZY JOSE ARMANDO VAGINITIS AND VULVOVAGINI TIS V745 SCREENING 12-29-2013 [facility] EXAMINATION JR ADAN FOR VENEREAL DISEASE 30398 ESOPHAGEAL 12-02-2011 JOSEF RAINES REFLUX 06188 UNS 12-02-2011 JOSEF RAINES GASTRITIS&G ASTRODUODIT IS W/O MENTION HEMORR 00925 UNSPEC 11-28-2011 ALISON JOLENE VENTRAL JUHI W/O MENTION OBST/GANGRE N 5589 OTH&UNSPEC 11-08-2011 JOSEF RAINES NONINFECTIO US GASTROENTER ITIS&COLITI S 11125 OBSTRUCTIVE 11-02-2011 [place] [facility] APNEA MEDICAL EQUIP 84202 UNSPECIFIED 10-04-2011 JOSEF RAINES ENTHESOPATH Y OF ANKLE AND TARSUS 97989 CHOLECYSTIT 08-23-2011 COMMUNITY IS, ANESTH OF UNSPECIFIED THE BLUE 87875 CHRONIC 08-23-2011 [facility] CHOLECYSTIT MEM HOS[facility] IS INC 5756 CHOLESTEROL 08-23-2011 [facility] OF DEJUAN & GALLBLADDER DUBILIER 5758 OTHER 08-20-2011 N[facility] SPECIFIED [facility] P GALLBLADDER 69207 ABDOMINAL 08-17-2011 JOSEF RAINES PAIN, GENERALIZED 07778 ABDOMINAL 08-15-2011 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 3674 PRESBYOPIA 05-23-2011 SANG VISION 5272 SIALOADENIT 04-30-2011 [place] [address] NOISE-INDUC 03-21-2011 SMILEY RUSS ED HEARING LOSS 53234 UNSPECIFIED 03-21-2011 S[facility] RUSS TINNITUS 7851 PALPITATION 03-07-2011 [facility] S PHYSICIANS GROUP 93968 NONSPECIFIC 03-07-2011 [facility] ABNORMAL [facility] P IOGRAM Medications Na ND Rx Da [...] 0 20 10 WA 71 BE Ac AR 37 -1 -1 .0 L- 39 SS [...] 20 20 RT 5 70 11 11 DE 5 PH CH AR AE MA L [...] LL 10 C 0 MG CA P AR 00 06 06 0 21 6 CL [...] 0 MG LL C TA BL ET AR 00 05 05 0 21 6 CL [...] 5- 5- 00 MA 05 ON ve AR 59 20 20 RT 6 ED 31 [...] 20 20 YC 66 11 11 PH DE IN 8 AR CH MA AE 25 [...] Procedure DOS Code Location Performer Comment RADEX 13324 [place] ARNOLD ANKLE 6 MEDICAL MARYCRUZ COMPLETE IMAGING MINIMUM 3 ASS VIEWS RADEX 96489 [place] ARNOLD FOOT 6 MEDICAL MARYCRUZ COMPLETE IMAGING MINIMUM 3 ASS VIEWS COLLECTIO 69470 [facility] N VENOUS 5 N N BLOOD COMMUNTIY COMMUNTIY VENIPUNCT HOSPITA HOSPITA URE PREDNISON J7506 [facility] DIATHERIX E ORAL 5 N PER 5 MG COMMUNTIY LABORATOR HOSPITA IES LLC BLOOD 68978 [facility] COUNT 5 N N COMPLETE COMMUNTIY COMMUNTIY AUTO&AUTO HOSPITA HOSPITA DIFRNTL WBC GROUND A0425 [facility] MILEAGE 5 [facility] PER CO EMS CO EMS STATUTE MILE RADIOLOGI 98602 [facility] [place] RADMANESH C 5 RADIOLOGY SHA EXAMINATI ON CHEST SINGLE VIEW FRONTAL AMB A0427 [facility] SERVICE 5 [facility] ALS CO EMS CO EMS EMERGENCY TRANSPORT LEVEL 1 COMPREHEN 13895 [facility] SIVE 5 N N METABOLIC COMMUNTIY COMMUNTIY PANEL HOSPITA HOSPITA ECG 74147 [facility] CE[facility] ROUTINE 5 MIKE - YORBA ECG EMERGENCY PAT W/LEAST PHYS 12 LDS I&R ONLY INJECTION J0696 JOSEF BAHENA 5 OLU OLU CEFTRIAXO NE SODIUM PER 250 MG INJECTION J0696 JOSEF BAHENA 5 OLU OLU CEFTRIAXO NE SODIUM PER 250 MG OPHTH 10-24-201 14191 [facility] 5 GRE GRE XM&EVAL COMPRHNSV ESTAB PT 1/> NSL/SINUS 81956 [facility] NDSC MAX 5 PHYSICIAN PHYSICIAN ANTROST S GROUP S GROUP W/RMVL TISS MAX SINUS TYMPANOST 58455 [facility] SMILEY BENITEZ 5 PHYSICIAN RUSS GENERAL S GROUP ANESTHESI A ANESTHESI 94017 [facility] NOSE & 5 ANESTH MARISA ACCESSORY OF THE SINUSES BLUE NOS LEVEL III 05818 [facility] LUCRECIA TER SURG 5 LLC PATHOLOGY GROSS&[place] [address] [facility], RAILROAD TER [facility] 5 [facility] PATHOLOGY GROSS&JOLENE ROSCOPIC EXAM COLLECTIO 17156 [facility] JACOB N VENOUS 5 MEM HOSP [facility]OS[facility] BLOOD INC INC VENIPUNCT URE BLOOD 40272 [facility] JACOB COUNT 5 [facility] HOSP COMPLETE INC INC AUTO&AUTO DIFRNTL WBC BASIC 15581 [facility] JACOB METABOLIC 5 [facility] PANEL INC INC CALCIUM TOTAL ECG 35687 [facility] DECKER JR ROUTINE 5 [facility] W/LEAST P 12 LDS I&R ONLY ECG 87809 [facility] JACOB ROUTINE 5 [facility] HOSP ECG INC INC W/LEAST 12 LDS TRCG ONLY W/O I&R COLLECTIO 46228 [facility] JACOB N VENOUS 5 [facility] HOSP BLOOD INC INC VENIPUNCT URE HEMOGLOBI 79406 N[facility] JACOB N 5 [facility] HOSP GLYCOSYLA INC INC STEVEN A1C COMPRE 11774 BALJIT SMILEY AUDIOMETR 5 RUSS RUSS Y THRESHOLD EVAL SP RECOGNIJ TYMPANOME 19824 BALJIT S[facility]LEY TRY 5 RUSS RUSS DISTORT 71676 BALJIT SMILEY PRODUCT 5 RUSS RUSS [place] [address] [place] ARNOLD MAXILLOFA 5 MEDICAL MARYCRUZ CIAL W/O IMAGING CONTRAST ASS MATERIAL RADEX 29151 [facility] FOOT 5 FOOT & COMPLETE ANKLE CE MINIMUM 3 VIEWS WALKING L4360 [place] FINE BRA BOOT 5 FOOT & PNEUMATC ANKLE CE &/ VACUUM PREFAB CUSTM FIT RADEX 69977 [place] FINE BRA FOOT 4 FOOT & COMPLETE ANKLE CE MINIMUM 3 VIEWS COLLECTIO 12571 [facility] N VENOUS 4 N N BLOOD COMMUNTIY COMMUNTIY VENIPUNCT HOSPITA HOSPITA URE TRIMMING 86588 [facility] FINE BRA NONDYSTRO 4 FOOT & PHIC ANKLE CE NAILS ANY NUMBER RHEUMATOI 60354 [facility] D FACTOR 4 N N QUALITATI COMMUNTIY COMMUNTIY VE HOSPITA HOSPITA MRI LOWER 79558 [facility] EXTREM 4 [place] SYMONE OTH/THN ORTHOPAED JT W/O ICS PLC CONTR MATRL INJECTION J1040 [facility] ALISON 4 PHYSICIAN JOLENE METHYLPRE S GROUP DNISOLONE ACETATE 80 MG THERAPEUT 01387 [facility] IC 4 PHYSICIAN PHYSICIAN PROPHYLAC S GROUP S GROUP TIC/DX INJECTION SUBQ/IM RADEX 00627 [facility] CYN[place] FOOT 4 [place] SYMONE COMPLETE ORTHOPAED MINIMUM 3 ICS PLC VIEWS CHIROPRAC 84590 KERRY KERRY TIC 4 ANILA ANILA MANIPULAT OSVALDO [place] SPINAL 1-2 REGIONS CHIROPRAC 82194 KERRY KERRY TIC 4 ANILA ANILA MANIPULAT [place] SPINAL 1-2 REGIONS CHIROPRAC 80660 KERRY KERRY TIC 4 ANILA ANILA MANIPULAT [place] SPINAL 1-2 REGIONS CHIROPRAC 02614 KERRY KERRY TIC 4 ANILA ANILA MANIPULAT OSVALDO [place] SPINAL 1-2 REGIONS THERAPEUT 79462 KERRY KERRY IC PX 1/> 4 ANILA ANILA AREAS EACH 15 MIN EXERCISES THERAPEUT 96408 KERRY KERRY IC PX 1/> 4 ANILA ANILA AREAS EACH 15 MIN EXERCISES CHIROPRAC 63257 KERRY KERRY TIC 4 ANILA ANILA MANIPULAT OSVALDO [place] SPINAL 1-2 REGIONS APPL 31100 KERRY KERRY MODALITY 4 ANILA ANILA 1/> AREAS TRACTION MECHANICA L CHIROPRAC 52613 KERRY KERRY TIC 4 ANILA ANILA MANIPULAT OSVALDO TX SPINAL 1-2 REGIONS THERAPEUT 58180 KERRY KERRY IC PX 1/> 4 ANILA ANILA AREAS EACH 15 MIN EXERCISES CHIROPRAC 76142 KERRY KERRY TIC 4 ANILA ANILA MANIPULAT OSVALDO TX SPINAL 1-2 REGIONS CHIROPRAC 47704 KERRY KERRY TIC 4 ANILA ANILA MANIPULAT OSVALDO [place] SPINAL 1-2 REGIONS CHIROPRAC 21046 KERRY KERRY TIC 4 ANILA ANILA MANIPULAT OSVALDO [place] SPINAL 1-2 REGIONS CHIROPRAC 96312 KERRY KERRY TIC 4 ANILA ANILA MANIPULAT OSVALDO [place] SPINAL 1-2 REGIONS THERAPEUT 61474 KERRY PAYNE IC PX 1/> 4 ANILA ANILA AREAS EACH 15 MIN EXERCISES THERAPEUT 60802 KERRY KERRY IC PX 1/> 4 ANILA ANILA AREAS EACH 15 MIN EXERCISES CHIROPRAC 56342 KERRY PAYNE TIC 4 ANILA ANILA MANIPULAT OSVALDO [place] SPINAL 1-2 REGIONS GONADOTRO 56944 N[facility]IA JACOB PIN 4 MEM HOSP MEM HOSP LUTEINIZI INC INC NG HORMONE GONADOTRO 50333 NIDIA JACOB PIN 4 MEM HOSP MEM HOSP FOLLICLE INC INC STIMULATI NG HORMONE CHIROPRAC 92960 KERRY PAYNE TIC 4 ANILA ANILA MANIPULAT OSVALDO TX SPINAL 1-2 REGIONS THERAPEUT 28695 KERRY PAYNE IC PX 1/> 4 ANILA ANILA AREAS EACH 15 MIN EXERCISES THERAPEUT 78036 KERRY KERRY IC PX 1/> 4 ANILA ANILA AREAS EACH 15 MIN EXERCISES CHIROPRAC 32642 KERRY PAYNE TIC 4 ANILA ANILA MANIPULAT OSVALDO [place] SPINAL 1-2 REGIONS CHIROPRAC 14278 KERRY KERRY TIC 4 ANILA ANILA MANIPULAT OSVALDO TX SPINAL 1-2 REGIONS THERAPEUT 67509 KERRY KERRY IC PX 1/> 4 ANILA ANILA AREAS EACH 15 MIN EXERCISES HYSTEROSC 21461 [facility] JACOB OPY BX 4 MEM HOSP MEM HOSP ENDOMETRI INC INC UM&/POLYP C W/WO D&C INJECTION J2405 NIDAI JACOB 4 MEM HOSP MEM HOSP ONDANSETR INC INC ON HCL PER 1 [place] [address] [facility], MURTAZA SURG 4 [facility] PATHOLOGY GROSS&JOLENE ROSCOPIC EXAM ECG 11083 JERONIMO JR JERONIMO JR ROUTINE 4 DWI DWI ECG W/LEAST 12 LDS I&R ONLY BASIC 00894 [facility] JACOB METABOLIC 4 MEM HOSP MEM HOSP PANEL INC INC CALCIUM TOTAL BLOOD 98534 [facility] JAOCB COUNT 4 MEM HOS[facility] HOS[facility] COMPLETE INC INC AUTO&AUTO DIFRNTL WBC ECG 88949 NIIDA RAE ROUTINE 4 MEM HOSP DIAGNOSTI ECG INC CS W/LEAST 12 LDS TRCG ONLY W/O I&R THERAPEUT 08911 KERRY PAYNE IC PX 1/> 4 ANILA ANILA AREAS EACH 15 MIN EXERCISES CHIROPRAC 83911 KERRY PAYNE TIC 4 ANILA ANILA MANIPULAT OSVALDO TX SPINAL 1-2 REGIONS CHIROPRAC 99415 KERRY PAYNE TIC 4 ANILA ANILA MANIPULAT OSVALDO TX SPINAL 1-2 REGIONS THERAPEUT 58968 KERRY PAYNE IC PX 1/> 4 ANILA ANILA AREAS EACH 15 MIN EXERCISES BRYAN 38643 MÁRQUEZ MÁRQUEZ POST-VOID 4 TOMMY TOMMY ING RESIDUAL URINE&/BL ADDER CAP CHIROPRAC 52207 KERRY PAYNE TIC 4 ANILA ANILA MANIPULAT OSVALDO [place] SPINAL 1-2 REGIONS THERAPEUT 77622 KERRY PAYNE IC PX 1/> 4 ANILA ANILA AREAS EACH 15 MIN EXERCISES THERAPEUT 14548 KERRY PAYNE IC PX 1/> 4 ANILA ANILA AREAS EACH 15 MIN EXERCISES CHIROPRAC 25881 KERRY PAYNE TIC 4 ANILA ANILA MANIPULAT OSVALDO [place] SPINAL 1-2 REGIONS APPL 28483 KERRY PAYNE MODALITY 4 ANILA ANILA 1/> AREAS TRACTION MECHANICA L RADEX 65090 ARNOLD ARNOLD FOOT 4 MARYCRUZ MARYCRUZ COMPLETE MINIMUM 3 VIEWS CHIROPRAC 23710 KERRY PAYNE TIC 4 ANILA ANILA MANIPULAT OSVALDO [place] SPINAL 1-2 REGIONS APPL 37005 KERRY PAYNE MODALITY 4 ANILA ANILA 1/> AREAS TRACTION MECHANICA L APPL 54440 KERRY PAYNE MODALITY 4 ANILA ANILA 1/> AREAS ELEC STIMJ UNATTENDE D THERAPEUT 38514 KERRY PAYNE IC PX 1/> 4 ANILA ANILA AREAS EACH 15 MIN EXERCISES THERAPEUT 92566 KERRY PAYNE IC PX 1/> 4 ANILA ANILA AREAS EACH 15 MIN EXERCISES APPL 82391 KERRY KERRY MODALITY 4 ANILA ANILA 1/> AREAS ELEC STIMJ UNATTENDE D APPL 96578 KERRY KERRY MODALITY 4 ANILA ANILA 1/> AREAS TRACTION MECHANICA L CHIROPRAC 27376 KERRY PAYNE TIC 4 ANILA ANILA MANIPULAT OSVALDO [place] SPINAL 1-2 REGIONS ENDOMETRI 52068 BALL BALL AL BX 4 JOSE ARMANDO JOSE ARMANDO W/WO ENDOCERVI X BX W/O DILAT SPX APPL 90012 KERRY PAYNE MODALITY 4 ANILA ANILA 1/> AREAS TRACTION MECHANICA L APPL 95629 KERRY PAYNE MODALITY 4 ANILA ANILA 1/> AREAS ELEC STIMJ UNATTENDE D CHIROPRAC 26971 KERRY PAYNE TIC 4 ANILA ANILA MANIPULAT [place] SPINAL 1-2 REGIONS THERAPEUT 37178 KERRY PAYNE IC PX 1/> 4 ANILA ANILA AREAS EACH 15 MIN EXERCISES THERAPEUT 73614 KERRY PAYNE IC PX 1/> 4 ANILA ANILA AREAS EACH 15 MIN EXERCISES CHIROPRAC 73572 KERRY PAYNE TIC 4 ANILA ANILA MANIPULAT [place] SPINAL 1-2 REGIONS APPL 08169 KERRY KERRY MODALITY 4 ANILA ANILA 1/> AREAS ELEC STIMJ UNATTENDE D APPL 39070 KERRY KERRY MODALITY 4 ANILA ANILA 1/> AREAS TRACTION MECHANICA L APPL 27041 KERRY KERRY MODALITY 4 ANILA ANILA 1/> AREAS TRACTION MECHANICA L APPL 98698 KERRY KERRY MODALITY 4 ANILA ANILA 1/> AREAS ELEC STIMJ UNATTENDE D CHIROPRAC 62882 KERRY PAYNE TIC 4 ANILA ANILA MANIPULAT [place] SPINAL 1-2 REGIONS SALINE 92808 BALL BALL INFUS 4 JOSE ARMANDO JOSE ARMANDO SONOHYSTE ROGRAPHY W/COLOR DOPPLER INJECTION J3420 JOSEF BAHENA VIT B-12 4 OLU LOU CYANOCOBA OVIDIO TO 1000 MCG INJECTION J3420 JOSEF BAHENA VIT B-12 4 OLU OLU CYANOCOBA OVIDIO TO 1000 MCG INJECTION J3420 JOSEF BAHENA VIT B-12 4 OLU OLU CYANOCOBA OVIDIO TO 1000 MCG 69091 LIZZY BALL TRANSVAGI 4 JOSE ARMANDO JOSE ARMANDO NAL DETERMINA 03862 YULIYA DWYER ON 4 GRE GRE REFRACTIV E STATE OPHTH 15822 YULIYA [facility] 4 GRE GRE XM&EVAL COMPRHNSV ESTAB PT 1/> SCREENING G0202 [place] JACOB [facility] MAMMOGRAP INC INC HY AGGIE INCL CAD WHEN PERFORMD DIAGNOSTI G0204 ARNOLD ARNOLD C 4 MARYCRUZ MARYCRUZ MAMMOGRAP HY INCL CAD WHEN PERF; BILAT COMPUTER- 93295 NIDIA JACOB AIDED 4 [facility] DETECTION INC INC SCREENING MAMMOGRAP HY GONADOTRO 10697 NIDIA JACOB PIN 4 [facility] LUTEINIZI INC INC NG HORMONE GONADOTRO 50290 NIDIA JACOB PIN 4 [facility] FOLLICLE INC INC STIMULATI NG HORMONE LIPID 65956 NIDIA JACOB PANEL 4 [place] [address] NIDIA JACOB THYROID 4 [facility] STIMULAT[place] [address] NIDIA JACOB FREE 4 [facility] THYROXINE INC INC COMPREHEN 51424 NIDIA JACOB SIVE 4 [facility] METABOLIC INC INC PANEL BLOOD 83031 NIDIA JACOB COUNT 4 [facility] COMPLETE INC INC AUTO&AUTO DIFRNTL WBC IADNA 45529 PICKLESIM PICKLESIM NEISSERIA 4 ER JR LOCO ER JR LOCO GONORRHOE AE AMPLIFIED PROBE TQ SMR PRIM 97620 LIZZY BALL SRC WET 4 JOSE ARMANDO JOSE ARMANDO MOUNT NFCT AGT IADNA 55388 PICKLESIM PICKLESIM CHLAMYDIA 4 ER JR LOCO ER JR LOCO TRACHOMAT IS AMPLIFIED PROBE TQ CYTP C/V 79844 PICKLESIM PICKLESIM AUTO THIN 4 ER JR LOCO ER JR LOCO LYR PREPJ SCR MNL RESCR PHYS URINE 04296 LIZZY BALL 4 JOSE ARMANDO JOSE ARMANDO TEST VISUAL COLOR CMPRSN METHS CONTINUOU E0601 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 S 1 HOME HOME POSITIVE MEDICAL MEDICAL AIRWAY EQUIP EQUIP PRESSURE DEVICE INJECTION J2405 NIDIA JACOB 1 [facility] ONDANSETR INC INC ON HCL PER 1 MG LEVEL III 34285 [facility] [place] VAN SURG 1 DEJUAN & PATHOLOGY DUBILIER GROSS&JOLENE ROSCOPIC EXAM ANES 77784 [facility] INTRAPERI 1 ANESTH TONEAL OF THE UPPER BLUE ABDOMEN W/LAPS NOS LAPAROSCO 77915 NIDIA JACOB PY SURG 1 [facility] [place] [address] NIDIA JACOB INFUSION 1 [facility] THERAPY INC INC PROPHYLAX IS/DX EA HOUR URINE 31619 NIDIA JACOB 1 [facility] TEST INC INC VISUAL COLOR CMPRSN METHS LAPAROSCO 5123 NIDIA JACOB PIC 1 [facility] INC ECTOMY ECG 15139 NIDIA JACOB ROUTINE 1 [facility] ECG INC INC W/LEAST 12 LDS TRCG ONLY W/O I&R ECG 32948 NIDIA WALTERS ROUTINE [address] [facility] W/LEAST P 12 [facility] I&R ONLY [facility] [address] [facility] [place] [facility] DAY INTERNAL MANAGEMEN MED T 30 MIN/< SBSQ [id number] CARE/DAY INTERNAL 25 MED MINUTES 35343 WENCESLAOY ARNOLD ABDOMINAL 1 MEDICAL MARYCRUZ REAL IMAGING TIME ASS W/IMAGE LIMITED SBSQ [address] CARE/DAY INTERNAL 25 MED MINUTES INITIAL 84338 [place] JAS[place] ANT INPATIENT 1 MEDICAL CONSULT SERV NEW/ESTAB FOUNDATIO PT 80 MIN INITIAL [id number] CARE/DAY INTERNAL 50 MED MINUTES FINE 08007 [place] PAT NEEDLE 1 DEJUAN & ASPIRATIO DUBILIER N W/O IMAGING GUIDANCE CYTP EVAL 99705 [place] PAT FINE 1 DEJUAN & NEEDLE DUBILIER ASPIRATE INTERP & REPORT CONTINU E0601 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 S 1 HOME HOME POSITIVE MEDICAL MEDICAL AIRWAY EQUIP EQUIP PRESSURE DEVICE OPHTH 85653 SANG MARISCAL MEDICAL 1 VISION ANG XM&EVAL COMPRE NEW PT 1/> VST MRI ORBIT 07658 WENCESLAOY ARNOLD FACE & 1 MEDICAL MARYCRUZ NECK W/O IMAGING & ASS W/CONTRAS T MATRL CONTINUOU E0601 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 S 1 HOME HOME POSITIVE MEDICAL MEDICAL AIRWAY EQUIP EQUIP PRESSURE DEVICE COMPRE 68630 BALJIT SMILEY AUDIOMETR 1 RUSS RUSS Y THRESHOLD EVAL SP RECOGNIJ TYMPANOME 81663 BALJIT SMILEY TRY 1 RUSS RUSS HEADGEAR A7035 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 USED 1 HOME HOME W/POSITIV MEDICAL MEDICAL E AIRWAY EQUIP EQUIP PRESSURE DEVICE TUBING A7037 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 USED WITH 1 HOME HOME POSITIVE MEDICAL MEDICAL AIRWAY EQUIP EQUIP PRESSURE DEVICE HUMDIFIR E0562 CARMEN JONESANA HEATED 1 HOME HOME USED MEDICAL MEDICAL W/POS EQUIP EQUIP ARWAY PRESSURE DEVICE CONTINUOU E0601 CARMEN JONESANA S 1 HOME HOME POSITIVE MEDICAL MEDICAL AIRWAY EQUIP EQUIP PRESSURE DEVICE FULL FACE A7030 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 MASK 1 HOME HOME USED MEDICAL MEDICAL W/POS EQUIP EQUIP ARWAY PRESS DEVICE EA FILTER A7038 CYNROBBIEANA [place] DISPBL 1 HOME HOME USED MEDICAL MEDICAL W/POS EQUIP EQUIP ARWAY PRESSURE DEVICE FILTER A7039 CYNJO JONESANA NON 1 HOME HOME DISPBL MEDICAL MEDICAL USED EQUIP EQUIP W/POS ARWAY PRESS DEVICE POLYSOM 52416 NARA BAINS 6/>YRS 1 MARISA MARISA SLEEP W/CPAP 4/> ADDL TRINI ATTND POLYSOM 46700 NIDIA JACOB 6/>YRS 1 [facility] SLE[facility] INC INC W/CPAP 4/> ADDL TRINI ATTND POLYSOM 86430 NARA BAINS 6/>YRS 1 MARISA MARISA SLEEP 4/> ADDL TRINI ATTND POLYSOM 28698 NIDIA JACOB 6/>YRS 1 [facility] SLEEP 4/> INC INC ADDL TRINI ATTND ECHO 30913 [facility]-T 1 PHYSICIAN MATTHEW Coffey S GROUP W/WOM-MOD E COMPL SPEC&COLR D ECG 19016 NIDIA MCKEMIE ROUTINE 1 [facility] W/LEAST P 12 LDS I&R ONLY COMPREHEN 25841 NIDIA JACOB SIVE 1 [facility] METABOLIC INC INC PANEL NATRIURET 03526 NIDIA JACOB IC 1 [facility] PEPTIDE INC INC BLOOD 43886 NIDIA JACOB COUNT 1 [facility] COMPLETE INC INC AUTO&[place] [address] NIDIA JACOB THYROID 1 [facility] STIMULATI INC INC NG HORMONE TSH ECG 56752 NIDIA JACOB ROUTINE 1 [facility] ECG INC INC W/LEAST 12 LDS TRCG ONLY W/O I&R CYTP 92303 HEMANT HEMANT 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 IES INC IES INC ENHANCEME NT INTERPJ XCPT C/V ENDOMETRI 97530 WOMEN'S BALL AL BX 1 [facility] JOSE ARMANDO W/WO [facility] ENDOCERVI LINDA X BX W/O DILAT SPX SCREENING G0202 [place] ARNOLD 1 MEDICAL MARY[facility] MAMMOGRAP IMAGING HY AGGIE ASS INCL CAD WHEN PERFORMD COMPUTER- 63987 [place] AR[place] AIDED 1 MEDICAL MARYCRU[facility] DETECTION IMAGING ASS SCREENING MAMMOGRAP HY Encounters Encounter Start End Date Code Location Performer Type Date EMERGENCY 64173 JUAN DAVID WYMAN 6 6 PHYSICIAN SHAHEED CHAVIRA S, PLLC T VISIT HIGH/URGE NT SEVERITY OFFICE 72825 JOSEF BAHENA OUTPATIEN 6 6 OLU OLU T VISIT 15 MINUTES OFFICE 50779 JOSEF PACHECO 6 6 OLU OLU T VISIT 15 MINUTES OFFICE 37166 JOSEF JOSEF OUTROWENAEN 5 5 OLU OLU T VISIT 15 MINUTES EMERGENCY 19384 [facility] N VISIT COMMUNTIY HIGH HOSPITA SEVERITY& THREAT [facility] - 5 5 N OUTPATIEN COMMUNTIY T HOSPITA EMERGENCY 20203 [facility] 5 [facility] EMERGENCY PAT T VISIT PHYS HIGH/URGE NT SEVERITY OFFICE 55103 [facility] OUTPATIEN 5 5 PHYSICIAN RUSS T VISIT S GROUP 10 MINUTES OFFICE 83438 [facility] JOSEF PACHECO 5 5 OLU OLU T VISIT 15 MINUTES OFFICE 37690 JOSEF PACHECO 5 5 OLU OLU T VISIT 15 MINUTES HOSPITAL NIDIA - 5 5 [facility] OUTPATIEN INC T OFFICE 56847 [facility] OUTPATIEN 5 5 PHYSICIAN RUSS T VISIT S GROUP 15 MINUTES OFFICE 67901 [facility] 5 5 OLU OLU T VISIT 15 MINUTES HOSPITAL NIDIA - 5 5 [facility] OUTPATIEN INC T OFFICE 78934 [facility] OUTPATIEN 5 5 PHYSICIAN RUSS T VISIT S GROUP 15 MINUTES HOSPITAL NIDIA - 5 5 [facility] OUTPATIEN INC T OFFICE 82661 [facility] OUTPATIEN 5 5 RUSS RUSS T NEW 30 MINUTES EMERGENCY 63293 NIDAI ILUYOMADE 5 5 [facility] T VISIT P LOW/MODER SEVERITY HOSPITAL [facility] - 4 4 N OUTPATIEN COMMUNTIY T HOSPITA OFFICE 78223 LUCERO ALFONSO OUTPATIEN 4 4 FOOT & T NEW 30 ANKLE CE MINUTES OFFICE 32419 [facility] MARIE OUTPATIEN 4 4 [place] SYMONE T VISIT ORTHOPAED 15 [facility] MINUTES OFFICE 48909 JOSEF LINDQUISTPATIEN 4 4 OLU OLU T VISIT 15 MINUTES OFFICE 94461 [facility] CONSULTAT 4 4 [place] SYMONE ION ORTHOPAED NEW/ESTAB [facility] PLC PATIENT 40 MIN OFFICE 51375 [facility] OUTPATIEN 4 4 PHYSICIAN T VISIT S GROUP 15 MINUTES OFFICE 50827 JOSEF PACHECO 4 4 OLU OLU T VISIT 15 MINUTES OFFICE 67294 JOSEF PACHECO 4 4 OLU OLU T VISIT 15 MINUTES OFFICE 21136 JOSEF PACHECO 4 4 OLU OLU T VISIT 15 MINUTES OFFICE 47105 LIZZY BALL OUTROWENAEN 4 4 JOSE ARMANDO JOSE ARMANDO T VISIT 15 MINUTES OFFICE 69211 JOSEF PACHECO 4 4 OLU OLU T VISIT 15 MINUTES HOSPITAL NIDIA - 4 4 [facility] OUTPATIEN INC T OFFICE 51988 KERRY PACHECO 4 4 ANILA ANILA T VISIT 10 MINUTES HOSPITAL NIDIA - 4 4 [facility] OUTPATIEN INC T HOSPITAL NIIDA - 4 4 [facility] OUTPATIEN INC T OFFICE 13596 MÁRQUEZ MÁRQUEZ CONSULTAT 4 4 TOMMY TOMMY ION NEW/ESTAB PATIENT 40 MIN OFFICE 20659 KERRY PAYNE OUTPATIJASWANT 4 4 ANILA ANILA T VISIT 10 MINUTES OFFICE 95992 JOSEF PACHECO 4 4 OLU OLU T VISIT 15 MINUTES HOSPITAL NIDIA - 4 4 [facility] OUTPATIEN INC T EMERGENCY 00148 ALISON ROSAS 4 4 JOLENE JOLENE DEPARTMEN T VISIT MODERATE SEVERITY OFFICE 39707 KERRY PAYNE OUTPATIEN 4 4 ANILA ANILA T NEW 30 MINUTES OFFICE 74641 HOWARDCYNTHIA JOSEF OUTTOM 4 4 OLU OLU T VISIT 15 MINUTES OFFICE 72452 JOSEF JOSEF OUTTOM 4 4 OLU OLU T VISIT 15 MINUTES OFFICE 43345 HOWARDCYNTHIA JOSEF OUTPATIEN 4 4 OLU OLU T VISIT 15 MINUTES HOSPITAL NIDIA - 4 4 [facility] OUTPATIEN INC T [facility]OSPITAL NIDIA - 4 4 [facility] OUTPATIEN INC T PERIODIC 73161 LIZZY BALL PREVENTIV 4 4 JOSE ARMANDO JOSE ARMANDO E MED EST PATIENT 40-64YRS OFFICE 39700 JOSEF PACHECO 2 2 OLU OLU T VISIT 15 MINUTES OFFICE 56040 ALISON ROSAS OUTPATIEN 2 2 JOLENE JOLENE T NEW 30 MINUTES OFFICE 86110 JOSEF PACHECO 2 2 OLU OLU T VISIT 15 MINUTES OFFICE 71835 JOSEF PACHECO 1 1 OLU OLU T VISIT 15 MINUTES HOSPITAL NIDIA - 1 1 [facility] OUTPATIEN INC T [facility] NIDIA - 1 1 [facility] OUTPATIEN INC T OFFICE 59754 JOSEF PACHECO 1 1 OLU OLU T VISIT 15 MINUTES EMERGENCY 50498 YULIYA DUGGAN 1 1 EMERGENCY DEPARTMEN SERVICES T VISIT MODERATE SEVERITY [facility]OSPITAL [facility] - 1 1 [facility] INPATIENT INC OFFICE 77727 JOSEF PACHECO 1 1 OLU OLU T VISIT 15 MINUTES HOSPITAL NIDIA - 1 1 [facility] OUTPATIEN INC T EMERGENCY 53586 NIDIA 1 1 [facility] DEPARTMEN INC T VISIT LOW/MODER SEVERITY EMERGENCY 47472 YULIYA ROSAS 1 1 EMERGENCY JOLENE DEPARTMEN SERVICES T VISIT MODERATE SEVERITY OFFICE 79160 ZACH SERRANO OUTPATIEN 1 1 Nov T NEW 45 MINUTES HOSPITAL NIDIA - 1 1 [facility] OUTPATIEN INC T EMERGENCY 69912 NIDIA 1 1 [facility] DEPARTMEN INC T VISIT LOW/MODER SEVERITY EMERGENCY 32611 YULIYA DUGGAN 1 1 EMERGENCY DEPARTMEN SERVICES T VISIT MODERATE SEVERITY HOSPITAL NIDIA - 1 1 [facility] OUTPATIEN INC T OFFICE 44080 JOSEF LAWRENCECYNTHIA OUTPATIEN 1 1 OLU OLU T VISIT 15 MINUTES OFFICE 09405 NARA BAINS OUTPATIEN 1 1 MARISA MARISA T NEW 45 MINUTES OFFICE 66296 SMILEY SMILEY OUTPATIEN 1 1 RUSS RUSS T VISIT 15 MINUTES OFFICE 35470 JOSEF BAHENA OUTPATIEN 1 1 OLU OLU T NEW 30 MINUTES HOSPITAL NIDIA - 1 1 [facility] OUTPATIEN INC T OFFICE 52723 SMILEY SMILEY OUTPATIEN 1 1 RUSS RUSS T VISIT 15 MINUTES HOSPITAL NIDIA - 1 1 [facility] OUTPATIEN INC T EMERGENCY 95319 YULIYA ROSAS 1 1 EMERGENCY [facility] DEPARTMEN SERVICES T VISIT HIGH/URGE NT SEVERITY HOSPITAL NIDIA - 1 1 [facility] OUTPATIEN INC T EMERGENCY 49875 NIDIA 1 1 [facility] DEPARTMEN INC T VISIT LOW/MODER SEVERITY OFFICE 03823 SMILEY SMILEY OUTPATIEN 1 1 RUSS RUSS T NEW 30 MINUTES HOSPITAL NIDIA - 1 1 [facility] OUTPATIEN INC T INITIAL 50023 WOMEN'S BALL PREVENTIV 1 1 [facility] MEDICINE LINDA NEW PATIENT 40-64YRS
--- OUTSIDE RECORDS SUMMARY | 2017-08-15 15:41 | External Medical Summary Rpt | CCD ---
Author Author , LUDIN Organization LUDIN Address Unknown Phone [email or web address] Care Team Providers Care Insert Cutter Name Role Phone JOSEF OLU, JOSEF Unavailable Unavailable OLU JOSEF OLU, ARNOLD Unavailable Unavailable OLU BESSON JENI, BESSON Unavailable Unavailable JENI JASON ANT, JASON ANT Unavailable Unavailable [facility] Unavailable Unavailable INC, [facility] MÁRQUEZ TOMMY, Unavailable Unavailable MÁRQUEZ TOMMY MÁRQUEZ TOMMY, Unavailable Unavailable MÁRQUEZ TOMMY CELLAROSI - YORBA Unavailable Unavailable PAT, CELLAROSI - YORBA PAT [facility] Unavailable [facility] CHIPPS DEJUAN & Unavailable Unavailable DUBILIER, [facility]IP[facility] DUBILIER LUCRECIA TER, LUCRECIA TER Unavailable Unavailable BALL JOSE ARMANDO, BALL Unavailable Unavailable JOSE ARMANDO BALL JOSE ARMANDO, BALL Unavailable Unavailable JOSE ARMANDO [facility], Unavailable Unavailable [facility] AN[facility]H OF Unavailable Unavailable [...] JOLENE ALISON JOLENE, ALISON Unavailable Unavailable JOLENE [facility] Un[facility] Unavailable [facility], [facility] POMPA URBAN, POMPA URBAN Unavailable Unavailable [facility] Unavailable Unavailable INC, [facility] Unavailable Unavailable HOSPITAL P, [facility], Unavailable Unavailable [facility] ILUYOMADE ROT, Unavailable Unavailable ILUYOMADE ROT MURTAZA DAHIANA, MURTAZA Unavailable Unavailable DAHIANA [facility] Unavailable Unavailable [facility], [facility] IVIS PEARSON, IVIS PEARSON Unavailable Unavailable [facility] SMILEY RUSS, SMILEY Unavailable Unavailable RUSS SMILEY RUSS, SMILEY Unavailable Unavailable RUSS JERONIMO JR DWI, JERONIMO Unavailable Unavailable JR DWI [facility], [facility] YULIYA GRE, Unavailable Unavailable YULIYA GRE YULIYA GRE, Unavailable Unavailable YULIYA GRE [facility] Unavailable Unavailable SERVICES, [facility] MCKEMIE JR SUSU, Unavailable Unavailable MCKEMIE JR SUSU SCHMITZ SUSU, SCHMITZ SUSU Unavailable Unavailable [facility] Unavailable Unavailable PLL[facility], [facility], [facility] PICKLESIMER JR LOCO, Unavailable Unavailable PICKLESIMER JR LOCO [facility], Unavailable Unavailable [facility], Unavailable Unavailable [facility] RADMANESH SHA, Unavailable Unavailable RADMANESH SHA RENUSCH SHAHEED, RENUSCH Unavailable Unavailable SHAHEED SCIFRES ANG, SCIFRES Unavailable Unavailable [facility], [facility] KERRY MARISA, KERRY Unavailable Unavailable MARISA KERRY ANILA, KERRY Unavailable Unavailable ANILA KERRY HIGH, KERRY Unavailable Unavailable ANILA [facility] # Unavailable Unavailable [id number], [facility] # [id number] ZACH MORAN, Unavailable Unavailable ZACH MORAN, Unavailable Unavailable ZACH ASHBY, CYNTHIA Unavailable Unavailable SYMONE Purpose Continuity of Care Document - 02-06-2011 through 2016 Problems Code Diagnosis DOS Provider Status [id number] PAIN IN 02-27-2016 [place] [facility] [id number] PAIN IN 02-27-2016 [place] [facility]OT [facility] M7989 OTHER 02-27-2016 [place] SPECIFIED MEDICAL SOFT TISSUE IMAGING ASS DISORDERS [id number] UNSPECIFIED 02-27-2016 [facility], LEFT FOOT [facility] INITIAL ENCOUNTER [id number] UNSPECIFIED 02-27-2016 [place] INJURY MEDICAL LEFT FOOT IMAGING ASS INITIAL ENCOUNTER K5289 OTH SPEC 11-24-2015 JOSEF RAINES NONINFECTIV E GASTROENTER ITIS & COLITIS J069 ACUTE UPPER 10-31-2015 ARNOLD OLU RESPIRATORY INFECTION UNSPECIFIED B349 VIRAL 10-28-2015 [facility] UNSPECIFIED HOSPITA E876 HYPOKALEMIA 10-28-2015 [facility] J029 ACUTE 10-28-2015 [facility] PHARYNGITIS [facility]TI[facility] HOSPITA UNSPECIFIED J441 CHRONIC 10-28-2015 [facility] OB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ENCY PULMONARY PHYS DZ W/EXACERBAT ION R000 TACHYCARDIA 10-28-2015 [facility] UNSPECIFIED EMS R05 COUGH 10-28-2015 [facility] [place] [facility] R0602 SHORTNESS 10-28-2015 [facility]- OF BREATH [facility] R079 CHEST PAIN 10-28-2015 [facility]- UNSPECIFIED [place] [facility] R0981 NASAL 10-28-2015 [facility] CONGESTION COMMUNTIY HOSPITA R509 FEVER 10-28-2015 [facility]- UNSPECIFIED [place] [facility] R9431 ABNORMAL 10-28-2015 [facility] ELECTROCARD COMMUNTIY IOGRAM HOSPITA H6691 OTITIS 10-05-2015 [facility] MEDIA PHYSICIANS UNSPECIFIED GROUP RIGHT EAR J0100 ACUTE 10-05-2015 [facility] MAXILLARY PHYSICIANS SINUSITIS GROUP UNSPECIFIED H6690 OTITIS 09-29-2015 ARNOLD OLU MEDIA UNSPECIFIED UNSPECIFIED EAR J0190 ACUTE 09-05-2015 ARNOLD OLU SINUSITIS UNSPECIFIED Z0100 ENCOUNTER 08-26-2015 [facility] EXAM EYES & GRE VISION W/O ABNORMAL FIND 43084 SIMPLE/UNSP 04-20-2015 [facility] ECIFIED PHYSICIANS CHRONIC GROUP SEROUS OTITIS MEDIA 3829 UNSPECIFIED 04-20-2015 COMMUNITY OTITIS ANESTH OF MEDIA THE BLUE 470 DEVIATED 04-20-2015 [facility] NASAL PHYSICIANS SEPTUM GROUP 4710 POLYP OF 04-20-2015 [facility] NASAL PHYSICIANS CAVITY GROUP 4718 OTHER POLYP 04-20-2015 [facility] 4730 CHRONIC 04-20-2015 [facility] MAXILLARY PHYSICIANS SINUSITIS GROUP 4739 UNSPECIFIED 04-15-[address] [facility] P V7283 OTHER 04-15-2015 N[facility]IA SPECIFIED [facility] P VE EXAMINATION 3831 CHRONIC 03-30-2015 [facility] MASTOIDITIS PHYSICIANS GROUP 38798 DIAB W/O 03-18-2015 N[facility] COMP TYPE MEM HOSP II/UNS NOT INC STATED UNCNTRL 3814 NONSUPPRATV 02-23-2015 [facility] OTITIS PHYSICIANS MEDIA NOT GROUP SPEC ACUT/CHRON 4279 UNSPECIFIED 02-23-2015 [facility] CARDIAC PHYSICIANS DYSRHYTHMIA GROUP 3839 UNSPECIFIED 02-06-2015 [facility] HOSP MASTOIDITIS INC 4610 ACUTE 02-06-2015 [facility] MAXILLARY [facility] SINUSITIS INC 4779 ALLERGIC 01-26-2015 BALJIT SOLANO RHINITIS CAUSE UNSPECIFIED 25828 UNSPECIFIED 01-08-2015 [facility] P 4019 UNSPECIFIED 01-08-2015 [facility] P N 7840 HEADACHE 01-08-2015 [facility] P 1101 DERMATOPHYT 11-21-2014 [place] [facility] OF FOOT & NAIL ANKLE CE 3569 UNSPEC 11-21-2014 [place] HEREDIT&IDI FOOT & OPATHIC ANKLE CE PERIPHERAL NEUROPATHY 7038 OTHER 11-21-2014 [place] SPECIFIED FOOT & DISEASE OF ANKLE CE NAIL 97083 OSTEOARTHRO 11-21-2014 [place] SIS UNSPEC FOOT & WHETHER ANKLE CE GEN/LOC ANK&FOOT 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 [address] OSTEOARTHRO 10-31-2014 [place] S UNSPEC COMMUNTIY WHETHER HOSPITA GEN/LOC UNSPEC SITE 02106 GENERALIZED 10-31-2014 [facility] PAIN COMMUNTIY HOSPITA 84753 PAIN IN 10-24-2014 [facility] [place] JOINT, [facility]THOP[facility] ANKLE AND S PLC FOOT 486 PNEUMONIA, 10-18-2014 [facility] ORGANISM PHYSICIANS UNSPECIFIED GROUP 4660 ACUTE 10-14-2014 ARNOLD OLU BRONCHITIS 6256 FEMALE 10-04-2014 [facility] STRESS PHYSICIANS INCONTINENC GROUP E 01108 OSTEOARTHRO 10-03-2014 JOSEF OLU S INVLV MX SITES BUT NOT SPEC GEN 74472 PAIN IN 10-03-2014 ARNCYNTHIA OLU JOINT, LOWER LEG 4619 ACUTE 08-25-2014 ARNOLD OLU SINUSITIS, UNSPECIFIED 5110 PLEURISY 08-11-2014 ARNCYNTHIA OLU WITHOUT MENTION EFFUS/[place] [address] KYPHOSIS 06-27-2014 KERRY ANILA ACQUIRED POSTURAL 7391 NONALLOPATH 06-27-2014 KERRY ANILA IC LESION OF CERVICAL REGION NEC 7392 NONALLOPATH 06-27-2014 KERYR ANILA IC LESION OF THORACIC REGION NEC 7398 NONALLOPATH 06-27-2014 KERRY ANILA IC LESION OF RIB CAGE NEC 6259 UNSPEC 05-20-2014 BALL JOSE ARMANDO SYMPTOM ASSOC W/FEMALE GENITAL ORGANS 6271 POSTMENOPAU 05-20-2014 BALL JOSE ARMANDO REJI BLEEDING 11845 UNSPECIFIED 05-05-2014 JOSEF RAINES SLEEP APNEA 6272 SYMPTOMATIC 04-18-2014 [facility] HOSP MENOPAUSAL/ INC FEMALE CLIMACTERIC STATES 6210 POLYP OF 04-04-2014 [facility] CORPUS MEM HOSP UTERI INC 6268 OTH D/O 04-04-2014 [facility] MENSTRUATIO MEM HOSP N&OTH ABN INC BLEED FE GNT TRACT 62976 INCOMPLETE 03-25-2014 MÁRQUEZ BLADDER TOMMY EMPTYING 01395 CALCANEAL 03-17-2014 ARNOLD SPUR MARYCRUZ 30897 UNSPECIFIED 03-17-2014 JOSEF RAINES URINARY INCONTINENC E 9178 OTH&UNSPEC 03-17-2014 [facility] SUP INJURY MEM HOSP FOOT&TOES INC W/O MENTION INF 5259 UNSPECIFIED 03-01-2014 ALISON JOLENE DISORDER TEETH&SUPPO RTING STRUCTURES 33470 OTHER 02-01-2014 JOSEF RAINES MALAISE AND FATIGUE 6253 DYSMENORRHE 01-13-2014 BALL JOSE ARMANDO A V720 EXAMINATION 01-12-2014 YULIYA OF EYES GRE AND VISION 39269 OTHER 01-05-2014 ARNOLD ABNORMAL MARYCRUZ FINDING RADIOLOGICA L EXAM BREAST V7612 OTHER 01-05-2014 [facility] SCREENING [facility] MAMMOGRAM INC V7231 ROUTINE 01-01-2014 [facility] GYNECOLOGIC [facility]OS[facility] AL INC EXAMINATION 49661 TRICHOMONAL 12-29-2013 DENNIS ADAN VULVOVAGINI TIS 16113 UNSPECIFIED 12-29-2013 LIZZY JOSE ARMANDO VAGINITIS AND VULVOVAGINI TIS V745 SCREENING 12-29-2013 [facility] EXAMINATION JR ADAN FOR VENEREAL DISEASE 15419 ESOPHAGEAL 12-02-2011 JOSEF RAINES REFLUX 57494 UNS 12-02-2011 JOSEF RAINES GASTRITIS&G ASTRODUODIT IS W/O MENTION HEMORR 94183 UNSPEC 11-28-2011 ALISON JOLENE VENTRAL JUHI W/O MENTION OBST/GANGRE N 5589 OTH&UNSPEC 11-08-2011 JOSEF RAINES NONINFECTIO US GASTROENTER ITIS&COLITI S 76005 OBSTRUCTIVE 11-02-2011 [place] [facility] APNEA MEDICAL EQUIP 01676 UNSPECIFIED 10-04-2011 JOSEF RAINES ENTHESOPATH Y OF ANKLE AND TARSUS 02945 CHOLECYSTIT 08-23-2011 COMMUNITY IS, ANESTH OF UNSPECIFIED THE BLUE 32765 CHRONIC 08-23-2011 [facility] CHOLECYSTIT [facility] IS INC 5756 CHOLESTEROL 08-23-2011 [facility] OF DEJUAN & GALLBLADDER DUBILIER 5758 OTHER 08-20-2011 N[facility] SPECIFIED [facility] P GALLBLADDER 26750 ABDOMINAL 08-17-2011 JOSEF RAINES PAIN, GENERALIZED 57391 ABDOMINAL 08-15-2011 [facility]ICAL EPIGASTRIC IMAGING ASS 5770 ACUTE 08-14-2011 IN MEDICAL PANCREATITI SERV S FOUNDATIO 8830 OPEN WOUND 08-13-2011 [facility] WITHOUT SERVICES MENTION COMPLICATIO N 7823 EDEMA 07-05-2011 JOSEF OLU 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 7842 SWELLING 05-31-2011 [facility] MASS OR EMERGENCY LUMP IN SERVICES HEAD AND NECK 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 81518 HYPERSOMNIA 05-28-2011 ZACH WITH SLEEP LUISA APNEA UNSPECIFIED 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 3674 PRESBYOPIA 05-23-2011 SANG VISION 5272 SIALOADENIT 04-30-[address] [place] [address] NOISE-INDUC 03-21-2011 SMILEY RUSS ED HEARING LOSS 64561 UNSPECIFIED 03-21-2011 SMILEY RUSS TINNITUS 7851 PALPITATION 03-07-2011 [facility] S PHYSICIANS GROUP 52913 NONSPECIFIC 03-07-2011 [facility] ABNORMAL ED [facility] P IOGRAM Medications Na ND Rx [...] 0 20 10 WA 71 BE Ac SD 37 -1 -1 .0 L- 39 SS [...] 20 20 RT 5 70 11 11 ND 5 PH CH AR AE MA L [...] LL 10 C 0 MG CA P SD 00 06 06 0 21 6 CL [...] 0 MG LL C TA BL ET SD 00 05 05 0 21 6 CL [...] 5- 5- 00 MA 05 ON ve SD 59 20 20 RT 6 ED 31 [...] 20 20 YC 66 11 11 PH ND IN 8 AR CH MA AE 25 [...] Procedure DOS Code Location Performer Comment RADEX 31480 [place] ARNOLD ANKLE 6 MEDICAL MARYCRUZ COMPLETE IMAGING MINIMUM 3 ASS VIEWS RADEX 57147 [place] ARNOLD FOOT 6 MEDICAL MARYCRUZ COMPLETE IMAGING MINIMUM 3 ASS VIEWS COLLECTIO 80774 [facility] N VENOUS 5 N N BLOOD COMMUNTIY COMMUNTIY VENIPUNCT HOSPITA HOSPITA URE PREDNISON J7506 [facility] DIATHERIX E ORAL 5 N PER 5 MG COMMUNTIY LABORATOR HOSPITA IES LLC BLOOD 83674 [facility] COUNT 5 N N COMPLETE COMMUNTIY COMMUNTIY AUTO&AUTO HOSPITA HOSPITA DIFRNTL WBC GROUND A0425 [facility] MILEAGE 5 [facility] PER CO EMS CO EMS STATUTE MILE RADIOLOGI 35306 [facility] [place] RADMANESH C 5 RADIOLOGY SHA EXAMINATI ON CHEST SINGLE VIEW FRONTAL AMB A0427 [facility] SERVICE 5 [facility] ALS CO EMS CO EMS EMERGENCY TRANSPORT LEVEL 1 COMPREHEN 37744 [facility] SIVE 5 N N METABOLIC COMMUNTIY COMMUNTIY PANEL HOSPITA HOSPITA ECG 35033 [facility] ROUTINE 5 MIKE - YORBA ECG EMERGENCY PAT W/LEAST PHYS 12 LDS I&R ONLY INJECTION J0696 JOSEF BAHENA 5 OLU OLU CEFTRIAXO NE SODIUM PER 250 MG INJECTION J0696 JOSEF BAHENA 5 OLU OLU CEFTRIAXO NE SODIUM PER 250 MG OPHTH 10-24-201 75473 [facility] 5 GRE GRE XM&EVAL COMPRHNSV ESTAB PT 1/> NSL/SINUS 52465 [facility] NDSC MAX 5 PHYSICIAN PHYSICIAN ANTROST S GROUP S GROUP W/RMVL TISS MAX SINUS TYMPANOST 14763 [facility] SMILEY BENITEZ 5 PHYSICIAN RUSS GENERAL S GROUP ANESTHESI A ANESTHESI 16464 [facility] NOSE & 5 ANESTH MARISA ACCESSORY OF THE SINUSES BLUE NOS LEVEL III 42794 [facility]CR[facility] TER SUR[facility] 5 LLC PATHOLOGY GROSS&[place] [address] [facility] [place] [facility] 5 [facility] PATHOLOGY GROSS&JOLENE ROSCOPIC EXAM COLLECTIO 55562 [facility] JACOB N VENOUS 5 MEM H[facility]P [facility] BLOOD INC INC VENIPUNCT URE BLOOD 13705 [facility] JACOB COUNT 5 [facility] HOSP COMPLETE INC INC AUTO&AUTO DIFRNTL WBC BASIC 64101 [facility] JACOB METABOLIC 5 MEM [facility] HOSP PANEL INC INC CALCIUM TOTAL ECG 48537 N[facility] DECKER JR ROUTINE 5 [facility] W/LEAST P 12 LDS I&R ONLY ECG 30733 [facility] JACOB ROUTINE 5 [facility] HOSP ECG INC INC W/LEAST 12 LDS TRCG ONLY W/O I&R COLLECTIO 20577 [facility] JACOB N VENOUS 5 [facility] HOSP BLOOD INC INC VENIPUNCT URE HEMOGLOBI 77293 NIDIA JACOB N 5 [facility] HOSP GLYCOSYLA INC INC STEVEN A1C COMPRE 24823 BALJIT SMILEY AUDIOMETR 5 [place] [place] Y THRESHOLD EVAL SP RECOGNIJ TYMPANOME 17641 BALJIT SMILEY TRY 5 [place] DISTORT 36478 BALJIT SMILEY PRODUCT 5 R[place] RUSS [place] [address] [place] ARNOLD MAXILLOFA 5 MEDICAL MARYCRUZ CIAL W/O IMAGING CONTRAST ASS MATERIAL RAD[facility] 64035 [facility] FOOT 5 FOOT & COMPLETE ANKLE CE MINIMUM 3 VIEWS WALKING L4360 [place] FINE BRA BOOT 5 FOOT & PNEUMATC ANKLE CE &/ VACUUM PREFAB CUSTM FIT RADEX 61274 [place] FINE BRA FOOT 4 FOOT & COMPLETE ANKLE CE MINIMUM 3 VIEWS COLLECTIO 28174 [facility] N VENOUS 4 N N BLOOD COMMUNTIY COMMUNTIY VENIPUNCT HOSPITA HOSPITA URE TRIMMING 22669 [facility] FINE BRA NONDYSTRO 4 FOOT & PHIC ANKLE CE NAILS ANY NUMBER RHEUMATOI 62683 [facility] D FACTOR 4 N N QUALITATI COMMUNTIY COMMUNTIY VE HOSPITA HOSPITA MRI LOWER 06122 [facility] [place] EXTREM 4 [place] SYMONE OTH/THN ORTHOPAED JT W/O ICS PLC CONTR MATRL INJECTION J1040 [facility] ALISON 4 PHYSICIAN JOLENE METHYLPRE S GROUP DNISOLONE ACETATE 80 MG THERAPEUT 49547 [facility] IC 4 PHYSICIAN PHYSICIAN PROPHYLAC S GROUP S GROUP TIC/DX INJECTION SUBQ/IM RADEX 30383 [facility] [place] FOOT 4 [place] SYMONE COMPLETE ORTHOPAED MINIMUM 3 ICS PLC VIEWS CHIROPRAC 04544 KERRY KERRY TIC 4 ANILA AINLA MANIPULAT [place] SPINAL 1-2 REGIONS CHIROPRAC 14489 KERRY KERRY TIC 4 ANILA ANILA MANIPULAT [place] SPINAL 1-2 REGIONS CHIROPRAC 19707 KERRY KERRY TIC 4 ANILA ANILA MANIPULAT [place] SPINAL 1-2 REGIONS CHIROPRAC 42962 KERRY KERRY TIC 4 ANILA ANILA MANIPULAT OSVALDO [place] SPINAL 1-2 REGIONS THERAPEUT 71926 KERRY KERRY IC PX 1/> 4 ANILA ANILA AREAS EACH 15 MIN EXERCISES THERAPEUT 03939 KERRY KERRY IC PX 1/> 4 ANILA ANILA AREAS EACH 15 MIN EXERCISES CHIROPRAC 80899 KERRY KERRY TIC 4 ANILA ANILA MANIPULAT [place] SPINAL 1-2 REGIONS APPL 84878 KERRY KERRY MODALITY 4 ANILA ANILA 1/> AREAS TRACTION MECHANICA L CHIROPRAC 89019 KERRY KERRY TIC 4 ANILA ANILA MANIPULAT OSVALDO TX SPINAL 1-2 REGIONS THERAPEUT 25303 KERRY KERRY IC PX 1/> 4 ANILA ANILA AREAS EACH 15 MIN EXERCISES CHIROPRAC 88430 KERRY KERRY TIC 4 ANILA ANILA MANIPULAT OSVALDO [place] SPINAL 1-2 REGIONS CHIROPRAC 69375 KERRY KERRY TIC 4 ANILA ANILA MANIPULAT OSVALDO [place] SPINAL 1-2 REGIONS CHIROPRAC 39889 KERRY KERRY TIC 4 ANILA ANILA MANIPULAT OSVALDO [place] SPINAL 1-2 REGIONS CHIROPRAC 17247 KERRY KERRY TIC 4 ANILA ANILA MANIPULAT OSVALDO [place] SPINAL 1-2 REGIONS THERAPEUT 45507 KERRY PAYNE IC PX 1/> 4 ANILA ANILA AREAS EACH 15 MIN EXERCISES THERAPEUT 11379 KERRY KERRY IC PX 1/> 4 ANILA ANILA AREAS EACH 15 MIN EXERCISES CHIROPRAC 69834 KERRY PAYNE TIC 4 ANILA ANILA MANIPULAT OSVALDO [place] SPINAL 1-2 REGIONS GONADOTRO 76992 NIDIA JACOB PIN 4 MEM HOSP MEM HOSP LUTEINIZI INC INC NG HORMONE GONADOTRO 85704 NIDIA JACOB PIN 4 MEM HOSP MEM HOSP FOLLICLE INC INC STIMULATI NG HORMONE CHIROPRAC 96882 KERRY PAYNE TIC 4 ANILA ANILA MANIPULAT OSVALDO [place] SPINAL 1-2 REGIONS THERAPEUT 33298 KERRY PAYNE IC PX 1/> 4 ANILA ANILA AREAS EACH 15 MIN EXERCISES THERAPEUT 86716 KERRY KERRY IC PX 1/> 4 ANILA ANILA AREAS EACH 15 MIN EXERCISES CHIROPRAC 44706 KERRY PAYNE TIC 4 ANILA ANILA MANIPULAT OSVLADO TX SPINAL 1-2 REGIONS CHIROPRAC 67520 KERRY KERRY TIC 4 ANILA ANILA MANIPULAT OSVALDO TX SPINAL 1-2 REGIONS THERAPEUT 50934 KERRY KERRY IC PX 1/> 4 ANILA ANILA AREAS EACH 15 MIN EXERCISES HYSTEROSC 88073 NIDIA JACOB OPY BX 4 MEM HOSP MEM HOSP ENDOMETRI INC INC UM&/POLYP C W/WO D&C INJECTION J2405 [facility] JACOB 4 MEM HOSP MEM HOSP ONDANSETR INC INC ON HCL PER 1 [place] [address] [facility], MURTAZA SURG 4 [facility] PATHOLOGY GROSS&JOLENE ROSCOPIC EXAM ECG 96950 JERONIMO JR JERONIMO JR ROUTINE 4 DWI DWI ECG W/LEAST 12 LDS I&R ONLY BASIC 49370 N[facility] JACOB METABOLIC 4 MEM HOSP MEM HOSP PANEL INC INC CALCIUM TOTAL BLOOD 57008 N[facility]IA JACOB COUNT 4 MEM HOSP MEM HOSP COMPLETE INC INC AUTO&AUTO DIFRNTL WBC ECG 78856 NIDIA RAE ROUTINE 4 MEM HOSP DIAGNOSTI ECG INC CS W/LEAST 12 LDS TRCG ONLY W/O I&R THERAPEUT 81506 KERRY PAYNE IC PX 1/> 4 ANILA ANILA AREAS EACH 15 MIN EXERCISES CHIROPRAC 28195 KERRY PAYNE TIC 4 ANILA ANILA MANIPULAT OSVALDO TX SPINAL 1-2 REGIONS CHIROPRAC 70834 KERRY PAYNE TIC 4 ANILA ANILA MANIPULAT OSVALDO TX SPINAL 1-2 REGIONS THERAPEUT 14152 KERRY PAYNE IC PX 1/> 4 ANILA ANILA AREAS EACH 15 MIN EXERCISES BRYAN 11220 MÁRQUEZ MÁRQUEZ POST-VOID 4 TOMMY TOMMY ING RESIDUAL URINE&/BL ADDER CAP CHIROPRAC 86207 KERRY PAYNE TIC 4 ANILA ANILA MANIPULAT OSVALDO TX SPINAL 1-2 REGIONS THERAPEUT 43701 KERRY PAYNE IC PX 1/> 4 ANILA ANILA AREAS EACH 15 MIN EXERCISES THERAPEUT 87172 KERRY PAYNE IC PX 1/> 4 ANILA ANILA AREAS EACH 15 MIN EXERCISES CHIROPRAC 22934 KERRY PAYNE TIC 4 ANILA ANILA MANIPULAT OSVALDO [place] SPINAL 1-2 REGIONS APPL 57093 KERRY PAYNE MODALITY 4 ANILA ANILA 1/> AREAS TRACTION MECHANICA L RADEX 54942 ARNOLD ARNOLD FOOT 4 MARYCRUZ MARYCRUZ COMPLETE MINIMUM 3 VIEWS CHIROPRAC 79047 KERRY PAYNE TIC 4 ANILA ANILA MANIPULAT OSVALDO [place] SPINAL 1-2 REGIONS APPL 91996 KERRY PAYNE MODALITY 4 ANILA ANILA 1/> AREAS TRACTION MECHANICA L APPL 50889 KERRY PAYEN MODALITY 4 ANILA ANILA 1/> AREAS ELEC STIMJ UNATTENDE D THERAPEUT 12987 KERRY PAYNE IC PX 1/> 4 ANILA ANILA AREAS EACH 15 MIN EXERCISES THERAPEUT 20089 KERRY PAYNE IC PX 1/> 4 ANILA ANILA AREAS EACH 15 MIN EXERCISES APPL 11816 KERRY KERRY MODALITY 4 ANILA ANILA 1/> AREAS ELEC STIMJ UNATTENDE D APPL 25988 KERRY KERRY MODALITY 4 ANILA ANILA 1/> AREAS TRACTION MECHANICA L CHIROPRAC 55128 KERRY PAYNE TIC 4 ANILA ANILA MANIPULAT OS[place] SPINAL 1-2 REGIONS ENDOMETRI 88080 BALL BALL AL BX 4 JOSE ARMANDO JOSE ARMANDO W/WO ENDOCERVI X BX W/O DILAT SPX APPL 46518 KERRY PAYNE MODALITY 4 ANILA ANILA 1/> AREAS TRACTION MECHANICA L APPL 90597 KERRY PAYNE MODALITY 4 ANILA ANILA 1/> AREAS ELEC STIMJ UNATTENDE D CHIROPRAC 85983 KERRY PAYNE TIC 4 ANILA ANILA MANIPULAT [place] SPINAL 1-2 REGIONS THERAPEUT 75788 KERRY PAYNE IC PX 1/> 4 ANILA ANILA AREAS EACH 15 MIN EXERCISES THERAPEUT 32034 KERRY PAYNE IC PX 1/> 4 ANILA ANILA AREAS EACH 15 MIN EXERCISES CHIROPRAC 02663 KERRY PAYNE TIC 4 ANILA ANILA MANIPULAT [place] SPINAL 1-2 REGIONS APPL 26930 KERRY KERRY MODALITY 4 ANILA ANILA 1/> AREAS ELEC STIMJ UNATTENDE D APPL 24778 KERRY KERRY MODALITY 4 ANILA ANILA 1/> AREAS TRACTION MECHANICA L APPL 69743 KERRY KERRY MODALITY 4 ANILA ANILA 1/> AREAS TRACTION MECHANICA L APPL 30477 KERRY KERRY MODALITY 4 ANILA ANILA 1/> AREAS ELEC STIMJ UNATTENDE D CHIROPRAC 73512 KERRY PAYNE TIC 4 ANILA ANILA MANIPULAT [place] SPINAL 1-2 REGIONS SALINE 09160 BALL BALL INFUS 4 JOSE ARMANDO JOSE ARMANDO SONOHYSTE ROGRAPHY W/COLOR DOPPLER INJECTION J3420 JOSEF BAHENA VIT B-12 4 OLU OLU CYANOCOBA OVIDIO TO 1000 MCG INJECTION J3420 JOSEF BAHENA VIT B-12 4 OLU OLU CYANOCOBA OVIDIO TO 1000 MCG INJECTION J3420 JOSEF BAHENA VIT B-12 4 OLU OLU CYANOCOBA OVIDIO TO 1000 MCG 06340 LIZZY BALL TRANSVAGI 4 JOSE ARMANDO JOSE ARMANDO NAL DETERMINA 16840 YULIYA DWYER ON 4 GRE GRE REFRACTIV E STATE OPHTH 86567 YULIYA [facility] 4 GRE GRE XM&EVAL COMPRHNSV ESTAB PT 1/> SCREENING G0202 NIDIA JACOB 4 [facility] MAMMOGRAP INC INC HY AGGIE INCL CAD WHEN PERFORMD DIAGNOSTI G0204 ARNOLD ARNOLD C 4 MARYCRUZ MARYCRUZ MAMMOGRAP HY INCL CAD WHEN PERF; BILAT COMPUTER- 31463 NIDIA JACOB AIDED 4 [facility] DETECTION INC INC SCREENING MAMMOGRAP HY GONADOTRO 08786 NIDIA JACOB PIN 4 [facility] LUTEINIZI INC INC NG HORMONE GONADOTRO 44150 NIDIA JACOB PIN 4 [facility] FOLLICLE INC INC STIMULATI NG HORMONE LIPID 88772 NIDIA JACOB PANEL 4 [place] [address] NIDIA JACOB THYROID 4 [facility] STIMULAT[place] [address] NIDIA JACOB FREE 4 [facility] THYROXINE INC INC COMPREHEN 95516 NIDIA JACOB SIVE 4 [facility] METABOLIC INC INC PANEL BLOOD 48179 NIDIA JACOB COUNT 4 [facility] COMPLETE INC INC AUTO&AUTO DIFRNTL WBC IADNA 41208 PICKLESIM PICKLESIM NEISSERIA 4 ER JR LOCO ER JR LOCO GONORRHOE AE AMPLIFIED PROBE TQ SMR PRIM 02765 LIZZY BALL SRC WET 4 JOSE ARMANDO JOSE ARMANDO MOUNT NFCT AGT IADNA 67896 PICKLESIM PICKLESIM CHLAMYDIA 4 ER JR LOCO ER JR LOCO TRACHOMAT IS AMPLIFIED PROBE TQ CYTP C/V 59016 PICKLESIM PICKLESIM AUTO THIN 4 ER JR LOCO ER JR LOCO LYR PREPJ SCR MNL RESCR PHYS URINE 67666 LIZZY BALL 4 JOSE ARMANDO JOSE ARMANDO TEST VISUAL COLOR CMPRSN METHS CONTINUOU E0601 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 S 1 HOME HOME POSITIVE MEDICAL MEDICAL AIRWAY EQUIP EQUIP PRESSURE DEVICE INJECTION J2405 NIDIA JACOB 1 [facility] ONDANSETR INC INC ON HCL PER 1 MG LEVEL III 28064 [facility] [place] VAN SURG 1 DEJUAN & PATHOLOGY DUBILIER GROSS&JOLENE ROSCOPIC EXAM ANES 14931 [facility] 1 ANESTH TONEAL OF THE UPPER BLUE ABDOMEN W/LAPS NOS LAPAROSCO 82646 NIDIA JACOB PY SURG 1 [facility] [place] [address] NIDIA JACOB INFUSION 1 [facility] THERAPY INC INC PROPHYLAX IS/DX EA HOUR URINE 62496 NIDIA JACOB 1 [facility] TEST INC INC VISUAL COLOR CMPRSN METHS LAPAROSCO 5123 NIDIA JACOB PIC 1 [facility] CHOLECYST INC INC ECTOMY ECG 31371 NIDIA JACOB ROUTINE 1 [facility] [facility] ECG INC INC W/LEAST 12 LDS [facility]CG ONLY W/O I&R ECG 50244 NIDIA WALTERS ROUTINE 1 [facility] W/LEAST P 12 [facility] I&R ONLY [facility] 94242 [facility]GE [place] [facility] DAY INTERNAL MANAGEMEN MED T 30 MIN/< SBSQ [id number] CARE/DAY INTERNAL 25 MED MINUTES 48858 WENCESLAOY ARNOLD ABDOMINAL 1 [facility] REAL IMAGING TIME ASS W/IMAGE LIMITED SBSQ [id number] CARE/DAY INTERNAL 25 MED MINUTES INITIAL 02710 [place] JASON ANT INPATIENT 1 MEDICAL CONSULT SERV NEW/ESTAB FOUNDATIO PT 80 MIN INITIAL [address] CARE/DAY INTERNAL 50 MED MINUTES FINE 26744 [place] PAT NEEDLE 1 DEJUAN & ASPIRATIO DUBILIER N W/O IMAGING GUIDANCE CYTP EVAL 12549 [place] PAT FINE 1 DEJUAN & NEEDLE DUBILIER ASPIRATE INTERP & REPORT CONTINU E0601 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 S 1 HOME HOME POSITIVE MEDICAL MEDICAL AIRWAY EQUIP EQUIP PRESSURE DEVICE OPHTH 41803 SANG MARISCAL MEDICAL 1 VISION ANG XM&EVAL COMPRE NEW PT 1/> VST MRI ORBIT 82643 WENCESLAOY ARNOLD FACE & 1 MEDICAL [facility] NECK W/O IMAGING & ASS W/CONTRAS T MATRL CONTINUOU E0601 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 S 1 HOME HOME POSITIVE MEDICAL MEDICAL AIRWAY EQUIP EQUIP PRESSURE DEVICE COMPRE 61433 BALJIT SMILEY AUDIOMETR 1 RUSS RUSS Y THRESHOLD EVAL SP RECOGNIJ TYMPANOME 04343 BALJIT SMILEY TRY 1 RUSS RUSS HEADGEAR [...] EQUIP EQUIP W/POS ARWAY PRESS DEVICE POLYSOM 47502 NARA BAINS 6/>YRS 1 MARISA MARISA SLEEP W/CPAP 4/> ADDL TRINI ATTND POLYSOM 19030 NIDIA JACOB 6/>YRS 1 [facility] SLE[facility] INC INC W/CPAP 4/> ADDL TRINI ATTND POLYSOM 58021 NARA BAINS 6/>YRS 1 MARISA MARISA SLEEP 4/> ADDL TRINI ATTND POLYSOM 39640 NIDIA JACOB 6/>YRS 1 [facility] SLEEP 4/> INC INC ADDL TRINI ATTND ECHO 99440 [facility] PHYSICIAN MATHTEW Coffey S GROUP W/WOM-MOD E COMPL SPEC&COLR D ECG 79547 NIDIA MCKEMIE ROUTINE 1 [facility] W/LEAST P 12 LDS I&R ONLY COMPREHEN 37902 NIDIA JACOB SIVE 1 [facility] METABOLIC INC INC PANEL NATRIURET 02040 NIDIA JACOB IC 1 [facility] PEPTIDE INC INC BLOOD 82319 NIDIA JACOB COUNT 1 [facility] COMPLETE INC INC AUTO&[place] [address] NIDIA JACOB THYROID 1 [facility] STIMULATI INC INC NG HORMONE TSH ECG 87873 NIDIA JACOB ROUTINE 1 [facility] ECG INC INC W/LEAST 12 LDS TRCG ONLY W/O I&R CYTP 80333 HEMANT HEMANT 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 IES INC IES INC ENHANCEME NT INTERPJ XCPT C/V ENDOMETRI 75320 WOMEN'S BALL AL BX 1 HEALTH JOSE ARMANDO W/WO CLINIC OF ENDOCERVI LINDA X BX W/O DILAT SPX SCREENING G0202 [place] ARNOLD 1 [facility]ICAL [facility] MAMMOGRAP IMAGING HY AGGIE ASS INCL CAD WHEN PERFORMD COMPUTER- 51396 [place] ARNOLD AIDED 1 MEDICAL [facility] DETECTION IMAGING ASS SCREENING MAMMOGRAP HY Encounters Encounter Start End Date Code Location Performer Type Date EMERGENCY 95425 JUAN DAVID WYMAN 6 6 PHYSICIAN SHAHEED CHAVIRA S, PLLC T VISIT HIGH/URGE NT SEVERITY OFFICE 91819 JOSEF BAHENA OUTPATIEN 6 6 OLU OLU T VISIT 15 MINUTES OFFICE 40348 JOSEF PACHECO 6 6 OLU OLU T VISIT 15 MINUTES OFFICE 29798 JOSEF JOSEF OUTROWENAEN 5 5 OLU OLU T VISIT 15 MINUTES EMERGENCY 61950 [facility] 5 N VISIT COMMUNTIY HIGH HOSPITA SEVERITY& THREAT [facility] - 5 5 N OUTPATIEN COMMUNTIY T HOSPITA EMERGENCY 64052 [facility] 5 5 [facility] EMERGENCY PAT T VISIT PHYS HIGH/URGE NT SEVERITY OFFICE 78686 [facility] SMILEY OUTPATIEN 5 5 PHYSICIAN RUSS T VISIT S GROUP 10 MINUTES OFFICE 55224 HOWARDCYNTHIA JOSEF PACHECO 5 5 OLU OLU T VISIT 15 MINUTES OFFICE 83719 JOSEF PACHECO 5 5 OLU OLU T VISIT 15 MINUTES HOSPITAL NIDIA - 5 5 [facility] OUTPATIEN INC T OFFICE 42452 [facility] SMILEY OUTPATIEN 5 5 PHYSICIAN RUSS T VISIT S GROUP 15 MINUTES OFFICE 76082 [facility] 5 5 OLU OLU T VISIT 15 MINUTES HOSPITAL NIDIA - 5 5 [facility] OUTPATIEN INC T OFFICE 35520 [facility] SMILEY OUTPATIEN 5 5 PHYSICIAN RUSS T VISIT S GROUP 15 MINUTES HOSPITAL NIDIA - 5 5 [facility] OUTPATIEN INC T OFFICE 51546 SMILEY SMILEY OUTPATIEN 5 5 RUSS RUSS T NEW 30 MINUTES EMERGENCY 92288 NIDIA ILUYOMADE 5 5 [facility] T VISIT P LOW/MODER SEVERITY [facility]OSPITAL [facility] - 4 4 N OUTPATIEN COMMUNTIY T HOSPITA OFFICE 03962 LUCERO ALFONSO OUTPATIEN 4 4 FOOT & T NEW 30 ANKLE CE MINUTES OFFICE 71158 [facility] MARIE OUTPATIEN 4 4 [place] SYMONE T VISIT ORTHOPAED 15 [facility] MINUTES OFFICE 62430 JOSEF LINDQUISTPATIEN 4 4 OLU OLU T VISIT 15 MINUTES OFFICE 98325 [facility] CONSULTAT 4 4 [place] SYMONE ION ORTHOPAED NEW/ESTAB [facility]CS PLC PATIENT 40 MIN OFFICE 96144 [facility] OUTPATIEN 4 4 PHYSICIAN T VISIT S GROUP 15 MINUTES OFFICE 87260 JOSEF PACHECO 4 4 OLU OLU T VISIT 15 MINUTES OFFICE 07309 JOSEF PACHECO 4 4 OLU OLU T VISIT 15 MINUTES OFFICE 69518 JOSEF PACHECO 4 4 OLU OLU T VISIT 15 MINUTES OFFICE 24962 LIZZY BALL OUTROWENAEN 4 4 JOSE ARMANDO JOSE ARMANDO T VISIT 15 MINUTES OFFICE 78393 JOSEF PACHECO 4 4 OLU OLU T VISIT 15 MINUTES HOSPITAL NIDIA - 4 4 [facility] OUTPATIEN INC T OFFICE 36384 KERRY PACHECO 4 4 ANILA ANILA T VISIT 10 MINUTES HOSPITAL NIDIA - 4 4 [facility] OUTPATIEN INC T HOSPITAL NIDIA - 4 4 [facility] OUTPATIEN INC T OFFICE 42688 MÁRQUEZ MÁRQUEZ CONSULTAT 4 4 TOMMY TOMMY ION NEW/ESTAB PATIENT 40 MIN OFFICE 94763 KERRY PAYNE OUTPATIJASWANT 4 4 ANILA ANILA T VISIT 10 MINUTES OFFICE 92296 JOSEF PACHECO 4 4 OLU OLU T VISIT 15 MINUTES HOSPITAL NIDIA - 4 4 [facility] OUTPATIEN INC T EMERGENCY 75993 ALISON ROSAS 4 4 JOLENE JOLENE DEPARTMEN T VISIT MODERATE SEVERITY OFFICE 87492 KERRY PAYNE OUTPATIEN 4 4 ANILA ANILA T NEW 30 MINUTES OFFICE 62231 HOWARDCYNTHIA JOSEF OUTTOM 4 4 OLU OLU T VISIT 15 MINUTES OFFICE 33693 JOSEF JOSEF OUTTOM 4 4 OLU OLU T VISIT 15 MINUTES OFFICE 97051 HOWARDCYNTHIA JOSEF OUTPATIEN 4 4 OLU OLU T VISIT 15 MINUTES HOSPITAL NIDIA - 4 4 [facility] OUTPATIEN INC T HOSPITAL NIDIA - 4 4 [facility] OUTPATIEN INC T PERIODIC 23331 LIZZY BALL PREVENTIV 4 4 JOSE ARMANDO JOSE ARMANDO E MED EST PATIENT 40-64YRS OFFICE 50547 JOESF PACHECO 2 2 OLU OLU T VISIT 15 MINUTES OFFICE 63027 ALISON ROSAS OUTPATIEN 2 2 JOLENE JOLENE T NEW 30 MINUTES OFFICE 04900 JOSEF PACHECO 2 2 OLU OLU T VISIT 15 MINUTES OFFICE 92663 JOSEF PACHECO 1 1 OLU OLU T VISIT 15 MINUTES HOSPITAL NIDIA - 1 1 [facility] OUTPATIEN INC T HOSPITAL NIDIA - 1 1 [facility] OUTPATIEN INC T OFFICE 47736 JOSEF PACHECO 1 1 OLU OLU T VISIT 15 MINUTES EMERGENCY 91253 YULIYA DUGGAN 1 1 EMERGENCY DEPARTMEN SERVICES T VISIT MODERATE SEVERITY HOSPITAL NIDIA - 1 1 [facility] INPATIENT INC OFFICE 96716 JOSEF PACHECO 1 1 OLU OLU T VISIT 15 MINUTES HOSPITAL NIDIA - 1 1 [facility] OUTPATIEN INC T EMERGENCY 41442 NIDIA 1 1 [facility] DEPARTMEN INC T VISIT LOW/MODER SEVERITY EMERGENCY 23082 YULIYA ROSAS 1 1 EMERGENCY JOLENE DEPARTMEN SERVICES T VISIT MODERATE SEVERITY OFFICE 90977 ZACH SERRANO OUTPATIEN 1 1 Nov T NEW 45 MINUTES HOSPITAL NIDIA - 1 1 [facility] OUTPATIEN INC T EMERGENCY 39770 NIDIA 1 1 [facility] DEPARTMEN INC T VISIT LOW/MODER SEVERITY EMERGENCY 84471 YULIYA DUGGAN 1 1 EMERGENCY DEPARTMEN SERVICES T VISIT MODERATE SEVERITY HOSPITAL NIDIA - 1 1 [facility] OUTPATIEN INC T OFFICE 78955 JOSEF LAWRENCECYNTHIA OUTPATIEN 1 1 OLU OLU T VISIT 15 MINUTES OFFICE 78868 NARA BAINS OUTPATIEN 1 1 MARISA MARISA T NEW 45 MINUTES OFFICE 23662 SMILEY SMILEY OUTPATIEN 1 1 RUSS RUSS T VISIT 15 MINUTES OFFICE 78282 JOSEF BAHENA OUTPATIEN 1 1 OLU OLU T NEW 30 MINUTES HOSPITAL NIDIA - 1 1 [facility] OUTPATIEN INC T OFFICE 06181 SMILEY SMILEY OUTPATIEN 1 1 RUSS RUSS T VISIT 15 MINUTES HOSPITAL NIDIA - 1 1 [facility] OUTPATIEN INC T EMERGENCY 35124 YULIYA ROSAS 1 1 EMERGENCY [facility] DEPARTMEN SERVICES T VISIT HIGH/URGE NT SEVERITY HOSPITAL NIDIA - 1 1 [facility] OUTPATIEN INC T EMERGENCY 46444 NIDIA 1 1 [facility] DEPARTMEN INC T VISIT LOW/MODER SEVERITY OFFICE 96005 SMILEY SMILEY OUTPATIEN 1 1 RUSS RUSS T NEW 30 MINUTES HOSPITAL NIDIA - 1 1 [facility] OUTPATIEN INC T INITIAL 32314 WOMEN'S BALL PREVENTIV 1 1 [facility] MEDICINE LINDA NEW PATIENT 40-64YRS
--- OUTSIDE RECORDS SUMMARY | 2017-08-15 15:42 | External Medical Summary Rpt ---
[...] MAY HAVE ADVERSE PSYCHO- SOCIAL IMPACT, THE [facility] MMENDS RETESTI NG.\.br \This report contain s [...]
--- OUTSIDE RECORDS SUMMARY | 2017-08-15 15:42 | External Medical Summary Rpt | CCD ---
Demographics Preferred Language Pashto Marital Status Unknown Denominational Affiliation Unknown Race Unknown Ethnic Group Unknown Author Author , LUDIN NOLAND Address Unknown Phone Immunization No patient found.
--- OUTSIDE RECORDS SUMMARY | 2017-08-15 15:42 | External Medical Summary Rpt | CCD ---
Demographics Preferred Language Khmer Marital Status Unknown Holiness Affiliation Unknown Race Unknown Ethnic Group Unknown Author Author , LUDIN NOLAND Address Unknown Phone Immunization No patient found.
--- OUTSIDE RECORDS SUMMARY | 2017-08-15 15:42 | External Medical Summary Rpt ---
[...] MAY HAVE ADVERSE PSYCHO- SOCIAL IMPACT, [facility] RET[facility] NG.\.br \This report contain s [...]
== END 2017-08-09 17:08 | disposition home or self-care (01) ==
LOC: UTC 16:09
DX: R21 Rash and other nonspecific skin eruption (principal); Z88.0 Allergy status to penicillin; I10 Essential (primary) hypertension; J45.909 Unspecified asthma, uncomplicated

== ENCOUNTER 2017-09-28 18:52 | Emergency (ER) | payer SELFPAY ==
[~2017-09-28] VITALS: Ht 165.1 cm; Wt 128.4 kg
[~2017-09-28 18:52] MED LIST changes: +GENTAMICIN O5 ML/BOT OP; +HYDROCORTISONE 1%1 % TP
--- OUTSIDE RECORDS SUMMARY | 2017-09-28 19:34 | External Medical Summary Rpt ---
Author Author [employer], [employer] Organization [employer] Address Unknown [...] MAY HAVE ADVERSE PSYCHO- SOCIAL IMPACT, [facility] RET[facility] NG.\.br \This report contain [...]
--- OUTSIDE RECORDS SUMMARY | 2017-09-28 19:34 | External Medical Summary Rpt | CCD ---
Demographics Preferred Language Yakut Marital Status Unknown Latter Day Affiliation Unknown Race Unknown Ethnic Group Unknown Author Author , LUDIN NOLAND Address Unknown Phone Immunization No patient found.
--- OUTSIDE RECORDS SUMMARY | 2017-09-28 19:34 | External Medical Summary Rpt | CCD ---
Author Author , LUDIN BOURNEBELEM Address Unknown Phone [email or web address] Care Team Providers Care Environmental Services Director Name Role Phone May Grover MD, Unavailable Unavailable May Guillory MD, Unavailable Unavailable Titus Guillory MD Purpose Continuity of Care Document - 03-09-2013 through 2016 Problems Code Diagnosis DOS Provider Status 327.23 327.23 10-03-2013 [place] OBSTRUCTIVE [facility] SLEEP [facility] APNEA (ADULT) (PEDIATRIC) 401.9 401.9 10-03-2013 [place] HYPERTENSIO [facility] N NOS Hospital 427.9 427.9 10-03-2013 [place] CARDIAC [facility] DYSRHYTHMIA Hospital NOS 530.81 530.81 10-03-2013 [place] ESOPHAGEAL [facility] REFLUX Hospital 786.59 786.59 10-03-2013 [place] CHEST PAIN [facility] V14.0 V14.0 10-03-2013 [place] HX-PENICILL [facility] IN ALLERGY Hospital V14.8 V14.8 10-03-2013 [place] HX-DRUG [facility] ALLERGY [facility] V15.82 V15.82 10-03-2013 [place] HISTORY OF [facility] TOBACCO USE [facility] V58.69 V58.69 OTH 10-03-2013 [place] MED,LT,CURR [facility] ENT USE Hospital 786.05 786.05 04-14-2013 [place] SHORTNESS [facility] OF BREATH [facility] S93.609A UNSPECIFIED SPRAIN OF UNSPECIFIED FOOT, INITIAL ENCOUNTER Allergies, Adverse Reactions, Alerts Type Drug Allergy Adverse Reaction to Substance Substance Reaction Severity Penicillin H-OLBNEY-BEEG/THROAT Unknown Tetanus Toxoid UNKNOWN REACTION Unknown Medications Na ND Rx Da Fi Fi Am Da Di Ph RX Ph St me C No te ll ll ou ys ag ar # ys at rm s nt no ma ic us Or Da si cy ia de te s n re d As 63 12 0 No pi 73 -0 ri 90 1- Lo n 02 20 ng EC 30 13 er 1 32 Ac 5M ti G ve Ta bl et TR 00 12 0 No IA 37 -0 MT 81 1- Lo ER 35 20 ng EN 20 13 er E- 1 HC Ac TZ ti ve 37 .5 -2 5 MG TB IN 00 11 1 No OT 00 -3 [...] Ac G ti Ta ve bl et Vital Signs 10-03-2013 12:32 Name Value Interpretat [...] 013 mmoL/L ed SerPl-s 19:54 Cnc CO2 10-02- 28 21.0-32 complet SerPl-s 013 mmoL/L .0 ed Cnc 19:54 Calcium 10-02-2 7.8 8.5-10. complet 013 mg/dL 1 ed SerPl-m 19:54 Cnc Prot 30-2 6.7 6.4-8.2 complet SerPl-m 013 gm/dL ed [...] complet SerPl-c 013 ed Cnc 19:54 ALT 11-30-2 37 U/L 30-65 complet SerPl-c 013 ed Cnc 19:54 ALP 11-30-2 94 U/L 50-136 complet SerPl-c 013 ed [...] 013 K/mm3 ed Bld 19:54 Auto Lymphoc 30-2 1.0 0.7-4.5 complet ytes Fr 013 K/mm3 ed Bld 19:54 Auto Monocyt 30-2 0.3 0.1-1.0 complet es # 013 K/mm3 [...] with AUTO DIFF (04-14-2013 12:18) WBC # 06-12-2 7.3 4.8-10. complet Bld 013 K/MM3 8 ed Auto 12:18 RBC # 06-12-2 4.39 4.2-5.4 complet Bld 013 M/mm3 ed Auto 12:18 Hgb 06-12-2 13.1 12.2-16 complet Bld-mCn 013 g/dL .2 ed c 12:18 Hct Fr 12-2 39.1 % 37.0-47 complet Bld 013 .0 ed 12:18 MCV RBC 12-2 89.1 fl 82.2-97 complet 013 .8 ed 12:18 MCH RBC 12-2 29.8 pg 27-31.2 complet Qn 013 ed Auto 12:18 MEAN --2 33.5 31.8-35 complet CORPUSC 013 g/dl .4 ed ULAR 12:18 HGB CONC RDW RBC 04-14-2 13.0 % 11.5-17 complet Auto 013 .5 ed 12:18 Platele 12-2 305 142-424 complet t Bld 013 K/mm3 ed Ql 12:18 Manual MEAN 04-14-2 7.4 fl 7.4-10. complet PLATELE 013 4 ed T 12:18 VOLUME Granulo -12-2 66.4 % 37.0-80 complet cytes 013 .0 ed Fr Bld 12:18 Auto LYMPH % -12-2 26.3 % 10-50.0 complet 013 ed 12:18 Monocyt 0612-2 3.9 % 1.7-9.3 complet es Fr 013 ed Bld 12:18 Auto Eosinop -12-2 2.6 % 0.1-12. complet hil Fr 013 0 ed Bld 12:18 Auto Basophi -12-2 0.7 % 0.1-2.0 complet ls Fr 013 [...] 013 K/mm3 ed Bld 12:18 Auto Basophi 0.1 0-0.2 complet ls # 013 K/MM3 [...] by Probe & target amplifi cation method Encounters Encounter Start End Date Code Location Performer Type Date Inpatient FABIOLA Guillory MD (IN) 3 20:02 3 12:20 [facility] Emergency JONI Grover MD (ER) 3 11:55 3 15:55 [facility]
--- OUTSIDE RECORDS SUMMARY | 2017-09-28 19:34 | External Medical Summary Rpt ---
[...] MAY HAVE ADVERSE PSYCHO- SOCIAL IMPACT, THE [facility] MM[facility]DS RETESTI NG.\.br \This report contain s [...]
--- OUTSIDE RECORDS SUMMARY | 2017-09-28 19:34 | External Medical Summary Rpt | CCD ---
Author Author [employer]duent Organization [employer] Address Unknown Phone Unavailable Purpose Continuity of Care Document - through 2016
--- OUTSIDE RECORDS SUMMARY | 2017-09-28 19:34 | External Medical Summary Rpt | CCD ---
Author Author , LUDIN BOURNEBELEM Address Unknown Phone [email or web address] Care Team Providers Care Cocktail Lounge Manager Name Role Phone May Grover MD, Unavailable Unavailable May Guillory MD, Unavailable Unavailable Titus Guillory MD Purpose Continuity of Care Document - 03-09-2013 through 2016 Problems Code Diagnosis DOS Provider Status 327.23 327.23 10-03-2013 [place] OBSTRUCTIVE [facility] SLEEP [facility] APNEA (ADULT) (PEDIATRIC) 401.9 401.9 10-03-2013 [place] HYPERTENSIO [facility] N NOS Hospital 427.9 427.9 10-03-2013 [place] CARDIAC [facility] DYSRHYTHMIA Hospital NOS 530.81 530.81 10-03-2013 [place] ESOPHAGEAL [facility] REFLUX Hospital 786.59 786.59 10-03-2013 [place] CHEST PAIN [facility] V14.0 V14.0 10-03-2013 [place] HX-PENICILL [facility] IN ALLERGY Hospital V14.8 V14.8 10-03-2013 [place] HX-DRUG [facility] ALLERGY [facility] V15.82 V15.82 10-03-2013 [place] HISTORY OF [facility] TOBACCO USE [facility] V58.69 V58.69 OTH 10-03-2013 [place] MED,LT,CURR [facility] ENT USE Hospital 786.05 786.05 04-14-2013 [place] SHORTNESS [facility] OF BREATH [facility] S93.609A UNSPECIFIED SPRAIN OF UNSPECIFIED FOOT, INITIAL ENCOUNTER Allergies, Adverse Reactions, Alerts Type Drug Allergy Adverse Reaction to Substance Substance Reaction Severity Penicillin K-WUUBLW-XOYY/THROAT Unknown Tetanus Toxoid UNKNOWN REACTION Unknown Medications [...] ve 37 .5 -2 5 MG TB MO 00 11 1 No OT 00 -3 [...] Code Location Performer Type Date Inpatient FABIOLA Guilloyr MD (IN) 3 20:02 3 12:20 [facility] Emergency JONI Grover MD (ER) 3 11:55 3 15:55 [facility]
--- OUTSIDE RECORDS SUMMARY | 2017-09-28 19:34 | External Medical Summary Rpt | CCD ---
Demographics Preferred Language Tajik Marital Status Unknown Alevism Affiliation Unknown Race Unknown Ethnic Group Unknown Author Author , LUDIN NOLAND Address Unknown Phone Immunization No patient found.
--- NOTE | 2017-09-28 19:35 | Emergency Room Report ---
See Addendum History of Present Illness Time Seen by MD Lyon Presenting Problem in Triage Pt arrived:Walked Presenting Problem:PT BENT OVER TO PUT FOOD IN REFRIDGERATOR AND HER RIGHT HIP POPPED SHE STATES SHE FEELS LIKE IT IS DISLOCATED. PT IS WEIGHT BEARING WITH PAIN. 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 N Clinical Suspician of Infection? N Mental Status: 1 - Regular (Normal Baseline) Sepsis Risk:Low Sepsis Risk Have you (or family members/close friends) recently traveled outside the [place]? N If Yes, where/when: Have you had exposure to infectious disease within the past month? N TB? Other? Specify: Source patient, RN notes reviewed Exam Limitations no limitations Comment Pt states she has had problems with her knees and ankles for along time but tonight she bent over to put some food in the bottom of the refrigerator and felt a pop in her right hip. She says it feels like it is dislocated but she is ambulatory with crutches in the ED now. Cardiac Chest Pain Chest pain indicative of cardiac No ALLERGIES Coded Allergies: Penicillins (02/27/16) tetanus and diphtheria toxoids (TETANUS & DIPHTHERIA TOXOIDS) (02/27/16) venom-honey bee (BEE VENOM (HONEY BEE)) (02/27/16) History Medical History General CAD? No Angina: No CT: No Hypertension? Yes Hyperlipidemia? No CHF? No DVT? No PE? No COPD? No Asthma? Yes Anemia? No GERD? No Gastric ulcers? No GI Bleed? No Hernia? No Thyroid Problems? No Hypothyroidism? No CVA? No Seizures? No Diabetes? No Renal Insuffiency? No End Stage Renal Disease? No UTI? No Stones? No BPH? No GB Disease: Yes Nephritic Syndrome? No Asplenia? No Hepatitis? No Sickle Cell Disease? No Arthritis? No Migraines? No Cataracts? No Glaucoma? No MRSA? No HIV? No TB? No Anxiety? No Depression? No Cancer? Yes Site: CERVICAL Immunization Hx DT/Tetanus Unknown Flu RECD IN [place] Pneumonia Never Had Surgical Hx Previous Surgery?Y TUMOR L SIDE FX L ARM D & C Gallbladder SINUS Family History Family Hx Diabetes Yes CAD Yes Hypertension Yes Hyperlipidemia Yes Cancer Yes TB No Social History Smoking Hx Smoker: Never Smoker Tobacco: No Packs/day < 1 Pack Alcohol Alcohol: No Review of Systems All Other Systems Reviewed and Negative Constitutional see HPI Musculoskeletal see HPI Physical Exam Vital Signs Vital Signs Date Time Temp Pulse Resp B/P Pulse O2 O2 Flow FiO2 Ox Delivery Rate 09/28 2032 98.3 68 18 151/91 97 09/28 1857 97.9 68 18 169/88 97 General Appearance normal appearance, moderate distress, obese Respiratory Status No: respiratory distress. Lung Sounds bilateral: normal breath sounds. Cardiovascular normal exam, regular rate/rhythm Extremities pain over the right hip Neurologic alert, health psychologist II-XII nml as tested, normal exam Medical Decision Making LABS/Meds/Orders Pt receiving controlled substance in ED? No Results/Orders Orders Procedure Date/time Status HIP RT 2-3V W/PELVIS IF PERFOR 09/28 1907 Active Departure Departure Time of Disposition 2034 Disposition DC Home or Self Care(routine) Clinical Impression Primary Impression: Pain in right hip Condition STABLE Referrals NO REFERRAL (Family) Additional Instructions Alternate Ice and heat and continue with whichever modality helps the most. If not better in 3 to 4 days, followup with PCP to get MRI of hip Discharge Counseling Counseled pt/family regarding diagnosis, test results, medications/RX, home care, follow up needs Prescriptions Current Visit Scripts DICLOFENAC SODIUM (Diclofenac 50MG) 50 MG PO BID #60 TAB Methocarbamol (Robaxin) 500 MG PO BID #60 TAB ED Critical Care Critical Care No If Critical Care minutes are documented, the time involved in the performance of seperately reportable procedures was not counted toward critical care time documented. I directly delivered medical care to this critically ill and/or injured patient. Timely evaluation and treatment was necessary to address the significant organ system(s) dysfunction present in this patient. at 2042
[2017-09-28] MEDS ORDERED: ROBAXIN500 M1 PO (20:42)
[2017-09-28] MEDS ORDERED: DICLOFENAC 50MG50 MG PO (20:42)
--- NOTE | 2017-09-28 21:54 | RADIOLOGY REPORT PS360 ---
CT PELVIS W/O CONTRAST Ordering Physician: Mika Cheema MD Patient Age: 62 years: Female HISTORY: RT HIP PAIN, BENT OVER AND FELT POP IN RT HIP TECHNIQUE: Thin section Helical CT scanning performed through the pelvis with coronal reconstructions. Diffuse in the sagittal reconstruction continues and sagittal reconstruction COMPARISON :Plain films right hip from today as well as 07/01/2007 AP pelvis right hip radiograph FINDINGS . The right hip is intact with no good evidence fracture evident. The right femoral head and neck appear normal The right hip demonstrates maintained with only borderline narrowing superior right hip joint space. . Acetabulum is intact. No gross joint effusion. Large patient decreases resolution. . Muscles fairly symmetric. Small bowel. Generous fluid with scattered modest air-fluid levels at distal small bowel most notable left lower abdomen and pelvis.. Uterus appears normal size no adnexal masses. No evidence of appendicitis. Scattered small moderate benign-appearing inguinal nodes. The sacrum appears intact. Small sclerotic bone island likely accounts for the small 7.5 cm sclerotic focus right sacrum. Also a small less than 6 mm sclerotic bone island at medial aspect of the right femoral head noted coronal image 63. These evident on previous studies from 2006 supporting benign character. .. Hypertrophic facet changes bilaterally at at L5/S1 and L4/5 noted. 1.5 cm Benign hemangioma inferior L4. IMPRESSION: 1. No acute fracture.. Right hip appears intact. Pelvis intact. Degenerative facet changes L5/S1 L4/5 noted.
--- NOTE | 2017-09-28 21:55 | RADIOLOGY REPORT PS360 ---
HIP RT 2-3V W/PELVIS IF PERFOR Ordering Physician: Mika Cheema MD Patient Age: 62 years: Female HISTORY: POSSIBLE HIP DISLOCATION TECHNIQUE: AP and frog-leg view right hip along with AP pelvis. COMPARISON :Right hip and AP pelvis from June 2007 FINDINGS Right hip appears intact with no fracture evident. Femoral head and neck intact. Trochanteric region unremarkable on plain film. When compared to 2006 there may be incremental narrowing at the inferior joint space but this is equivocal. The osseous pelvis appears intact. Superior and inferior ramus intact. Sacrum and SI joints appear stable and unremarkable. Degenerative facet changes lower L-spine again noted. IMPRESSION: No acute findings at the right hip. No fracture evident
[2017-09-28 22:56] VITALS: BP 155/88
== END 2017-09-28 23:05 | disposition home or self-care (01) ==
LOC: ER 18:52
DX: M25.551 Pain in right hip (principal); X50.0XXA Overexertion from strenuous movement or load, initial encounter; Y92.010 Kitchen of single-family (private) house as the place of occurrence of the external cause
CPT/HCPCS: J2405